=== PATIENT | female | born 1990 | race African-American/Black ===

== ENCOUNTER 2022-07-01 19:44 | Inpatient (IN) ==
[2022-07-01] MEDS ORDERED: SODIUM CHLORIDE 0.9% 1000ML 2,000 ML IV SCH (20:45)
[2022-07-01 21:17] LABS: Albumin Globulin Ratio 0.7 (0.9-2); Albumin Level 2.6 gm/dl (3.4-5.0); BUN Creatinine Ratio 19.7 (10-20); Bilirubin,Total 13.6 mg/dl (0.2-1.0); Calcium 6.8 mg/dl (8.5-10.1); Creatinine Clr Calc Pharmacy 38.4 ml/min; Est GFR (Non-African American) 33.6 ml/min; Globulin 3.6 gm/dl (2.5-4.0); Magnesium 2.8 mg/dl (1.7-2.4); Potassium 2.9 mmol/L (3.5-5.1); Total Protein 6.2 gm/dl (6.0-8.3)
[2022-07-01 21:28] LABS: INR 1.4 (0.9-1.1); Prothrombin Time 14.8 Seconds (9.0-12.0)
[2022-07-01] MEDS ORDERED: ACETAMINOPHEN 1,000 MG/100 ML VIAL IV STA (21:33)
[2022-07-01] MEDS ORDERED: PIPERACILLIN/TAZOBACTAM 4.5 GM/120 ML BAG IV ONE (21:41)
[2022-07-01 21:45] LABS: Basophils # (auto) 0.06 K/uL (0-0.2); Basophils % (auto) 0.4 %; Dohle Bodies 1+; Giant Platelets 1+; Hematocrit (blood only) 27.4 % (34.1-44.9); Hemoglobin 10.1 g/dl (12.0-16.0); Immature Granulocytes # (auto) 0.27 K/uL (0.00-0.02); Immature Granulocytes % (auto) 1.9 %; Lymphocytes # (auto) 0.57 K/uL (1.2-3.4); Mean Corpuscular Hemoglobin 29.6 pg (25.0-34.0); Mean Corpuscular Hgb Conc 36.9 g/dL (32.0-36.0); Mean Corpuscular Volume 80.4 fL (80.0-100.0); Monocytes # (auto) 1.08 K/uL (0.24-0.82); Monocytes % (auto) 7.5 %; Neutrophils # (auto) 12.34 K/uL (1.4-6.5); Neutrophils % (auto) 86.2 %; Platelet Count 54 K/uL (130-400); Platelet Estimate Decreased (Normal); Polychromasia 1+; RDW Coefficient of Variation 14.6 % (11.5-14.5); Red Blood Count 3.41 M/uL (3.93-5.22); Target Cells 2+; Toxic Vacuolation 3+; White Blood Count 14.32 K/ul (4.8-10.8)
[2022-07-01 22:07] LABS: Appearance Urine Turbid (Clear); Bacteria Urine Automated Negative (Negative); Blood Urine 3+ (Negative); Color Urine Dark Yellow; Epithelial Cell Urine Auto >30 /lpf (0-5); Glucose Urine UA Negative (Negative); Ketones Urine Negative (Negative); Leukocyte Esterase Urine Trace (Negative); Nitrite Urine Positive (Negative); Protein Urine 3+ (Negative); Specific Gravity Urine 1.017 (1.000-1.030); Urobilinogen Urine Negative (Negative)
[2022-07-01 22:09] LABS: Bilirubin Urine 3+ (Negative)
[2022-07-01] MEDS ORDERED: CALCIUM GLUCONATE 1,000 MG/60 ML BAG IV STA (22:12)
[2022-07-01 22:20] LABS: RBC Urine Automated 0-4 /hpf (0-4)
[2022-07-01 22:20] LABS: Adenovirus PCR Not Detected (NotDetected); Bordetella parapertussis PCR Not Detected (NotDetected); Bordetella pertussis PCR Not Detected (NotDetected); Chlamydia pneumoniae PCR Not Detected (NotDetected); Coronavirus 229E PCR Not Detected (NotDetected); Coronavirus CoV-2 (COVID19)PCR Not Detected (NotDetected); Coronavirus HKU1 PCR Not Detected (NotDetected); Coronavirus NL63 PCR Not Detected (NotDetected); Coronavirus OC43PCR Not Detected (NotDetected); Human Metapneumovirus PCR Not Detected (NotDetected); Influenza A PCR Not Detected (NotDetected); Influenza B PCR Not Detected (NotDetected); Mycoplasma pneumoniae PCR Not Detected (NotDetected); Parainfluenza Virus 1 PCR Not Detected (NotDetected); Parainfluenza Virus 2 PCR Not Detected (NotDetected); Parainfluenza Virus 3 PCR Not Detected (NotDetected); Parainfluenza Virus 4 PCR Not Detected (NotDetected); Respiratory Syncytial VirusPCR Not Detected (NotDetected); Rhinovirus/Enterovirus PCR Not Detected (NotDetected)
[2022-07-01 22:21] LABS: Cast Urine Automated >30 /lpf (0-5)
[2022-07-01] MEDS: POTASSIUM CHLORIDE / WTR 10 MEQ/100 ML PLCT IV SCH (22:36)
[2022-07-01 23:01] LABS: Pregnancy Test, Serum Negative (Negative)
[2022-07-01] MEDS ORDERED: POTASSIUM CHLORIDE 20 MEQ/15 ML UDC PO STA (23:31)
[2022-07-01] MEDS ORDERED: VANCOMYCIN CONSULT ACTIVE PRN (23:57)
[2022-07-02] MEDS ORDERED: OPTIRAY 350 100ml IV ONE (00:05)
[2022-07-02] MEDS: POTASSIUM CHLORIDE / WTR 10 MEQ/100 ML PLCT IV SCH ×4 (00:13→05:12)
[2022-07-02 00:52] LABS: Lyme Ab IgG w/WB Rflx Negative (Negative); Lyme Ab IgM w/WB Rflx Negative (Negative)
[2022-07-02] MEDS ORDERED: VANCOMYCIN HCL 1,750 MG in SODIUM CHLORIDE 0.9% 500 ML IV STA (00:57)
[2022-07-02] MEDS ORDERED: DOXYCYCLINE HYCLATE 100 MG in DEXTROSE 5% 100 ML IV SCH (01:00)
[2022-07-02 01:12] LABS: Amphetamines+Metham, Urine Neg (Neg); Barbiturates, Urine Neg (Neg); Benzodiazepine, Urine Neg (Neg); Cocaine, Urine Neg (Neg); MDMA (Ecstacy), Urine Neg (Neg); Methadone, Urine Neg (Neg); Opiate, Urine Neg (Neg); Phencyclidine, Urine Neg (Neg)
--- NOTE | 2022-07-02 01:30 | History and Physical Report ---
DATE OF ADMISSION: 07/01/2022. CHIEF COMPLAINT: Ongoing illness, sore throat. HISTORY OF PRESENT ILLNESS: A 31-year-old female with past medical history significant for asthma, currently not taking any medications, presents with sore throat, nausea, diarrhea. The patient was in the ER on 06/24/2022 with nausea, vomiting, diarrhea and sore throat. At that time, her white count was 2.3, platelets were 115. CT of abdomen and pelvis was unremarkable. Her COVID and flu and RSV were negative. Strep were negative. LFTs, bilirubin were unremarkable. Lipase and were negative. UA was clean. She improved after Zofran, morphine, and fluids and she was discharged to follow as outpatient. The patient says nausea is better now. Her appetite is better than last week. But she was having a lot of sore throat and painful to swallowing. She lives with her brother and [id number] and brother noticed that she has yellowing of skin and brought her into the hospital. She did not feel she has any fever at home, but she was spiking temperature 39.1 and 40 degrees in the ER and tachycardic. Blood pressure is holding. Her white count is 14, hemoglobin was 14 last week, it is 10.1 today, platelets are down to 54. INR is 1.4. Sodium 126, potassium 2.9. Creatinine was 1.5 last week and is 1.9 today. Calcium is 6.8. Total bilirubin was normal last week, it is 13.6 today. AST 108, ALT 61, alkaline phosphatase 122. Urinalysis positive for nitrite. Respiratory BioFire is negative. The patient also noticed erythema and swelling in the right hand on the dorsal aspect below the second and third fingers. Denies any tick bites. Denies any IV drug abuse or sticking of needles. Feeling weak and tired. Denies any chest pain. She has some shortness of breath. Denies any abdominal pain. No blood in the stools. Urine is dark. Denies any headache. No blurred visions, no runny nose. ALLERGIES: No known drug allergies. PAST MEDICAL HISTORY: As mentioned above. PAST SURGICAL HISTORY: Denies any surgical history FAMILY HISTORY: Denies any family history. SOCIAL HISTORY: Denies smoking, denies alcohol, denies any drug use. REVIEW OF SYSTEMS: As per HPI. Rest of review of systems is negative. PHYSICAL EXAMINATION: GENERAL: The patient is of moderate build, currently not in acute distress. VITAL SIGNS: Temperature T-max 40 degrees, pulse 120s, currently in low 100s, respiratory rate 20s, blood pressure 120/51, oxygen 95% on room air. HEENT: Icterus present. Pupils equal, round, and reactive to light. Oral mucosa moist. Could not examine the back of the throat. NECK: No obvious neck masses seen. Seems supple. CARDIOVASCULAR: S1 and S2 heard. Tachycardia. No murmurs. RESPIRATORY SYSTEM: Normal AP diameter. No accessory muscle use. No wheezing, no crackles. ABDOMEN: Soft, bowel sounds present, nontender, no distention. CENTRAL NERVOUS SYSTEM: Alert and oriented, speaking in low voices. Speech is clear. No facial droop. Insight is okay. Obeys simple commands. Moves extremities. EXTREMITIES: Has rash, erythema and swelling in the right hand on the dorsal aspect below the second and third fingers. LABORATORY DATA: WBC 14, hemoglobin 10.1, hematocrit 27.4, platelets 54. PT 14.8, INR 1.4. Sodium 126, potassium 2.9, chloride 90, bicarbonate 22, BUN 38, creatinine 1.9, serum glucose 94, calcium 6.8, magnesium 2.8, total bilirubin 13.6, AST 108, ALT 61, alkaline phosphatase 122. TSH 0.4. HCG qualitative negative. Urinalysis, +3 protein, +3 blood and bilirubin and positive for nitrite. Respiratory biofire unremarkable. IMAGING DATA: CT head, CT chest, and CT abdomen and pelvis and soft tissue neck CT results are pending. Chest x-ray, no acute findings. EKG: Sinus tachycardia at a rate of 120. No acute ST changes seen. ASSESSMENT AND PLAN: This is a 31-year-old female who presents with ongoing illness with nausea, diarrhea, weakness and sore throat and painful swallowing and found to have elevated LFTs and anemia and thrombocytopenia, hyponatremia, hypokalemia, and hypocalcemia. 1. Mostly sepsis with tachycardia, temperature spike, elevated white count, sore throat, possible UTI. Will also rule out any tick bite as the patient has rash on the wrist and has thrombocytopenia. Ordered Lyme screen and peripheral anaplasmosis smear. Follow the cultures. Empirically starting on Zosyn, vancomycin, and doxycycline. IV fluids, normal saline at 125 mL per hour. Follow the lactic acid level. Closely monitor in tele floor. Follow the repeat labs. 2. Elevated LFTs. They were normal on 06/24/2022. Today bilirubin is 13.6, AST 108, ALT 61, alkaline phosphatase 122. CT abdomen and pelvis was normal last week. Will follow CAT scan ordered today. Will follow the repeat labs. Will follow the viral hepatitis panel. Consult GI for further recommendations. 3. Hypocalcemia: Will replace. Follow the repeat labs. 4. Hyponatremia: Getting fluids. Will follow the repeat labs. Consult nephrology in the a.m. 5. Hypokalemia: Will replace. 6. Acute kidney injury: Creatinine of 1.9. We do not have the baseline, last week it was 1.5. Will follow the repeat labs. 7. Deep venous thrombosis prophylaxis: Sequential compression devices for now. Addendum: Ct soft neck preliminary report showing left tonsillar abscess extending into deep tissues. D/w and consulted ENT. ON iv zosyn and iv vanco. NPO. CT chest showing multiple nodules and cavitary lesions. Questionable septic emboli. Will follow final report. Abx as above and consulted Pulmonary. Close monitor. DISPOSITION: Closely monitor in the tele floor. Level 1 full code. Expect to discharge home and follow with family doctor. Job ID: [id number] [facility]
--- NOTE | 2022-07-02 01:42 | Emergency Department Note ---
Impression & Plan Abscess of tonsil, Septic pulmonary embolism, Fever ED Provider Note CHIEF COMPLAINT: Fever, sore throat, neck swelling, weakness HISTORY OF PRESENT ILLNESS: This 31-year-old female patient presents to the emergency department with complaints of a fever, sore throat, neck tightness and weakness. She states symptoms have been present for a week or more and seem to be progressing. She was evaluated here several days ago for nausea and vomiting and seemed to be improving. Laboratory work at that time revealed a mild leukopenia, hypokalemia and renal insufficiency. Pt also c/o mild JACINTO. Patient states her symptoms have only been progressing and today her brother noticed that she had yellow eyes. Patient denies any significant alcohol consumption or substance abuse. She does note that today when she woke up her left hand had significant swelling and redness. She denies any specific trauma to this area but states it is sore. The redness also extends from the palmar surface to the dorsal surface of the hand. REVIEW OF SYSTEMS: A review of systems was performed with positives and pertinent negatives listed in the history of present illness. 10 systems were reviewed and are otherwise negative. ALLERGIES: see below MEDICATIONS: see below PMH: see below SOCIAL HISTORY: see below DDx: Infection, dehydration, metabolic abnormality, hypo/hyperglycemia, electrolyte disturbance, anemia, hypoxia, cardiac sources, intracerebral event, toxicologic, neurologic, as well as other pathologies. PHYSICAL EXAM: Vital signs reviewed. Febrile and tachycardic. General: Ill-appearing 31-year-old female. Frail HEENT: Positive scleral icterus, PERRLA, significant lymphadenopathy bilateral submandibular region and anterior cervical chain. TMs with mild erythema and posterior clear/serous fluid on the left, right TM is obscured by cerumen. Positive trismus,unable to visualize the posterior oropharynx. Cardiovascular: Tachycardic, regular. Pulmonary: Faint scattered wheezes with occasional crackles to auscultation bilaterally, normal work of breathing. Abdomen: Soft, nontender, nondistended, positive bowel sounds. Musculoskeletal: Atraumatic, no peripheral edema. Neurologic: Patient awake alert and oriented x 3, speech is clear Skin: Warm, dry, no rash EMERGENCY DEPARTMENT COURSE/MDM: Patient was evaluated and appeared to be in no significant distress. IV access was obtained and laboratory work was drawn. The patient was placed on residential monitor and noted to be in a sinus tachycardia. She was febrile. Patient's laboratory work is significantly de ranged. She does have an elevated WBC, hyponatremia, hypokalemia, creatinine of 1.96 with elevated LFTs including a bilirubin of 13. Patient was given 2 L of IV normal saline solution. CT imaging of the head, soft tissue neck, chest and abdomen was performed and reveals what is likely to be septic emboli per radiology. Please see the formal read below. Patient did receive blood cultures and a lactate, she was medicated with IV Zosyn. CT imaging of the soft tissues of the neck reveals 2 separate tonsillar abscesses. Patient was advised of the findings and plan. Case has been discussed with the [facility] hospitalist for admission and further management. Patient was expressed understanding and agrees. MONITORING: An order for cardiac monitoring was placed and the patient is noted to be in a sinus tachycardia at 124 beats per minute. RADIOLOGY: See below EKG: Sinus tachycardia at [address] segments. QTC is 449. No PVC, no PAC. No previous EKG for comparison. DISPOSITION: Admission Past Med/Surg History Medical History HARRY (acute kidney injury) Anemia Asthma Cavitary pneumonia Electrolyte and fluid disorder Elevated LFTs Lemierre syndrome Sepsis Thrombocytopenia Surgical History Hx of peritonsillar abscess drainage Family History Other Family history non-contributory Social History Smoking Status: Former smoker Second Hand Exposure: No; Do You Dip or Chew Tobacco: No; Hx Alcohol Use: No Hx Substance Use: No Preferred Language: Jamaican Communication Ability: Impaired Prosthetic Aides Teacher Required: No Beliefs That Will Affect Care: None Current Living Situation: Family Feels Safe at Home: Yes Safety Concerns: Feels Safe At This Time Assistive Devices: None Allergies Allergies Allergy/AdvReac Type Severity Reaction Status Date / Time No Known Allergies Allergy Verified 07/01/22 23:49 Home Meds Home Medications Medication Instructions Recorded Confirmed No Known Home Medications 07/01/22 07/01/22 Results & Data (ED) Vital Signs Vital Signs - 24 hr 07/01/22 19:35 07/01/22 19:36 07/01/22 20:38 Temperature 39.1 C H 39.1 C H Temperature Source Oral Oral Pulse Rate 124 H 128 H Pulse Rate [Apical] 124 H Pulse Rate from SpO2 Sensor Pulse Rhythm Regular Regular Pulse Rhythm [Apical] Regular Pulse Strength Normal Respiratory Rate 22 22 18 Respiratory Effort / Characteristics Non-Labored Respiratory Depth Normal Respiratory Pattern Regular Blood Pressure 149/71 H Blood Pressure Mean 97 Pulse Oximetry 96 99 98 Oxygen Delivery Method Room Air Room Air Room Air Sepsis New/Unexplained Change in Mental Status No Sepsis Action Taken by Nursing Previously Notified 07/01/22 22:49 07/01/22 20:12 07/01/22 20:30 Temperature 40 C H Temperature Source Oral Pulse Rate 118 H 125 H Pulse Rate [Apical] Pulse Rate from SpO2 Sensor 117 H 128 H Pulse Rhythm Pulse Rhythm [Apical] Pulse Strength Respiratory Rate 25 H 32 H Respiratory Effort / Characteristics Respiratory Depth Respiratory Pattern Blood Pressure 111/71 109/85 Blood Pressure Mean 84 93 Pulse Oximetry 99 96 Oxygen Delivery Method Sepsis New/Unexplained Change in Mental Status Sepsis Action Taken by Nursing 07/01/22 21:00 07/01/22 21:30 07/01/22 22:00 Temperature Temperature Source Pulse Rate 121 H 127 H 135 H Pulse Rate [Apical] Pulse Rate from SpO2 Sensor 123 H 130 H 136 H Pulse Rhythm Pulse Rhythm [Apical] Pulse Strength Respiratory Rate 17 27 H 29 H Respiratory Effort / Characteristics Respiratory Depth Respiratory Pattern Blood Pressure 142/70 H 124/73 141/72 H Blood Pressure Mean 94 90 95 Pulse Oximetry 95 100 95 Oxygen Delivery Method Sepsis New/Unexplained Change in Mental Status Sepsis Action Taken by Nursing 07/01/22 22:30 07/02/22 00:00 07/01/22 23:00 Temperature 38.4 C H Temperature Source Oral Pulse Rate 127 H 118 H Pulse Rate [Apical] Pulse Rate from SpO2 Sensor 118 H Pulse Rhythm Pulse Rhythm [Apical] Pulse Strength Respiratory Rate 29 H 22 Respiratory Effort / Characteristics Respiratory Depth Respiratory Pattern Blood Pressure 122/51 L 106/52 L Blood Pressure Mean 74 70 Pulse Oximetry 96 Oxygen Delivery Method Sepsis New/Unexplained Change in Mental Status Sepsis Action Taken by Nursing 07/01/22 23:30 07/02/22 00:16 Temperature Temperature Source Pulse Rate 114 H 117 H Pulse Rate [Apical] Pulse Rate from SpO2 Sensor 116 H 118 H Pulse Rhythm Pulse Rhythm [Apical] Pulse Strength Respiratory Rate 27 H 25 H Respiratory Effort / Characteristics Respiratory Depth Respiratory Pattern Blood Pressure 136/66 136/62 Blood Pressure Mean 89 86 Pulse Oximetry 99 95 Oxygen Delivery Method Sepsis New/Unexplained Change in Mental Status Sepsis Action Taken by Shelter Medications Current Medication List: was personally reviewed by me Laboratory Data Attestation: I reviewed the patient's lab results. Result diagrams: 07/07/22 05:27 07/07/22 05:27 Lab Results 07/01/22 07/01/22 07/01/22 Range/Units 20:00 20:00 20:00 WBC 14.32 H (4.8-10.8) K/ul RBC 3.41 L (3.93-5.22) M/uL Hgb 10.1 L (12.0-16.0) g/dl Hct 27.4 L (34.1-44.9) % MCV 80.4 (80.0-100.0) fL MCH 29.6 (25.0-34.0) pg MCHC 36.9 H (32.0-36.0) g/dL RDW Std Deviation 42.0 (36.4-46.3) fL RDW Coeff of Carrol 14.6 H (11.5-14.5) % Plt Count 54 L (130-400) K/uL Immature Gran % (Auto) 1.9 % Neut % (Auto) 86.2 % Lymph % (Auto) 4.0 % [place] % (Auto) 7.5 % Eos % (Auto) 0.0 % Baso % (Auto) 0.4 % Neut # (Auto) 12.34 H (1.4-6.5) K/uL Lymph # (Auto) 0.57 L (1.2-3.4) K/uL [place] # (Auto) 1.08 H (0.24-0.82) K/uL Eos # (Auto) 0.00 (0-0.50) K/uL Baso # (Auto) 0.06 (0-0.2) K/uL Immature Gran # (Auto) 0.27 H (0.00-0.02) K/uL Toxic Vacuolation 3+ Dohle Bodies 1+ Platelet Estimate Decreased L (Normal) Giant Platelets 1+ Polychromasia 1+ Target Cells 2+ PT 14.8 H (9.0-12.0) Seconds INR 1.4 H (0.9-1.1) Sodium 126 L (136-145) mmol/L Potassium 2.9 L (3.5-5.1) mmol/L Chloride 90 L (98-107) mmol/L Carbon Dioxide 22 (21-32) mmol/L Anion Gap 14 H (3-11) BUN 38 H (6-23) mg/dl Creatinine 1.93 H (0.6-1.2) mg/dl Est Cr Clr Drug Dosing 38.4 ml/min Est GFR ( Amer) 39.0 ml/min Est GFR (Non-Af Amer) 33.6 ml/min BUN/Creatinine Ratio 19.7 (10-20) Glucose 94 (70-99(Fasting)) mg/dl Lactate Calcium 6.8 L (8.5-10.1) mg/dl Magnesium 2.8 H (1.7-2.4) mg/dl Total Bilirubin 13.6 H (0.2-1.0) mg/dl AST 108 H (13-39) U/L ALT 61 H (7-52) U/L Alkaline Phosphatase 122 H (34-104) U/L Total Protein 6.2 (6.0-8.3) gm/dl Albumin 2.6 L (3.4-5.0) gm/dl Globulin 3.6 (2.5-4.0) gm/dl Albumin/Globulin Ratio 0.7 L (0.9-2) TSH (0.300-4.500) uIu/ml HCG, Qual (Negative) Urine Color Urine Appearance (Clear) Urine pH (4.5-7.5) Ur Specific [place] (1.000-1.030) Urine Protein (Negative) Urine Glucose (UA) (Negative) Urine Ketones (Negative) Urine Blood (Negative) Urine Nitrite (Negative) Urine Bilirubin (Negative) Urine Urobilinogen (Negative) Ur Leukocyte Esterase (Negative) Urine WBC (Auto) (0-5) /hpf Urine RBC (Auto) (0-4) /hpf U Hyaline Cast (Auto) (0-5) /lpf U Epithel Cells (Auto) (0-5) /lpf Urine Bacteria (Auto) (Negative) Granular Casts (0) /lpf Urine Yeast Urine Opiates Screen (Neg) Ur Methadone, Qual (Neg) Urine Barbiturates (Neg) Ur Phencyclidine (PCP) (Neg) U Amphetamin/Meth Scrn (Neg) MDMA (Ecstasy) Screen (Neg) U Benzodiazepines Scrn (Neg) Ur Cocaine Metabolite (Neg) U Marijuana (THC) Screen (Neg) U Marijuana THC Carboxy (<5) ng/mL Drug Screen Comment RPR (Nonreactive) Adenovirus (PCR) (NotDetected) Anaplasma Smear Babesia Smear Babesia microti DNA PCR (Not Detected) B. pertussis DNA (PCR) (NotDetected) B.parapertussis DNA PCR (NotDetected) Lyme Disease IgG Ab (Negative) Lyme Disease IgM Ab (Negative) C. pneumoniae DNA (PCR) (NotDetected) Coronavirus OC43 (PCR) (NotDetected) Coronavirus HKU1 (PCR) (NotDetected) Coronavirus 229E (PCR) (NotDetected) SARS-CoV-2 (PCR) (NotDetected) Coronavirus NL63 (PCR) (NotDetected) Hepatitis A IgM Ab (NON-REACTIVE) Hep Bs Antigen (NON-REACTIVE) Hep Bs Ag Confirmation Hep B Core IgM Ab (NON-REACTIVE) Hepatitis C Ab (EIA) (NON-REACTIVE) Hep C Ab Signal/Cutoff (<1.00) Monoscreen (Negative) Human Metapneumovir PCR (NotDetected) Influenza Type A (PCR) (NotDetected) Influenza Type B (PCR) (NotDetected) M. pneumoniae (PCR) (NotDetected) Parainfluenza 1 (PCR) (NotDetected) Parainfluenza 2 (PCR) (NotDetected) Parainfluenza 3 (PCR) (NotDetected) Parainfluenza 4 (PCR) (NotDetected) RSV (PCR) (NotDetected) Entero/Rhino (PCR) (NotDetected) Bld Cult ID Panel PCR (NotDetected) 07/01/22 07/01/22 07/01/22 Range/Units 20:00 20:00 20:00 WBC (4.8-10.8) K/ul RBC (3.93-5.22) M/uL Hgb (12.0-16.0) g/dl Hct (34.1-44.9) % MCV (80.0-100.0) fL MCH (25.0-34.0) pg MCHC (32.0-36.0) g/dL RDW Std Deviation (36.4-46.3) fL RDW Coeff of Carrol (11.5-14.5) % Plt Count (130-400) K/uL Immature Gran % (Auto) % Neut % (Auto) % Lymph % (Auto) % [place] % (Auto) % Eos % (Auto) % Baso % (Auto) % Neut # (Auto) (1.4-6.5) K/uL Lymph # (Auto) (1.2-3.4) K/uL [place] # (Auto) (0.24-0.82) K/uL Eos # (Auto) (0-0.50) K/uL Baso # (Auto) (0-0.2) K/uL Immature Gran # (Auto) (0.00-0.02) K/uL Toxic Vacuolation Dohle Bodies Platelet Estimate (Normal) Giant Platelets Polychromasia Target Cells PT (9.0-12.0) Seconds INR (0.9-1.1) Sodium (136-145) mmol/L Potassium (3.5-5.1) mmol/L Chloride (98-107) mmol/L Carbon Dioxide (21-32) mmol/L Anion Gap (3-11) BUN (6-23) mg/dl Creatinine (0.6-1.2) mg/dl Est Cr Clr Drug Dosing ml/min Est GFR ( Amer) ml/min Est GFR (Non-Af Amer) ml/min BUN/Creatinine Ratio (10-20) Glucose (70-99(Fasting)) mg/dl Lactate Calcium (8.5-10.1) mg/dl Magnesium (1.7-2.4) mg/dl Total Bilirubin (0.2-1.0) mg/dl AST (13-39) U/L ALT (7-52) U/L Alkaline Phosphatase (34-104) U/L Total Protein (6.0-8.3) gm/dl Albumin (3.4-5.0) gm/dl Globulin (2.5-4.0) gm/dl Albumin/Globulin Ratio (0.9-2) TSH 0.476 (0.300-4.500) uIu/ml HCG, Qual (Negative) Urine Color Urine Appearance (Clear) Urine pH (4.5-7.5) Ur Specific [place] (1.000-1.030) Urine Protein (Negative) Urine Glucose (UA) (Negative) Urine Ketones (Negative) Urine Blood (Negative) Urine Nitrite (Negative) Urine Bilirubin (Negative) Urine Urobilinogen (Negative) Ur Leukocyte Esterase (Negative) Urine WBC (Auto) (0-5) /hpf Urine RBC (Auto) (0-4) /hpf U Hyaline Cast (Auto) (0-5) /lpf U Epithel Cells (Auto) (0-5) /lpf Urine Bacteria (Auto) (Negative) Granular Casts (0) /lpf Urine Yeast Urine Opiates Screen (Neg) Ur Methadone, Qual (Neg) Urine Barbiturates (Neg) Ur Phencyclidine (PCP) (Neg) U Amphetamin/Meth Scrn (Neg) MDMA (Ecstasy) Screen (Neg) U Benzodiazepines Scrn (Neg) Ur Cocaine Metabolite (Neg) U Marijuana (THC) Screen (Neg) U Marijuana THC Carboxy (<5) ng/mL Drug Screen Comment RPR (Nonreactive) Adenovirus (PCR) (NotDetected) Anaplasma Smear Babesia Smear Babesia microti DNA PCR (Not Detected) B. pertussis DNA (PCR) (NotDetected) B.parapertussis DNA PCR (NotDetected) Lyme Disease IgG Ab (Negative) Lyme Disease IgM Ab (Negative) C. pneumoniae DNA (PCR) (NotDetected) Coronavirus OC43 (PCR) (NotDetected) Coronavirus HKU1 (PCR) (NotDetected) Coronavirus 229E (PCR) (NotDetected) SARS-CoV-2 (PCR) (NotDetected) Coronavirus NL63 (PCR) (NotDetected) Hepatitis A IgM Ab NON-REACTIVE (NON-REACTIVE) Hep Bs Antigen NON-REACTIVE (NON-REACTIVE) Hep Bs Ag Confirmation TNP Hep B Core IgM Ab NON-REACTIVE (NON-REACTIVE) Hepatitis C Ab (EIA) NON-REACTIVE (NON-REACTIVE) Hep C Ab Signal/Cutoff 0.02 (<1.00) Monoscreen Negative (Negative) Human Metapneumovir PCR (NotDetected) Influenza Type A (PCR) (NotDetected) Influenza Type B (PCR) (NotDetected) M. pneumoniae (PCR) (NotDetected) Parainfluenza 1 (PCR) (NotDetected) Parainfluenza 2 (PCR) (NotDetected) Parainfluenza 3 (PCR) (NotDetected) Parainfluenza 4 (PCR) (NotDetected) RSV (PCR) (NotDetected) Entero/Rhino (PCR) (NotDetected) Bld Cult ID Panel PCR (NotDetected) 07/01/22 07/01/22 07/01/22 Range/Units 20:00 20:00 20:00 WBC (4.8-10.8) K/ul RBC (3.93-5.22) M/uL Hgb (12.0-16.0) g/dl Hct (34.1-44.9) % MCV (80.0-100.0) fL MCH (25.0-34.0) pg MCHC (32.0-36.0) g/dL RDW Std Deviation (36.4-46.3) fL RDW Coeff of Carrol (11.5-14.5) % Plt Count (130-400) K/uL Immature Gran % (Auto) % Neut % (Auto) % Lymph % (Auto) % [place] % (Auto) % Eos % (Auto) % Baso % (Auto) % Neut # (Auto) (1.4-6.5) K/uL Lymph # (Auto) (1.2-3.4) K/uL [place] # (Auto) (0.24-0.82) K/uL Eos # (Auto) (0-0.50) K/uL Baso # (Auto) (0-0.2) K/uL Immature Gran # (Auto) (0.00-0.02) K/uL Toxic Vacuolation Dohle Bodies Platelet Estimate (Normal) Giant Platelets Polychromasia Target Cells PT (9.0-12.0) Seconds INR (0.9-1.1) Sodium (136-145) mmol/L Potassium (3.5-5.1) mmol/L Chloride (98-107) mmol/L Carbon Dioxide (21-32) mmol/L Anion Gap (3-11) BUN (6-23) mg/dl Creatinine (0.6-1.2) mg/dl Est Cr Clr Drug Dosing ml/min Est GFR ( Amer) ml/min Est GFR (Non-Af Amer) ml/min BUN/Creatinine Ratio (10-20) Glucose (70-99(Fasting)) mg/dl Lactate Calcium (8.5-10.1) mg/dl Magnesium (1.7-2.4) mg/dl Total Bilirubin (0.2-1.0) mg/dl AST (13-39) U/L ALT (7-52) U/L Alkaline Phosphatase (34-104) U/L Total Protein (6.0-8.3) gm/dl Albumin (3.4-5.0) gm/dl Globulin (2.5-4.0) gm/dl Albumin/Globulin Ratio (0.9-2) TSH (0.300-4.500) uIu/ml HCG, Qual Negative (Negative) Urine Color Urine Appearance (Clear) Urine pH (4.5-7.5) Ur Specific [place] (1.000-1.030) Urine Protein (Negative) Urine Glucose (UA) (Negative) Urine Ketones (Negative) Urine Blood (Negative) Urine Nitrite (Negative) Urine Bilirubin (Negative) Urine Urobilinogen (Negative) Ur Leukocyte Esterase (Negative) Urine WBC (Auto) (0-5) /hpf Urine RBC (Auto) (0-4) /hpf U Hyaline Cast (Auto) (0-5) /lpf U Epithel Cells (Auto) (0-5) /lpf Urine Bacteria (Auto) (Negative) Granular Casts (0) /lpf Urine Yeast Urine Opiates Screen (Neg) Ur Methadone, Qual (Neg) Urine Barbiturates (Neg) Ur Phencyclidine (PCP) (Neg) U Amphetamin/Meth Scrn (Neg) MDMA (Ecstasy) Screen (Neg) U Benzodiazepines Scrn (Neg) Ur Cocaine Metabolite (Neg) U Marijuana (THC) Screen (Neg) U Marijuana THC Carboxy (<5) ng/mL Drug Screen Comment RPR Nonreactive (Nonreactive) Adenovirus (PCR) (NotDetected) Anaplasma Smear See Comment Babesia Smear See Comment Babesia microti DNA PCR (Not Detected) B. pertussis DNA (PCR) (NotDetected) B.parapertussis DNA PCR (NotDetected) Lyme Disease IgG Ab Negative (Negative) Lyme Disease IgM Ab Negative (Negative) C. pneumoniae DNA (PCR) (NotDetected) Coronavirus OC43 (PCR) (NotDetected) Coronavirus HKU1 (PCR) (NotDetected) Coronavirus 229E (PCR) (NotDetected) SARS-CoV-2 (PCR) (NotDetected) Coronavirus NL63 (PCR) (NotDetected) Hepatitis A IgM Ab (NON-REACTIVE) Hep Bs Antigen (NON-REACTIVE) Hep Bs Ag Confirmation Hep B Core IgM Ab (NON-REACTIVE) Hepatitis C Ab (EIA) (NON-REACTIVE) Hep C Ab Signal/Cutoff (<1.00) Monoscreen (Negative) Human Metapneumovir PCR (NotDetected) Influenza Type A (PCR) (NotDetected) Influenza Type B (PCR) (NotDetected) M. pneumoniae (PCR) (NotDetected) Parainfluenza 1 (PCR) (NotDetected) Parainfluenza 2 (PCR) (NotDetected) Parainfluenza 3 (PCR) (NotDetected) Parainfluenza 4 (PCR) (NotDetected) RSV (PCR) (NotDetected) Entero/Rhino (PCR) (NotDetected) Bld Cult ID Panel PCR (NotDetected) 07/01/22 07/01/22 07/01/22 Range/Units 20:00 20:00 20:38 WBC (4.8-10.8) K/ul RBC (3.93-5.22) M/uL Hgb (12.0-16.0) g/dl Hct (34.1-44.9) % MCV (80.0-100.0) fL MCH (25.0-34.0) pg MCHC (32.0-36.0) g/dL RDW Std Deviation (36.4-46.3) fL RDW Coeff of Carrol (11.5-14.5) % Plt Count (130-400) K/uL Immature Gran % (Auto) % Neut % (Auto) % Lymph % (Auto) % [place] % (Auto) % Eos % (Auto) % Baso % (Auto) % Neut # (Auto) (1.4-6.5) K/uL Lymph # (Auto) (1.2-3.4) K/uL [place] # (Auto) (0.24-0.82) K/uL Eos # (Auto) (0-0.50) K/uL Baso # (Auto) (0-0.2) K/uL Immature Gran # (Auto) (0.00-0.02) K/uL Toxic Vacuolation Dohle Bodies Platelet Estimate (Normal) Giant Platelets Polychromasia Target Cells PT (9.0-12.0) Seconds INR (0.9-1.1) Sodium (136-145) mmol/L Potassium (3.5-5.1) mmol/L Chloride (98-107) mmol/L Carbon Dioxide (21-32) mmol/L Anion Gap (3-11) BUN (6-23) mg/dl Creatinine (0.6-1.2) mg/dl Est Cr Clr Drug Dosing ml/min Est GFR ( Amer) ml/min Est GFR (Non-Af Amer) ml/min BUN/Creatinine Ratio (10-20) Glucose (70-99(Fasting)) mg/dl Lactate Calcium (8.5-10.1) mg/dl Magnesium (1.7-2.4) mg/dl Total Bilirubin (0.2-1.0) mg/dl AST (13-39) U/L ALT (7-52) U/L Alkaline Phosphatase (34-104) U/L Total Protein (6.0-8.3) gm/dl Albumin (3.4-5.0) gm/dl Globulin (2.5-4.0) gm/dl Albumin/Globulin Ratio (0.9-2) TSH (0.300-4.500) uIu/ml HCG, Qual (Negative) Urine Color Urine Appearance (Clear) Urine pH (4.5-7.5) Ur Specific [place] (1.000-1.030) Urine Protein (Negative) Urine Glucose (UA) (Negative) Urine Ketones (Negative) Urine Blood (Negative) Urine Nitrite (Negative) Urine Bilirubin (Negative) Urine Urobilinogen (Negative) Ur Leukocyte Esterase (Negative) Urine WBC (Auto) (0-5) /hpf Urine RBC (Auto) (0-4) /hpf U Hyaline Cast (Auto) (0-5) /lpf U Epithel Cells (Auto) (0-5) /lpf Urine Bacteria (Auto) (Negative) Granular Casts (0) /lpf Urine Yeast Urine Opiates Screen Neg (Neg) Ur Methadone, Qual Neg (Neg) Urine Barbiturates Neg (Neg) Ur Phencyclidine (PCP) Neg (Neg) U Amphetamin/Meth Scrn Neg (Neg) MDMA (Ecstasy) Screen Neg (Neg) U Benzodiazepines Scrn Neg (Neg) Ur Cocaine Metabolite Neg (Neg) U Marijuana (THC) Screen Pos H (Neg) U Marijuana THC Carboxy (<5) ng/mL Drug Screen Comment RPR (Nonreactive) Adenovirus (PCR) (NotDetected) Anaplasma Smear Babesia Smear Babesia microti DNA PCR Not Detected (Not Detected) B. pertussis DNA (PCR) (NotDetected) B.parapertussis DNA PCR (NotDetected) Lyme Disease IgG Ab (Negative) Lyme Disease IgM Ab (Negative) C. pneumoniae DNA (PCR) (NotDetected) Coronavirus OC43 (PCR) (NotDetected) Coronavirus HKU1 (PCR) (NotDetected) Coronavirus 229E (PCR) (NotDetected) SARS-CoV-2 (PCR) (NotDetected) Coronavirus NL63 (PCR) (NotDetected) Hepatitis A IgM Ab (NON-REACTIVE) Hep Bs Antigen (NON-REACTIVE) Hep Bs Ag Confirmation Hep B Core IgM Ab (NON-REACTIVE) Hepatitis C Ab (EIA) (NON-REACTIVE) Hep C Ab Signal/Cutoff (<1.00) Monoscreen (Negative) Human Metapneumovir PCR (NotDetected) Influenza Type A (PCR) (NotDetected) Influenza Type B (PCR) (NotDetected) M. pneumoniae (PCR) (NotDetected) Parainfluenza 1 (PCR) (NotDetected) Parainfluenza 2 (PCR) (NotDetected) Parainfluenza 3 (PCR) (NotDetected) Parainfluenza 4 (PCR) (NotDetected) RSV (PCR) (NotDetected) Entero/Rhino (PCR) (NotDetected) Bld Cult ID Panel PCR PCR Panel Negative (NotDetected) 07/01/22 07/01/22 07/01/22 Range/Units 20:38 21:29 21:49 WBC (4.8-10.8) K/ul RBC (3.93-5.22) M/uL Hgb (12.0-16.0) g/dl Hct (34.1-44.9) % MCV (80.0-100.0) fL MCH (25.0-34.0) pg MCHC (32.0-36.0) g/dL RDW Std Deviation (36.4-46.3) fL RDW Coeff of Carrol (11.5-14.5) % Plt Count (130-400) K/uL Immature Gran % (Auto) % Neut % (Auto) % Lymph % (Auto) % [place] % (Auto) % Eos % (Auto) % Baso % (Auto) % Neut # (Auto) (1.4-6.5) K/uL Lymph # (Auto) (1.2-3.4) K/uL [place] # (Auto) (0.24-0.82) K/uL Eos # (Auto) (0-0.50) K/uL Baso # (Auto) (0-0.2) K/uL Immature Gran # (Auto) (0.00-0.02) K/uL Toxic Vacuolation Dohle Bodies Platelet Estimate (Normal) Giant Platelets Polychromasia Target Cells PT (9.0-12.0) Seconds INR (0.9-1.1) Sodium (136-145) mmol/L Potassium (3.5-5.1) mmol/L Chloride (98-107) mmol/L Carbon Dioxide (21-32) mmol/L Anion Gap (3-11) BUN (6-23) mg/dl Creatinine (0.6-1.2) mg/dl Est Cr Clr Drug Dosing ml/min Est GFR ( Amer) ml/min Est GFR (Non-Af Amer) ml/min BUN/Creatinine Ratio (10-20) Glucose (70-99(Fasting)) mg/dl Lactate Calcium (8.5-10.1) mg/dl Magnesium (1.7-2.4) mg/dl Total Bilirubin (0.2-1.0) mg/dl AST (13-39) U/L ALT (7-52) U/L Alkaline Phosphatase (34-104) U/L Total Protein (6.0-8.3) gm/dl Albumin (3.4-5.0) gm/dl Globulin (2.5-4.0) gm/dl Albumin/Globulin Ratio (0.9-2) TSH (0.300-4.500) uIu/ml HCG, Qual (Negative) Urine Color Dark Yellow Urine Appearance Turbid A (Clear) Urine pH 5.0 (4.5-7.5) Ur Specific [place] 1.017 (1.000-1.030) Urine Protein 3+ H (Negative) Urine Glucose (UA) Negative (Negative) Urine Ketones Negative (Negative) Urine Blood 3+ H (Negative) Urine Nitrite Positive A (Negative) Urine Bilirubin 3+ H (Negative) Urine Urobilinogen Negative (Negative) Ur Leukocyte Esterase Trace H (Negative) Urine WBC (Auto) 1-5 (0-5) /hpf Urine RBC (Auto) 0-4 (0-4) /hpf U Hyaline Cast (Auto) >30 H (0-5) /lpf U Epithel Cells (Auto) >30 H (0-5) /lpf Urine Bacteria (Auto) Negative (Negative) Granular Casts 10-20 H (0) /lpf Urine Yeast Not Reportable Urine Opiates Screen (Neg) Ur Methadone, Qual (Neg) Urine Barbiturates (Neg) Ur Phencyclidine (PCP) (Neg) U Amphetamin/Meth Scrn (Neg) MDMA (Ecstasy) Screen (Neg) U Benzodiazepines Scrn (Neg) Ur Cocaine Metabolite (Neg) U Marijuana (THC) Screen (Neg) U Marijuana THC Carboxy 88 H (<5) ng/mL Drug Screen Comment SEE NOTE RPR (Nonreactive) Adenovirus (PCR) Not Detected (NotDetected) Anaplasma Smear Babesia Smear Babesia microti DNA PCR (Not Detected) B. pertussis DNA (PCR) Not Detected (NotDetected) B.parapertussis DNA PCR Not Detected (NotDetected) Lyme Disease IgG Ab (Negative) Lyme Disease IgM Ab (Negative) C. pneumoniae DNA (PCR) Not Detected (NotDetected) Coronavirus OC43 (PCR) Not Detected (NotDetected) Coronavirus HKU1 (PCR) Not Detected (NotDetected) Coronavirus 229E (PCR) Not Detected (NotDetected) SARS-CoV-2 (PCR) Not Detected (NotDetected) Coronavirus NL63 (PCR) Not Detected (NotDetected) Hepatitis A IgM Ab (NON-REACTIVE) Hep Bs Antigen (NON-REACTIVE) Hep Bs Ag Confirmation Hep B Core IgM Ab (NON-REACTIVE) Hepatitis C Ab (EIA) (NON-REACTIVE) Hep C Ab Signal/Cutoff (<1.00) Monoscreen (Negative) Human Metapneumovir PCR Not Detected (NotDetected) Influenza Type A (PCR) Not Detected (NotDetected) Influenza Type B (PCR) Not Detected (NotDetected) M. pneumoniae (PCR) Not Detected (NotDetected) Parainfluenza 1 (PCR) Not Detected (NotDetected) Parainfluenza 2 (PCR) Not Detected (NotDetected) Parainfluenza 3 (PCR) Not Detected (NotDetected) Parainfluenza 4 (PCR) Not Detected (NotDetected) RSV (PCR) Not Detected (NotDetected) Entero/Rhino (PCR) Not Detected (NotDetected) Bld Cult ID Panel PCR (NotDetected) 07/01/22 Range/Units 23:41 WBC (4.8-10.8) K/ul RBC (3.93-5.22) M/uL Hgb (12.0-16.0) g/dl Hct (34.1-44.9) % MCV (80.0-100.0) fL MCH (25.0-34.0) pg MCHC (32.0-36.0) g/dL RDW Std Deviation (36.4-46.3) fL RDW Coeff of [place]rol (11.5-14.5) % Plt Count (130-400) K/uL Immature Gran % (Auto) % Neut % (Auto) % Lymph % (Auto) % [place] % (Auto) % Eos % (Auto) % Baso % (Auto) % Neut # (Auto) (1.4-6.5) K/uL Lymph # (Auto) (1.2-3.4) K/uL [place] # (Auto) (0.24-0.82) K/uL Eos # (Auto) (0-0.50) K/uL Baso # (Auto) (0-0.2) K/uL Immature Gran # (Auto) (0.00-0.02) K/uL Toxic Vacuolation Dohle Bodies Platelet Estimate (Normal) Giant Platelets Polychromasia Target Cells PT (9.0-12.0) Seconds INR (0.9-1.1) Sodium (136-145) mmol/L Potassium (3.5-5.1) mmol/L Chloride (98-107) mmol/L Carbon Dioxide (21-32) mmol/L Anion Gap (3-11) BUN (6-23) mg/dl Creatinine (0.6-1.2) mg/dl Est Cr Clr Drug Dosing ml/min Est GFR ( Amer) ml/min Est GFR (Non-Af Amer) ml/min BUN/Creatinine Ratio (10-20) Glucose (70-99(Fasting)) mg/dl Lactate TNP Calcium (8.5-10.1) mg/dl Magnesium (1.7-2.4) mg/dl Total Bilirubin (0.2-1.0) mg/dl AST (13-39) U/L ALT (7-52) U/L Alkaline Phosphatase (34-104) U/L Total Protein (6.0-8.3) gm/dl Albumin (3.4-5.0) gm/dl Globulin (2.5-4.0) gm/dl Albumin/Globulin Ratio (0.9-2) TSH (0.300-4.500) uIu/ml HCG, Qual (Negative) Urine Color Urine Appearance (Clear) Urine pH (4.5-7.5) Ur Specific [place] (1.000-1.030) Urine Protein (Negative) Urine Glucose (UA) (Negative) Urine Ketones (Negative) Urine Blood (Negative) Urine Nitrite (Negative) Urine Bilirubin (Negative) Urine Urobilinogen (Negative) Ur Leukocyte Esterase (Negative) Urine WBC (Auto) (0-5) /hpf Urine RBC (Auto) (0-4) /hpf U Hyaline Cast (Auto) (0-5) /lpf U Epithel Cells (Auto) (0-5) /lpf Urine Bacteria (Auto) (Negative) Granular Casts (0) /lpf Urine Yeast Urine Opiates Screen (Neg) Ur Methadone, Qual (Neg) Urine Barbiturates (Neg) Ur Phencyclidine (PCP) (Neg) U Amphetamin/Meth Scrn (Neg) MDMA (Ecstasy) Screen (Neg) U Benzodiazepines Scrn (Neg) Ur Cocaine Metabolite (Neg) U Marijuana (THC) Screen (Neg) U Marijuana THC Carboxy (<5) ng/mL Drug Screen Comment RPR (Nonreactive) Adenovirus (PCR) (NotDetected) Anaplasma Smear Babesia Smear Babesia microti DNA PCR (Not Detected) B. pertussis DNA (PCR) (NotDetected) B.parapertussis DNA PCR (NotDetected) Lyme Disease IgG Ab (Negative) Lyme Disease IgM Ab (Negative) C. pneumoniae DNA (PCR) (NotDetected) Coronavirus OC43 (PCR) (NotDetected) Coronavirus HKU1 (PCR) (NotDetected) Coronavirus 229E (PCR) (NotDetected) SARS-CoV-2 (PCR) (NotDetected) Coronavirus NL63 (PCR) (NotDetected) Hepatitis A IgM Ab (NON-REACTIVE) Hep Bs Antigen (NON-REACTIVE) Hep Bs Ag Confirmation Hep B Core IgM Ab (NON-REACTIVE) Hepatitis C Ab (EIA) (NON-REACTIVE) Hep C Ab Signal/Cutoff (<1.00) Monoscreen (Negative) Human Metapneumovir PCR (NotDetected) Influenza Type A (PCR) (NotDetected) Influenza Type B (PCR) (NotDetected) M. pneumoniae (PCR) (NotDetected) Parainfluenza 1 (PCR) (NotDetected) Parainfluenza 2 (PCR) (NotDetected) Parainfluenza 3 (PCR) (NotDetected) Parainfluenza 4 (PCR) (NotDetected) RSV (PCR) (NotDetected) Entero/Rhino (PCR) (NotDetected) Bld Cult ID Panel PCR (NotDetected) Administered Medications Docusate Sodium (Docusate Sodium 100 Mg Cap) 100 mg PO BID ELE Stop: 08/03/22 20:59 Last Admin: 07/06/22 20:49 Dose: Not Given Documented By: Admin: 07/06/22 08:33 Dose: Not Given Documented By: Admin: 07/05/22 19:54 Dose: Not Given Documented By: Admin: 07/05/22 08:02 Dose: Not Given Documented By: Admin: 07/04/22 19:50 Dose: Not Given Documented By: JONATHAN Heparin Sodium (Porcine) (Heparin Sod 5,000 Unit/0.5 Ml Vial) 5,000 units SQ Q8H ELE Stop: 08/04/22 15:59 Last Admin: 07/06/22 08:41 Dose: 5,000 units Documented By: Admin: 07/05/22 23:22 Dose: 5,000 units Documented By: Admin: 07/05/22 16:15 Dose: 5,000 units Documented By: YING Pantoprazole Sodium 40 mg/ (Syringe) 10 mls @ 5 mls/min IV DAILY@1100 ELE Stop: 08/02/22 10:59 Last Admin: 07/06/22 11:23 Dose: 5 mls/min Documented By: Admin: 07/05/22 09:01 Dose: 5 mls/min Documented By: Admin: 07/04/22 12:10 Dose: 5 mls/min Documented By: Admin: 07/03/22 11:03 Dose: 5 mls/min Documented By: FUNMILAYO Vancomycin HCl 1,250 mg/ (Sodium Chloride) 275 mls @ 200 mls/hr IV Q8H ELE; Protocol Stop: 07/11/22 15:59 Last Infusion: 07/07/22 02:49 Dose: 0 mls/hr Documented By: Admin: 07/07/22 01:17 Dose: 200 mls/hr Documented By: Infusion: 07/06/22 17:14 Dose: 0 mls/hr Documented By: Admin: 07/06/22 15:47 Dose: 200 mls/hr Documented By: Infusion: 07/06/22 10:26 Dose: 0 mls/hr Documented By: Admin: 07/06/22 08:32 Dose: 200 mls/hr Documented By: Infusion: 07/06/22 00:54 Dose: 0 mls/hr Documented By: Admin: 07/05/22 23:21 Dose: 200 mls/hr Documented By: Infusion: 07/05/22 17:46 Dose: 0 mls/hr Documented By: Admin: 07/05/22 16:15 Dose: 200 mls/hr Documented By: Infusion: 07/05/22 10:24 Dose: 0 mls/hr Documented By: Admin: 07/05/22 09:00 Dose: 200 mls/hr Documented By: Infusion: 07/05/22 00:40 Dose: 0 mls/hr Documented By: Admin: 07/04/22 23:25 Dose: 200 mls/hr Documented By: Infusion: 07/04/22 17:41 Dose: 0 mls/hr Documented By: Admin: 07/04/22 16:17 Dose: 200 mls/hr Documented By: YING Metronidazole (Flagyl) 500 mg in 100 mls @ 100 mls/hr IV Q8H ELE Stop: 07/20/22 16:29 Last Infusion: 07/07/22 01:15 Dose: 0 mls/hr Documented By: Admin: 07/07/22 00:12 Dose: 100 mls/hr Documented By: Infusion: 07/06/22 18:25 Dose: 0 mls/hr Documented By: Admin: 07/06/22 17:14 Dose: 100 mls/hr Documented By: SHASHA Morphine Sulfate (Morphine Sulfate 2 Mg/Ml Carp) 2 mg IV Q4 PRN PRN Reason: Pain Stop: 07/17/22 08:27 Last Admin: 07/07/22 05:25 Dose: 2 mg Documented By: AMElver Admin: 07/07/22 00:41 Dose: 2 mg Documented By: AMElver Admin: 07/06/22 16:17 Dose: 2 mg Documented By: Admin: 07/06/22 12:12 Dose: 2 mg Documented By: Admin: 07/06/22 07:47 Dose: 2 mg Documented By: Admin: 07/06/22 01:58 Dose: 2 mg Documented By: Admin: 07/05/22 10:12 Dose: 2 mg Documented By: Admin: 07/03/22 09:22 Dose: 2 mg Documented By: FUNMILAYO Multivitamins (Multivitamin Tab) 1 tab PO QAM ELE Stop: 08/04/22 08:59 Last Admin: 07/06/22 08:33 Dose: 1 tab Documented By: Admin: 07/05/22 09:01 Dose: 1 tab Documented By: YING Sennosides (Senna 8.6 Mg Tab) 17.2 mg PO HS [facility] Stop: 08/03/22 20:59 Last Admin: 07/06/22 20:49 Dose: Not Given Documented By: Admin: 07/05/22 19:54 Dose: Not Given Documented By: Admin: 07/04/22 19:50 Dose: Not Given Documented By: JONATHAN Discontinued Medications Cetirizine HCl (Cetirizine Hcl 10 Mg Tablet) 10 mg PO NOW ONE Stop: 07/03/22 14:56 Last Admin: 07/03/22 17:55 Dose: Not Given Documented By: FUNMILAYO Diphenhydramine HCl (Diphenhydramine Capsule 25 Mg Cap) 25 mg PO NOW ONE Stop: 07/03/22 21:59 Last Admin: 07/03/22 23:03 Dose: 25 mg Documented By: JONATHAN Diphenhydramine HCl (Diphenhydramine Capsule 25 Mg Cap) 25 mg PO NOW ONE Stop: 07/04/22 04:31 Last Admin: 07/04/22 04:39 Dose: 25 mg Documented By: JONATHAN Fexofenadine HCl (Fexofenadine 60 Mg Tab) 60 mg PO NOW ONE Stop: 07/03/22 14:57 Last Admin: 07/03/22 15:17 Dose: 60 mg Documented By: FUNMILAYO Furosemide (Furosemide Inj 20 Mg/2 Ml Vial) 20 mg IV ONE ONE Stop: 07/05/22 10:45 Last Admin: 07/05/22 12:09 Dose: 20 mg Documented By: YING Heparin Sodium (Porcine) (Heparin Sod 5,000 Unit/0.5 Ml Vial) 5,000 units SQ Q12 ELE Stop: 08/02/22 08:59 Last Admin: 07/05/22 09:01 Dose: 5,000 units Documented By: Admin: 07/04/22 19:50 Dose: 5,000 units Documented By: Admin: 07/04/22 09:44 Dose: 5,000 units Documented By: Admin: 07/03/22 20:47 Dose: 5,000 units Documented By: BrandyT Admin: 07/03/22 08:46 Dose: 5,000 units Documented By: FUNMILAYO Sodium Chloride (Nss 1000ml) 2,000 mls @ 999 mls/hr IV .Q2H1M ELE Stop: 07/01/22 22:45 Last Infusion: 07/01/22 22:18 Dose: 0 mls/hr Documented By: Admin: 07/01/22 21:00 Dose: 999 mls/hr Documented By: AGGIE Acetaminophen (Ofirmev) 1,000 mg in 100 mls @ 400 mls/hr IV NOW STA Stop: 07/01/22 21:47 Last Infusion: 07/01/22 22:20 Dose: 0 mls/hr Documented By: Admin: 07/01/22 22:05 Dose: 400 mls/hr Documented By: AGGIE Potassium Chloride (K Rio / Wtr) 10 meq in 100 mls @ 100 mls/hr IV Q1H ELE; Protocol Stop: 07/01/22 23:44 Last Infusion: 07/02/22 01:13 Dose: 0 mls/hr Documented By: Admin: 07/02/22 00:13 Dose: 100 mls/hr Documented By: Infusion: 07/01/22 23:36 Dose: 100 mls/hr Documented By: Admin: 07/01/22 22:36 Dose: 100 mls/hr Documented By: AGGIE Piperacillin Sod/Tazobactam Sod (Zosyn) 4.5 gm in 120 mls @ 240 mls/hr IV NOW ONE Stop: 07/01/22 22:10 Last Infusion: 07/01/22 22:56 Dose: 0 mls/hr Documented By: Admin: 07/01/22 22:26 Dose: 240 mls/hr Documented By: AGGIE Calcium Gluconate () 1,000 mg in 60 mls @ 240 mls/hr IV NOW STA Stop: 07/01/22 22:26 Last Infusion: 07/01/22 22:38 Dose: 0 mls/hr Documented By: Admin: 07/01/22 22:23 Dose: 240 mls/hr Documented By: AGGIE Potassium Chloride (K Rio / Wtr) 10 meq in 100 mls @ 100 mls/hr IV Q1H ELE Stop: 07/02/22 02:44 Last Infusion: 07/02/22 07:01 Dose: 0 mls/hr Documented By: Admin: 07/02/22 05:12 Dose: 100 mls/hr Documented By: Infusion: 07/02/22 04:35 Dose: 0 mls/hr Documented By: JOSE MARIAK Admin: 07/02/22 02:43 Dose: 100 mls/hr Documented By: Infusion: 07/02/22 02:41 Dose: 100 mls/hr Documented By: Admin: 07/02/22 01:41 Dose: 100 mls/hr Documented By: AGGIE Doxycycline Hyclate 100 mg/ (Dextrose) 110 mls @ 50 mls/hr IV Q12H ELE Stop: 07/04/22 00:59 Last Infusion: 07/02/22 03:26 Dose: 0 mls/hr Documented By: Admin: 07/02/22 01:14 Dose: 50 mls/hr Documented By: AGGIE Vancomycin HCl 1,250 mg/ (Sodium Chloride) 275 mls @ 200 mls/hr IV Q24H ELE; Protocol Stop: 07/12/22 09:59 Last Infusion: 07/02/22 11:00 Dose: 0 mls/hr Documented By: Admin: 07/02/22 09:53 Dose: 200 mls/hr Documented By: ELIANE Vancomycin HCl 1,750 mg/ (Sodium Chloride) 535 mls @ 200 mls/hr IV NOW STA; Protocol Stop: 07/02/22 03:37 Last Infusion: 07/02/22 05:19 Dose: 0 mls/hr Documented By: Admin: 07/02/22 01:14 Dose: 200 mls/hr Documented By: AGGIE Calcium Gluconate 1,000 mg/ (Dextrose) 60 mls @ 240 mls/hr IV NOW ONE Stop: 07/02/22 03:53 Last Infusion: 07/02/22 05:19 Dose: 0 mls/hr Documented By: Admin: 07/02/22 05:01 Dose: 240 mls/hr Documented By: DANN Sodium Chloride (Nss 1000ml) 1,000 mls @ 150 mls/hr IV .Q6H40M ELE Stop: 08/01/22 03:38 Last Infusion: 07/02/22 15:16 Dose: 0 mls/hr Documented By: Admin: 07/02/22 11:22 Dose: 150 mls/hr Documented By: Infusion: 07/02/22 11:22 Dose: 150 mls/hr Documented By: Admin: 07/02/22 05:01 Dose: 150 mls/hr Documented By: DANN Piperacillin Sod/Tazobactam (Sod 3.375 gm/ Dextrose) 115 mls @ 28.75 mls/hr IV Q8H ELE; Protocol Stop: 07/12/22 04:59 Last Infusion: 07/02/22 16:42 Dose: 0 mls/hr Documented By: Admin: 07/02/22 12:34 Dose: 28.8 mls/hr Documented By: Infusion: 07/02/22 10:02 Dose: 0 mls/hr Documented By: Admin: 07/02/22 05:27 Dose: 28.8 mls/hr Documented By: DANN Acetaminophen (Ofirmev) 1,000 mg in 100 mls @ 400 mls/hr IV Q8H PRN PRN Reason: fever, pain Stop: 07/05/22 07:36 Last Infusion: 07/02/22 10:02 Dose: 0 mls/hr Documented By: Admin: 07/02/22 08:22 Dose: 400 mls/hr Documented By: ELIANE Dexamethasone 10 mg/ Syringe 2.5 mls @ 1 mls/min IV Q24H ELE Stop: 07/05/22 09:29 Last Admin: 07/04/22 09:44 Dose: 1 mls/min Documented By: Admin: 07/03/22 08:47 Dose: 1 mls/min Documented By: Admin: 07/02/22 10:03 Dose: 1 mls/min Documented By: ELIANE Potassium Chloride 40 meq/ (Parenteral Electrolytes) 1,020 mls @ 150 mls/hr IV .Q6H48M STA Stop: 07/02/22 18:59 Last Infusion: 07/02/22 19:38 Dose: 0 mls/hr Documented By: Admin: 07/02/22 12:50 Dose: 150 mls/hr Documented By: YOVANY Piperacillin Sod/Tazobactam (Sod 4.5 gm/ Dextrose) 120 mls @ 28.75 mls/hr IV Q8H [facility]; Protocol Stop: 07/12/22 18:59 Last Infusion: 07/06/22 15:16 Dose: 0 mls/hr Documented By: Admin: 07/06/22 11:28 Dose: 28.8 mls/hr Documented By: Infusion: 07/06/22 04:54 Dose: 0 mls/hr Documented By: Admin: 07/06/22 01:17 Dose: 30 mls/hr Documented By: Infusion: 07/05/22 23:21 Dose: 0 mls/hr Documented By: Admin: 07/05/22 19:53 Dose: 30 mls/hr Documented By: Infusion: 07/05/22 14:23 Dose: 0 mls/hr Documented By: Admin: 07/05/22 10:12 Dose: 28.8 mls/hr Documented By: Infusion: 07/05/22 05:54 Dose: 0 mls/hr Documented By: Admin: 07/05/22 02:00 Dose: 30 mls/hr Documented By: Infusion: 07/04/22 23:25 Dose: 0 mls/hr Documented By: Admin: 07/04/22 19:26 Dose: 30 mls/hr Documented By: Infusion: 07/04/22 16:17 Dose: 0 mls/hr Documented By: Admin: 07/04/22 12:10 Dose: 30 mls/hr Documented By: Infusion: 07/04/22 04:39 Dose: 0 mls/hr Documented By: Admin: 07/04/22 00:53 Dose: 30 mls/hr Documented By: Infusion: 07/04/22 00:50 Dose: 0 mls/hr Documented By: Admin: 07/03/22 20:47 Dose: 30 mls/hr Documented By: Infusion: 07/03/22 16:36 Dose: 0 mls/hr Documented By: Infusion: 07/03/22 14:00 Dose: 28.8 mls/hr Documented By: Infusion: 07/03/22 12:44 Dose: 0 mls/hr Documented By: Admin: 07/03/22 11:03 Dose: 28.8 mls/hr Documented By: Infusion: 07/03/22 08:17 Dose: 0 mls/hr Documented By: Admin: 07/03/22 03:59 Dose: 28.8 mls/hr Documented By: Infusion: 07/03/22 00:19 Dose: 0 mls/hr Documented By: Admin: 07/02/22 20:08 Dose: 28.8 mls/hr Documented By: TP Parenteral Electrolytes (Normosol-R) 1,000 mls @ 75 mls/hr IV .[id number] ELE Stop: 08/01/22 19:59 Last Infusion: 07/04/22 10:01 Dose: 0 mls/hr Documented By: Admin: 07/04/22 09:43 Dose: 75 mls/hr Documented By: Infusion: 07/04/22 09:43 Dose: 75 mls/hr Documented By: Admin: 07/03/22 20:51 Dose: 75 mls/hr Documented By: Infusion: 07/03/22 20:51 Dose: 0 mls/hr Documented By: Infusion: 07/03/22 12:44 Dose: 0 mls/hr Documented By: Infusion: 07/03/22 12:03 Dose: 75 mls/hr Documented By: Infusion: 07/03/22 08:10 Dose: 0 mls/hr Documented By: Admin: 07/03/22 08:00 Dose: 75 mls/hr Documented By: Infusion: 07/03/22 08:00 Dose: 0 mls/hr Documented By: Admin: 07/02/22 20:09 Dose: 90 mls/hr Documented By: TP Potassium Phosphate 30 mmol/ (Sodium Chloride) 510 mls @ 88 mls/hr IV ONE ONE Stop: 07/03/22 13:32 Last Infusion: 07/03/22 17:54 Dose: 0 mls/hr Documented By: Admin: 07/03/22 08:20 Dose: 88 mls/hr Documented By: KJS Vancomycin HCl 1,500 mg/ (Sodium Chloride) 530 mls @ 200 mls/hr IV Q12H ELE; Protocol Stop: 07/04/22 12:00 Last Infusion: 07/04/22 15:28 Dose: 0 mls/hr Documented By: Admin: 07/04/22 09:44 Dose: 200 mls/hr Documented By: Infusion: 07/03/22 23:36 Dose: 0 mls/hr Documented By: Admin: 07/03/22 20:47 Dose: 200 mls/hr Documented By: Infusion: 07/03/22 12:01 Dose: 0 mls/hr Documented By: Admin: 07/03/22 08:25 Dose: 200 mls/hr Documented By: FUNMILAYO Acetylcysteine 10,160 mg/ (Dextrose) 200 mls @ 200 mls/hr IV ONCE ONE Stop: 07/03/22 10:12 Last Infusion: 07/03/22 11:02 Dose: 0 mls/hr Documented By: Admin: 07/03/22 09:53 Dose: 200 mls/hr Documented By: FUNMILAYO Acetylcysteine 3,390 mg/ (Dextrose) 516.95 mls @ 125 mls/hr IV ONCE ONE Stop: 07/03/22 14:21 Last Infusion: 07/03/22 17:54 Dose: 0 mls/hr Documented By: Admin: 07/03/22 11:03 Dose: 125 mls/hr Documented By: FUNMILAYO Acetylcysteine 6,770 mg/ (Dextrose) 1,033.85 mls @ 62.5 mls/hr IV ONCE ONE Stop: 07/04/22 06:45 Last Infusion: 07/04/22 09:45 Dose: 0 mls/hr Documented By: Admin: 07/03/22 16:55 Dose: 62.5 mls/hr Documented By: FUNMILAYO Sodium Phosphate 30 mmol/ (Dextrose) 510 mls @ 102 mls/hr IV ONE ONE Stop: 07/04/22 13:59 Last Infusion: 07/04/22 15:28 Dose: 0 mls/hr Documented By: Admin: 07/04/22 09:43 Dose: 102 mls/hr Documented By: YING Sodium Chloride (Nss 1000ml) 1,000 mls @ 100 mls/hr IV .Q10H ELE Stop: 07/05/22 06:00 Last Infusion: 07/05/22 06:05 Dose: 0 mls/hr Documented By: Admin: 07/05/22 02:00 Dose: 100 mls/hr Documented By: Infusion: 07/05/22 02:00 Dose: 100 mls/hr Documented By: Admin: 07/04/22 16:16 Dose: 100 mls/hr Documented By: YING Lactated Ringer's (Lr) 500 mls @ 250 mls/hr IV .Q2H ONE Stop: 07/05/22 10:11 Last Admin: 07/05/22 08:30 Dose: Not Given Documented By: YING Magnesium Sulfate 2 gm/ (Lactated Ringer's) 1,004 mls @ 125 mls/hr IV .Q8H2M ELE Stop: 07/05/22 12:15 Last Admin: 07/05/22 08:55 Dose: Not Given Documented By: YING Sodium Phosphate 30 mmol/ (Sodium Chloride) 510 mls @ 88 mls/hr IV ONE ONE Stop: 07/05/22 14:32 Last Infusion: 07/05/22 15:57 Dose: 0 mls/hr Documented By: Admin: 07/05/22 10:05 Dose: 88 mls/hr Documented By: YING Lactated Ringer's (Lr) 1,000 mls @ 125 mls/hr IV .Q8H ONE Stop: 07/05/22 16:36 Last Infusion: 07/05/22 10:06 Dose: 0 mls/hr Documented By: Admin: 07/05/22 09:02 Dose: 125 mls/hr Documented By: YING Ceftriaxone Sodium 2,000 mg/ (Dextrose) 70 mls @ 100 mls/hr IV Q24H [facility]; Protocol Stop: 07/20/22 16:29 Last Infusion: 07/06/22 18:09 Dose: 0 mls/hr Documented By: Admin: 07/06/22 17:14 Dose: 100 mls/hr Documented By: SHASHA Influenza Virus Vaccine Quadrival (Fluarix Quadrivalent 0.5 Ml Syr) 0.5 ml IM .ONCE ONE Stop: 07/02/22 03:54 Last Admin: 07/02/22 09:52 Dose: Not Given Documented By: ELIANE Ioversol (Optiray 350 100ml) 100 ml IV ONCE ONE Stop: 07/02/22 00:06 Last Admin: 07/02/22 00:05 Dose: 86 ml Documented By: KAUSHIK Magnesium Oxide (Magnesium Oxide 400 Mg Tab) 400 mg PO BID ELE Stop: 07/06/22 21:01 Last Admin: 07/06/22 20:48 Dose: 400 mg Documented By: Admin: 07/06/22 08:33 Dose: 400 mg Documented By: Admin: 07/05/22 19:53 Dose: 400 mg Documented By: Admin: 07/05/22 09:01 Dose: 400 mg Documented By: YING Miscellaneous (Icu Electrolyte Replacement Protocol) 1 each N/A BID@,18 [facility]; Protocol Stop: 07/10/22 17:59 Last Admin: 07/03/22 07:22 Dose: 1 each Documented By: FUNMILAYO Ondansetron HCl (Ondansetron Inj 2 Mg/Ml 2 Ml Vial) 4 mg IV Q6H PRN PRN Reason: Nausea Stop: 08/01/22 03:38 Last Admin: 07/02/22 05:54 Dose: 4 mg Documented By: DANN Pneumococcal Polyvalent Vaccine (Pneumococcal Polysaccharides 25 Mcg/0.5 Ml Vial/Syr) 25 mcg IM .ONCE ONE Stop: 07/02/22 03:54 Last Admin: 07/02/22 09:52 Dose: Not Given Documented By: ELIANE Potassium Chloride (Potassium Chloride 20 Meq/15 Ml Udc) 40 meq PO NOW STA Stop: 07/01/22 23:32 Last Admin: 07/02/22 00:12 Dose: 40 meq Documented By: AGGIE Potassium Chloride (Potassium Chloride 20 Meq/15 Ml Udc) 20 meq PO Q4H ELE Stop: 07/03/22 11:31 Last Admin: 07/03/22 12:07 Dose: 20 meq Documented By: Admin: 07/03/22 08:25 Dose: 20 meq Documented By: FUNMILAYO Imaging Data Radiologist's Impression: Chest X-Ray 07/01/22 20:38 XR chest 1V portable CLINICAL HISTORY: weakness COMPARISON STUDY: No previous studies for comparison. FINDINGS: Lung volumes are normal. There is no pneumothorax or pleural effusion. Cardiac size is normal. Mediastinal contours are normal. There has been interval development of multifocal nodular airspace opacities since recent abdominal CT of June 24, 2022. These measure up to 4 cm. Several of these demonstrate cavitation. IMPRESSION: Interval development of multifocal nodular airspace opacities, several of which demonstrate cavitation, since CT of June 24, 2022. The findings are consistent with an infectious process and favor septic pulmonary emboli. ACT 112: Negative or not required by law. Electronically signed by: Mendez Russell M.D. 07/02/2022 7:[address] 07/01/22 20:38 CT OF THE HEAD WITHOUT CONTRAST CLINICAL HISTORY: Headache. Jaundice. COMPARISON STUDY: No previous studies for comparison. CT DOSE: 537.48 mGy.cm TECHNIQUE: Helical axial images of the head were obtained without IV contrast. Automated exposure control was utilized for the study. A dose lowering technique was utilized adhering to the principles of ALARA. FINDINGS: No acute intracranial hemorrhage, midline shift or mass effect is present. The ventricular system is unremarkable. The basal cisterns are patent. No extra-axial collections are present. There are no findings to suggest acute dural sinus thrombosis or acute territorial infarct. No significant calvarial abnormalities are present. Visualized portions of the sinuses and mastoid air cells are clear. IMPRESSION: No acute intracranial findings. ACT 112: Negative or not required by law. Electronically signed by: Mendez Russell M.D. 07/02/2022 7:00 AM Abdomen/Pelvis CT 07/01/22 21:[address] WITH IV CONTRAST HISTORY: Acute fever with elevated LFTs Fever, elevated LFT, hyperbili, vomit TECHNIQUE: Multiaxial CT images of the abdomen and pelvis were performed following the IV administration of 86 cc of Optiray, A dose lowering technique was utilized adhering to the principles of ALARA. COMPARISON STUDY: Chest CT of same day, CT abdomen and pelvis 06/24/2022 FINDINGS: Numerous round consolidative densities of the lung bases, several of which are centrally cavitary measuring up to 2.9 cm are new from the prior study. No pneumatosis or pneumoperitoneum. The study is limited secondary to upper extremity positioning. Unremarkable spleen, pancreas and adrenal glands. Mildly distended gallbladder. The liver is within normal limits. Patency of the hepatic and portal veins. Unremarkable kidneys without hydronephrosis. The urinary bladder is within normal limits. Endometrium measures up to 1.6 cm. Uterus and ovaries are otherwise unremarkable. Aorta and IVC are unremarkable. No pathologically enlarged lymph nodes are identified. Mild nonspecific wall thickening of the distal esophagus. Mild wall thickening of the mid to distal gastric body with partial distention is similar to prior. No bowel obstruction or bowel wall thickening. Small and large bowel air-fluid levels. Normal appendix. Mild nonspecific stranding is noted surrounding the left rectus femoris and iliopsoas psoas musculature. Moderate degeneration of the pubic symphysis. No acute fracture identified. IMPRESSION: 1. Interval development of numerous round and centrally cavitary consolidative opacities of the lung bases, new from 06/24/2022 suggestive of septic emboli. 2. No bowel obstruction or bowel wall thickening. Normal appendix. 3. Mild wall thickening of the gastric body redemonstrated which may be secondary to partial distention versus a nonspecific gastritis. 4. Mild stranding surrounding the proximal rectus femoris and iliopsoas musculature. Correlate with clinical exam findings and patient history. ACT 112: Negative or not required by law. The above report was generated using voice recognition software. It may contain grammatical, syntax or spelling errors. Electronically signed by: Roberto Aly M.D. 07/02/2022 7:53 AM Soft Tissue Neck CT 07/01/22 22:14 CT OF THE NECK WITH IV CONTRAST CLINICAL HISTORY: Lymphadenopathy. COMPARISON STUDY: No previous studies for comparison. TECHNIQUE: Following IV administration of 86 mL of Optiray, helical axial images of the neck were obtained. Sagittal and coronal reconstructions were viewed. Automated exposure control was utilized for the study. A dose lowering technique was utilized adhering to the principles of ALARA. FINDINGS: Visualized portions of the intracranial contents are unremarkable. The mastoid air cells are clear. The sinuses are clear. Note is made of a 1.9 x 1.8 cm left peritonsillar rim enhancing fluid collection consistent with a peritonsillar abscess. There is moderate associated mass effect with narrowing of the hypopharynx. There is an adjacent 1.7 x 1.5 cm fluid collection within the left paravertebral space consistent with an additional abscess. In addition, there is occlusive thrombus within the left internal jugular vein. Mild to moderate prevertebral edema is also present. The epiglottis is normal. There is no soft tissue gas. No additional sites of vessel occlusion are identified within the neck. Prominent left cervical lymph nodes are reactive. Visualized portions of the chest demonstrate multiple cavitary round airspace opacities consistent with septic pulmonary emboli. IMPRESSION: 1. Findings consistent with Lemierre syndrome. Two left peritonsillar abscesses, measuring up to 1.9 x 1.8 cm, with associated occlusive thrombophlebitis of the left internal jugular vein and septic pulmonary emboli. This finding will be called/faxed to ordering provider at time of dictation. 2. Mild to moderate prevertebral edema. ACT 112: Negative or not required by law. Electronically signed by: Mendez Russell M.D. 07/02/2022 7:16 AM Hand X-Ray 07/01/22 22:16 XR hand LT min 3V routine CLINICAL HISTORY: 3rd finger MCP swelling COMPARISON: None FINDINGS: Alignment of the left hand is anatomic. There is no acute fracture. There is no bony erosion. Dorsal soft tissue swelling is noted on lateral projection. There is also soft tissue swelling adjacent to the left third metacarpophalangeal joint and within the left third finger. No soft tissue gas is identified. IMPRESSION: 1. No osseous abnormality within the left hand. 2. Soft tissue swelling the dorsal left hand and left third digit, as described above. This is nonspecific. ACT 112: Negative or not required by law. Electronically signed by: Mendez Russell M.D. 07/02/2022 7:[address] 07/01/22 22:[address] WITH CONTRAST CT DOSE: 875.10 mGy.cm HISTORY: Acute tachycardia with lymphadenopathy tachycardia, lymphadenopathy TECHNIQUE: Multiaxial CT images of the chest were performed following the IV administration of 86 cc of Optiray. A dose lowering technique was utilized adhering to the principles of ALARA. COMPARISON: CT abdomen and pelvis of same day and also 06/24/2022 FINDINGS: Unremarkable thyroid. The heart is normal in size without pericardial effusion. The thoracic aorta and pulmonary arterial tree are suboptimally evaluated secondary to respiratory motion artifact. Trace pleural effusions. No pneumothorax. Mild intralobular septal thickening with bronchial wall thickening and areas of mild mosaic attenuation. There is development of numerous rounded nodular consolidative opacities within a multi lobar and multi segmental distribution. Many of these lesions are centrally cavitary measuring up to 2.4 cm within the left lower lobe and 2.6 cm within the right lower lobe. Several of these lesions about the peripheral pleural surfaces. Unremarkable soft tissues. No acute fracture. IMPRESSION: 1. Interval development of numerous round and centrally cavitary consolidative opacities of the lungs which are new from 06/24/2022. Findings are suggestive of septic emboli. 2. No lymphadenopathy. ACT 112: Negative or not required by law. Electronically signed by: Roberto Aly M.D. 07/02/2022 8:14 AM Blood Pressure Blood Pressure Findings: Normal blood pressure Blood Pressure Disposition: did not require urgent referral Discharge Plan Visit Data Chief Complaint: Illness ED Provider: Taya Alvarez Discharge Problem: Abscess of tonsil, Septic pulmonary embolism, Fever Patient Disposition: Admitted As Inpatient Discharge Instructions Interventions: ED Discharge Assessment Last Done: 07/02/22 03:03
[2022-07-02 02:04] LABS: Rapid Plasma Reagin Nonreactive (Nonreactive)
[2022-07-02 02:59] LABS: Adenovirus F 40/41 PCR Not Detected (NotDetected); Astrovirus PCR Not Detected (NotDetected); Campylobacter PCR Not Detected (NotDetected); Cryptosporidium PCR Not Detected (NotDetected); Cyclospora cayetanensis PCR Not Detected (NotDetected); Entamoeba histolytica PCR Not Detected (NotDetected); Enteroaggregative E.coli(EAEC) Not Detected (NotDetected); Enteropathogenic E.coli (EPEC) Not Detected (NotDetected); Enterotoxigenic E.coli (ETEC) Not Detected (NotDetected); Giardia lamblia PCR Not Detected (NotDetected); Norovirus GI/GII PCR Not Detected (NotDetected); Plesiomonas shigelloides PCR Not Detected (NotDetected); Rotavirus A PCR Not Detected (NotDetected); Salmonella PCR Not Detected (NotDetected); Sapovirus PCR Not Detected (NotDetected); Shiga-like Toxin E.coli (STEC) Not Detected (NotDetected); Shigella/Enteroinvasive E.coli Not Detected (NotDetected); Vibrio cholerae PCR Not Detected (NotDetected); Vibrio species PCR Not Detected (NotDetected); Yersinia enterocolitica PCR Not Detected (NotDetected)
[2022-07-02] MEDS ORDERED: STAT IV STA (03:39)
[2022-07-02] MEDS ORDERED: CALCIUM GLUCONATE 10% 1,000 MG in DEXTROSE 5% 50 ML IV ONE (03:39)
[2022-07-02] MEDS ORDERED: ONDANSETRON INJ 2 MG/ML 2 ML VIAL IV PRN (03:39)
[2022-07-02] MEDS ORDERED: NITROGLYCERIN SL 0.4 MG/TAB TAB SL PRN (03:39)
[2022-07-02] MEDS ORDERED: FLUARIX QUADRIVALENT 0.5 ML SYR IM ONE (03:53)
[2022-07-02] MEDS ORDERED: PNEUMOCOCCAL POLYSACCHARIDES 25 MCG/0.5 ML VIAL/SYR IM ONE (03:53)
[2022-07-02] MEDS: SODIUM CHLORIDE 0.9% 1000ML 1,000 ML IV SCH ×2 (05:01→11:22)
[2022-07-02] MEDS: PIPERACILLIN/TAZOBACTAM 3.375 GM in DEXTROSE 5% 100 ML IV SCH ×2 (05:27→12:34)
[2022-07-02 05:33] LABS: Basophils # (auto) 0.05 K/uL (0-0.2); Basophils % (auto) 0.4 %; Dohle Bodies 1+; Hematocrit (blood only) 28.5 % (34.1-44.9); Hemoglobin 10.4 g/dl (12.0-16.0); Immature Granulocytes # (auto) 0.15 K/uL (0.00-0.02); Immature Granulocytes % (auto) 1.1 %; Lymphocytes # (auto) 0.31 K/uL (1.2-3.4); Lymphocytes % (auto) 2.2 %; Mean Corpuscular Hemoglobin 29.1 pg (25.0-34.0); Mean Corpuscular Hgb Conc 36.5 g/dL (32.0-36.0); Mean Corpuscular Volume 79.8 fL (80.0-100.0); Monocytes # (auto) 0.67 K/uL (0.24-0.82); Monocytes % (auto) 4.9 %; Neutrophils # (auto) 12.61 K/uL (1.4-6.5); Neutrophils % (auto) 91.4 %; Platelet Count 53 K/uL (130-400); RDW Coefficient of Variation 14.8 % (11.5-14.5); RDW Standard Deviation 42.8 fL (36.4-46.3); Red Blood Count 3.57 M/uL (3.93-5.22); Target Cells 2+; Toxic Vacuolation 1+; White Blood Count 13.79 K/ul (4.8-10.8)
[2022-07-02 05:34] LABS: Albumin Level 2.5 gm/dl (3.4-5.0); BUN Creatinine Ratio 20.1 (10-20); Bilirubin Direct 8.6 mg/dl (0-0.2); Bilirubin,Total 13.9 mg/dl (0.2-1.0); Calcium 6.7 mg/dl (8.5-10.1); Est GFR (African American) 51.2 ml/min; Est GFR (Non-African American) 44.2 ml/min; Magnesium 2.7 mg/dl (1.7-2.4); Potassium 3.5 mmol/L (3.5-5.1); Total Protein 6.1 gm/dl (6.0-8.3)
--- NOTE | 2022-07-02 06:58 | Communication Note ---
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 Will check neck ultrasound for any IJ thrombus and will check for portal vein thrombus. Thanks.
--- NOTE | 2022-07-02 07:02 | CT Scan Report ---
CT OF THE HEAD WITHOUT CONTRAST CLINICAL HISTORY: Headache. Jaundice. COMPARISON STUDY: No previous studies for comparison. CT DOSE: 537.48 mGy.cm TECHNIQUE: Helical axial images of the head were obtained without IV contrast. Automated exposure con trol was utilized for the study. A dose lowering technique was utilized adhering to the principles o f ALARA. FINDINGS: No acute intracranial hemorrhage, midline shift or mass effect is present. The ventricular system is unremarkable. The basal cisterns are patent. No extra-axial collections are present. There are no findings to suggest acute dural sinus thrombosis or acute territorial infarct. No significant calvarial abnormalities are present. Visualized portions of the sinuses and mastoid air cells are harriet ar. IMPRESSION: No acute intracranial findings. ACT 112: Negative or not required by law. Electronically signed by: Mendez Russell M.D. 07/02/2022 7:00 AM
--- NOTE | 2022-07-02 07:06 | XRay Report ---
XR chest 1V portable CLINICAL HISTORY: weakness COMPARISON STUDY: No previous studies for comparison. FINDINGS: Lung volumes are normal. There is no pneumothorax or pleural effusion. Cardiac size is norm al. Mediastinal contours are normal. There has been interval development of multifocal nodular airspa ce opacities since recent abdominal CT of June 24, 2022. These measure up to 4 cm. Several of the se demonstrate cavitation. IMPRESSION: Interval development of multifocal nodular airspace opacities, several of which demonstr ate cavitation, since CT of June 24, 2022. The findings are consistent with an infectious process and favor septic pulmonary emboli. ACT 112: Negative or not required by law. Electronically signed by: Mendez Russell M.D. 07/02/2022 7:05 AM
--- NOTE | 2022-07-02 07:19 | CT Scan Report ---
CT OF THE NECK WITH IV CONTRAST CLINICAL HISTORY: Lymphadenopathy. COMPARISON STUDY: No previous studies for comparison. TECHNIQUE: Following IV administration of 86 mL of Optiray, helical axial images of the neck were ob tained. Sagittal and coronal reconstructions were viewed. Automated exposure control was utilized f or the study. A dose lowering technique was utilized adhering to the principles of ALARA. FINDINGS: Visualized portions of the intracranial contents are unremarkable. The mastoid air cells a re clear. The sinuses are clear. Note is made of a 1.9 x 1.8 cm left peritonsillar rim enhancing flui d collection consistent with a peritonsillar abscess. There is moderate associated mass effect with n arrowing of the hypopharynx. There is an adjacent 1.7 x 1.5 cm fluid collection within the left parav ertebral space consistent with an additional abscess. In addition, there is occlusive thrombus within the left internal jugular vein. Mild to moderate prevertebral edema is also present. The epiglottis is normal. There is no soft tissue gas. No additional sites of vessel occlusion are identified within the neck. Prominent left cervical lymph nodes are reactive. Visualized portions of the chest demonst rate multiple cavitary round airspace opacities consistent with septic pulmonary emboli. IMPRESSION: 1. Findings consistent with Lemierre syndrome. Two left peritonsillar abscesses, measuring up to 1.9 x 1.8 cm, with associated occlusive thrombophlebitis of the left internal jugular vein and septic pul monary emboli. This finding will be called/faxed to ordering provider at time of dictation. 2. Mild to moderate prevertebral edema. ACT 112: Negative or not required by law. Electronically signed by: Mendez Russell M.D. 07/02/2022 7:16 AM
--- NOTE | 2022-07-02 07:32 | XRay Report ---
XR hand LT min 3V routine CLINICAL HISTORY: 3rd finger MCP swelling COMPARISON: None FINDINGS: Alignment of the left hand is anatomic. There is no acute fracture. There is no bony erosi on. Dorsal soft tissue swelling is noted on lateral projection. There is also soft tissue swelling ad jacent to the left third metacarpophalangeal joint and within the left third finger. No soft tissue g as is identified. IMPRESSION: 1. No osseous abnormality within the left hand. 2. Soft tissue swelling the dorsal left hand and left third digit, as described above. This is nonspe cific. ACT 112: Negative or not required by law. Electronically signed by: Mendez Russell M.D. 07/02/2022 7:30 AM
[2022-07-02] MEDS ORDERED: ACETAMINOPHEN 1,000 MG/100 ML VIAL IV PRN (07:37)
--- NOTE | 2022-07-02 07:54 | CT Scan Report ---
ABDOMEN AND PELVIS CT WITH IV CONTRAST HISTORY: Acute fever with elevated LFTs Fever, elevated LFT, hyperbili, vomit TECHNIQUE: Multiaxial CT images of the abdomen and pelvis were performed following the IV administrat ion of 86 cc of Optiray, A dose lowering technique was utilized adhering to the principles of ALARA. COMPARISON STUDY: Chest CT of same day, CT abdomen and pelvis 06/24/2022 FINDINGS: Numerous round consolidative densities of the lung bases, several of which are centrally ca vitary measuring up to 2.9 cm are new from the prior study. No pneumatosis or pneumoperitoneum. The s tudy is limited secondary to upper extremity positioning. Unremarkable spleen, pancreas and adrenal glands. Mildly distended gallbladder. The liver is within n ormal limits. Patency of the hepatic and portal veins. Unremarkable kidneys without hydronephrosis. T he urinary bladder is within normal limits. Endometrium measures up to 1.6 cm. Uterus and ovaries are otherwise unremarkable. Aorta and IVC are unremarkable. No pathologically enlarged lymph nodes are i dentified. Mild nonspecific wall thickening of the distal esophagus. Mild wall thickening of the mid to distal g astric body with partial distention is similar to prior. No bowel obstruction or bowel wall thickenin g. Small and large bowel air-fluid levels. Normal appendix. Mild nonspecific stranding is noted surro unding the left rectus femoris and iliopsoas psoas musculature. Moderate degeneration of the pubic sy mphysis. No acute fracture identified. IMPRESSION: 1. Interval development of numerous round and centrally cavitary consolidative opacities of the lung bases, new from 06/24/2022 suggestive of septic emboli. 2. No bowel obstruction or bowel wall thickening. Normal appendix. 3. Mild wall thickening of the gastric body redemonstrated which may be secondary to partial distenti on versus a nonspecific gastritis. 4. Mild stranding surrounding the proximal rectus femoris and iliopsoas musculature. Correlate with c linical exam findings and patient history. ACT 112: Negative or not required by law. The above report was generated using voice recognition software. It may contain grammatical, syntax o r spelling errors. Electronically signed by: Roberto Aly M.D. 07/02/2022 7:53 AM
--- NOTE | 2022-07-02 08:05 | Pulmonary Consultation ---
Date of Consultation July 02, 2022 Assessment & Plan (1) Multifocal pneumonia: (2) Abnormal chest CT: (3) Cavitary pneumonia: (4) Lemierre syndrome: Plan CT chest 07/01/2022 personally reviewed: Multiple cavitary lesions appreciated bilaterally especially on the periphery upper and lower lobes No mediastinal lymphadenopathy -- Abnormal chest CT with cavitary lesions Like representing septic emboli Patient is high risk for pneumothorax given the peripheral cavitary lesions Continue with antibiotics -- Transaminitis with bilirubinemia coagulopathy Direct bili 8.6, total bili 13.9 Likely from underlying sepsis Follow-up hepatitis profile GI on board -- HARRY Monitor BUNs/creatinine Avoid nephrotoxic medications Follow-up urine lites -- Hyponatremia with hypochloremia Continue with IV fluids Follow-up urine was bloody, serum osmolality --Thrombocytopenia Likely sepsis induced as well as consumption from the clot Continue to monitor Plan: Continue with antibiotics to cover Fusobacterium Will need the abscess to be drained as soon as possible Recommend 2D echo to be done stat to look for vegetation on the right side of the heart There is no clear data regarding anticoagulation in such patients. Would avoid systemic anticoagulation right now unless there is documentation of progression of thrombus Follow-up Doppler left upper extremity to rule out clot. If she has extensive clot in the left upper extremity then I think anticoagulation might be considered Look for peripheral smear for any signs of hemolysis. HUS is in the differential Consideration of NAC Needs lactate level. Can be sent out If there is no improvement in patient's bilirubin in the next 24 hours and autoimmune work-up will be ordered. Okay to use steroids. ENT to perform incision and drainage today Case was discussed with Dr. Goddard and RN at bedside I have personally spent 45 minutes of critical care time in the direct management of this patient. This is a life/limb threatening event. This includes time spent evaluating patient, direct bedside care, chart review, placing orders, interpretation of diagnostic studies, discussion with consultants, patient, and family members, as well as other required patient management activities. This time is exclusive of all separately billable procedures, and teaching time and separate from and in addition to any other critical care service time. Please note the above document was generated using voice recognition software. It may contain grammatical, syntax or spelling errors. 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 She also has pain in the left upper arm As per the patient she has been not feeling worse since approximately 18 June . She was in the hospital on 06/24/2020 CT abdomen pelvis. Denies any nausea or vomiting since coming to the hospital. Did have nausea and vomiting prior to presentation. No abdominal pain. No dysuria, no diarrhea. Denies taking any [id number] medications. No headache, no blurry vision. Denies any illicit drug use. No history of HIV Denies any history of hepatitis. No recent travel history Social history: Patient smokes on a regular basis, last time she smoked was June 18, 2022, no alcohol, denies illicit drug use. No marijuana use, no vaping Allergies Allergy/AdvReac Type Severity Reaction Status Date / Time No Known Allergies Allergy Verified 07/01/22 23:49 Home Medications Medication Instructions Recorded Confirmed Type No Known Home Medications 07/01/22 07/01/22 History Patient History Medical History (Updated 07/02/22 @ 10:32 by Berta Lacey MD, PhD) Asthma Family History Other Family history non-contributory Social History Smoking Status: Former smoker Second Hand Exposure: No; Do You Dip or Chew Tobacco: No; Hx Alcohol Use: No Hx Substance Use: No Preferred Language: [place] Communication Ability: Effective 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 Beliefs That Will Affect Care: None Current Living Situation: Family Feels Safe at Home: Yes Safety Concerns: Feels Safe At This Time Assistive Devices: Glasses Review of Systems Review of Systems: All systems reviewed & are unremarkable except as noted in HPI & below Physical Exam Physical Exam: Constitutional: No acute distress HEENT: EOMI, PERRLA, icteric Respiratory system: Decreased air entry bilaterally, no wheeze, no rhonchi, positive crackles bilaterally CVS: S1-S2 positive, no murmurs or gallops, tachycardia Abdomen: Soft, nontender, nondistended, positive bowel sounds x4 Extremities: +2 pulses bilaterally radialis/ dorsalis pedis, no cyanosis, +2 pitting edema left upper extremity Neuro: Awake alert oriented x3 Psych: Normal mood and affect G/U: No Mcneil Skin: no rashes, warm and dry Lymphatic: no cervical or axillary lymphadenopathy Results & Data Results & Data ([facility]) Vital Signs (Past 12 Hours) Vital Signs Temp Pulse Pulse Resp BP BP Pulse Ox 07/02/22 03:30 37.4 C 108 H 20 106/65 97 07/02/22 02:30 110 H 28 H 112/69 95 07/02/22 02:00 111 H 27 H 121/75 93 07/02/22 01:30 115 H 28 H 125/68 97 07/02/22 01:00 120 H 31 H 118/63 95 07/02/22 00:30 117 H 28 H 116/53 L 95 07/02/22 00:16 117 H 25 H 136/62 95 07/01/22 23:30 114 H 27 H 136/66 99 07/01/22 23:00 118 H 22 106/52 L 96 07/02/22 00:00 38.4 C H 07/01/22 22:30 127 H 29 H 122/51 L 07/01/22 22:00 135 H 29 H 141/72 H 95 07/01/22 21:30 127 H 27 H 124/73 100 07/01/22 21:00 121 H 17 142/70 H 95 07/01/22 20:30 125 H 32 H 109/85 96 07/01/22 20:12 118 H 25 H 111/71 99 07/01/22 22:49 40 C H 07/01/22 20:38 128 H 18 98 O2 Del Method 07/02/22 03:30 Room Air 07/02/22 02:30 07/02/22 02:00 07/02/22 01:30 07/02/22 01:00 07/02/22 00:30 07/02/22 00:16 07/01/22 23:30 07/01/22 23:00 07/02/22 00:00 07/01/22 22:30 07/01/22 22:00 07/01/22 21:30 07/01/22 21:00 07/01/22 20:30 07/01/22 20:12 07/01/22 22:49 07/01/22 20:38 Room Air Laboratory Results 07/02/22 04:42 07/02/22 04:42 PG Care Time/CCT Total # of Minutes Spent Total Time Spent with Patient: Total time spent is greater than 50% in coordination of care (as documented) at patient's floor/unit and/or counseling patient: Coding Level of Care Code Critical Care 1st 30-74 mins Diagnoses Multifocal pneumonia J18.[address] R93.89 Cavitary pneumonia J18.9; J98.4 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 Time Spent (min) 45
--- NOTE | 2022-07-02 08:15 | CT Scan Report ---
CHEST CT WITH CONTRAST CT DOSE: 875.10 mGy.cm HISTORY: Acute tachycardia with lymphadenopathy tachycardia, lymphadenopathy TECHNIQUE: Multiaxial CT images of the chest were performed following the IV administration of 86 cc of Optiray. A dose lowering technique was utilized adhering to the principles of ALARA. COMPARISON: CT abdomen and pelvis of same day and also 06/24/2022 FINDINGS: Unremarkable thyroid. The heart is normal in size without pericardial effusion. The thoraci c aorta and pulmonary arterial tree are suboptimally evaluated secondary to respiratory motion artifa ct. Trace pleural effusions. No pneumothorax. Mild intralobular septal thickening with bronchial wall thi ckening and areas of mild mosaic attenuation. There is development of numerous rounded nodular consol idative opacities within a multilobar and multi segmental distribution. Many of these lesions are syed trally cavitary measuring up to 2.4 cm within the left lower lobe and 2.6 cm within the right lower l obe. Several of these lesions about the peripheral pleural surfaces. Unremarkable soft tissues. No acute fracture. IMPRESSION: 1. Interval development of numerous round and centrally cavitary consolidative opacities of the lungs which are new from 06/24/2022. Findings are suggestive of septic emboli. 2. No lymphadenopathy. ACT 112: Negative or not required by law. Electronically signed by: Roberto Aly M.D. 07/02/2022 8:14 AM
--- NOTE | 2022-07-02 08:16 | Pharmacy Report ---
Pharmacy PK ABX Note - Date of Service July 02, 2022 - Assessment and Plan Assessment 31 year old F started on Vancomycin today for treatment of Sepsis, source uncertain. Patient with possible GI infection, UTI and tonsillar abscess. Blood and Urine cultures pending. Vancomycin and Zosyn started overnight today. Plan Vancomycin * Loading dose: 1750 mg (25 mg/kg) IV x 1 given around 01:14 AM * Maintenance dose: 1250 mg (17.9 mg/kg) IV every 24 hours * Regimen is predicted to achieve target AUC/SORAIDA of 400-600 mg/L.hr * Serum creatinine improved from 1.93 mg/dl yesterday to 1.54 mg/dl today morning. If it continues to improve patient could probably get Vancomycin more frequently than Q24h. * Random level ordered for: 07/03/22 with AM labs. Pharmacy will continue to follow and will adjust dose/frequency as necessary. Thank you. Pharmacy has transitioned to AUC monitoring for vancomycin. AUC/SORAIDA is the preferred PK/PD target and is associated with decreased risk of nephrotoxicity compared to traditional trough targets.
--- NOTE | 2022-07-02 08:54 | Gastrointestinal Consultation ---
Date of Consultation July 02, 2022 Assessment & Plan (1) Elevated LFTs: Secondary to sepsis (2) Diarrhea: Suspect diarrhea is viral and related to the illness that caused the tonsilitis. Stools for C-diff and culture are (-). No specific tx needed. OK to use antidiarrheal. Plan LFTs w improve w treatment of sepsis including hydration, antibiotics, tx of peritonsillar abscesses and PEs. Bile ducts/liver appear normal on CT except mild gallbladder distention and pt denies significant RUQ pain. Do not suspect bile duct obstruction or cholecystitis. GI will watch peripherally. Please notify us of new/worsening GI issues. Supervising Physician Co-Signing Physician Notes I have seen and discussed the management with CRISPIN Bejnamin. Admitted with fever and throat pain- found to have a peritonsillar abscess on abx. PE - sleepy but arousable, benign abd Labs reviewed Recent imaging is normal ? rise in lft's may be from recent sepsis. Agree with further plan of care as above. History of Present Illness Reason for Consultation: Elevated LFTs Requesting Physician: Dr. Holly Attending Physician: Tomasz Goddard MD History of Present Illness Ms. Neto Ramirez is a 31 yr old female who carries a hx of asthma, but w/o recent symptoms and w/o a PCP who began w a sore throat, pain on swallowing on Jun 22. The ED notes state that she had abdominal pain but she tells me that she had very minimal abdomen discomfort that she believes was from vomiting - that she hasn't had significant abdominal pain during this illness. She does not have any sick contacts and has not travelled internationally. She was seen in the ED on 06/24 and CTAP was normal, she had leukopenia and blood in the urine. She returned to the ED late yesterday because these symptoms continued and family noticed her skin/eyes appeared yellow. On arrival CT neck w two left peritonsillar abscesses and left internal jugular vein thrombus. CTAP showed patent portal and hepatic veins, normal liver, mildly distended gallbladder. Tox is negative other than marijuana and thus far serology is negative for mono, COVID, Thus far negative or pending on the tick born illnesses, HepB/C. Stools are negative for C-diff and culture. She is febrile, w mild tachycardia and leukocytosis. She is being tx with Vanco and Zosyn. On exam, she is slightly tender in the RUQ w/o an enlarged liver. She has difficulty speaking secondary to throat issues and pain on moving her mouth/face/neck but she is awake, alert, oriented and able to give a full detailed history. Allergies Allergy/AdvReac Type Severity Reaction Status Date / Time No Known Allergies Allergy Verified 07/01/22 23:49 Home Medications Medication Instructions Recorded Confirmed Type No Known Home Medications 07/01/22 07/01/22 History Patient History Medical History (Updated 07/02/22 @ 10:32 by Berta Lacey MD, PhD) Asthma Family History Other Family history non-contributory Social History Smoking Status: Former smoker Second Hand Exposure: No; Do You Dip or Chew Tobacco: No; Hx Alcohol Use: No Hx Substance Use: No Preferred Language: Slovak Communication Ability: Effective Material Lister Required: No Beliefs That Will Affect Care: None Current Living Situation: Family Feels Safe at Home: Yes Safety Concerns: Feels Safe At This Time Assistive Devices: Glasses Review of Systems Constitutional: + fever, + chills, + fatigue and + weakness Eyes: yellow eyes, no vision problems Ear, Nose, Mouth, Throat: Painful, swollen throat/mouth and neck Respiratory: no cough, feels like she can't get a deep breath but denies SOB. Cardiovascular: + dyspnea on exertion (denies SOB on exertion at home, states, "more like to weak to walk.") and + edema (left arm/hand); no chest pain Gastrointestinal: + nausea, + vomiting and + diarrhea/loose stools Genitourinary: no dysuria and no difficulty urinating Integumentary: no problem reported Neurologic: + generalized weakness and + headache(s); no confusion and no memory loss Psychiatric: + substance abuse (denies); no problem reported Endocrine: + fatigue Physical Exam Constitutional: well developed, well nourished, + acute distress (very u ncomfortable w throat/neck pain), + ill appearing and average body habitus Eyes: icteric ENMT: external ear and nose normal, oropharynx normal Neck: normal visual inspection (general edema), trachea midline and + neck tender able to flex/extend neck, but generalize/anterior neck pain on moving Respiratory: normal respiratory effort, lungs clear to auscultation except slightly diminished. Cardiovascular: Heart Sounds: no murmur tachycardic, regular rhythm edematous/tender left lower arm and hand Gastrointestinal (Abdomen): Inspection/Auscultation: abdomen normal to inspection and normal bowel sounds; abdomen not distended Percussion/Palpation: + abdomen tender (mildly in the RUQ) and abdomen soft; no hepatosplenomegaly and no splenomegaly Musculoskeletal: left hand swollen, tender Skin: no rashes, warm and dry Neurologic: PERRL, EOMI, accommodation nl, no face palsy, no dysarthria Psychiatric: A+Ox3, euthymic affect Lymphatic: no cervical or axillary lymphadenopathy Results & Data ([facility]) Vital Signs (Past 12 Hours) Vital Signs Temp Pulse Pulse Resp BP BP Pulse Ox 07/02/22 03:30 37.4 C 108 H 20 106/65 97 07/02/22 02:30 110 H 28 H 112/69 95 07/02/22 02:00 111 H 27 H 121/75 93 07/02/22 01:30 115 H 28 H 125/68 97 07/02/22 01:00 120 H 31 H 118/63 95 07/02/22 00:30 117 H 28 H 116/53 L 95 07/02/22 00:16 117 H 25 H 136/62 95 07/01/22 23:30 114 H 27 H 136/66 99 07/01/22 23:00 118 H 22 106/52 L 96 07/02/22 00:00 38.4 C H 07/01/22 22:30 127 H 29 H 122/51 L 07/01/22 22:00 135 H 29 H 141/72 H 95 07/01/22 21:30 127 H 27 H 124/73 100 07/01/22 21:00 121 H 17 142/70 H 95 07/01/22 22:49 40 C H O2 Del Method 07/02/22 03:30 Room Air 07/02/22 02:30 07/02/22 02:00 07/02/22 01:30 07/02/22 01:00 07/02/22 00:30 07/02/22 00:16 07/01/22 23:30 07/01/22 23:00 07/02/22 00:00 07/01/22 22:30 07/01/22 22:00 07/01/22 21:30 07/01/22 21:00 07/01/22 22:49 Laboratory Results WBC 13.7, Hb 10, Hct 28, Plts 53, Na 129, K 3.5, Cl 97, CO2 20, BUN 31, Cr 1.54 Diagnostic Findings CTAP w IV contrast 07/01/22: 1. Interval development of numerous round and centrally cavitary consolidative opacities of the lung bases, new from 06/24/2022 suggestive of septic emboli. 2. No bowel obstruction or bowel wall thickening. Normal appendix. 3. Mild wall thickening of the gastric body redemonstrated which may be secondary to partial distention versus a nonspecific gastritis. 4. Mild stranding surrounding the proximal rectus femoris and iliopsoas musculature. Correlate with clinical exam findings and patient history. Chest CT 07/02/22: 1. Interval development of numerous round and centrally cavitary consolidative opacities of the lungs which are new from 06/24/2022. Findings are suggestive of septic emboli. 2. No lymphadenopathy.
--- NOTE | 2022-07-02 09:39 | Hospitalist Progress Note ---
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, peritonsillar abscesses, cavitary pulmonary lesions - started with sore throat - started on broad spectrum abx with vancomycin and Zosyn - blood and throat culture ordered - IVF - pulm and ENT consulted - PCU monitoring - started on 10mg Decadron IV per ENT - ENT to attempt drainage of peritonsillar abscesses - no indication for AC at this time unless documented progression of thrombus - hematology consult for further recs on AC management (2) Abscess of tonsil: Plan: - ENT consulted for drainage - IV abx as above - decadron per ENT (3) Septic pulmonary embolism: Plan: - possible septic emboli in setting of Lemierre Syndrome - blood cultures pending - IV abx as above - TTE to evaluate for vegetations (4) Elevated LFTs: Plan: - unclear etiology and if this is part of Lemierre Syndrome - CT AP with contrast showed normal appearing liver, patent hepatic and portal veins - hepatitis panel ordered - HIV ordered - GI consulted (5) HARRY (acute kidney injury): Plan: - likely due to prerenal etiology in setting of sepsis and n/v/d - continue IVF as above - trend Cr - monitor UOP - avoid nephrotoxic medications - if no improvement or worsening, could represent septic emboli or ATN given degree of illness - will consider renal consult if worsening or no improvement (6) Hyponatremia: Plan: - likely due to decreased po intake and nause and vomiting in setting of Lemierre Syndrome - IVF resuscitation - encourage po intake when able - will monitor for now (7) Thrombocytopenia: Plan: - in the setting of sepsis and acute illness as above - unclear etiology at this time - continue work up per GI as above - monitor for bleeding - no evidence of bleeding (8) Anemia: Plan: - anemia in young woman is not abnormal but given rest of presentation could be exacerbated - no evidence of bleeding at this time - hgb stable from overnight labs - will continue to monitor (9) Asthma: Plan: - currently not in exacerbation - not on home inhalers - will monitor for now Plan DVT ppx: none for now given thrombocytopenia Code Status: Full Code Dispo: PCU Tomasz Goddard MD Hospital Medicine Admission and Anticipated Discharge Date Admission Date: July 02, 2022 Subjective Patient with asthma presented with sore throat, nausea and vomiting for 1 week. Found to have L IJ thrombophlebitis, peritonsillar abscesses, pulmonary lesions concerning for septic emboli, elevated LFTs, findings concerning for Lemierre Syndrome. ENT, pulm, GI were consulted. She was started on broad spectrum abx with vancomycin and zosyn, IVF. Patient reports feeling unwell. Sore throat, nausea and vomiting, diarrhea still present. also having fevers. Some shortness of breath. Denies chest pain, abdominal pain, cough, rashes, dysuria. Review of Systems Review of Systems: All systems reviewed & are unremarkable except as noted in Subjective Physical Exam Physical Exam: GENERAL: The patient is of moderate build, currently not in acute distress. HEENT: Icterus present. Pupils equal, round, and reactive to light. Oral mucosa dry. Could not examine the back of the throat. NECK: No obvious neck masses seen. Seems supple. CARDIOVASCULAR: S1 and S2 heard. Tachycardia. No murmurs. RESPIRATORY SYSTEM: Normal AP diameter. No accessory muscle use. No wheezing, no crackles. ABDOMEN: Soft, bowel sounds present, nontender, no distention. CENTRAL NERVOUS SYSTEM: Alert and oriented, speaking in low voices. Speech is clear. No facial droop. Insight is okay. Obeys simple commands. Moves extremities. EXTREMITIES: Has rash, erythema and swelling in the right hand on the dorsal aspect below the second and third fingers. as well as swelling in LUE Results & Data Results & Data ([facility]) Vital Signs (Past 12 Hours) Vital Signs Temp Pulse Pulse Resp BP BP Pulse Ox 07/02/22 03:30 37.4 C 108 H 20 106/65 97 07/02/22 02:30 110 H 28 H 112/69 95 07/02/22 02:00 111 H 27 H 121/75 93 07/02/22 01:30 115 H 28 H 125/68 97 07/02/22 01:00 120 H 31 H 118/63 95 07/02/22 00:30 117 H 28 H 116/53 L 95 07/02/22 00:16 117 H 25 H 136/62 95 07/01/22 23:30 114 H 27 H 136/66 99 07/01/22 23:00 118 H 22 106/52 L 96 07/02/22 00:00 38.4 C H 12/21/22 22:30 127 H 29 H 122/51 L 07/01/22 22:00 135 H 29 H 141/72 H 95 07/01/22 21:30 127 H 27 H 124/73 100 07/01/22 22:49 40 C H O2 Del Method 07/02/22 03:30 Room Air 07/02/22 02:30 07/02/22 02:00 07/02/22 01:30 07/02/22 01:00 07/02/22 00:30 07/02/22 00:16 07/01/22 23:30 07/01/22 23:00 07/02/22 00:00 07/01/22 22:30 07/01/22 22:00 07/01/22 21:30 07/01/22 22:49 Diagnostic Findings Laboratory Results WBC 13.79 K/ul (4.8-10.8) H 07/02/22 04:42 RBC 3.57 M/uL (3.93-5.22) L 07/02/22 04:42 Hgb 10.4 g/dl (12.0-16.0) L 07/02/22 04:42 Hct 28.5 % (34.1-44.9) L 07/02/22 04:42 MCV 79.8 fL (80.0-100.0) L 07/02/22 04:42 MCH 29.1 pg (25.0-34.0) 07/02/22 04:42 MCHC 36.5 g/dL (32.0-36.0) H 07/02/22 04:42 RDW Std Deviation 42.8 fL (36.4-46.3) 07/02/22 04:42 RDW Coeff of Carrol 14.8 % (11.5-14.5) H 07/02/22 04:42 Plt Count 53 K/uL (130-400) L 07/02/22 04:42 Immature Gran % (Auto) 1.1 % 07/02/22 04:42 Neut % (Auto) 91.4 % 07/02/22 04:42 Lymph % (Auto) 2.2 % 07/02/22 04:42 [place] % (Auto) 4.9 % 07/02/22 04:42 Eos % (Auto) 0.0 % 07/02/22 04:42 Baso % (Auto) 0.4 % 07/02/22 04:42 Neut # (Auto) 12.61 K/uL (1.4-6.5) H 07/02/22 04:42 Lymph # (Auto) 0.31 K/uL (1.2-3.4) L 07/02/22 04:42 [place] # (Auto) 0.67 K/uL (0.24-0.82) 07/02/22 04:42 Eos # (Auto) 0.00 K/uL (0-0.50) 07/02/22 04:42 Baso # (Auto) 0.05 K/uL (0-0.2) 07/02/22 04:42 Immature Gran # (Auto) 0.15 K/uL (0.00-0.02) H 07/02/22 04:42 Toxic Vacuolation 1+ 07/02/22 04:42 Dohle Bodies 1+ 07/02/22 04:42 Platelet Estimate Decreased (Normal) L 07/01/22 20:00 Giant Platelets 1+ 07/01/22 20:00 Polychromasia 1+ 07/01/22 20:00 Target Cells 2+ 07/02/22 04:42 PT 14.8 Seconds (9.0-12.0) H 07/01/22 20:00 INR 1.4 (0.9-1.1) H 07/01/22 20:00 Sodium 129 mmol/L (136-145) L 07/02/22 04:42 Potassium 3.5 mmol/L (3.5-5.1) D 07/02/22 04:42 Chloride 97 mmol/L (98-107) L 07/02/22 04:42 Carbon Dioxide 20 mmol/L (21-32) L 07/02/22 04:42 Anion Gap 12 (3-11) H 07/02/22 04:42 BUN 31 mg/dl (6-23) H 07/02/22 04:42 Creatinine 1.54 mg/dl (0.6-1.2) H D 07/02/22 04:42 Est Cr Clr Drug Dosing 51.0 ml/min 07/02/22 04:42 Est GFR ( Amer) 51.2 ml/min 07/02/22 04:42 Est GFR (Non-Af Amer) 44.2 ml/min 07/02/22 04:42 BUN/Creatinine Ratio 20.1 (10-20) H 07/02/22 04:42 Glucose 92 mg/dl (70-99(Fasting)) 07/02/22 04:42 Osmolality 281 mOsm/kg (280-300) 07/02/22 04:42 Lactate TNP 07/02/22 05:57 Calcium 6.7 mg/dl (8.5-10.1) L 07/02/22 04:42 Magnesium 2.7 mg/dl (1.7-2.4) H 07/02/22 04:42 Total Bilirubin 13.9 mg/dl (0.2-1.0) H 07/02/22 04:42 Direct Bilirubin 8.6 mg/dl (0-0.2) H 07/02/22 04:42 AST 107 U/L (13-39) H 07/02/22 04:42 ALT 62 U/L (7-52) H 07/02/22 04:42 Alkaline Phosphatase 159 U/L (34-104) H 07/02/22 04:42 Total Protein 6.1 gm/dl (6.0-8.3) 07/02/22 04:42 Albumin 2.5 gm/dl (3.4-5.0) L 07/02/22 04:42 Globulin 3.6 gm/dl (2.5-4.0) 07/01/22 20:00 Albumin/Globulin Ratio 0.7 (0.9-2) L 07/01/22 20:00 TSH 0.476 uIu/ml (0.300-4.500) 07/01/22 20:00 HCG, Qual Negative (Negative) 07/01/22 20:00 Urine Color Dark Yellow 07/01/22 21:49 Urine Appearance Turbid (Clear) A 07/01/22 21:49 Urine pH 5.0 (4.5-7.5) 07/01/22 21:49 Ur Specific [place] 1.017 (1.000-1.030) 07/01/22 21:49 Urine Protein 3+ (Negative) H 07/01/22 21:49 Urine Glucose (UA) Negative (Negative) 07/01/22 21:49 Urine Ketones Negative (Negative) 07/01/22 21:49 Urine Blood 3+ (Negative) H 07/01/22 21:49 Urine Nitrite Positive (Negative) A 07/01/22 21:49 Urine Bilirubin 3+ (Negative) H 07/01/22 21:49 Urine Urobilinogen Negative (Negative) 07/01/22 21:49 Ur Leukocyte Esterase Trace (Negative) H 07/01/22 21:49 Urine WBC (Auto) 1-5 /hpf (0-5) 07/01/22 21:49 Urine RBC (Auto) 0-4 /hpf (0-4) 07/01/22 21:49 U Hyaline Cast (Auto) >30 /lpf (0-5) H 07/01/22 21:49 U Epithel Cells (Auto) >30 /lpf (0-5) H 07/01/22 21:49 Urine Bacteria (Auto) Negative (Negative) 07/01/22 21:49 Granular Casts 10-20 /lpf (0) H 07/01/22 21:49 Urine Yeast Not Reportable 07/01/22 21:49 Stl C. cayetanensis PCR Not Detected (NotDetected) 07/02/22 00:54 Stool Rotavirus A PCR Not Detected (NotDetected) 07/02/22 00:54 Stl Adenov F 40/41 PCR Not Detected (NotDetected) 07/02/22 00:54 Stool Astrovirus (PCR) Not Detected (NotDetected) 07/02/22 00:54 Stool Campylobacter PCR Not Detected (NotDetected) 07/02/22 00:54 Stl C. diff Tox B Gene Negative Cdiff Gene (Neg) 07/02/22 00:54 Stool Cryptosporidium PCR Not Detected (NotDetected) 07/02/22 00:54 Stl E.coli Shiga Tox PCR Not Detected (NotDetected) 07/02/22 00:54 Stl Enterotoxigenic E PCR Not Detected (NotDetected) 07/02/22 00:54 Stool EPEC (PCR) Not Detected (NotDetected) 07/02/22 00:54 Stool EAEC (PCR) Not Detected (NotDetected) 07/02/22 00:54 Stl E. histolytica PCR Not Detected (NotDetected) 07/02/22 00:54 Stool Giardia Lamblia PCR Not Detected (NotDetected) 07/02/22 00:54 Stool Salmonella PCR Not Detected (NotDetected) 07/02/22 00:54 Stool Sapovirus (PCR) Not Detected (NotDetected) 07/02/22 00:54 Stl P. shigelloides PCR Not Detected (NotDetected) 07/02/22 00:54 Stl Shigella/EIEC PCR Not Detected (NotDetected) 07/02/22 00:54 St Y.enterocolitica PCR Not Detected (NotDetected) 07/02/22 00:54 Stool Vibrio (PCR) Not Detected (NotDetected) 07/02/22 00:54 Stl Vibrio cholerae PCR Not Detected (NotDetected) 07/02/22 00:54 Stl Norovirus GI/GII PCR Not Detected (NotDetected) 07/02/22 00:54 Urine Opiates Screen Neg (Neg) 07/01/22 20:38 Ur Methadone, Qual Neg (Neg) 07/01/22 20:38 Urine Barbiturates Neg (Neg) 07/01/22 20:38 Ur Phencyclidine (PCP) Neg (Neg) 07/01/22 20:38 U Amphetamin/Meth Scrn Neg (Neg) 07/01/22 20:38 MDMA (Ecstasy) Screen Neg (Neg) 07/01/22 20:38 U Benzodiazepines Scrn Neg (Neg) 07/01/22 20:38 Ur Cocaine Metabolite Neg (Neg) 07/01/22 20:38 U Marijuana (THC) Screen Pos (Neg) H 07/01/22 20:38 RPR Nonreactive (Nonreactive) 07/01/22 20:00 Adenovirus (PCR) Not Detected (NotDetected) 07/01/22 21:29 Anaplasma Smear See Comment 07/01/22 20:00 Babesia Smear See Comment 07/01/22 20:00 B. pertussis DNA (PCR) Not Detected (NotDetected) 07/01/22 21:29 B.parapertussis DNA PCR Not Detected (NotDetected) 07/01/22 21:29 Lyme Disease IgG Ab Negative (Negative) 07/01/22 20:00 Lyme Disease IgM Ab Negative (Negative) 07/01/22 20:00 C. pneumoniae DNA (PCR) Not Detected (NotDetected) 07/01/22 21:29 Coronavirus OC43 (PCR) Not Detected (NotDetected) 07/01/22 21:29 Coronavirus HKU1 (PCR) Not Detected (NotDetected) 07/01/22 21:29 Coronavirus 229E (PCR) Not Detected (NotDetected) 07/01/22 21:29 SARS-CoV-2 (PCR) Not Detected (NotDetected) 07/01/22 21:29 Coronavirus NL63 (PCR) Not Detected (NotDetected) 07/01/22 21:29 Monoscreen Negative (Negative) 07/01/22 20:00 Human Metapneumovir PCR Not Detected (NotDetected) 07/01/22 21:29 Influenza Type A (PCR) Not Detected (NotDetected) 07/01/22 21:29 Influenza Type B (PCR) Not Detected (NotDetected) 07/01/22 21:29 M. pneumoniae (PCR) Not Detected (NotDetected) 07/01/22 21:29 Parainfluenza 1 (PCR) Not Detected (NotDetected) 07/01/22 21:29 Parainfluenza 2 (PCR) Not Detected (NotDetected) 07/01/22 21:29 Parainfluenza 3 (PCR) Not Detected (NotDetected) 07/01/22 21:29 Parainfluenza 4 (PCR) Not Detected (NotDetected) 07/01/22 21:29 RSV (PCR) Not Detected (NotDetected) 07/01/22 21:29 Entero/Rhino (PCR) Not Detected (NotDetected) 07/01/22 21:29 Impressions Chest X-Ray 07/01/22 20:38 XR chest 1V portable CLINICAL HISTORY: weakness COMPARISON STUDY: No previous studies for comparison. FINDINGS: Lung volumes are normal. There is no pneumothorax or pleural effusion. Cardiac size is normal. Mediastinal contours are normal. There has been interval development of multifocal nodular airspace opacities since recent abdominal CT of June 24, 2022. These measure up to 4 cm. Several of these demonstrate cavitation. IMPRESSION: Interval development of multifocal nodular airspace opacities, several of which demonstrate cavitation, since CT of June 24, 2022. The findings are consistent with an infectious process and favor septic pulmonary emboli. ACT 112: Negative or not required by law. Electronically signed by: Mendez Russell M.D. 07/02/2022 7:[address] 07/01/22 20:38 CT OF THE HEAD WITHOUT CONTRAST CLINICAL HISTORY: Headache. Jaundice. COMPARISON STUDY: No previous studies for comparison. CT DOSE: 537.48 mGy.cm TECHNIQUE: Helical axial images of the head were obtained without IV contrast. Automated exposure control was utilized for the study. A dose lowering technique was utilized adhering to the principles of ALARA. FINDINGS: No acute intracranial hemorrhage, midline shift or mass effect is present. The ventricular system is unremarkable. The basal cisterns are patent. No extra-axial collections are present. There are no findings to suggest acute dural sinus thrombosis or acute territorial infarct. No significant calvarial abnormalities are present. Visualized portions of the sinuses and mastoid air cells are clear. IMPRESSION: No acute intracranial findings. ACT 112: Negative or not required by law. Electronically signed by: Mendez Russell M.D. 07/02/2022 7:00 AM Abdomen/Pelvis CT 07/01/22 21:[address] WITH IV CONTRAST HISTORY: Acute fever with elevated LFTs Fever, elevated LFT, hyperbili, vomit TECHNIQUE: Multiaxial CT images of the abdomen and pelvis were performed following the IV administration of 86 cc of Optiray, A dose lowering technique was utilized adhering to the principles of ALARA. COMPARISON STUDY: Chest CT of same day, CT abdomen and pelvis 06/24/2022 FINDINGS: Numerous round consolidative densities of the lung bases, several of which are centrally cavitary measuring up to 2.9 cm are new from the prior study. No pneumatosis or pneumoperitoneum. The study is limited secondary to upper extremity positioning. Unremarkable spleen, pancreas and adrenal glands. Mildly distended gallbladder. The liver is within normal limits. Patency of the hepatic and portal veins. Unremarkable kidneys without hydronephrosis. The urinary bladder is within normal limits. Endometrium measures up to 1.6 cm. Uterus and ovaries are otherwise unremarkable. Aorta and IVC are unremarkable. No pathologically enlarged lymph nodes are identified. Mild nonspecific wall thickening of the distal esophagus. Mild wall thickening of the mid to distal gastric body with partial distention is similar to prior. No bowel obstruction or bowel wall thickening. Small and large bowel air-fluid levels. Normal appendix. Mild nonspecific stranding is noted surrounding the left rectus femoris and iliopsoas psoas musculature. Moderate degeneration of the pubic symphysis. No acute fracture identified. IMPRESSION: 1. Interval development of numerous round and centrally cavitary consolidative opacities of the lung bases, new from 06/24/2022 suggestive of septic emboli. 2. No bowel obstruction or bowel wall thickening. Normal appendix. 3. Mild wall thickening of the gastric body redemonstrated which may be secondary to partial distention versus a nonspecific gastritis. 4. Mild stranding surrounding the proximal rectus femoris and iliopsoas musculature. Correlate with clinical exam findings and patient history. ACT 112: Negative or not required by law. The above report was generated using voice recognition software. It may contain grammatical, syntax or spelling errors. Electronically signed by: Roberto Aly M.D. 07/02/2022 7:53 AM Soft Tissue Neck CT 07/01/22 22:14 CT OF THE NECK WITH IV CONTRAST CLINICAL HISTORY: Lymphadenopathy. COMPARISON STUDY: No previous studies for comparison. TECHNIQUE: Following IV administration of 86 mL of Optiray, helical axial images of the neck were obtained. Sagittal and coronal reconstructions were viewed. Automated exposure control was utilized for the study. A dose lowering technique was utilized adhering to the principles of ALARA. FINDINGS: Visualized portions of the intracranial contents are unremarkable. The mastoid air cells are clear. The sinuses are clear. Note is made of a 1.9 x 1.8 cm left peritonsillar rim enhancing fluid collection consistent with a peritonsillar abscess. There is moderate associated mass effect with narrowing of the hypopharynx. There is an adjacent 1.7 x 1.5 cm fluid collection within the left paravertebral space consistent with an additional abscess. In addition, there is occlusive thrombus within the left internal jugular vein. Mild to moderate prevertebral edema is also present. The epiglottis is normal. There is no soft tissue gas. No additional sites of vessel occlusion are identified within the neck. Prominent left cervical lymph nodes are reactive. Visualized portions of the chest demonstrate multiple cavitary round airspace opacities consistent with septic pulmonary emboli. IMPRESSION: 1. Findings consistent with Lemierre syndrome. Two left peritonsillar abscesses, measuring up to 1.9 x 1.8 cm, with associated occlusive thrombophlebitis of the left internal jugular vein and septic pulmonary emboli. This finding will be called/faxed to ordering provider at time of dictation. 2. Mild to moderate prevertebral edema. ACT 112: Negative or not required by law. Electronically signed by: Mendez Russell M.D. 07/02/2022 7:16 AM Hand X-Ray 07/01/22 22:16 XR hand LT min 3V routine CLINICAL HISTORY: 3rd finger MCP swelling COMPARISON: None FINDINGS: Alignment of the left hand is anatomic. There is no acute fracture. There is no bony erosion. Dorsal soft tissue swelling is noted on lateral projection. There is also soft tissue swelling adjacent to the left third metacarpophalangeal joint and within the left third finger. No soft tissue gas is identified. IMPRESSION: 1. No osseous abnormality within the left hand. 2. Soft tissue swelling the dorsal left hand and left third digit, as described above. This is nonspecific. ACT 112: Negative or not required by law. Electronically signed by: Mendez Russell M.D. 07/02/2022 7:[address] 07/01/22 22:[address] WITH CONTRAST CT DOSE: 875.10 mGy.cm HISTORY: Acute tachycardia with lymphadenopathy tachycardia, lymphadenopathy TECHNIQUE: Multiaxial CT images of the chest were performed following the IV administration of 86 cc of Optiray. A dose lowering technique was utilized adhering to the principles of ALARA. COMPARISON: CT abdomen and pelvis of same day and also 06/24/2022 FINDINGS: Unremarkable thyroid. The heart is normal in size without pericardial effusion. The thoracic aorta and pulmonary arterial tree are suboptimally evaluated secondary to respiratory motion artifact. Trace pleural effusions. No pneumothorax. Mild intralobular septal thickening with bronchial wall thickening and areas of mild mosaic attenuation. There is development of numerous rounded nodular consolidative opacities within a multilobar and multi segmental distribution. Many of these lesions are centrally cavitary measuring up to 2.4 cm within the left lower lobe and 2.6 cm within the right lower lobe. Several of these lesions about the peripheral pleural surfaces. Unremarkable soft tissues. No acute fracture. IMPRESSION: 1. Interval development of numerous round and centrally cavitary consolidative opacities of the lungs which are new from 06/24/2022. Findings are suggestive of septic emboli. 2. No lymphadenopathy. ACT 112: Negative or not required by law. Electronically signed by: Roberto Aly M.D. 07/02/2022 8:14 AM Medications Administered Current Inpatient Medications Vancomycin HCl 1,250 mg/ (Sodium Chloride) 275 mls @ 200 mls/hr IV Q24H [facility]; Protocol Stop: 07/12/22 09:59 Sodium Chloride (Nss 1000ml) 1,000 mls @ 150 mls/hr IV .[id number] [facility] Stop: 08/01/22 03:38 Last Admin: 07/02/22 05:01 Dose: 150 mls/hr Piperacillin Sod/Tazobactam (Sod 3.375 gm/ Dextrose) 115 mls @ 28.75 mls/hr IV Q8H [facility]; Protocol Stop: 07/12/22 04:59 Last Admin: 07/02/22 05:27 Dose: 28.8 mls/hr Acetaminophen (Ofirmev) 1,000 mg in 100 mls @ 400 mls/hr IV Q8H PRN PRN Reason: fever, pain Stop: 07/05/22 07:36 Last Admin: 07/02/22 08:22 Dose: 400 mls/hr Dexamethasone 10 mg/ Syringe 2.5 mls @ 1 mls/min IV Q24H [facility] Stop: 07/05/22 09:29 Miscellaneous Information (Vancomycin Consult Active) 1 each N/A UD PRN PRN Reason: Consult Stop: 07/31/22 23:56 Nitroglycerin (Nitroglycerin Sl 0.4 Mg/Tab Tab) 0.4 mg SL UD PRN PRN Reason: Chest Pain Stop: 08/01/22 03:38 Ondansetron HCl (Ondansetron Inj 2 Mg/Ml 2 Ml Vial) 4 mg IV Q6H PRN PRN Reason: Nausea Stop: 08/01/22 03:38 Last Admin: 07/02/22 05:54 Dose: 4 mg
[2022-07-02] MEDS ORDERED: VANCOMYCIN HCL 1,250 MG in SODIUM CHLORIDE 0.9% 250 ML IV SCH (10:00)
[2022-07-02] MEDS: dexAMETHasone 10 MG in SYRINGE 0 ML IV SCH (10:03)
--- NOTE | 2022-07-02 10:16 | Nephrology Consultation ---
Date of Consultation July 02, 2022 Assessment & Plan (1) HARRY (acute kidney injury): unknown baseline renal function in young pt w/ no comorbidities. creatinine was 1.5 on 06/24, 1.9 on 07/01, 1.5 on recheck this am; repeat study pending. ischemic ATN plus other pathologies possible UA c/w ATN +/- nephritic process Multiple risk ff for worsening renal function, including > -ongoing sepsis -on IV vanco/zosyn -obligate IV contrast exposure in setting of already ongoing ATN -septic emboli noted >will evaluate rx'd NS at 150 mL/Hr pending 10 AM labs > favor normosol w/ 40 mEq/L K same rate and so ordered >bmp, cbc q6 hr >defer to primary and to critical care but low threshold to dose vanco by level -avoid furthe r IV con if possible -favor sheila (2) Nephritis: nephritic urine sediment; at risk for glomerular and interstitial and microvascular disease; already w/ documented tubular injury -will order targeted work up > peripheral smear (pending), complement, ANCA, ASO, cryos, hep panel (pending) -spot protein/creat ratio ordered -not a biopsy candidate at this time (3) Electrolyte and fluid disorder: presumed AGMA, hyponatremia, mild hypocalcemia (corrects to 8 w/ value 6.8 Ca) and improving/severe>moderate hypokalemia >> none severe currently she's had 50 mEq K IV plus 40 mEq po > K still 3.1 d/t ongoing diarrhea -IVF adjustments as above -presume hypovolemic hyponatremia >continue resuscitation and q6 hr bmp -ABG as indicated; lactate pending (4) Lemierre syndrome: ENT c/s pending; abscess drainage planned heme c/s pending re AC ID c/s pending on decadron and zosyn/vanco f/u pending cxs monitor for DIC (5) Abnormal chest CT: w/ presumed septic emboli and risk for PTX per pulmonary -agree w/ stat TTE History of Present Illness Reason for Consultation: hyponatremia Requesting Physician: Dr Goddard Attending Physician: Tomasz Goddard MD History of Present Illness 31 y/o F whom I'm asked to see for hyponatremia was admitted this am at 0130 for sepsis w/ N/diarrhea/ generalized weakness and electrolyte and liver enzyme abnormalities as well as HARRY. Jaundice also noted by family and part of reason for bringing her in. PMH includes asthma, not currently on meds for this. She was seen in ER last week for N/V/D/sore throat w/ w/u notable for negative covid, flu, Strep, BHcG and plts 115, WBC in 2's. Transaminases and bilirubin and UA and pr were wnl at that time; CT a/p unremarkable. She improved w/ pain and antiemetic meds, IVF and d/c home. Came back last evening d/t emerging jaundice and worsening sore throat w/ dysphagia. Her temp in ER was 40 w/ Na 126, K 2.9, creat 1.9 (up from 1.5 last week). No other OP labs/baseline studies available. Her TBi was now 13.6 w/ ALT 108. No rash but c/o R hand erythema/swelling. Imaging concerning for tonsillary abscess x 2 w/ L IJ occlusive thrombophlebitis and septic pulmonary emboli; numerous central cavitary lesions BL lower lobes up to 2.4 cm presumptive septic emboli. when I evaluated the pt she is too lethargic to participate in ros. w/ frequent, unpleasant stimuli she arouses enough to tell me her name and birthday. RN reports she's having copious diarrhea and has been incontinent of urine. Allergies Allergy/AdvReac Type Severity Reaction Status Date / Time No Known Allergies Allergy Verified 07/01/22 23:49 Home Medications Medication Instructions Recorded Confirmed Type No Known Home Medications 07/01/22 07/01/22 History Patient History Medical History (Updated 07/02/22 @ 10:32 by Berta Lacey MD, PhD) Asthma Family History Other Family history non-contributory Social History Smoking Status: Former smoker Second Hand Exposure: No; Do You Dip or Chew Tobacco: No; Hx Alcohol Use: No Hx Substance Use: No Preferred Language: Upper Sorbian Communication Ability: Effective Assessment Nurse Practitioner Required: No Beliefs That Will Affect Care: None Current Living Situation: Family Feels Safe at Home: Yes Safety Concerns: Feels Safe At This Time Assistive Devices: Glasses Review of Systems Review of Systems: Unobtainable due to reduced consciousness Physical Exam Constitutional: well developed, well nourished, average body habitus and + lethargic; no acute distress and + uncooperative Eyes: EOM intact bilaterally ENMT: Ears: no external ear abnormality Nose: no external nose abnormality Mouth: + dry oral mucous membranes Neck: no nuchal rigidity Respiratory: normal respiratory effort Auscultation: + diminished lung sounds Cardiovascular: Rate/Rhythm: regular rhythm and + tachycardic Heart Sounds: no murmur Extremities: no edema Gastrointestinal (Abdomen): Inspection/Auscultation: normal bowel sounds Percussion/Palpation: abdomen soft; abdomen nontender Musculoskeletal: Extremities: strength 5/5 throughout Skin: no rashes, warm and dry Neurologic: cornejo, delayed but appropriate speech, no tremor Results & Data ([facility]) Vital Signs (Past 12 Hours) Vital Signs Temp Pulse Pulse Resp BP BP Pulse Ox 07/02/22 03:30 37.4 C 108 H 20 106/65 97 07/02/22 02:30 110 H 28 H 112/69 95 07/02/22 02:00 111 H 27 H 121/75 93 07/02/22 01:30 115 H 28 H 125/68 97 07/02/22 01:00 120 H 31 H 118/63 95 07/02/22 00:30 117 H 28 H 116/53 L 95 07/02/22 00:16 117 H 25 H 136/62 95 07/01/22 23:30 114 H 27 H 136/66 99 07/01/22 23:00 118 H 22 106/52 L 96 07/02/22 00:00 38.4 C H 07/01/22 22:30 127 H 29 H 122/51 L 07/01/22 22:49 40 C H O2 Del Method 07/02/22 03:30 Room Air 07/02/22 02:30 07/02/22 02:00 07/02/22 01:30 07/02/22 01:00 07/02/22 00:30 07/02/22 00:16 07/01/22 23:30 07/01/22 23:00 07/02/22 00:00 07/01/22 22:30 07/01/22 22:49 Laboratory Results 07/02/22 04:42 07/02/22 04:42 UA 3+ protein, 3+ bili, blood, protein; trace LE, + gran casts and nitrites, > 30 hyaline/epi; no bacteria Diagnostic Findings CT chest w/ con FINDINGS: Unremarkable thyroid. The heart is normal in size without pericardial effusion. The thoracic aorta and pulmonary arterial tree are suboptimally evaluated secondary to respiratory motion artifact. Trace pleural effusions. No pneumothorax. Mild intralobular septal thickening with bronchial wall thickening and areas of mild mosaic attenuation. There is development of numerous rounded nodular consolidative opacities within a multilobar and multi segmental distribution. Many of these lesions are centrally cavitary measuring up to 2.4 cm within the left lower lobe and 2.6 cm within the right lower lobe. Several of these lesions about the peripheral pleural surfaces. Unremarkable soft tissues. No acute fracture. IMPRESSION: 1. Interval development of numerous round and centrally cavitary consolidative opacities of the lungs which are new from 06/24/2022. Findings are suggestive of septic emboli. 2. No lymphadenopathy. CT neck w/ IV con FINDINGS: Visualized portions of the intracranial contents are unremarkable. The mastoid air cells are clear. The sinuses are clear. Note is made of a 1.9 x 1.8 cm left peritonsillar rim enhancing fluid collection consistent with a peritonsillar abscess. There is moderate associated mass effect with narrowing of the hypopharynx. There is an adjacent 1.7 x 1.5 cm fluid collection within the left paravertebral space consistent with an additional abscess. In addition, there is occlusive thrombus within the left internal jugular vein. Mild to moderate prevertebral edema is also present. The epiglottis is normal. There is no soft tissue gas. No additional sites of vessel occlusion are identified within the neck. Prominent left cervical lymph nodes are reactive. Visualized portions of the chest demonstrate multiple cavitary round airspace opacities consistent with septic pulmonary emboli. IMPRESSION: 1. Findings consistent with Lemierre syndrome. Two left peritonsillar abscesses, measuring up to 1.9 x 1.8 cm, with associated occlusive thrombophlebitis of the left internal jugular vein and septic pulmonary emboli. This finding will be called/faxed to ordering provider at time of dictation. 2. Mild to moderate prevertebral edema. CT a/p w/ con FINDINGS: Numerous round consolidative densities of the lung bases, several of which are centrally cavitary measuring up to 2.9 cm are new from the prior study. No pneumatosis or pneumoperitoneum. The study is limited secondary to upper extremity positioning. Unremarkable spleen, pancreas and adrenal glands. Mildly distended gallbladder. The liver is within normal limits. Patency of the hepatic and portal veins. Unremarkable kidneys without hydronephrosis. The urinary bladder is within normal limits. Endometrium measures up to 1.6 cm. Uterus and ovaries are otherwise unremarkable. Aorta and IVC are unremarkable. No pathologically enlarged lymph nodes are identified. Mild nonspecific wall thickening of the distal esophagus. Mild wall thickening of the mid to distal gastric body with partial distention is similar to prior. No bowel obstruction or bowel wall thickening. Small and large bowel air-fluid levels. Normal appendix. Mild nonspecific stranding is noted surrounding the left rectus femoris and iliopsoas psoas musculature. Moderate degeneration of the pubic symphysis. No acute fracture identified. IMPRESSION: 1. Interval development of numerous round and centrally cavitary consolidative opacities of the lung bases, new from 06/24/2022 suggestive of septic emboli. 2. No bowel obstruction or bowel wall thickening. Normal appendix. 3. Mild wall thickening of the gastric body redemonstrated which may be secondary to partial distention versus a nonspecific gastritis. 4. Mild stranding surrounding the proximal rectus femoris and iliopsoas musculature. Correlate with clinical exam findings and patient history. Head CT/ hand XR no acute process
[2022-07-02 10:55] LABS: BUN Creatinine Ratio 18.9 (10-20); Calcium 6.8 mg/dl (8.5-10.1); Creatinine Clr Calc Pharmacy 59.5 ml/min; Est GFR (African American) 61.7 ml/min; Est GFR (Non-African American) 53.2 ml/min; Potassium 3.1 mmol/L (3.5-5.1)
[2022-07-02 11:03] LABS: Reticulocyte % < 0.5 % (0.5-2.0); Reticulocytes # < 0.02 10^6/uL (0.02-0.10)
[2022-07-02 12:12] LABS: D Dimer 5830 ug/L FEU (0-500)
[2022-07-02] MEDS ORDERED: POTASSIUM CHLORIDE 40 MEQ in NORMOSOL-R 1,000 ML IV STA (12:12)
--- NOTE | 2022-07-02 13:18 | Consultation ---
Date of Consultation July 02, 2022 Assessment & Plan (1) Thrombocytopenia: I have personally reviewed the peripheral smear in conjunction with our pathologist. There is toxic granulation and left shift in the granulocytic series suggestive of a reactive condition with no suggestion of blasts or primary hematologic malignancy. Red cell series does show some target cells and rare schistocytes but the latter are not in sufficient frequency to suggest a microangiopathic hemolytic anemia. Platelets are clearly decreased in number with larger forms present and no clumping suggesting that this is not an artifactual thrombocytopenia and in a picture consistent with premature platelet destruction. B12 and folic acid levels are in good range. The reticulocyte count is low and thus we are not dealing with an Limon syndrome and that also further excludes any classic microangiopathic hemolytic anemia.. While we cannot completely exclude an inherent/idiopathic immune thrombocytopenia I think we have ample alternative indications of source of thrombocytopenia particularly from her sepsis which may lead both to suppression of marrow function and some early destruction of platelets (though without florid MAHA as above). Have to be concerned about drug-induced thrombocytopenia as both vancomycin and piperacillin can have significant associated thrombocytopenia. While the onset of her platelet drop preceded the institution of those medications and thus almost certainly represents her underlying infection to a large extent, their continuation may perpetuate or exacerbate the thrombocytopenia. 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 Technically, from a strictly numerical standpoint, 50,000 platelets or more should be adequate to support therapeutic anticoagulation. However, given what may be a background of DIC this patient may have a coagulopathy putting her in a increased risk for hemorrhage despite the technically adequate platelet counts. It is certainly not clear that platelet transfusion is helpful at this point unless there was an immediately threatening bleeding episode in which case we would still technically aim for platelet counts of 50,000. Such bleeding might warrant s pecific assessment of her coagulation factors and fibrinogen levels and a combination of platelet and factor support as fresh frozen plasma and/or cryoprecipitate. If there is any clinical deterioration especially any bleeding, there may need to be some consideration as to transfer to an institution that has a more robust and reactive blood bank capability. 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 Noting the specific Up-to-Date discussion of this condition, those experts conclude that "it is uncertain whether anticoagulation may reduce propagation of thrombus or septic embolic events" and and conclude " in general, we suggest not treating most patients with anticoagulation. We pursue anticoagulation in the setting of progression of thrombosis or continued fever bacteremia after 5 to 7 days with appropriate antimicrobial therapy (with drainage of purulent collections as appropriate), given potential concern for retrograde progression into the cavernous or other sinus." More generally, discussions of septic emboli from other sources generally do not find a dramatic benefit from anticoagulation and there is concern about potential [employer] TECH[employer]ICIAN hemorrhage from occult septic emboli to the brain. Theoretically there can also be concerns over hemorrhage into the lesions in the lung and any lesions in other organs that are associated with local tissue breakdown. Bleeding risks would obviously be further exacerbated in this particular case given her thrombocytopenia and what may be a superimposed DIC-like syndrome with attendant potential coagulopathy. Therapy will need to focus more on aggressive treatment of the infection itself though as discussed in the particular review of her thrombocytopenia, we are currently chosen antibiotics may be somewhat problematic in their exacerbation of the following platelet counts. This is overall a very aggressive situation with a challenging prognosis and will certainly need comprehensively integrated multidisciplinary input for its management. (3) Anemia: Modest anemia still with double digit hemoglobin levels. The jump in bilirubin raised concerns over whether there might be an element of red cell destruction but review of the peripheral smear (see its description in the discussion of thrombocytopenia) does not show significant schistocytes or spherocytes. LDH is surprisingly normal given the degree of bilirubin change and reticulocyte count is extremely low. There does not seem to be any significant suggestion of hemolysis but rather suppression of Red cell production probably reflecting inflammatory suppression of marrow function and specifically of erythropoiesis. Patient is unable to give a history but target cells suggest the possibility that she could be a carrier for hemoglobin C and would be worthwhile seeing if she has had a work-up that previously or if there is any family history of hemoglobinopathy. That would not affect acute management, however. Hemoglobin levels are in more than adequate range for now do not need transfusion support at this time. Markedly elevated bilirubin without hemolysis suggests intrinsic liver process. While this may be somewhat nonspecific related to sepsis, one would also have to wonder whether there are evolving microabscesses in the liver paralleling those seen in the lung. Overall approach will be focusing on the infectious disease intervention discussed separately. Plan 1. Immediate focuses on antibiotic therapy as discussed in detail above. Aggressive multidisciplinary interaction particularly including ENT and ID practitioners familiar with Lemiere's syndrome is [place] 2. As above, it is not clear that there is an immediate indication for anticoagulation. If it is felt that anticoagulation could be important, it is technically a platelet count of 50,000 or above is numerically adequate but I do have concerns over her bleeding risk related to a possible background DIC like coagulopathy and as well the local vascular/tissue breakdown it is any signs of microabscesses that could predispose her to bleeding in the organs including the brain. 3. Thrombocytopenia certainly reflects at least in part sepsis/perhaps a low- level DIC but may be exacerbated by vancomycin and clinical piperacillin. If there are alternative antibiotics that could be substituted with equal efficacy against the underlying infection, that should be a consideration 4. 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 Reviewing history and physical and consultants notes, she generally has been quite healthy other than a history of asthma which does not sound like it has been severe. She been evaluated emergency department mid months with nausea, vomiting, diarrhea and sore throat with a moderate leukopenia and thrombocytopenia at that time. Overall work-up was relatively unremarkable otherwise, she improved with basic supportive measures and was discharged for outpatient follow-up. Re: presentation earlier this week she was having increasing throat discomfort and some pain swallowing. She was developing jaundice and right arm swelling. Apparently during this admission has been more dramatic changes now with a markedly elevated bilirubin level and signs of a jugular clot/Lemierre's syndrome. There are signs of septic emboli in the lungs. Allergies Allergy/AdvReac Type Severity Reaction Status Date / Time No Known Allergies Allergy Verified 07/01/22 23:49 Home Medications Medication Instructions Recorded Confirmed Type No Known Home Medications 07/01/22 07/01/22 History Patient History Medical History (Updated 07/02/22 @ 10:32 by Berta Lacey MD, PhD) Asthma Family History Other Family history non-contributory Social History Smoking Status: Former smoker Second Hand Exposure: No; Do You Dip or Chew Tobacco: No; Hx Alcohol Use: No Hx Substance Use: No Preferred Language: Greenlandic Communication Ability: Impaired Nephrology Nurse Required: No Beliefs That Will Affect Care: None Current Living Situation: Family Feels Safe at Home: Yes Safety Concerns: Feels Safe At This Time Assistive Devices: None Physical Exam Physical Exam: Patient is lethargic but does not seem to be tachypneic. She opens her eyes but does not respond verbally to my questions. Pulse ox is still stable. There more diffuse swelling/tenderness in the left neck but otherwise without a discrete mass but otherwise no mass or adenopathy in the supraclavicular or axillary regions. Lungs seem clear She is mildly tachycardic but without gross murmur Abdomen seems nontender and there is no obvious splenomegaly, liver is not markedly tender at this time. Results & Data ([facility]) Vital Signs (Past 12 Hours) Vital Signs Temp Pulse Pulse Resp BP BP Pulse Ox 07/02/22 11:34 36.5 C 103 H 22 118/69 92 07/02/22 03:30 37.4 C 108 H 20 106/65 97 07/02/22 02:30 110 H 28 H 112/69 95 07/02/22 02:00 111 H 27 H 121/75 93 07/02/22 01:30 115 H 28 H 125/68 97 O2 Del Method 07/02/22 11:34 Room Air 07/02/22 03:30 Room Air 07/02/22 02:30 07/02/22 02:00 07/02/22 01:30 Laboratory Results Abnormal lab results 07/01/22 07/01/22 07/01/22 Range/Units 20:00 20:00 20:00 WBC 14.32 H (4.8-10.8) K/ul RBC 3.41 L (3.93-5.22) M/uL Hgb 10.1 L (12.0-16.0) g/dl Hct 27.4 L (34.1-44.9) % MCV (80.0-100.0) fL MCHC 36.9 H (32.0-36.0) g/dL RDW Coeff of Carrol 14.6 H (11.5-14.5) % Plt Count 54 L (130-400) K/uL Reticulocyte % (Auto) (0.5-2.0) % Neut # (Auto) 12.34 H (1.4-6.5) K/uL Lymph # (Auto) 0.57 L (1.2-3.4) K/uL [place] # (Auto) 1.08 H (0.24-0.82) K/uL Reticulocyte # (0.02-0.10) 10^6/uL Immature Gran # (Auto) 0.27 H (0.00-0.02) K/uL Platelet Estimate Decreased L (Normal) PT 14.8 H (9.0-12.0) Seconds INR 1.4 H (0.9-1.1) D-Dimer (0-500) ug/L FEU Sodium 126 L (136-145) mmol/L Potassium 2.9 L (3.5-5.1) mmol/L Chloride 90 L (98-107) mmol/L Carbon Dioxide (21-32) mmol/L Anion Gap 14 H (3-11) BUN 38 H (6-23) mg/dl Creatinine 1.93 H (0.6-1.2) mg/dl BUN/Creatinine Ratio (10-20) Osmolality (280-300) mOsm/kg Calcium 6.8 L (8.5-10.1) mg/dl Magnesium 2.8 H (1.7-2.4) mg/dl Total Bilirubin 13.6 H (0.2-1.0) mg/dl Direct Bilirubin (0-0.2) mg/dl AST 108 H (13-39) U/L ALT 61 H (7-52) U/L Alkaline Phosphatase 122 H (34-104) U/L Total Creatine Kinase (26-192) U/L Albumin 2.6 L (3.4-5.0) gm/dl Albumin/Globulin Ratio 0.7 L (0.9-2) Vitamin B12 (180-914) pg/ml Procalcitonin (0-0.5) ng/ml Urine Appearance (Clear) Urine Protein (Negative) Urine Blood (Negative) Urine Nitrite (Negative) Urine Bilirubin (Negative) Ur Leukocyte Esterase (Negative) U Hyaline Cast (Auto) (0-5) /lpf U Epithel Cells (Auto) (0-5) /lpf Granular Casts (0) /lpf U Marijuana (THC) Screen (Neg) 07/01/22 07/01/22 07/02/22 Range/Units 20:38 21:49 04:42 WBC 13.79 H (4.8-10.8) K/ul RBC 3.57 L (3.93-5.22) M/uL Hgb 10.4 L (12.0-16.0) g/dl Hct 28.5 L (34.1-44.9) % MCV 79.8 L (80.0-100.0) fL MCHC 36.5 H (32.0-36.0) g/dL RDW Coeff of Carrol 14.8 H (11.5-14.5) % Plt Count 53 L (130-400) K/uL Reticulocyte % (Auto) < 0.5 L (0.5-2.0) % Neut # (Auto) 12.61 H (1.4-6.5) K/uL Lymph # (Auto) 0.31 L (1.2-3.4) K/uL [place] # (Auto) (0.24-0.82) K/uL Reticulocyte # < 0.02 L (0.02-0.10) 10^6/uL Immature Gran # (Auto) 0.15 H (0.00-0.02) K/uL Platelet Estimate (Normal) PT (9.0-12.0) Seconds INR (0.9-1.1) D-Dimer (0-500) ug/L FEU Sodium (136-145) mmol/L Potassium (3.5-5.1) mmol/L Chloride (98-107) mmol/L Carbon Dioxide (21-32) mmol/L Anion Gap (3-11) BUN (6-23) mg/dl Creatinine (0.6-1.2) mg/dl BUN/Creatinine Ratio (10-20) Osmolality (280-300) mOsm/kg Calcium (8.5-10.1) mg/dl Magnesium (1.7-2.4) mg/dl Total Bilirubin (0.2-1.0) mg/dl Direct Bilirubin (0-0.2) mg/dl AST (13-39) U/L ALT (7-52) U/L Alkaline Phosphatase (34-104) U/L Total Creatine Kinase (26-192) U/L Albumin (3.4-5.0) gm/dl Albumin/Globulin Ratio (0.9-2) Vitamin B12 (180-914) pg/ml Procalcitonin (0-0.5) ng/ml Urine Appearance Turbid A (Clear) Urine Protein 3+ H (Negative) Urine Blood 3+ H (Negative) Urine Nitrite Positive A (Negative) Urine Bilirubin 3+ H (Negative) Ur Leukocyte Esterase Trace H (Negative) U Hyaline Cast (Auto) >30 H (0-5) /lpf U Epithel Cells (Auto) >30 H (0-5) /lpf Granular Casts 10-20 H (0) /lpf U Marijuana (THC) Screen Pos H (Neg) 07/02/22 07/02/22 07/02/22 Range/Units 04:42 04:42 04:42 WBC (4.8-10.8) K/ul RBC (3.93-5.22) M/uL Hgb (12.0-16.0) g/dl Hct (34.1-44.9) % MCV (80.0-100.0) fL MCHC (32.0-36.0) g/dL RDW Coeff of Carrol (11.5-14.5) % Plt Count (130-400) K/uL Reticulocyte % (Auto) (0.5-2.0) % Neut # (Auto) (1.4-6.5) K/uL Lymph # (Auto) (1.2-3.4) K/uL [place] # (Auto) (0.24-0.82) K/uL Reticulocyte # (0.02-0.10) 10^6/uL Immature Gran # (Auto) (0.00-0.02) K/uL Platelet Estimate (Normal) PT (9.0-12.0) Seconds INR (0.9-1.1) D-Dimer (0-500) ug/L FEU Sodium 129 L (136-145) mmol/L Potassium (3.5-5.1) mmol/L Chloride 97 L (98-107) mmol/L Carbon Dioxide 20 L (21-32) mmol/L Anion Gap 12 H (3-11) BUN 31 H (6-23) mg/dl Creatinine 1.54 H D (0.6-1.2) mg/dl BUN/Creatinine Ratio 20.1 H (10-20) Osmolality (280-300) mOsm/kg Calcium 6.7 L (8.5-10.1) mg/dl Magnesium 2.7 H (1.7-2.4) mg/dl Total Bilirubin 13.9 H (0.2-1.0) mg/dl Direct Bilirubin 8.6 H (0-0.2) mg/dl AST 107 H (13-39) U/L ALT 62 H (7-52) U/L Alkaline Phosphatase 159 H (34-104) U/L Total Creatine Kinase (26-192) U/L Albumin 2.5 L (3.4-5.0) gm/dl Albumin/Globulin Ratio (0.9-2) Vitamin B12 1268 H (180-914) pg/ml Procalcitonin 154.98 H (0-0.5) ng/ml Urine Appearance (Clear) Urine Protein (Negative) Urine Blood (Negative) Urine Nitrite (Negative) Urine Bilirubin (Negative) Ur Leukocyte Esterase (Negative) U Hyaline Cast (Auto) (0-5) /lpf U Epithel Cells (Auto) (0-5) /lpf Granular Casts (0) /lpf U Marijuana (THC) Screen (Neg) 07/02/22 07/02/22 07/02/22 Range/Units 10:15 10:33 11:22 WBC (4.8-10.8) K/ul RBC (3.93-5.22) M/uL Hgb (12.0-16.0) g/dl Hct (34.1-44.9) % MCV (80.0-100.0) fL MCHC (32.0-36.0) g/dL RDW Coeff of Carrol (11.5-14.5) % Plt Count (130-400) K/uL Reticulocyte % (Auto) (0.5-2.0) % Neut # (Auto) (1.4-6.5) K/uL Lymph # (Auto) (1.2-3.4) K/uL [place] # (Auto) (0.24-0.82) K/uL Reticulocyte # (0.02-0.10) 10^6/uL Immature Gran # (Auto) (0.00-0.02) K/uL Platelet Estimate (Normal) PT (9.0-12.0) Seconds INR (0.9-1.1) D-Dimer 5830 H* (0-500) ug/L FEU Sodium 131 L (136-145) mmol/L Potassium 3.1 L (3.5-5.1) mmol/L Chloride (98-107) mmol/L Carbon Dioxide 19 L (21-32) mmol/L Anion Gap (3-11) BUN 25 H (6-23) mg/dl Creatinine 1.32 H (0.6-1.2) mg/dl BUN/Creatinine Ratio (10-20) Osmolality 277 L (280-300) mOsm/kg Calcium 6.8 L (8.5-10.1) mg/dl Magnesium (1.7-2.4) mg/dl Total Bilirubin (0.2-1.0) mg/dl Direct Bilirubin (0-0.2) mg/dl AST (13-39) U/L ALT (7-52) U/L Alkaline Phosphatase (34-104) U/L Total Creatine Kinase 315 H (26-192) U/L Albumin (3.4-5.0) gm/dl Albumin/Globulin Ratio (0.9-2) Vitamin B12 (180-914) pg/ml Procalcitonin (0-0.5) ng/ml Urine Appearance (Clear) Urine Protein (Negative) Urine Blood (Negative) Urine Nitrite (Negative) Urine Bilirubin (Negative) Ur Leukocyte Esterase (Negative) U Hyaline Cast (Auto) (0-5) /lpf U Epithel Cells (Auto) (0-5) /lpf Granular Casts (0) /lpf U Marijuana (THC) Screen (Neg) Diagnostic Findings Chest X-Ray 07/01/22 20:38 XR chest 1V portable CLINICAL HISTORY: weakness COMPARISON STUDY: No previous studies for comparison. FINDINGS: Lung volumes are normal. There is no pneumothorax or pleural effusion. Cardiac size is normal. Mediastinal contours are normal. There has been interval development of multifocal nodular airspace opacities since recent abdominal CT of June 24, 2022. These measure up to 4 cm. Several of these demonstrate cavitation. IMPRESSION: Interval development of multifocal nodular airspace opacities, several of which demonstrate cavitation, since CT of June 24, 2022. The findings are consistent with an infectious process and favor septic pulmonary emboli. ACT 112: Negative or not required by law. Electronically signed by: Mendez Russell M.D. 07/02/2022 7:[address] 07/01/22 20:38 CT OF THE HEAD WITHOUT CONTRAST CLINICAL HISTORY: Headache. Jaundice. COMPARISON STUDY: No previous studies for comparison. CT DOSE: 537.48 mGy.cm TECHNIQUE: Helical axial images of the head were obtained without IV contrast. Automated exposure control was utilized for the study. A dose lowering technique was utilized adhering to the principles of ALARA. FINDINGS: No acute intracranial hemorrhage, midline shift or mass effect is present. The ventricular system is unremarkable. The basal cisterns are patent. No extra-axial collections are present. There are no findings to suggest acute dural sinus thrombosis or acute territorial infarct. No significant calvarial abnormalities are present. Visualized portions of the sinuses and mastoid air cells are clear. IMPRESSION: No acute intracranial findings. ACT 112: Negative or not required by law. Electronically signed by: Mendez Russell M.D. 07/02/2022 7:00 AM Abdomen/Pelvis CT 07/01/22 21:[address] WITH IV CONTRAST HISTORY: Acute fever with elevated LFTs Fever, elevated LFT, hyperbili, vomit TECHNIQUE: Multiaxial CT images of the abdomen and pelvis were performed following the IV administration of 86 cc of Optiray, A dose lowering technique was utilized adhering to the principles of ALARA. COMPARISON STUDY: Chest CT of same day, CT abdomen and pelvis 06/24/2022 FINDINGS: Numerous round consolidative densities of the lung bases, several of which are centrally cavitary measuring up to 2.9 cm are new from the prior study. No pneumatosis or pneumoperitoneum. The study is limited secondary to upper extremity positioning. Unremarkable spleen, pancreas and adrenal glands. Mildly distended gallbladder. The liver is within normal limits. Patency of the hepatic and portal veins. Unremarkable kidneys without hydronephrosis. The urinary bladder is within normal limits. Endometrium measures up to 1.6 cm. Uterus and ovaries are otherwise unremarkable. Aorta and IVC are unremarkable. No pathologically enlarged lymph nodes are identified. Mild nonspecific wall thickening of the distal esophagus. Mild wall thickening of the mid to distal gastric body with partial distention is similar to prior. No bowel obstruction or bowel wall thickening. Small and large bowel air-fluid levels. Normal appendix. Mild nonspecific stranding is noted surrounding the left rectus femoris and iliopsoas psoas musculature. Moderate degeneration of the pubic symphysis. No acute fracture identified. IMPRESSION: 1. Interval development of numerous round and centrally cavitary consolidative opacities of the lung bases, new from 06/24/2022 suggestive of septic emboli. 2. No bowel obstruction or bowel wall thickening. Normal appendix. 3. Mild wall thickening of the gastric body redemonstrated which may be secondary to partial distention versus a nonspecific gastritis. 4. Mild stranding surrounding the proximal rectus femoris and iliopsoas musculature. Correlate with clinical exam findings and patient history. ACT 112: Negative or not required by law. The above report was generated using voice recognition software. It may contain grammatical, syntax or spelling errors. Electronically signed by: Roberto Aly M.D. 07/02/2022 7:53 AM Soft Tissue Neck CT 07/01/22 22:14 CT OF THE NECK WITH IV CONTRAST CLINICAL HISTORY: Lymphadenopathy. COMPARISON STUDY: No previous studies for comparison. TECHNIQUE: Following IV administration of 86 mL of Optiray, helical axial images of the neck were obtained. Sagittal and coronal reconstructions were viewed. Automated exposure control was utilized for the study. A dose lowering technique was utilized adhering to the principles of ALARA. FINDINGS: Visualized portions of the intracranial contents are unremarkable. The mastoid air cells are clear. The sinuses are clear. Note is made of a 1.9 x 1.8 cm left peritonsillar rim enhancing fluid collection consistent with a peritonsillar abscess. There is moderate associated mass effect with narrowing of the hypopharynx. There is an adjacent 1.7 x 1.5 cm fluid collection within the left paravertebral space consistent with an additional abscess. In addition, there is occlusive thrombus within the left internal jugular vein. Mild to moderate prevertebral edema is also present. The epiglottis is normal. There is no soft tissue gas. No additional sites of vessel occlusion are identified within the neck. Prominent left cervical lymph nodes are reactive. Visualized portions of the chest demonstrate multiple cavitary round airspace opacities consistent with septic pulmonary emboli. IMPRESSION: 1. Findings consistent with Lemierre syndrome. Two left peritonsillar abscesses, measuring up to 1.9 x 1.8 cm, with associated occlusive thrombophlebitis of the left internal jugular vein and septic pulmonary emboli. This finding will be called/faxed to ordering provider at time of dictation. 2. Mild to moderate prevertebral edema. ACT 112: Negative or not required by law. Electronically signed by: Mendez Russell M.D. 07/02/2022 7:16 AM Hand X-Ray 07/01/22 22:16 XR hand LT min 3V routine CLINICAL HISTORY: 3rd finger MCP swelling COMPARISON: None FINDINGS: Alignment of the left hand is anatomic. There is no acute fracture. There is no bony erosion. Dorsal soft tissue swelling is noted on lateral projection. There is also soft tissue swelling adjacent to the left third metacarpophalangeal joint and within the left third finger. No soft tissue gas is identified. IMPRESSION: 1. No osseous abnormality within the left hand. 2. Soft tissue swelling the dorsal left hand and left third digit, as described above. This is nonspecific. ACT 112: Negative or not required by law. Electronically signed by: Mendez Russell M.D. 07/02/2022 7:[address] 07/01/22 22:[address] WITH CONTRAST CT DOSE: 875.10 mGy.cm HISTORY: Acute tachycardia with lymphadenopathy tachycardia, lymphadenopathy TECHNIQUE: Multiaxial CT images of the chest were performed following the IV administration of 86 cc of Optiray. A dose lowering technique was utilized adhering to the principles of ALARA. COMPARISON: CT abdomen and pelvis of same day and also 06/24/2022 FINDINGS: Unremarkable thyroid. The heart is normal in size without pericardial effusion. The thoracic aorta and pulmonary arterial tree are suboptimally evaluated secondary to respiratory motion artifact. Trace pleural effusions. No pneumothorax. Mild intralobular septal thickening with bronchial wall thickening and areas of mild mosaic attenuation. There is development of numerous rounded nodular consolidative opacities within a multilobar and multi segmental distribution. Many of these lesions are centrally cavitary measuring up to 2.4 cm within the left lower lobe and 2.6 cm within the right lower lobe. Several of these lesions about the peripheral pleural surfaces. Unremarkable soft tissues. No acute fracture. IMPRESSION: 1. Interval development of numerous round and centrally cavitary consolidative opacities of the lungs which are new from 06/24/2022. Findings are suggestive of septic emboli. 2. No lymphadenopathy. ACT 112: Negative or not required by law. Electronically signed by: Roberto Aly M.D. 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
[2022-07-02 13:31] LABS: BUN Creatinine Ratio 18.8 (10-20); Calcium 7.1 mg/dl (8.5-10.1); Creatinine Clr Calc Pharmacy 67.1 ml/min; Est GFR (African American) 71.4 ml/min; Est GFR (Non-African American) 61.6 ml/min; Potassium 3.5 mmol/L (3.5-5.1)
[2022-07-02 13:32] LABS: Fibrinogen 778 mg/dl (184-400)
[2022-07-02 14:16] LABS: A calco-baum cmplx NotReported Not Detected (NotDetected); Bact fragilis Not Reported Not Detected (NotDetected); C auris Not Reported Not Detected (NotDetected); Calbicans Not Reported Not Detected (NotDetected); Candida glabrata Not Reported Not Detected (NotDetected); Candida krusei Not Reported Not Detected (NotDetected); Cneoformans/gatti Not Reported Not Detected (NotDetected); Cparapsilosis Not Reported Not Detected (NotDetected); Ctropicalis Not Reported Not Detected (NotDetected); E cloacae compx Not Reported Not Detected (NotDetected); Efaecalis Not Reported Not Detected (NotDetected); Efaecium Not Reported Not Detected (NotDetected); Enterobacterales Not Reported Not Detected (NotDetected); Escherichia coli Not Reported Not Detected (NotDetected); H influenzae Not Reported Not Detected (NotDetected); K aerogenes Not Reported Not Detected (NotDetected); Koxytoca Not Reported Not Detected (NotDetected); Kpneumoniae grp Not Reported Not Detected (NotDetected); Lmonocyt Not Reported Not Detected (NotDetected); N meningitidis Not Reported Not Detected (NotDetected); P aeruginosa Not Reported Not Detected (NotDetected); Proteus spp Not Reported Not Detected (NotDetected); Salmonella spp Not Reported Not Detected (NotDetected); Smarcescens Not Reported Not Detected (NotDetected); Staph lugdunensis Not Reported Not Detected (NotDetected); Staph spp. Not Reported Not Detected (NotDetected); Staphaureus Not Reported Not Detected (NotDetected); Staphepi Not Reported Not Detected (NotDetected); Stenmaltophilia Not Reported Not Detected (NotDetected); Strep agal(GrpB) Not Reported Not Detected (NotDetected); Strep pneum Not Reported Not Detected (NotDetected); Strep pyog (GrpA) Not Reported Not Detected (NotDetected); Strep spp Not Reported Not Detected (NotDetected)
--- NOTE | 2022-07-02 14:33 | Ultrasound Report ---
LEFT UPPER EXTREMITY VENOUS DOPPLER HISTORY: Follow-up left internal jugular vein thrombus. DVT COMPARISON STUDY: CT neck 07/01/2022. FINDINGS: There is persistent occlusive thrombus seen within the left internal jugular vein. This is similar to the prior study. There is normal flow within the left subclavian vein. There is normal rj w and compressibility within the left axillary, basilic, brachial, radial, ulnar, and visualized ceph alic veins. IMPRESSION: No significant change in the left internal jugular vein occlusive thrombus. ACT 112: Negative or not required by law. Electronically signed by: Doug Stewart M.D. 07/02/2022 2:32 PM
[2022-07-02 14:36] LABS: Appearance Urine Cloudy (Clear); Bacteria Urine Automated Negative (Negative); Blood Urine 2+ (Negative); Color Urine Dark Yellow; Glucose Urine UA Negative (Negative); Ketones Urine Negative (Negative); Leukocyte Esterase Urine Negative (Negative); Nitrite Urine Negative (Negative); Protein Urine 1+ (Negative); Urobilinogen Urine Negative (Negative)
[2022-07-02 14:43] LABS: Bilirubin Urine 3+ (Negative)
[2022-07-02 14:55] LABS: RBC Urine Automated 0-4 /hpf (0-4)
[2022-07-02 15:09] LABS: Creatinine Urine Random 53.8 mg/dl; Potassium Random Urine 21.8 mmol/L
[2022-07-02] MEDS: PIPERACILLIN/TAZOBACTAM 4.5 GM in DEXTROSE 5% 100 ML IV SCH (20:08)
[2022-07-02] MEDS: NORMOSOL-R 1,000 ML IV SCH (20:09)
[2022-07-03] MEDS: PIPERACILLIN/TAZOBACTAM 4.5 GM in DEXTROSE 5% 100 ML IV SCH ×3 (03:59→20:47)
[2022-07-03 06:25] LABS: INR 1.7 (0.9-1.1)
[2022-07-03 06:34] LABS: Hematocrit (blood only) 25.2 % (34.1-44.9); Hemoglobin 9.3 g/dl (12.0-16.0); Mean Corpuscular Hemoglobin 29.3 pg (25.0-34.0); Mean Corpuscular Hgb Conc 36.9 g/dL (32.0-36.0); Mean Corpuscular Volume 79.5 fL (80.0-100.0); Platelet Count 50 K/uL (130-400); RDW Coefficient of Variation 14.4 % (11.5-14.5); RDW Standard Deviation 41.2 fL (36.4-46.3); Red Blood Count 3.17 M/uL (3.93-5.22); White Blood Count 11.38 K/ul (4.8-10.8)
[2022-07-03 06:44] LABS: Albumin Globulin Ratio 0.7 (0.9-2); Albumin Level 2.4 gm/dl (3.4-5.0); BUN Creatinine Ratio 28.6 (10-20); Bilirubin,Total 7.2 mg/dl (0.2-1.0); C Reactive Protein 15.82 mg/dl (0-0.5); Creatinine Clr Calc Pharmacy 93.5 ml/min; Est GFR (African American) 106.6 ml/min; Globulin 3.6 gm/dl (2.5-4.0); Magnesium 2.9 mg/dl (1.7-2.4); Phosphorus 1.7 mg/dl (2.5-4.9); Potassium 3.5 mmol/L (3.5-5.1)
[2022-07-03 06:52] LABS: Basophils # (auto) 0.03 K/uL (0-0.2); Basophils % (auto) 0.3 %; Immature Granulocytes # (auto) 0.19 K/uL (0.00-0.02); Immature Granulocytes % (auto) 1.7 %; Lymphocytes # (auto) 0.39 K/uL (1.2-3.4); Lymphocytes % (auto) 3.4 %; Monocytes # (auto) 0.46 K/uL (0.24-0.82); Neutrophils # (auto) 10.31 K/uL (1.4-6.5); Neutrophils % (auto) 90.6 %; Polychromasia 1+; Target Cells 2+; Toxic Vacuolation 1+
[2022-07-03] MEDS ORDERED: POTASSIUM PHOS 3 MMOL/1 ML INFUSION IV STA (07:34)
[2022-07-03] MEDS ORDERED: POTASSIUM PHOSPHATE 30 MMOL in SODIUM CHLORIDE 0.9% 500 ML IV ONE (07:45)
--- NOTE | 2022-07-03 07:47 | XRay Report ---
XR chest 1V portable CLINICAL HISTORY: f/u COMPARISON STUDY: Chest radiograph and chest CT July 01, 2022. FINDINGS: Multifocal nodular airspace opacities are again noted within the lungs. A few of these have slightly progressed since prior exam. A few of these demonstrate cavitation, better depicted on prio r CT. Cardiomediastinal silhouette is stable. No evidence for pulmonary edema. No pneumothorax or ple ural effusion is identified. IMPRESSION: Minimal change since prior chest radiograph and chest CT. Slight increase in extent of a few foci of cavitary consolidation. Findings consistent with septic pulmonary emboli. ACT 112: Negative or not required by law. Electronically signed by: Mendez Russell M.D. 07/03/2022 7:46 AM
--- NOTE | 2022-07-03 07:59 | Critical Care Progress Note ---
Date of Service July 03, 2022 Assessment & Plan (1) Multifocal pneumonia: (2) Abnormal chest CT: (3) Cavitary pneumonia: (4) Lemierre syndrome: Plan CT chest 07/01/2022 personally reviewed: Multiple cavitary lesions appreciated bilaterally especially on the periphery upper and lower lobes No mediastinal lymphadenopathy --Sepsis with gram -ve bacteremia Lemiere's syndrome s/p I&D on 07/02/22 f/u sensitivity -- Abnormal chest CT with cavitary lesions Like representing septic emboli Patient is high risk for pneumothorax given the peripheral cavitary lesions Continue with antibiotics -- Transaminitis with bilirubinemia coagulopathy --> Improving Direct bili 8.6, total bili 13.9 Likely from underlying sepsis Follow-up hepatitis profile GI on board -- HARRY --> Improving Monitor BUNs/creatinine Avoid nephrotoxic medications Follow-up urine lites --Thrombocytopenia Likely sepsis induced as well as consumption from the clot Continue to monitor --Left IJ clot sec to Lemiere's syndrome There is no clear data regarding anticoagulation in such patients. Would avoid systemic anticoagulation right now unless there is documentation of progression of thrombus -- Swollen left arm especially 3rd digit negative for DVT LUE denies any injury ? dactylitis, questionable gout f/u autoimmune work up c/w ice packs --Prophylaxis VTE: Heparin GI: Pantoprazole Lines: Peripheral Diet: N.p.o. Plan: In/out: +1.2 L, urine output 2049 2D echo not read yet. Continue with Zosyn for Lemierre's and gram-negative bacteremia Continue with vancomycin for dactylitis of the left hand, I will order a CT of the left hand to make sure we are not missing compartment syndrome. Continue with ice packs for the time being Morphine for pain Potassium and phosphorus are being replaced Follow-up uric acid and CPK level Procalcitonin is trending down Continue with Normosol. Start clear liquids if the patient is able to tolerate Patient hemodynamically stable to be downgrade to medical Case discussed with Dr Goddard Please note the above document was generated using voice recognition software. It may contain grammatical, syntax or spelling errors.Any formal questions or concerns about the content, text or information contained within the body of this dictation should be directly addressed to the provider for clarification. Admission and Anticipated Discharge Date Admission Date: July 02, 2022 Subjective Patient seen and examined at bedside. No acute distress. Patient still complaining of pain in the left hand. No nausea or vomiting No shortness of breath Complains of mild headache. Able to have ice chips. Still has sore throat, better than before Review of Systems Review of Systems: All systems reviewed & are unremarkable except as noted in Subjective Physical Exam Physical Exam: Constitutional: No acute distress HEENT: EOMI, PERRLA, icteric Respiratory system: Decreased air entry bilaterally, no wheeze, no rhonchi, positive crackles bilaterally CVS: S1-S2 positive, no murmurs or gallops, tachycardia Abdomen: Soft, nontender, nondistended, positive bowel sounds x4 Extremities: +2 pulses bilaterally radialis/ dorsalis pedis, no cyanosis, +2 pitting edema left hand, positive rubor, positive calor, positive dolor third digit left hand, on the palmar side there is erythema around the tendon of the third digit Neuro: Awake alert oriented x3 Psych: Normal mood and affect G/U: Positive Mcneil Skin: no rashes, warm and dry Lymphatic: no cervical or axillary lymphadenopathy Results & Data Results & Data ([facility]) Vital Signs (Past 12 Hours) Vital Signs Temp Pulse Resp BP Pulse Ox Pulse Ox O2 Del Method 07/03/22 06:00 37.2 C 109 H 30 H 145/86 H 91 07/03/22 05:00 108 H 21 90 07/03/22 04:00 108 H 24 92 07/03/22 04:00 139/90 07/03/22 03:00 37 C 108 H 18 150/90 H 94 07/03/22 02:00 104 H 19 93 07/03/22 03:39 95 07/03/22 01:00 102 H 25 H 07/03/22 01:00 140/91 07/03/22 00:00 36.6 C 107 H 24 93 07/02/22 23:00 104 H 23 91 07/02/22 22:00 99 H 22 92 07/02/22 22:00 130/79 07/02/22 21:00 106 H 27 H 95 07/02/22 21:00 134/80 07/02/22 20:00 97 H 23 94 07/02/22 20:00 138/81 07/02/22 20:00 Room Air O2 Del Method 07/03/22 06:00 07/03/22 05:00 07/03/22 04:00 07/03/22 04:00 07/03/22 03:00 07/03/22 02:00 07/03/22 03:39 Room Air 07/03/22 01:00 07/03/22 01:00 07/03/22 00:00 07/02/22 23:00 07/02/22 22:00 07/02/22 22:00 07/02/22 21:00 07/02/22 21:00 07/02/22 20:00 07/02/22 20:00 07/02/22 20:00 Laboratory Results 07/03/22 05:55 07/03/22 05:55 Coding Level of Care Code 08276 Subseq [facility] 3 Diagnoses Multifocal pneumonia J18.[address] R93.89 Cavitary pneumonia J18.9; J98.4 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
[2022-07-03] MEDS: NORMOSOL-R 1,000 ML IV SCH ×2 (08:00→20:51)
[2022-07-03] MEDS: POTASSIUM CHLORIDE 20 MEQ/15 ML UDC PO SCH ×2 (08:25→12:07)
[2022-07-03] MEDS: VANCOMYCIN HCL 1,500 MG in SODIUM CHLORIDE 0.9% 500 ML IV SCH ×2 (08:25→20:47)
[2022-07-03] MEDS: HEPARIN SOD 5,000 UNIT/0.5 ML VIAL SQ SCH ×2 (08:46→20:47)
[2022-07-03] MEDS: dexAMETHasone 10 MG in SYRINGE 0 ML IV SCH (08:47)
[2022-07-03 09:02] LABS: Uric Acid 2.6 mg/dl (2.6-7.2)
[2022-07-03] MEDS ORDERED: AcetylCYSTEINE IV 21 HR REGIMEN (>40KG) IV STA (09:13)
[2022-07-03] MEDS ORDERED: ACETYLCYSTEINE IV ONE ×3 (09:13→14:13)
[2022-07-03] MEDS ORDERED: DEXTROSE 5% IV ONE ×3 (09:13→14:13)
[2022-07-03] MEDS: MoRPHine SULFATE 2 MG/ML CARP IV PRN (09:22)
--- NOTE | 2022-07-03 09:27 | Gastroenterology Progress Note ---
Date of Service July 03, 2022 Assessment & Plan (1) Elevated LFTs: Plan: Secondary to sepsis. Possibly also secondary to tylenol and/or alcohol. T Bili is improving, INR slightly increased. (2) Diarrhea: Plan: Suspect diarrhea is viral and related to the illness that caused the tonsilitis. Stools for C-diff and culture are (-). No specific tx needed. OK to use antidiarrheal. Plan NAC per protocol. Would expect LFTs w improve w treatment of sepsis including hydration, antibiotics, tx of peritonsillar abscesses and PEs. Bile ducts/liver appear normal on CT except mild gallbladder distention. Pt does have mild RUQ tenderness on exam w/o significant hepatomegaly but denies any hx of biliary colic type symptoms. Do not suspect bile duct obstruction or cholecystitis. Will follow LFTs, INR Will check HSV, EBV, CMV, HIV. Admission and Anticipated Discharge Date Admission Date: July 02, 2022 Supervising Physician Co-Signing Physician Notes I performed a history and physical examination of the patient today, including specifically on physical exam - soft abdomen. I have discussed the patient's management with the advanced practitioner. Please refer to the nurse prac titioner's note for the documented findings and plan of care. Patient with unclear URTI illness with severe systemic manifestation including acute liver injury, remains AOx3, INR 1.7 with elevated T.bili. Awaiting work up. Start NAC for now. Monitor INR, if this becomes > 2 or she is disoriented then need transfer to a liver center. Subjective 31 yr old female admitted 07/02 w gram (-) sepsis from peritonsillar abscess w occlusive thrombus of the L int jugular vein and w septic pulmonary emboli. CT with patent portal and hepatic veins and w/o mention of bile duct abnormalities. Oriented to person, place time. Able to answer questions. Needs some assistance to sit up. Denied alcohol intake yesterday but today talked about drinking Whiskey on a recent trip to [place], and smoking "jazz" marijuana. Denies any other recreational drug use. Some Tylenol occasionally prior to admission for sore throat. GI seeing for elevated LFTs Today T bili improved 13->7.2; INR worsened 1.4->1.7. AST is 50 today. ALT 48 and ALk PHos 85. Able to swallow liquids but "hurts to swallow." Drank 8oz OJ while I was watching w/o any gagging/coughing. Review of Systems Review of Systems: ROS: Gen: +weakness, + fevers, no weight loss Eyes: No eye redness, or pain, no recent vision changes Throat/Neck: throat pain and L anterior neck pain, though improved from yesterday Resp: No SOB, no cough Cardio: No palpitations/irregular beats, no chest pain GI: N/V resolved since arrival; incontinent of brown diarrhea once yesterday : Denies pain on urination Skin: No jaundice, itching or new rashes Neuro: denies confusion/sadness/anxiety Physical Exam Constitutional: well developed, well nourished, + acute distress (very uncomfortable w throat/neck pain but improved compared to yesterday), + ill appearing and average body habitus Eyes: mild icterus ENMT: external ear and nose normal, oropharynx normal Neck: normal visual inspection (general edema), trachea midline and + neck tender Respiratory: normal respiratory effort, lungs clear to auscultation Cardiovascular: Heart Sounds: no murmur Gastrointestinal (Abdomen): Inspection/Auscultation: abdomen normal to inspection and normal bowel sounds; abdomen not distended Percussion/Palpation: + abdomen tender (mildly in the RUQ) and abdomen soft; no hepatosplenomegaly and no splenomegaly Musculoskeletal: Mild left hand edema, improved from yesterday Skin: no rashes, warm and dry Neurologic: PERRL, EOMI, accommodation nl, no face palsy, no dysarthria Psychiatric: A+Ox3, euthymic affect Lymphatic: no cervical or axillary lymphadenopathy Results & Data ([facility]) Vital Signs (Past 12 Hours) Vital Signs Temp Pulse Resp BP Pulse Ox Pulse Ox O2 Del Method 07/03/22 09:00 105 H 23 07/03/22 09:00 149/93 H 07/03/22 08:30 102 H 23 96 07/03/22 08:00 102 H 25 H 96 07/03/22 08:00 146/98 H 07/03/22 07:30 107 H 20 94 07/03/22 07:00 107 H 27 H 91 07/03/22 07:00 147/89 H 07/03/22 06:30 109 H 20 93 07/03/22 08:30 36.8 C 07/03/22 09:00 Room Air 07/03/22 06:00 37.2 C 109 H 30 H 145/86 H 91 07/03/22 05:00 108 H 21 90 07/03/22 04:00 108 H 24 92 07/03/22 04:00 139/90 07/03/22 03:00 37 C 108 H 18 150/90 H 94 07/03/22 02:00 104 H 19 93 07/03/22 03:39 95 07/03/22 01:00 102 H 25 H 07/03/22 01:00 140/91 07/03/22 00:00 36.6 C 107 H 24 93 07/02/22 23:00 104 H 23 91 07/02/22 22:00 99 H 22 92 07/02/22 22:00 130/79 O2 Del Method 07/03/22 09:00 07/03/22 09:00 07/03/22 08:30 07/03/22 08:00 07/03/22 08:00 07/03/22 07:30 07/03/22 07:00 07/03/22 07:00 07/03/22 06:30 07/03/22 08:30 07/03/22 09:00 07/03/22 06:00 07/03/22 05:00 07/03/22 04:00 07/03/22 04:00 07/03/22 03:00 07/03/22 02:00 07/03/22 03:39 Room Air 07/03/22 01:00 07/03/22 01:00 07/03/22 00:00 07/02/22 23:00 07/02/22 22:00 07/02/22 22:00 Laboratory Results See HPI for LFTs WBC 11.3, Hb 9.3, Hct 25, Plts 50, PT 18, INR 1.7, NA 138, K 3.5, Cl 107, CO2 22, BUN 24, Cr 0.84 Diagnostic Findings CTAP w IV on 07/03/22: 1. Interval development of numerous round and centrally cavitary consolidative opacities of the lung bases, new from 06/24/2022 suggestive of septic emboli. 2. No bowel obstruction or bowel wall thickening. Normal appendix. 3. Mild wall thickening of the gastric body redemonstrated which may be secondary to partial distention versus a nonspecific gastritis. 4. Mild stranding surrounding the proximal rectus femoris and iliopsoas musculature. Correlate with clinical exam findings and patient history.
--- NOTE | 2022-07-03 09:40 | Nephrology Progress Note ---
Date of Service July 03, 2022 Assessment & Plan (1) HARRY (acute kidney injury): Plan: resolved/improved HARRY nonoliguric. unknown baseline renal function in young pt w/ no comorbidities. creatinine was 1.5 on 06/24, 1.9 on 07/01 on presentation, improved to 0.8 this am. remains at risk for ischemic ATN plus other pathologies possible as below UA c/w ATN +/- nephritic process Multiple risk ff for worsening renal function, including > -ongoing sepsis -on IV vanco/zosyn -obligate IV contrast exposure in setting of already ongoing ATN -septic emboli noted >remains for another 24 hr at risk for contrast nephropathy >normosol w/ 40 mEq/L K at 150 mL/hr changed to normosol no K at 90 mL > receiving K po as well >bmp, cbc now daily >defer to primary and to critical care but low threshold to dose vanco by level for another 24-36 hrs versus streamline abtx -avoid further IV con if possible -for now cont sosa D/w Dr Santoyo; will follow peripherally for now. (2) Nephritis: Plan: nephritic urine sediment; at risk for glomerular and interstitial and microvascular disease; already w/ documented tubular injury -targeted work up pending > complement, ANCA, ASO, cryos, hep panel (pending). P Smear c/w sepsis and no evidence of DIC or clinically significant hemolysis. L Hand ? source versus neck -spot protein/creat ratio ordered >will repeat UA again soon depending on status -not a biopsy candidate at this time (3) Electrolyte and fluid disorder: Plan: presented w/ presumed AGMA, hypovolemic hyponatremia, mild hypocalcemia (corrected to 8 w/ value 6.8 Ca) and improving/severe>moderate hypokalemia >> none severe currently electrolytes essentially/nearly normalized but for mild low phos -lactate wnl -no ABG indicated (4) Lemierre syndrome: Plan: ENT c/s pending; abscess drained yesterday per RN (?documents) heme not strongly in favor of AC; favors change away from vanc/zosyn if possible; low threshold for transfer to [facility] w/ robust blood bank if worsening heme concerns ID c/s pending on decadron and zosyn/vanco f/u pending cxs monitor for DIC - so far reassuring (5) Abnormal chest CT: Plan: w/ presumed septic emboli and risk for PTX per pulmonary -agree w/ TTE (pending v cancelled v POC) Admission and Anticipated Discharge Date Admission Date: July 02, 2022 Subjective remains in ICU on RA; over 2L UOP; 4.8L + on admission; diarrhea cleared. exquisitely tender L 3rd digit/dorsum hand w/ inflammation/?early abscess - ortho eval pending. c/o diffuse pain, challenges moving/tracking. ROS limited by diminished MS/psychomotor slowing Review of Systems Review of Systems: All systems reviewed & are unremarkable except as noted in Subjective Physical Exam Constitutional: well developed, well nourished, average body habitus, cooperative and + lethargic; no acute distress Eyes: EOM intact bilaterally ENMT: Ears: no external ear abnormality Nose: no external nose abnormality Mouth: + dry oral mucous membranes Neck: sore neck w/ ice pack, limited ROM Respiratory: normal respiratory effort Auscultation: + diminished lung sounds Cardiovascular: Rate/Rhythm: regular rhythm and + tachycardic Heart Sounds: no murmur Extremities: no edema Gastrointestinal (Abdomen): Inspection/Auscultation: normal bowel sounds Percussion/Palpation: abdomen soft; abdomen nontender Musculoskeletal: Extremities: strength 5/5 throughout L hand dorsum/3rd digit edematous/tender Skin: no rashes, warm and dry Neurologic: cornejo, psychomotor slowing/needs redirection, Psychiatric: Orientation: oriented x 3 Speech: + abnormal rate/rhythm/volume of speech (delayed mostly appropriate but short attention speech) Insight: + limited insight Judgement: + limited judgement Genitourinary: sosa w/ ample urine Results & Data ([facility]) Vital Signs (Past 12 Hours) Vital Signs Temp Pulse Resp BP Pulse Ox Pulse Ox O2 Del Method 07/03/22 09:00 105 H 23 07/03/22 09:00 149/93 H 07/03/22 08:30 102 H 23 96 07/03/22 08:00 102 H 25 H 96 07/03/22 08:00 146/98 H 07/03/22 07:30 107 H 20 94 07/03/22 07:00 107 H 27 H 91 07/03/22 07:00 147/89 H 07/03/22 06:30 109 H 20 93 07/03/22 08:30 36.8 C 07/03/22 09:00 Room Air 07/03/22 06:00 37.2 C 109 H 30 H 145/86 H 91 07/03/22 05:00 108 H 21 90 07/03/22 04:00 108 H 24 92 07/03/22 04:00 139/90 07/03/22 03:00 37 C 108 H 18 150/90 H 94 07/03/22 02:00 104 H 19 93 07/03/22 03:39 95 07/03/22 01:00 102 H 25 H 07/03/22 01:00 140/91 07/03/22 00:00 36.6 C 107 H 24 93 07/02/22 23:00 104 H 23 91 07/02/22 22:00 99 H 22 92 07/02/22 22:00 130/79 O2 Del Method 07/03/22 09:00 07/03/22 09:00 07/03/22 08:30 07/03/22 08:00 07/03/22 08:00 07/03/22 07:30 07/03/22 07:00 07/03/22 07:00 07/03/22 06:30 07/03/22 08:30 07/03/22 09:00 07/03/22 06:00 07/03/22 05:00 07/03/22 04:00 07/03/22 04:00 07/03/22 03:00 07/03/22 02:00 07/03/22 03:39 Room Air 07/03/22 01:00 07/03/22 01:00 07/03/22 00:00 07/02/22 23:00 07/02/22 22:00 07/02/22 22:00 Laboratory Results 07/03/22 05:55 07/03/22 05:[address] 1. Findings consistent with an extensive infectious process of the left hand, predominantly affecting the third digit and associated flexor tendon sheath. Left third digit soft tissue swelling suggestive of cellulitis. No soft tissue gas. No evidence for acute osteomyelitis. 2. Marked distention of the flexor tendon sheath of the left third digit with wall thickening of the tendon sheath. This is suggestive of an infectious tenosynovitis, possibly purulent. Multiple pockets of adjacent fluid which may favor cellulitis or phlegmon however early developing abscesses cannot be excluded.
--- NOTE | 2022-07-03 10:20 | CT Scan Report ---
LEFT HAND CT WITHOUT CONTRAST CLINICAL HISTORY: Swelling of hand, dactylitis ? COMPARISON STUDY: Left hand radiographs July 01, 2022. TECHNIQUE: Axial images of the left hand were obtained without IV contrast. Sagittal and coronal magali nstructions were viewed. Automated exposure control was utilized for the study. A dose lowering tech nique was utilized adhering to the principles of ALARA. FINDINGS: Alignment of the left hand is anatomic. There is no fracture. There is no bony erosion to s uggest acute osteomyelitis. There is no soft tissue gas. Note is made of extensive soft tissue swelli ng of the left third finger suggestive of cellulitis. Evaluation for abscess is suboptimal on this un enhanced exam. In addition, there is marked distention of the flexor tendon sheath of the left third digit. The wall of the tendon sheath is thickened. There are multiple pockets of adjacent fluid. Ther e may also be increased fluid within the tendon sheaths of the left second and fourth digits. Carpal bones are intact. Distal left radius and ulna are intact. IMPRESSION: 1. Findings consistent with an extensive infectious process of the left hand, predominantly affecting the third digit and associated flexor tendon sheath. Left third digit soft tissue swelling suggestiv e of cellulitis. No soft tissue gas. No evidence for acute osteomyelitis. 2. Marked distention of the flexor tendon sheath of the left third digit with wall thickening of the tendon sheath. This is suggestive of an infectious tenosynovitis, possibly purulent. Multiple pockets of adjacent fluid which may favor cellulitis or phlegmon however early developing abscesses cannot b e excluded. ACT 112: Negative or not required by law. Electronically signed by: Mendez Russell M.D. 07/03/2022 10:18 AM
--- NOTE | 2022-07-03 10:30 | Pharmacy Report ---
Pharmacy PK ABX Note - Date of Service July 03, 2022 - Assessment and Plan Assessment 31 year old F started on zosyn/vancomycin, 2/2 anaerobic blood cultures positive for gram negative bacilli, septic emboli, Lemierre's syndrome, awaiting further identification. ID consulted. Vancomycin continuing today for dactylitis per personal injury law specialist. Renal function has rapidly improved today, vanco dose to be adjusted. Will still get random level tomorrow AM d/t rapidly changing renal fu nction. Plt count at 50,000. Plan 07/03 * Random level 6.0 this morning * Change to 1500 mg q12H; this predicts achievement of traget AUC/SORAIDA (400-600 mg/L.hr) * Random level ordered for tomorrow AM 07/02 Vancomycin * Loading dose: 1750 mg (25 mg/kg) IV x 1 given around 01:14 AM * Maintenance dose: 1250 mg (17.9 mg/kg) IV every 24 hours * Regimen is predicted to achieve target AUC/SORAIDA of 400-600 mg/L.hr * Serum creatinine improved from 1.93 mg/dl yesterday to 1.54 mg/dl today morning. If it continues to improve patient could probably get Vancomycin more frequently than Q24h. * Random level ordered for: 07/03/22 with AM labs. Pharmacy will continue to follow and will adjust dose/frequency as necessary. Thank you. Pharmacy has transitioned to AUC monitoring for vancomycin. AUC/SORAIDA is the preferred PK/PD target and is associated with decreased risk of nephrotoxicity compared to traditional trough targets.
[2022-07-03] MEDS: PANTOprazole 40 MG in SYRINGE 0 ML IV SCH (11:03)
--- NOTE | 2022-07-03 11:38 | Hospitalist Progress Note ---
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, peritonsillar abscesses, cavitary pulmonary lesions - started with sore throat - started on broad spectrum abx with vancomycin and Zosyn - continue for now - blood cultures growing GNR - IVF - pulm and ENT consulted - s/p peritonsillar abscess drainage by ENT 07/02/2022 - continue on 10mg Decadron IV per ENT - no indication for AC at this time unless documented progression of thrombus - hematology consult for further recs on AC management - no AC (2) Sepsis: Plan: - in the setting of GNR bacteremia and Lemierre Syndrome - tachycardic, leukocytosis, fever POA - IV abx as above - vitals stable - still with tachycardia - continue management as above (3) Abscess of tonsil: Plan: - ENT consulted for drainage - IV abx as above - decadron per ENT - s/p drainage 07/02/2022 - follow up cultures (4) Abscess of left hand: Plan: - noted erythema and swelling, tenderness, decreased ROM - CT without contrast with possible abscesses vs early forming abscesses - MRI with contrast of left hand ordered per Ortho - ortho consulted for evaluation - keep NPO for now (5) Septic pulmonary embolism: Plan: - possible septic emboli in setting of Lemierre Syndrome - blood cultures pending - GNRs - IV abx as above - TTE to evaluate for vegetations - pending read (6) Elevated LFTs: Plan: - unclear etiology and if this is part of Lemierre Syndrome - CT AP with contrast showed normal appearing liver, patent hepatic and portal veins - hepatitis panel ordered - HIV ordered - GI consulted - LFTs improving with treatment of sepsis (7) HARRY (acute kidney injury): Plan: - likely due to prerenal etiology in setting of sepsis and n/v/d - continue IVF as above - trend Cr - monitor UOP - avoid nephrotoxic medications - if no improvement or worsening, could represent septic emboli or ATN given degree of illness - Cr improved to <1.0 - good UOP (8) Thrombocytopenia: Plan: - in the setting of sepsis and acute illness as above - unclear etiology at this time - continue work up per GI as above - autoimmune, infectious work up pending - stable - monitor for bleeding - no evidence of bleeding (9) Anemia: Plan: - anemia in young woman is not abnormal but given rest of presentation could be exacerbated - no evidence of bleeding at this time - slight down trend - hemodynamically stable - heme consult - likely due to bone marrow suppression in setting of sepsis - will continue to monitor (10) Asthma: Plan: - currently not in exacerbation - not on home inhalers - will monitor for now Plan DVT ppx: none for now given thrombocytopenia Code Status: Full Code Dispo: PCU Tomasz Goddard MD [facility] Medicine Admission and Anticipated Discharge Date Admission Date: July 02, 2022 Subjective Patient with asthma presented with sore throat, nausea and vomiting for 1 week. Found to have L IJ thrombophlebitis, peritonsillar abscesses, pulmonary lesions concerning for septic emboli, elevated LFTs, findings concerning for Lemierre Syndrome. ENT, pulm, GI were consulted. She was started on broad spectrum abx with vancomycin and zosyn, IVF. Peritonsillar abscesses drained by ENT, cultures sent 07/02/2022. Left hand CT with possible abscess in 3rd digit, MRI ordered, Ortho consulted. Blood cultures with GNR. Transferred to ICU 07/02/2022 for closer monitoring, stable and ok for downgrade 07/03/2022. Patient reports feeling slightly better but still with sore throat. No nausea and vomiting, diarrhea since yesterday. Some shortness of breath but satting well on RA. Denies chest pain, abdominal pain, cough, rashes, dysuria. Feels thirsty. Review of Systems Review of Systems: All systems reviewed & are unremarkable except as noted in Subjective Physical Exam Physical Exam: GENERAL: The patient is of moderate build, currently not in acute distress, tired appearing HEENT: Icterus present. Pupils equal, round, and reactive to light. Oral mucosa dry. Could not examine the back of the throat. NECK: No obvious neck masses seen. Seems supple. CARDIOVASCULAR: S1 and S2 heard. Tachycardia. No murmurs. RESPIRATORY SYSTEM: Normal AP diameter. No accessory muscle use. No wheezing, no crackles. ABDOMEN: Soft, bowel sounds present, nontender, no distention. CENTRAL NERVOUS SYSTEM: Alert and oriented, speaking in low voices. Speech is clear. No facial droop. Insight is okay. Obeys simple commands. Moves extremities. EXTREMITIES: improved erythema and swelling in the left hand on the dorsal aspect below the third digit. as well as swelling in LUE Results & Data Results & Data ([facility]) Vital Signs (Past 12 Hours) Vital Signs Temp Pulse Resp BP Pulse Ox Pulse Ox O2 Del Method 07/03/22 09:00 105 H 23 07/03/22 09:00 149/93 H 07/03/22 08:30 102 H 23 96 07/03/22 08:00 102 H 25 H 96 07/03/22 08:00 146/98 H 07/03/22 07:30 107 H 20 94 07/03/22 07:00 107 H 27 H 91 07/03/22 07:00 147/89 H 07/03/22 06:30 109 H 20 93 07/03/22 07:00 107 H 07/03/22 08:30 36.8 C 07/03/22 09:00 Room Air 07/03/22 06:00 37.2 C 109 H 30 H 145/86 H 91 07/03/22 05:00 108 H 21 90 07/03/22 04:00 108 H 24 92 07/03/22 04:00 139/90 07/03/22 03:00 37 C 108 H 18 150/90 H 94 07/03/22 02:00 104 H 19 93 07/03/22 03:39 95 07/03/22 01:00 102 H 25 H 07/03/22 01:00 140/91 07/03/22 00:00 36.6 C 107 H 24 93 O2 Del Method 07/03/22 09:00 07/03/22 09:00 07/03/22 08:30 07/03/22 08:00 07/03/22 08:00 07/03/22 07:30 07/03/22 07:00 07/03/22 07:00 07/03/22 06:30 07/03/22 07:00 07/03/22 08:30 07/03/22 09:00 07/03/22 06:00 07/03/22 05:00 07/03/22 04:00 07/03/22 04:00 07/03/22 03:00 07/03/22 02:00 07/03/22 03:39 Room Air 07/03/22 01:00 07/03/22 01:00 07/03/22 00:00 Diagnostic Findings Laboratory Results WBC 11.38 K/ul (4.8-10.8) H 07/03/22 05:55 RBC 3.17 M/uL (3.93-5.22) L 07/03/22 05:55 Hgb 9.3 g/dl (12.0-16.0) L 07/03/22 05:55 Hct 25.2 % (34.1-44.9) L 07/03/22 05:55 MCV 79.5 fL (80.0-100.0) L 07/03/22 05:55 MCH 29.3 pg (25.0-34.0) 07/03/22 05:55 MCHC 36.9 g/dL (32.0-36.0) H 07/03/22 05:55 RDW Std Deviation 41.2 fL (36.4-46.3) 07/03/22 05:55 RDW Coeff of Carrol 14.4 % (11.5-14.5) 07/03/22 05:55 Plt Count 50 K/uL (130-400) L 07/03/22 05:55 Immature Gran % (Auto) 1.7 % 07/03/22 05:55 Neut % (Auto) 90.6 % 07/03/22 05:55 Lymph % (Auto) 3.4 % 07/03/22 05:55 Ponce % (Auto) 4.0 % 07/03/22 05:55 Eos % (Auto) 0.0 % 07/03/22 05:55 Baso % (Auto) 0.3 % 07/03/22 05:55 Reticulocyte % (Auto) < 0.5 % (0.5-2.0) L 07/02/22 04:42 Neut # (Auto) 10.31 K/uL (1.4-6.5) H 07/03/22 05:55 Lymph # (Auto) 0.39 K/uL (1.2-3.4) L 07/03/22 05:55 Ponce # (Auto) 0.46 K/uL (0.24-0.82) 07/03/22 05:55 Eos # (Auto) 0.00 K/uL (0-0.50) 07/03/22 05:55 Baso # (Auto) 0.03 K/uL (0-0.2) 07/03/22 05:55 Reticulocyte # < 0.02 10^6/uL (0.02-0.10) L 07/02/22 04:42 Immature Gran # (Auto) 0.19 K/uL (0.00-0.02) H 07/03/22 05:55 Toxic Vacuolation 1+ 07/03/22 05:55 Dohle Bodies 1+ 07/02/22 04:42 Platelet Estimate Decreased (Normal) L 07/01/22 20:00 Giant Platelets 1+ 07/01/22 20:00 Polychromasia 1+ 07/03/22 05:55 Target Cells 2+ 07/03/22 05:55 Peripher Smr Path Cons 07/02/22 04:42 Peripher Smr Path Cons Cancelled 07/02/22 04:42 ESR > 130 mm/hr (0-20) H 07/03/22 05:55 PT 18.0 Seconds (9.0-12.0) H 07/03/22 05:55 INR 1.7 (0.9-1.1) H 07/03/22 05:55 Fibrinogen 778 mg/dl (184-400) H 07/02/22 12:46 Fibrin Degrad Products >40 mcg/ml (<10) H 07/02/22 12:46 D-Dimer 5830 ug/L FEU (0-500) H* 07/02/22 11:22 Sodium 138 mmol/L (136-145) 07/03/22 05:55 Potassium 3.5 mmol/L (3.5-5.1) 07/03/22 05:55 Chloride 107 mmol/L (98-107) 07/03/22 05:55 Carbon Dioxide 22 mmol/L (21-32) 07/03/22 05:55 Anion Gap 9 (3-11) 07/03/22 05:55 BUN 24 mg/dl (6-23) H 07/03/22 05:55 Creatinine 0.84 mg/dl (0.6-1.2) D 07/03/22 05:55 Est Cr Clr Drug Dosing 93.5 ml/min 07/03/22 05:55 Est GFR ( Amer) 106.6 ml/min 07/03/22 05:55 Est GFR (Non-Af Amer) 92.0 ml/min 07/03/22 05:55 BUN/Creatinine Ratio 28.6 (10-20) H 07/03/22 05:55 Glucose 116 mg/dl (70-99(Fasting)) H 07/03/22 05:55 Osmolality 277 mOsm/kg (280-300) L 07/02/22 10:33 Lactate TNP 07/02/22 05:57 Uric Acid 2.6 mg/dl (2.6-7.2) 07/03/22 05:55 Calcium 7.0 mg/dl (8.5-10.1) L 07/03/22 05:55 Phosphorus 1.7 mg/dl (2.5-4.9) L 07/03/22 05:55 Magnesium 2.9 mg/dl (1.7-2.4) H 07/03/22 05:55 Ferritin 652.7 ng/ml (8-388) H 07/03/22 05:55 Total Bilirubin 7.2 mg/dl (0.2-1.0) H 07/03/22 05:55 Direct Bilirubin 8.6 mg/dl (0-0.2) H 07/02/22 04:42 AST 50 U/L (13-39) H 07/03/22 05:55 ALT 48 U/L (7-52) 07/03/22 05:55 Alkaline Phosphatase 85 U/L (34-104) 07/03/22 05:55 Ammonia 51.0 umol/L (18-72) 07/03/22 05:55 Lactate Dehydrogenase 233 U/L (86-244) 07/02/22 11:22 Total Creatine Kinase 134 U/L (26-192) 07/03/22 05:55 C-Reactive Protein 15.82 mg/dl (0-0.5) H 07/03/22 05:55 Total Protein 6.0 gm/dl (6.0-8.3) 07/03/22 05:55 Albumin 2.4 gm/dl (3.4-5.0) L 07/03/22 05:55 Globulin 3.6 gm/dl (2.5-4.0) 07/03/22 05:55 Albumin/Globulin Ratio 0.7 (0.9-2) L 07/03/22 05:55 Vitamin B12 1268 pg/ml (180-914) H 07/02/22 04:42 Folate 15.51 ng/ml (>5.38) 07/02/22 04:42 Procalcitonin 82.85 ng/ml (0-0.5) H 07/03/22 05:55 TSH 0.476 uIu/ml (0.300-4.500) 07/01/22 20:00 HCG, Qual Negative (Negative) 07/01/22 20:00 Urine Color Dark Yellow 07/02/22 13:55 Urine Appearance Cloudy (Clear) A 07/02/22 13:55 Urine pH 6.0 (4.5-7.5) 07/02/22 13:55 Ur Specific [place] 1.020 (1.000-1.030) 07/02/22 13:55 Urine Protein 1+ (Negative) H 07/02/22 13:55 Urine Glucose (UA) Negative (Negative) 07/02/22 13:55 Urine Ketones Negative (Negative) 07/02/22 13:55 Urine Blood 2+ (Negative) H 07/02/22 13:55 Urine Nitrite Negative (Negative) 07/02/22 13:55 Urine Bilirubin 3+ (Negative) H 07/02/22 13:55 Urine Urobilinogen Negative (Negative) 07/02/22 13:55 Ur Leukocyte Esterase Negative (Negative) 07/02/22 13:55 Urine WBC (Auto) 1-5 /hpf (0-5) 07/02/22 13:55 Urine RBC (Auto) 0-4 /hpf (0-4) 07/02/22 13:55 U Hyaline Cast (Auto) 1-5 /lpf (0-5) 07/02/22 13:55 U Epithel Cells (Auto) 5-10 /lpf (0-5) H 07/02/22 13:55 Urine Bacteria (Auto) Negative (Negative) 07/02/22 13:55 Granular Casts 10-20 /lpf (0) H 07/01/22 21:49 Urine Yeast Not Reportable 07/02/22 13:55 Urine Osmolality 369 mOsm/kg (500-800) L 07/02/22 13:55 Ur Random Creatinine 53.8 mg/dl 07/02/22 13:55 Ur Random Sodium 20 mmol/L 07/02/22 13:55 Ur Random Potassium 21.8 mmol/L 07/02/22 13:55 Ur Random Chloride 26 mmol/L 07/02/22 13:55 Nasal Screen MRSA (PCR) Negative (Negative) 07/02/22 18:45 Stl C. cayetanensis PCR Not Detected (NotDetected) 07/02/22 00:54 Stool Rotavirus A PCR Not Detected (NotDetected) 07/02/22 00:54 Stl Adenov F 40/41 PCR Not Detected (NotDetected) 07/02/22 00:54 Stool Astrovirus (PCR) Not Detected (NotDetected) 07/02/22 00:54 Stool Campylobacter PCR Not Detected (NotDetected) 07/02/22 00:54 Stl C. diff Tox B Gene Negative Cdiff Gene (Neg) 07/02/22 00:54 Stool Cryptosporidium PCR Not Detected (NotDetected) 07/02/22 00:54 Stl E.coli Shiga Tox PCR Not Detected (NotDetected) 07/02/22 00:54 Stl Enterotoxigenic E PCR Not Detected (NotDetected) 07/02/22 00:54 Stool EPEC (PCR) Not Detected (NotDetected) 07/02/22 00:54 Stool EAEC (PCR) Not Detected (NotDetected) 07/02/22 00:54 Stl E. histolytica PCR Not Detected (NotDetected) 07/02/22 00:54 Stool Giardia Lamblia PCR Not Detected (NotDetected) 07/02/22 00:54 Stool Salmonella PCR Not Detected (NotDetected) 07/02/22 00:54 Stool Sapovirus (PCR) Not Detected (NotDetected) 07/02/22 00:54 Stl P. shigelloides PCR Not Detected (NotDetected) 07/02/22 00:54 Stl Shigella/EIEC PCR Not Detected (NotDetected) 07/02/22 00:54 St Y.enterocolitica PCR Not Detected (NotDetected) 07/02/22 00:54 Stool Vibrio (PCR) Not Detected (NotDetected) 07/02/22 00:54 Stl Vibrio cholerae PCR Not Detected (NotDetected) 07/02/22 00:54 Stl Norovirus GI/GII PCR Not Detected (NotDetected) 07/02/22 00:54 Random Vancomycin 6.0 mcg/ml (10-20) L 07/03/22 05:55 Urine Opiates Screen Neg (Neg) 07/01/22 20:38 Ur Methadone, Qual Neg (Neg) 07/01/22 20:38 Urine Barbiturates Neg (Neg) 07/01/22 20:38 Ur Phencyclidine (PCP) Neg (Neg) 07/01/22 20:38 U Amphetamin/Meth Scrn Neg (Neg) 07/01/22 20:38 MDMA (Ecstasy) Screen Neg (Neg) 07/01/22 20:38 U Benzodiazepines Scrn Neg (Neg) 07/01/22 20:38 Ur Cocaine Metabolite Neg (Neg) 07/01/22 20:38 U Marijuana (THC) Screen Pos (Neg) H 07/01/22 20:38 RPR Nonreactive (Nonreactive) 07/01/22 20:00 Adenovirus (PCR) Not Detected (NotDetected) 07/01/22 21:29 Anaplasma Smear See Comment 07/01/22 20:00 Babesia Smear See Comment 07/01/22 20:00 B. pertussis DNA (PCR) Not Detected (NotDetected) 07/01/22 21:29 B.parapertussis DNA PCR Not Detected (NotDetected) 07/01/22 21:29 Lyme Disease IgG Ab Negative (Negative) 07/01/22 20:00 Lyme Disease IgM Ab Negative (Negative) 07/01/22 20:00 C. pneumoniae DNA (PCR) Not Detected (NotDetected) 07/01/22 21:29 Coronavirus OC43 (PCR) Not Detected (NotDetected) 07/01/22 21:29 Coronavirus HKU1 (PCR) Not Detected (NotDetected) 07/01/22 21:29 Coronavirus 229E (PCR) Not Detected (NotDetected) 07/01/22 21:29 SARS-CoV-2 (PCR) Not Detected (NotDetected) 07/01/22 21:29 Coronavirus NL63 (PCR) Not Detected (NotDetected) 07/01/22 21:29 Monoscreen Negative (Negative) 07/01/22 20:00 Human Metapneumovir PCR Not Detected (NotDetected) 07/01/22 21:29 Influenza Type A (PCR) Not Detected (NotDetected) 07/01/22 21:29 Influenza Type B (PCR) Not Detected (NotDetected) 07/01/22 21:29 M. pneumoniae (PCR) Not Detected (NotDetected) 07/01/22 21:29 Parainfluenza 1 (PCR) Not Detected (NotDetected) 07/01/22 21:29 Parainfluenza 2 (PCR) Not Detected (NotDetected) 07/01/22 21:29 Parainfluenza 3 (PCR) Not Detected (NotDetected) 07/01/22 21:29 Parainfluenza 4 (PCR) Not Detected (NotDetected) 07/01/22 21:29 RSV (PCR) Not Detected (NotDetected) 07/01/22 21:29 Entero/Rhino (PCR) Not Detected (NotDetected) 07/01/22 21:29 Bld Cult ID Panel PCR PCR Panel Negative (NotDetected) 07/01/22 20:00 Ref Lab Test Result 07/02/22 11:27 Blood Type A Positive 07/02/22 10:33 Direct Antiglob Test Negative (Negative) 07/02/22 10:33 ANNA (IgG-AHG) Neg (Negative) 07/02/22 10:33 ANNA, Polyspecific Neg (Negative) 07/02/22 10:33 ANNA C3b, C3d 5 Min Neg (Negative) 07/02/22 10:[address] 07/01/22 20:38 CT OF THE HEAD WITHOUT CONTRAST CLINICAL HISTORY: Headache. Jaundice. COMPARISON STUDY: No previous studies for comparison. CT DOSE: 537.48 mGy.cm TECHNIQUE: Helical axial images of the head were obtained without IV contrast. Automated exposure control was utilized for the study. A dose lowering technique was utilized adhering to the principles of ALARA. FINDINGS: No acute intracranial hemorrhage, midline shift or mass effect is present. The ventricular system is unremarkable. The basal cisterns are patent. No extra-axial collections are present. There are no findings to suggest acute dural sinus thrombosis or acute territorial infarct. No significant calvarial abnormalities are present. Visualized portions of the sinuses and mastoid air cells are clear. IMPRESSION: No acute intracranial findings. ACT 112: Negative or not required by law. Electronically signed by: Mendez Russell M.D. 07/02/2022 7:00 AM Abdomen/Pelvis CT 07/01/22 21:[address] WITH IV CONTRAST HISTORY: Acute fever with elevated LFTs Fever, elevated LFT, hyperbili, vomit TECHNIQUE: Multiaxial CT images of the abdomen and pelvis were performed following the IV administration of 86 cc of Optiray, A dose lowering technique was utilized adhering to the principles of ALARA. COMPARISON STUDY: Chest CT of same day, CT abdomen and pelvis 06/24/2022 FINDINGS: Numerous round consolidative densities of the lung bases, several of which are centrally cavitary measuring up to 2.9 cm are new from the prior study. No pneumatosis or pneumoperitoneum. The study is limited secondary to upper extremity positioning. Unremarkable spleen, pancreas and adrenal glands. Mildly distended gallbladder. The liver is within normal limits. Patency of the hepatic and portal veins. Unremarkable kidneys without hydronephrosis. The urinary bladder is within normal limits. Endometrium measures up to 1.6 cm. Uterus and ovaries are otherwise unremarkable. Aorta and IVC are unremarkable. No pathologically enlarged lymph nodes are identified. Mild nonspecific wall thickening of the distal esophagus. Mild wall thickening of the mid to distal gastric body with partial distention is similar to prior. No bowel obstruction or bowel wall thickening. Small and large bowel air-fluid levels. Normal appendix. Mild nonspecific stranding is noted surrounding the left rectus femoris and iliopsoas psoas musculature. Moderate degeneration of the pubic symphysis. No acute fracture identified. IMPRESSION: 1. Interval development of numerous round and centrally cavitary consolidative opacities of the lung bases, new from 06/24/2022 suggestive of septic emboli. 2. No bowel obstruction or bowel wall thickening. Normal appendix. 3. Mild wall thickening of the gastric body redemonstrated which may be secondary to partial distention versus a nonspecific gastritis. 4. Mild stranding surrounding the proximal rectus femoris and iliopsoas musculature. Correlate with clinical exam findings and patient history. ACT 112: Negative or not required by law. The above report was generated using voice recognition software. It may contain grammatical, syntax or spelling errors. Electronically signed by: Roberto Aly M.D. 07/02/2022 7:53 AM Soft Tissue Neck CT 07/01/22 22:14 CT OF THE NECK WITH IV CONTRAST CLINICAL HISTORY: Lymphadenopathy. COMPARISON STUDY: No previous studies for comparison. TECHNIQUE: Following IV administration of 86 mL of Optiray, helical axial images of the neck were obtained. Sagittal and coronal reconstructions were viewed. Automated exposure control was utilized for the study. A dose lowering technique was utilized adhering to the principles of ALARA. FINDINGS: Visualized portions of the intracranial contents are unremarkable. The mastoid air cells are clear. The sinuses are clear. Note is made of a 1.9 x 1.8 cm left peritonsillar rim enhancing fluid collection consistent with a peritonsillar abscess. There is moderate associated mass effect with narrowing of the hypopharynx. There is an adjacent 1.7 x 1.5 cm fluid collection within the left paravertebral space consistent with an additional abscess. In addition, there is occlusive thrombus within the left internal jugular vein. Mild to moderate prevertebral edema is also present. The epiglottis is normal. There is no soft tissue gas. No additional sites of vessel occlusion are identified within the neck. Prominent left cervical lymph nodes are reactive. Visualized portions of the chest demonstrate multiple cavitary round airspace opacities consistent with septic pulmonary emboli. IMPRESSION: 1. Findings consistent with Lemierre syndrome. Two left peritonsillar abscesses, measuring up to 1.9 x 1.8 cm, with associated occlusive thrombophlebitis of the left internal jugular vein and septic pulmonary emboli. This finding will be called/faxed to ordering provider at time of dictation. 2. Mild to moderate prevertebral edema. ACT 112: Negative or not required by law. Electronically signed by: Mendez Russell M.D. 07/02/2022 7:16 AM Hand X-Ray 07/01/22 22:16 XR hand LT min 3V routine CLINICAL HISTORY: 3rd finger MCP swelling COMPARISON: None FINDINGS: Alignment of the left hand is anatomic. There is no acute fracture. There is no bony erosion. Dorsal soft tissue swelling is noted on lateral projection. There is also soft tissue swelling adjacent to the left third metacarpophalangeal joint and within the left third finger. No soft tissue gas is identified. IMPRESSION: 1. No osseous abnormality within the left hand. 2. Soft tissue swelling the dorsal left hand and left third digit, as described above. This is nonspecific. ACT 112: Negative or not required by law. Electronically signed by: Mendez Russell M.D. 07/02/2022 7:[address] 07/01/22 22:[address] WITH CONTRAST CT DOSE: 875.10 mGy.cm HISTORY: Acute tachycardia with lymphadenopathy tachycardia, lymphadenopathy TECHNIQUE: Multiaxial CT images of the chest were performed following the IV administration of 86 cc of Optiray. A dose lowering technique was utilized adhering to the principles of ALARA. COMPARISON: CT abdomen and pelvis of same day and also 06/24/2022 FINDINGS: Unremarkable thyroid. The heart is normal in size without pericardial effusion. The thoracic aorta and pulmonary arterial tree are suboptimally evaluated secondary to respiratory motion artifact. Trace pleural effusions. No pneumothorax. Mild intralobular septal thickening with bronchial wall thickening and areas of mild mosaic attenuation. There is development of numerous rounded nodular consolidative opacities within a multilobar and multi segmental distribution. Many of these lesions are centrally cavitary measuring up to 2.4 cm within the left lower lobe and 2.6 cm within the right lower lobe. Several of these lesions about the peripheral pleural surface s. Unremarkable soft tissues. No acute fracture. IMPRESSION: 1. Interval development of numerous round and centrally cavitary consolidative opacities of the lungs which are new from 06/24/2022. Findings are suggestive of septic emboli. 2. No lymphadenopathy. ACT 112: Negative or not required by law. Electronically signed by: Roberto Aly M.D. 07/02/2022 8:14 AM Extremity Venous Study 07/02/22 13:34 LEFT UPPER EXTREMITY VENOUS DOPPLER HISTORY: Follow-up left internal jugular vein thrombus. DVT COMPARISON STUDY: CT neck 07/01/2022. FINDINGS: There is persistent occlusive thrombus seen within the left internal jugular vein. This is similar to the prior study. There is normal flow within the left subclavian vein. There is normal flow and compressibility within the left axillary, basilic, brachial, radial, ulnar, and visualized cephalic veins. IMPRESSION: No significant change in the left internal jugular vein occlusive thrombus. ACT 112: Negative or not required by law. Electronically signed by: Doug Stewart M.D. 07/02/2022 2:32 PM Chest X-Ray 07/03/22 07:13 XR chest 1V portable CLINICAL HISTORY: f/u COMPARISON STUDY: Chest radiograph and chest CT July 01, 2022. FINDINGS: Multifocal nodular airspace opacities are again noted within the lungs. A few of these have slightly progressed since prior exam. A few of these demonstrate cavitation, better depicted on prior CT. Cardiomediastinal silhouette is stable. No evidence for pulmonary edema. No pneumothorax or pleural effusion is identified. IMPRESSION: Minimal change since prior chest radiograph and chest CT. Slight increase in extent of a few foci of cavitary consolidation. Findings consistent with septic pulmonary emboli. ACT 112: Negative or not required by law. Electronically signed by: Mendez Russell M.D. 07/03/2022 7:[address] 07/03/22 08:[address] WITHOUT CONTRAST CLINICAL HISTORY: Swelling of hand, dactylitis ? COMPARISON STUDY: Left hand radiographs July 01, 2022. TECHNIQUE: Axial images of the left hand were obtained without IV contrast. Sagittal and coronal reconstructions were viewed. Automated exposure control was utilized for the study. A dose lowering technique was utilized adhering to the principles of ALARA. FINDINGS: Alignment of the left hand is anatomic. There is no fracture. There is no bony erosion to suggest acute osteomyelitis. There is no soft tissue gas. Note is made of extensive soft tissue swelling of the left third finger suggestive of cellulitis. Evaluation for abscess is suboptimal on this unenhanced exam. In addition, there is marked distention of the flexor tendon sheath of the left third digit. The wall of the tendon sheath is thickened. There are multiple pockets of adjacent fluid. There may also be increased fluid within the tendon sheaths of the left second and fourth digits. Carpal bones are intact. Distal left radius and ulna are intact. IMPRESSION: 1. Findings consistent with an extensive infectious process of the left hand, predominantly affecting the third digit and associated flexor tendon sheath. Left third digit soft tissue swelling suggestive of cellulitis. No soft tissue gas. No evidence for acute osteomyelitis. 2. Marked distention of the flexor tendon sheath of the left third digit with wall thickening of the tendon sheath. This is suggestive of an infectious tenosynovitis, possibly purulent. Multiple pockets of adjacent fluid which may favor cellulitis or phlegmon however early developing abscesses cannot be excluded. ACT 112: Negative or not required by law. Electronically signed by: Mendez Russell M.D. 07/03/2022 10:18 AM Medications Administered Current Inpatient Medications Heparin Sodium (Porcine) (Heparin Sod 5,000 Unit/0.5 Ml Vial) 5,000 units SQ Q12 [facility] Stop: 08/02/22 08:59 Last Admin: 07/03/22 08:46 Dose: 5,000 units Acetaminophen (Ofirmev) 1,000 mg in 100 mls @ 400 mls/hr IV Q8H PRN PRN Reason: fever, pain Stop: 07/05/22 07:36 Last Infusion: 07/02/22 10:02 Dose: Infused Dexamethasone 10 mg/ Syringe 2.5 mls @ 1 mls/min IV Q24H [facility] Stop: 07/05/22 09:29 Last Admin: 07/03/22 08:47 Dose: 1 mls/min Piperacillin Sod/Tazobactam (Sod 4.5 gm/ Dextrose) 120 mls @ 28.75 mls/hr IV Q8H [facility]; Protocol Stop: 07/12/22 18:59 Last Admin: 07/03/22 11:03 Dose: 28.8 mls/hr Parenteral Electrolytes (Normosol-R) 1,000 mls @ 75 mls/hr IV .[id number] [facility] Stop: 08/01/22 19:59 Last Admin: 07/02/22 20:09 Dose: 90 mls/hr Potassium Phosphate 30 mmol/ (Sodium Chloride) 510 mls @ 88 mls/hr IV ONE ONE Stop: 07/03/22 13:32 Last Admin: 07/03/22 08:20 Dose: 88 mls/hr Vancomycin HCl 1,500 mg/ (Sodium Chloride) 530 mls @ 200 mls/hr IV Q12H [facility]; Protocol Stop: 07/13/22 07:59 Last Admin: 07/03/22 08:25 Dose: 200 mls/hr Pantoprazole Sodium 40 mg/ (Syringe) 10 mls @ 5 mls/min IV DAILY@1100 ELE Stop: 08/02/22 10:59 Last Admin: 07/03/22 11:03 Dose: 5 mls/min Acetylcysteine 3,390 mg/ (Dextrose) 516.95 mls @ 125 mls/hr IV ONCE ONE Stop: 12/23/22 14:21 Last Admin: 07/03/22 11:03 Dose: 125 mls/hr Acetylcysteine 6,770 mg/ (Dextrose) 1,033.85 mls @ 62.5 mls/hr IV ONCE ONE Stop: 07/04/22 06:45 Miscellaneous (Icu Electrolyte Replacement Protocol) 1 each N/A BID@06,18 ELE; Protocol Stop: 07/10/22 17:59 Last Admin: 07/03/22 07:22 Dose: 1 each Miscellaneous Information (Vancomycin Consult Active) 1 each N/A UD PRN PRN Reason: Consult Stop: 07/31/22 23:56 Morphine Sulfate (Morphine Sulfate 2 Mg/Ml Carp) 2 mg IV Q4 PRN PRN Reason: Pain Stop: 07/17/22 08:27 Last Admin: 07/03/22 09:22 Dose: 2 mg Nitroglycerin (Nitroglycerin Sl 0.4 Mg/Tab Tab) 0.4 mg SL UD PRN PRN Reason: Chest Pain Stop: 08/01/22 03:38 Ondansetron HCl (Ondansetron Inj 2 Mg/Ml 2 Ml Vial) 4 mg IV Q6H PRN PRN Reason: Nausea Stop: 08/01/22 03:38 Last Admin: 07/02/22 05:54 Dose: 4 mg
[2022-07-03 12:13] LABS: Creatinine Urine Random 67.9 mg/dl; Protein Creatinine Ratio Urine 1.7 (0-0.2); Total Protein Urine Random 116.8 mg/dl (0-11.9)
[2022-07-03 14:11] LABS: HBSAG NON-REACTIVE (NON-REACTIVE); Hepatitis A Antibody IgM NON-REACTIVE (NON-REACTIVE); Hepatitis B Core Antibody IgM NON-REACTIVE (NON-REACTIVE)
[2022-07-03] MEDS ORDERED: CETIRIZINE HCL 10 MG TABLET PO ONE (14:55)
[2022-07-03] MEDS ORDERED: FEXOFENADINE 60 MG TAB PO ONE (14:56)
[2022-07-03 17:32] LABS: Marijuana Quant, GCMS Urine 88 ng/mL (<5)
--- NOTE | 2022-07-03 17:33 | Orthopedic Consultation ---
Date of Service July 03, 2022 Assessment & Plan (1) Abscess of left hand: Patient has a septic superior to flexor tenosynovitis of the left third finger. There may be some other small abscess pocket as well. It does not seem to involve the joint of the MCP joint. She is got the classic Kanval's signs of superior to flexor tenosynovitis. This is certainly the thumb that is warrants a surgical intervention, specifically irrigation debridement of the hand and flexor tenosynovitis. Discussed treatment option with the patient today. Were going to continue on the antibiotics for now. We are got a plan taken to the operating room tomorrow to do an irrigation debridement and washout of the infected flexor tendon tenosynovitis of the third digit. I do not think any other digits are involved. The risk meant this procedure explained including persistent progressive stiffness in the hand as well as secondary arthritis and osteomyelitis. Patient understands and desires to proceed. Informed consent was obtained. (2) Sepsis: History of Present Illness Reason for Consultation: . Left hand infection Requesting Physician: . Attending Physician: Tomasz Goddard MD . Patient is a 31-year-old qarnj-vqqn-exjnptih female whose had about a 2-week history of illness. She been seen on several occasions and managed. She is now admitted with peritonsillar abscess/infection along with bacterial blood infection. Patient is a fairly poor historian. She does see that her hands been hurting and swollen for couple days but does not admit any puncture wounds. It is really hard to pin her down on when this started and the evolution of the symptoms. It mostly involves her long finger of the left hand. She denies any puncture wounds. No other real complaints other than just general malaise. Allergies Allergy/AdvReac Type Severity Reaction Status Date / Time No Known Allergies Allergy Verified 07/01/22 23:49 Home Medications Medication Instructions Recorded Confirmed Type No Known Home Medications 07/01/22 07/01/22 History Past Med/Surg History Medical History Asthma Family History Other Family history non-contributory Social History Smoking Status: Former smoker Second Hand Exposure: No; Do You Dip or Chew Tobacco: No; Hx Alcohol Use: No Hx Substance Use: No Preferred Language: Maltese Communication Ability: Impaired Gi Tech Required: No Beliefs That Will Affect Care: None Current Living Situation: Family Feels Safe at Home: Yes Safety Concerns: Feels Safe At This Time Assistive Devices: None Review of Systems All systems reviewed & are unremarkable except as noted in HPI & below. Physical Exam . Physical examination left hand reveals fusiform swelling of the left long finger. She holds it in a flexed position. The other fingers look pretty normal. She does have some redness and some tenseness on the volar side. She is got pain with attempted extension of the finger. Her tendon for flexor tendon sheath is very tender to palpation. Diffuse swelling. No obvious abscess pockets. No open wounds. No signs of puncture. A limited motion. The remaining fingers look fairly normal. Results & Data Results & Data Laboratory Results . Blood culture results reveal positive gram-negative bacillus. Diagnostic Findings . X-rays of the left hand from previously reviewed. Shows diffuse soft tissue swelling of the hand particular the third digit. No signs of bony destruction. No foreign bodies. CT scan was reviewed. Also shows the diffuse swelling of the hand. It also looks like she is got inflammation and thickening of the flexor tendon sheath consistent with superior to flexor tenosynovitis. PG Care Time/CCT Total # of Minutes Spent Total Time Spent with Patient: Total time spent is greater than 50% in coordination of care (as documented) at patient's floor/unit and/or counseling patient: Coding Level of Care Code 56728 Inpt Consult Level 5 Diagnoses Abscess of left hand L02.512 Sepsis A41.9
[2022-07-03] MEDS ORDERED: ICU ELECTROLYTE REPLACEMENT PROTOCOL SCH (18:00)
[2022-07-03] MEDS ORDERED: diphenhydrAMINE Capsule 25 MG CAP PO ONE (21:58)
--- NOTE | 2022-07-03 22:15 | Electrocardiogram Report ---
Test Reason : Blood Pressure : / mmHG Vent. Rate : 120 BPM Atrial Rate : 120 BPM P-R Int : 138 ms QRS Dur : 086 ms QT Int : 318 ms P-R-T Axes : 066 078 057 degrees QTc Int : 449 ms Sinus tachycardia Otherwise normal ECG No previous ECGs available Confirmed by Drew Fisher ([id number]) on 07/03/2022 10:14:47 PM Referred By: REFERRED SELF Confirmed By:Drew Fisher
[2022-07-04] MEDS: PIPERACILLIN/TAZOBACTAM 4.5 GM in DEXTROSE 5% 100 ML IV SCH ×3 (00:53→19:26)
[2022-07-04] MEDS ORDERED: diphenhydrAMINE Capsule 25 MG CAP PO ONE (04:30)
[2022-07-04 07:19] LABS: INR 1.4 (0.9-1.1); Prothrombin Time 14.7 Seconds (9.0-12.0)
[2022-07-04 08:20] LABS: Albumin Globulin Ratio 0.7 (0.9-2); Albumin Level 2.3 gm/dl (3.4-5.0); BUN Creatinine Ratio 35.2 (10-20); Bilirubin,Total 4.9 mg/dl (0.2-1.0); C Reactive Protein 7.92 mg/dl (0-0.5); Calcium 7.2 mg/dl (8.5-10.1); Creatinine Clr Calc Pharmacy 145.4 ml/min; Est GFR (African American) 144.7 ml/min; Est GFR (Non-African American) 124.9 ml/min; Globulin 3.5 gm/dl (2.5-4.0); Magnesium 2.1 mg/dl (1.7-2.4); Phosphorus 1.6 mg/dl (2.5-4.9); Potassium 4.2 mmol/L (3.5-5.1); Total Protein 5.8 gm/dl (6.0-8.3)
[2022-07-04 08:23] LABS: Basophils # (auto) 0.02 K/uL (0-0.2); Basophils % (auto) 0.2 %; Giant Platelets 1+; Hematocrit (blood only) 28.1 % (34.1-44.9); Hemoglobin 10.2 g/dl (12.0-16.0); Immature Granulocytes # (auto) 0.06 K/uL (0.00-0.02); Immature Granulocytes % (auto) 0.7 %; Lymphocytes # (auto) 0.38 K/uL (1.2-3.4); Lymphocytes % (auto) 4.3 %; Mean Corpuscular Hemoglobin 29.3 pg (25.0-34.0); Mean Corpuscular Hgb Conc 36.3 g/dL (32.0-36.0); Mean Corpuscular Volume 80.7 fL (80.0-100.0); Monocytes # (auto) 0.31 K/uL (0.24-0.82); Monocytes % (auto) 3.5 %; Neutrophils # (auto) 8.07 K/uL (1.4-6.5); Neutrophils % (auto) 91.3 %; Platelet Count 46 K/uL (130-400); RDW Standard Deviation 43.4 fL (36.4-46.3); Red Blood Count 3.48 M/uL (3.93-5.22); Target Cells 1+; Toxic Granulation 1+; Toxic Vacuolation 1+; White Blood Count 8.84 K/ul (4.8-10.8)
[2022-07-04] MEDS ORDERED: FEXOFENADINE 60 MG TAB PO PRN (08:44)
[2022-07-04] MEDS ORDERED: SODIUM PHOSPHATE 3 MMOL/1 ML 5 ML VIAL IV STA (08:45)
[2022-07-04] MEDS ORDERED: SODIUM PHOSPHATE 30 MMOL in DEXTROSE 5% 500 ML IV ONE (09:00)
--- NOTE | 2022-07-04 09:26 | Anesthesiology Consultation ---
Date of Service July 04, 2022 Assessment & Plan (1) Encounter for pre-operative examination: Chart Review Chart Review: Acceptable Risk for Surgery History Surgery Operation Date: 07/04/22 08:30 Proposed Procedures p Incision and Drainage Left Hand(Left) - Martell Sorenson MD Height/Weight Height: 5 ft 7 in Weight: 72.4 kg Allergies Allergy/AdvReac Type Severity Reaction Status Date / Time No Known Allergies Allergy Verified 07/01/22 23:49 Medications Home Medications Medication Instructions Recorded Confirmed Last Taken No Known Home Medications 07/01/22 07/01/22 Unknown Active Medications Generic Name Dose Route Start Last Admin Trade Name Freq PRN Reason Stop Dose Admin Heparin Sodium (Porcine) 5,000 units 07/03/22 09:00 07/03/22 20:47 Heparin Sod 5,000 Unit/0.5 Ml Vial SQ 08/02/22 08:59 5,000 units Q12 ELE Administration Acetaminophen 1,000 mg in 100 mls @ 400 mls/hr 07/02/22 07:37 07/02/22 10:02 Ofirmev IV 07/05/22 07:36 Infused Q8H PRN Infusion fever, pain Dexamethasone 10 mg/ Syringe 2.5 mls @ 1 mls/min 07/02/22 09:30 07/03/22 08:47 IV 07/05/22 09:29 1 mls/min Q24H ELE Administration Piperacillin Sod/Tazobactam 120 mls @ 28.75 mls/hr 07/02/22 19:00 07/04/22 04:39 Sod 4.5 gm/ Dextrose IV 07/12/22 18:59 Infused Q8H ELE Infusion Protocol Parenteral Electrolytes 1,000 mls @ 75 mls/hr 07/02/22 20:00 07/03/22 20:51 Normosol-R IV 08/01/22 19:59 75 mls/hr .[id number] ELE Administration Vancomycin HCl 1,500 mg/ 530 mls @ 200 mls/hr 07/03/22 08:00 07/03/22 23:36 Sodium Chloride IV 07/13/22 07:59 Infused Q12H ELE Infusion Protocol Pantoprazole Sodium 40 mg/ 10 mls @ 5 mls/min 07/03/22 11:00 07/03/22 11:03 Syringe IV 08/02/22 10:59 5 mls/min DAILY@1100 ELE Administration Morphine Sulfate 2 mg 07/03/22 08:28 07/03/22 09:22 Morphine Sulfate 2 Mg/Ml Carp IV 07/17/22 08:27 2 mg Q4 PRN Administration Pain Ondansetron HCl 4 mg 07/02/22 03:39 07/02/22 05:54 Ondansetron Inj 2 Mg/Ml 2 Ml Vial IV 08/01/22 03:38 4 mg Q6H PRN Administration Nausea Past Medical History Medical History (Updated 07/04/22 @ 09:26 by Cristobal Khan MD) HARRY (acute kidney injury) Anemia Asthma Cavitary pneumonia Electrolyte and fluid disorder Elevated LFTs Lemierre syndrome Sepsis Thrombocytopenia Past Family History Family History Other Family history non-contributory Past Surgical History Surgical History (Updated 07/04/22 @ 09:24 by Cristobal Khan MD) Hx of peritonsillar abscess drainage Social History Smoking Status: Former smoker tobacco type: cigarettes Do You Dip or Chew Tobacco: No Hx Alcohol Use: No Hx Substance Use: No substance use type: does not use Physical Exam Vital Signs Last Vital Signs Temp 36.2 C L 07/04/22 08:32 Pulse 90 07/04/22 08:32 Resp 20 07/04/22 08:32 BP 147/99 H 07/04/22 08:32 Pulse Ox 98 07/04/22 08:32 O2 Del Method 07/04/22 08:32 Testing Laboratory Results 07/04/22 07:48 07/04/22 07:48 PT 14.7 Seconds (9.0-12.0) H 07/04/22 06:29 INR 1.4 (0.9-1.1) H 07/04/22 06:29 Urine Color Dark Yellow 07/02/22 13:55 Urine Appearance Cloudy (Clear) A 07/02/22 13:55 Urine pH 6.0 (4.5-7.5) 07/02/22 13:55 Ur Specific [place] 1.020 (1.000-1.030) 07/02/22 13:55 Urine Protein 1+ (Negative) H 07/02/22 13:55 Urine Glucose (UA) Negative (Negative) 07/02/22 13:55 Urine Ketones Negative (Negative) 07/02/22 13:55 Urine Nitrite Negative (Negative) 07/02/22 13:55 Ur Leukocyte Esterase Negative (Negative) 07/02/22 13:55 Urine WBC (Auto) 1-5 /hpf (0-5) 07/02/22 13:55 Urine RBC (Auto) 0-4 /hpf (0-4) 07/02/22 13:55 U Hyaline Cast (Auto) 1-5 /lpf (0-5) 07/02/22 13:55 U Epithel Cells (Auto) 5-10 /lpf (0-5) H 07/02/22 13:55 Urine Bacteria (Auto) Negative (Negative) 07/02/22 13:55 Blood Type A Positive 07/02/22 10:33 07/01/22 20:00 Aerobic Blood Culture - Preliminary Blood No growth in Aerobic bottle after 48 hours. Anaerobic Blood Culture - Preliminary Probable felix gram neg bacilli 07/01/22 19:50 Aerobic Blood Culture - Preliminary Blood No growth in Aerobic bottle after 48 hours. Anaerobic Blood Culture - Preliminary Probable felix gram neg bacilli 07/02/22 Unknown Gram Stain - Final Tonsil Aerobic and Anaerobic Culture - Preliminary Pin-point growth present, reincubating. 07/02/22 13:55 Urine Culture - Preliminary Urine,Clean Catch No growth - Less than 1,000 colonies/mL, Final report to follow. 07/01/22 21:49 Urine Culture - Final Urine,Clean Catch Three types of organisms present, all moderate counts. Repeat collection recommended. No further identifications or sensitivities to follow. Electrocardiogram Date: 07/01/22 Findings: + ST @ (120) Chest X-Ray Date: 07/03/22 cavitary lesions c/w septic emboli Echocardiogram Date: 07/02/22 EF: 60-65% LV Function: normal Valvular Disease: + no significant valvular disease no obvious vegetation
--- NOTE | 2022-07-04 09:32 | History & Physical Bridge Note ---
Date of Service July 04, 2022 History & Physical Bridge Note I have examined the patient, reviewed the History & Physical and in the interval since the performance of the History & Physical I have noted the following changes of clinical significance: no changes noted
[2022-07-04] MEDS: NORMOSOL-R 1,000 ML IV SCH (09:43)
[2022-07-04] MEDS: dexAMETHasone 10 MG in SYRINGE 0 ML IV SCH (09:44)
[2022-07-04] MEDS: VANCOMYCIN HCL 1,500 MG in SODIUM CHLORIDE 0.9% 500 ML IV SCH (09:44)
[2022-07-04] MEDS: HEPARIN SOD 5,000 UNIT/0.5 ML VIAL SQ SCH ×2 (09:44→19:50)
--- NOTE | 2022-07-04 09:56 | Pulmonology Progress Note ---
Date of Service July 04, 2022 Assessment & Plan (1) Multifocal pneumonia: (2) Abnormal chest CT: (3) Cavitary pneumonia: (4) Lemierre syndrome: Plan CT chest 07/01/2022 personally reviewed: Multiple cavitary lesions appreciated bilaterally especially on the periphery upper and lower lobes No mediastinal lymphadenopathy -- Abnormal chest CT with multiple cavitary lesions Like representing septic emboli Patient is high risk for pneumothorax given the peripheral cavitary lesions Continue with antibiotics There is no clear data regarding anticoagulation in such patients. Would avoid systemic anticoagulation right now unless there is documentation of progression of thrombus --Sepsis with gram -ve bacteremia Lemiere's syndrome s/p I&D on 07/02/22 f/u sensitivity -- Swollen left arm especially 3rd digit negative for DVT LUE denies any injury I doubt septic emboli being one of the etiology Orthopedic on board Plan: DC IV fluids given the patient is +8 L since coming to the hospital now If there is any worsening oxygenation would recommend to give IV Lasix Repeat blood culture today Case discussed with Dr Goddard Please note the above document was generated using voice recognition software. It may contain grammatical, syntax or spelling errors.Any formal questions or concerns about the content, text or information contained within the body of this dictation should be directly addressed to the provider for clarification. Admission and Anticipated Discharge Date Admission Date: July 02, 2022 Subjective Patient seen and examined at bedside. No acute distress, no adverse events overnight. Still complains of pain in the left hand. The swelling seems to be improved compared to before Denies any headache, no nausea no vomiting No chest pain, no shortness of breath. Has been afebrile. Review of Systems Review of Systems: All systems reviewed & are unremarkable except as noted in Subjective Physical Exam Physical Exam: Constitutional: No acute distress HEENT: EOMI, PERRLA, icteric Respiratory system: Decreased air entry bilaterally, no wheeze, no rhonchi, positive crackles bilaterally CVS: S1-S2 positive, no murmurs or gallops Abdomen: Soft, nontender, nondistended, positive bowel sounds x4 Extremities: +2 pulses bilaterally radialis/ dorsalis pedis, no cyanosis, +2 pitting edema left hand, positive rubor, positive calor, positive dolor third digit left hand, on the palmar side there is erythema around the tendon of the third digit Neuro: Awake alert oriented x3 Psych: Normal mood and affect G/U: Positive [place]neil Skin: no rashes, warm and dry Lymphatic: no cervical or axillary lymphadenopathy Results & Data Results & Data ([facility]) Vital Signs (Past 12 Hours) Vital Signs Temp Pulse Pulse Resp BP Pulse Ox O2 Del Method 07/04/22 07:00 97 H 07/04/22 08:32 36.2 C L 90 20 147/99 H 98 Room Air 07/04/22 03:33 86 07/04/22 03:20 36.6 C 86 20 146/97 H 98 Room Air 07/04/22 00:05 36.5 C 88 20 151/94 H 98 Room Air Laboratory Results 07/04/22 07:48 07/04/22 07:48 PG Care Time/CCT Total # of Minutes Spent Total Time Spent with Patient: Total time spent is greater than 50% in coordination of care (as documented) at patient's floor/unit and/or counseling patient: Coding Level of Care Code 27609 Subseq Hosp Care Lvl 2 Diagnoses Multifocal pneumonia J18.[address] R93.89 Cavitary pneumonia J18.9; J98.4 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
--- NOTE | 2022-07-04 10:24 | Pharmacy Report ---
Pharmacy PK ABX Note - Date of Service July 04, 2022 - Assessment and Plan Assessment * 31 year old F started on zosyn/vancomycin, 2/2 anaerobic blood cultures positive for probably anaerobic Gram negative bacilli, septic emboli, Lemierre's syndrome, ?hand abscess * ID consulted 07/02 - awaiting recommendations. * Per prior documentation 07/03 - vancomycin continuing for dactylitis per vinyl installer. * Renal function continuing to rapidly improve, now likely at/near baseline. Vanco dose to be adjusted. * Will get additional level tomorrow AM d/t rapidly changing renal function Plan Vancomycin * Maintenance dose: 1250 mg (17.9 mg/kg) IV every 8 hours * Regimen is predicted to achieve target AUC/SORAIDA of 400-600 mg/L.hr * Trough level ordered for: 07/05/22 @ 0730 Pharmacy will continue to follow and will adjust dose/frequency as necessary. Thank you. Pharmacy has transitioned to AUC monitoring for vancomycin. AUC/SORAIDA is the preferred PK/PD target and is associated with decreased risk of nephrotoxicity compared to traditional trough targets.
--- NOTE | 2022-07-04 10:44 | Hospitalist Progress Note ---
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, peritonsillar abscesses, cavitary pulmonary lesions - started with sore throat - started on broad spectrum abx with vancomycin and Zosyn - continue for now - blood cultures growing GNR - IVF - pulm and ENT consulted - s/p peritonsillar abscess drainage by ENT 07/02/2022 - continue on 10mg Decadron IV per ENT - no indication for AC at this time unless documented progression of thrombus - hematology consult for further recs on AC management - no AC (2) Sepsis: Plan: - in the setting of GNR bacteremia and Lemierre Syndrome - tachycardic, leukocytosis, fever POA - IV abx as above - vitals stable - HR improved - continue management as above (3) Abscess of tonsil: Plan: - ENT consulted for drainage - IV abx as above - decadron per ENT - s/p drainage 07/02/2022 - follow up cultures (4) Abscess of left hand: Plan: - noted erythema and swelling, tenderness, decreased ROM - CT without contrast with possible abscesses vs early forming abscesses - MRI with contrast of left hand ordered per Ortho - ortho consulted for evaluation - keep NPO for now - for OR 07/04/2022 (5) Septic pulmonary embolism: Plan: - possible septic emboli in setting of Lemierre Syndrome - blood cultures pending - GNRs - IV abx as above - TTE to evaluate for vegetations - no evidence of vegetation or abscess on TTE (6) Elevated LFTs: Plan: - unclear etiology and if this is part of Lemierre Syndrome - CT AP with contrast showed normal appearing liver, patent hepatic and portal veins - hepatitis panel negative - GI consulted - LFTs improving with treatment of sepsis - ALT, AST wnl, bili in 4s (7) Thrombocytopenia: Plan: - in the setting of sepsis and acute illness as above - unclear etiology at this time - continue work up per GI as above - autoimmune, infectious work up pending - stable - monitor for bleeding - no evidence of bleeding - holding SC heparin for PLT <50 (8) Anemia: Plan: - anemia in young woman is not abnormal but given rest of presentation could be exacerbated - no evidence of bleeding at this time - slight down trend - hemodynamically stable - heme consult - likely due to bone marrow suppression in setting of sepsis - improving as clinical condition improves - will continue to monitor (9) Asthma: Plan: - currently not in exacerbation - not on home inhalers - will monitor for now Plan DVT ppx: holding heparin for PLT<50 Code Status: Full Code Dispo: PCU Tomasz Goddard MD [facility] Medicine Admission and Anticipated Discharge Date Admission Date: July 02, 2022 Subjective Patient with asthma presented with sore throat, nausea and vomiting for 1 week. Found to have L IJ thrombophlebitis, peritonsillar abscesses, pulmonary lesions concerning for septic emboli, elevated LFTs, findings concerning for Lemierre Syndrome. ENT, pulm, GI were consulted. She was started on broad spectrum abx with vancomycin and zosyn, IVF. Patient reports feeling a little better but having some itching on her chest area, denies rash. Throat still somewhat sore but better, Denies n/v/d. denies shortness of breath. Denies chest pain, abdominal pain, cough, rashes, dysuria. Review of Systems Review of Systems: All systems reviewed & are unremarkable except as noted in Subjective Physical Exam Physical Exam: GENERAL: The patient is of moderate build, currently not in acute distress, tired appearing HEENT: Icterus present. but much improved Pupils equal, round, and reactive to light. Oral mucosa moist. NECK: No obvious neck masses seen. Seems supple. CARDIOVASCULAR: S1 and S2 heard. RRR. No murmurs. RESPIRATORY SYSTEM: Normal AP diameter. No accessory muscle use. No wheezing, no crackles. ABDOMEN: Soft, bowel sounds present, nontender, no distention. CENTRAL NERVOUS SYSTEM: Alert and oriented, speaking in low voices. Speech is clear. No facial droop. Insight is okay. Obeys simple commands. Moves extremities. EXTREMITIES: improved erythema and swelling in the left hand on the dorsal aspect below the third digit but still present. as well as swelling in LUE Results & Data Results & Data ([facility]) Vital Signs (Past 12 Hours) Vital Signs Temp Pulse Pulse Resp BP Pulse Ox O2 Del Method 07/04/22 07:00 97 H 07/04/22 08:32 36.2 C L 90 20 147/99 H 98 Room Air 07/04/22 03:33 86 07/04/22 03:20 36.6 C 86 20 146/97 H 98 Room Air 07/04/22 00:05 36.5 C 88 20 151/94 H 98 Room Air Diagnostic Findings Laboratory Results WBC 8.84 K/ul (4.8-10.8) 07/04/22 07:48 RBC 3.48 M/uL (3.93-5.22) L 07/04/22 07:48 Hgb 10.2 g/dl (12.0-16.0) L 07/04/22 07:48 Hct 28.1 % (34.1-44.9) L 07/04/22 07:48 MCV 80.7 fL (80.0-100.0) 07/04/22 07:48 MCH 29.3 pg (25.0-34.0) 07/04/22 07:48 MCHC 36.3 g/dL (32.0-36.0) H 07/04/22 07:48 RDW Std Deviation 43.4 fL (36.4-46.3) 07/04/22 07:48 RDW Coeff of [place]rol 15.0 % (11.5-14.5) H 07/04/22 07:48 Plt Count 46 K/uL (130-400) L 07/04/22 07:48 Immature Gran % (Auto) 0.7 % 07/04/22 07:48 Neut % (Auto) 91.3 % 07/04/22 07:48 Lymph % (Auto) 4.3 % 07/04/22 07:48 Swift % (Auto) 3.5 % 07/04/22 07:48 Eos % (Auto) 0.0 % 07/04/22 07:48 Baso % (Auto) 0.2 % 07/04/22 07:48 Reticulocyte % (Auto) < 0.5 % (0.5-2.0) L 07/02/22 04:42 Neut # (Auto) 8.07 K/uL (1.4-6.5) H 07/04/22 07:48 Lymph # (Auto) 0.38 K/uL (1.2-3.4) L 07/04/22 07:48 Swift # (Auto) 0.31 K/uL (0.24-0.82) 07/04/22 07:48 Eos # (Auto) 0.00 K/uL (0-0.50) 07/04/22 07:48 Baso # (Auto) 0.02 K/uL (0-0.2) 07/04/22 07:48 Reticulocyte # < 0.02 10^6/uL (0.02-0.10) L 07/02/22 04:42 Immature Gran # (Auto) 0.06 K/uL (0.00-0.02) H 07/04/22 07:48 Toxic Granulation 1+ 07/04/22 07:48 Toxic Vacuolation 1+ 07/04/22 07:48 Dohle Bodies 1+ 07/02/22 04:42 Platelet Estimate Decreased (Normal) L 07/01/22 20:00 Giant Platelets 1+ 07/04/22 07:48 Polychromasia 1+ 07/03/22 05:55 Target Cells 1+ 07/04/22 07:48 Peripher Smr Path Cons 07/02/22 04:42 Peripher Smr Path Cons Cancelled 07/02/22 04:42 ESR > 130 mm/hr (0-20) H 07/04/22 07:48 Haptoglobin 480 mg/dL (43-212) H 07/02/22 11:22 PT 14.7 Seconds (9.0-12.0) H 07/04/22 06:29 INR 1.4 (0.9-1.1) H 07/04/22 06:29 Fibrinogen 778 mg/dl (184-400) H 07/02/22 12:46 Fibrin Degrad Products >40 mcg/ml (<10) H 07/02/22 12:46 D-Dimer 5830 ug/L FEU (0-500) H* 07/02/22 11:22 Sodium 138 mmol/L (136-145) 07/04/22 07:48 Potassium 4.2 mmol/L (3.5-5.1) 07/04/22 07:48 Chloride 108 mmol/L (98-107) H 07/04/22 07:48 Carbon Dioxide 22 mmol/L (21-32) 07/04/22 07:48 Anion Gap 8 (3-11) 07/04/22 07:48 BUN 19 mg/dl (6-23) 07/04/22 07:48 Creatinine 0.54 mg/dl (0.6-1.2) L D 07/04/22 07:48 Est Cr Clr Drug Dosing 145.4 ml/min 07/04/22 07:48 Est GFR ( Amer) 144.7 ml/min 07/04/22 07:48 Est GFR (Non-Af Amer) 124.9 ml/min 07/04/22 07:48 BUN/Creatinine Ratio 35.2 (10-20) H 07/04/22 07:48 Glucose 122 mg/dl (70-99(Fasting)) H 07/04/22 07:48 Osmolality 277 mOsm/kg (280-300) L 07/02/22 10:33 Lactate TNP 07/02/22 05:57 Uric Acid 2.6 mg/dl (2.6-7.2) 07/03/22 05:55 Calcium 7.2 mg/dl (8.5-10.1) L 07/04/22 07:48 Phosphorus 1.6 mg/dl (2.5-4.9) L 07/04/22 07:48 Magnesium 2.1 mg/dl (1.7-2.4) 07/04/22 07:48 Ferritin 652.7 ng/ml (8-388) H 07/03/22 05:55 Total Bilirubin 4.9 mg/dl (0.2-1.0) H 07/04/22 07:48 Direct Bilirubin 8.6 mg/dl (0-0.2) H 07/02/22 04:42 AST 36 U/L (13-39) 07/04/22 07:48 ALT 46 U/L (7-52) 07/04/22 07:48 Alkaline Phosphatase 71 U/L (34-104) 07/04/22 07:48 Ammonia 51.0 umol/L (18-72) 07/03/22 05:55 Lactate Dehydrogenase 233 U/L (86-244) 07/02/22 11:22 Total Creatine Kinase 134 U/L (26-192) 07/03/22 05:55 C-Reactive Protein 7.92 mg/dl (0-0.5) H 07/04/22 07:48 Total Protein 5.8 gm/dl (6.0-8.3) L 07/04/22 07:48 Albumin 2.3 gm/dl (3.4-5.0) L 07/04/22 07:48 Globulin 3.5 gm/dl (2.5-4.0) 07/04/22 07:48 Albumin/Globulin Ratio 0.7 (0.9-2) L 07/04/22 07:48 Vitamin B12 1268 pg/ml (180-914) H 07/02/22 04:42 Folate 15.51 ng/ml (>5.38) 07/02/22 04:42 Procalcitonin 82.85 ng/ml (0-0.5) H 07/03/22 05:55 TSH 0.476 uIu/ml (0.300-4.500) 07/01/22 20:00 HCG, Qual Negative (Negative) 07/01/22 20:00 Urine Color Dark Yellow 07/02/22 13:55 Urine Appearance Cloudy (Clear) A 07/02/22 13:55 Urine pH 6.0 (4.5-7.5) 07/02/22 13:55 Ur Specific [place] 1.020 (1.000-1.030) 07/02/22 13:55 Urine Protein 1+ (Negative) H 07/02/22 13:55 Urine Glucose (UA) Negative (Negative) 07/02/22 13:55 Urine Ketones Negative (Negative) 07/02/22 13:55 Urine Blood 2+ (Negative) H 07/02/22 13:55 Urine Nitrite Negative (Negative) 07/02/22 13:55 Urine Bilirubin 3+ (Negative) H 07/02/22 13:55 Urine Urobilinogen Negative (Negative) 07/02/22 13:55 Ur Leukocyte Esterase Negative (Negative) 07/02/22 13:55 Urine WBC (Auto) 1-5 /hpf (0-5) 07/02/22 13:55 Urine RBC (Auto) 0-4 /hpf (0-4) 07/02/22 13:55 U Hyaline Cast (Auto) 1-5 /lpf (0-5) 07/02/22 13:55 U Epithel Cells (Auto) 5-10 /lpf (0-5) H 07/02/22 13:55 Urine Bacteria (Auto) Negative (Negative) 07/02/22 13:55 Granular Casts 10-20 /lpf (0) H 07/01/22 21:49 Urine Yeast Not Reportable 07/02/22 13:55 Urine Osmolality 369 mOsm/kg (500-800) L 07/02/22 13:55 Ur Random Creatinine 67.9 mg/dl 07/03/22 11:20 U Random Total Protein 116.8 mg/dl (0-11.9) H 07/03/22 11:20 Ur Random Sodium 20 mmol/L 07/02/22 13:55 Ur Random Potassium 21.8 mmol/L 07/02/22 13:55 Ur Random Chloride 26 mmol/L 07/02/22 13:55 Protein/Creatinin Ratio 1.7 (0-0.2) H 07/03/22 11:20 Nasal Screen MRSA (PCR) Negative (Negative) 07/02/22 18:45 Stl C. cayetanensis PCR Not Detected (NotDetected) 07/02/22 00:54 Stool Rotavirus A PCR Not Detected (NotDetected) 07/02/22 00:54 Stl Adenov F 40/41 PCR Not Detected (NotDetected) 07/02/22 00:54 Stool Astrovirus (PCR) Not Detected (NotDetected) 07/02/22 00:54 Stool Campylobacter PCR Not Detected (NotDetected) 07/02/22 00:54 Stl C. diff Tox B Gene Negative Cdiff Gene (Neg) 07/02/22 00:54 Stool Cryptosporidium PCR Not Detected (NotDetected) 07/02/22 00:54 Stl E.coli Shiga Tox PCR Not Detected (NotDetected) 07/02/22 00:54 Stl Enterotoxigenic E PCR Not Detected (NotDetected) 07/02/22 00:54 Stool EPEC (PCR) Not Detected (NotDetected) 07/02/22 00:54 Stool EAEC (PCR) Not Detected (NotDetected) 07/02/22 00:54 Stl E. histolytica PCR Not Detected (NotDetected) 07/02/22 00:54 Stool Giardia Lamblia PCR Not Detected (NotDetected) 07/02/22 00:54 Stool Salmonella PCR Not Detected (NotDetected) 07/02/22 00:54 Stool Sapovirus (PCR) Not Detected (NotDetected) 07/02/22 00:54 Stl P. shigelloides PCR Not Detected (NotDetected) 07/02/22 00:54 Stl Shigella/EIEC PCR Not Detected (NotDetected) 07/02/22 00:54 St Y.enterocolitica PCR Not Detected (NotDetected) 07/02/22 00:54 Stool Vibrio (PCR) Not Detected (NotDetected) 07/02/22 00:54 Stl Vibrio cholerae PCR Not Detected (NotDetected) 07/02/22 00:54 Stl Norovirus GI/GII PCR Not Detected (NotDetected) 07/02/22 00:54 Random Vancomycin 11.0 mcg/ml (10-20) 07/04/22 06:29 Urine Opiates Screen Neg (Neg) 07/01/22 20:38 Ur Methadone, Qual Neg (Neg) 07/01/22 20:38 Urine Barbiturates Neg (Neg) 07/01/22 20:38 Ur Phencyclidine (PCP) Neg (Neg) 07/01/22 20:38 U Amphetamin/Meth Scrn Neg (Neg) 07/01/22 20:38 MDMA (Ecstasy) Screen Neg (Neg) 07/01/22 20:38 U Benzodiazepines Scrn Neg (Neg) 07/01/22 20:38 Ur Cocaine Metabolite Neg (Neg) 07/01/22 20:38 U Marijuana (THC) Screen Pos (Neg) H 07/01/22 20:38 U Marijuana THC Carboxy 88 ng/mL (<5) H 07/01/22 20:38 Drug Screen Comment SEE NOTE 07/01/22 20:38 RPR Nonreactive (Nonreactive) 07/01/22 20:00 Adenovirus (PCR) Not Detected (NotDetected) 07/01/22 21:29 Anaplasma Smear See Comment 07/01/22 20:00 Babesia Smear See Comment 07/01/22 20:00 B. pertussis DNA (PCR) Not Detected (NotDetected) 07/01/22 21:29 B.parapertussis DNA PCR Not Detected (NotDetected) 07/01/22 21:29 Lyme Disease IgG Ab Negative (Negative) 07/01/22 20:00 Lyme Disease IgM Ab Negative (Negative) 07/01/22 20:00 C. pneumoniae DNA (PCR) Not Detected (NotDetected) 07/01/22 21:29 Coronavirus OC43 (PCR) Not Detected (NotDetected) 07/01/22 21:29 Coronavirus HKU1 (PCR) Not Detected (NotDetected) 07/01/22 21:29 Coronavirus 229E (PCR) Not Detected (NotDetected) 07/01/22 21:29 SARS-CoV-2 (PCR) Not Detected (NotDetected) 07/01/22 21:29 Coronavirus NL63 (PCR) Not Detected (NotDetected) 07/01/22 21:29 Hepatitis A IgM Ab NON-REACTIVE (NON-REACTIVE) 07/01/22 20:00 Hep Bs Antigen NON-REACTIVE (NON-REACTIVE) 07/01/22 20:00 Hep Bs Ag Confirmation TNP 07/01/22 20:00 Hep B Core IgM Ab NON-REACTIVE (NON-REACTIVE) 07/01/22 20:00 Hepatitis C Ab (EIA) NON-REACTIVE (NON-REACTIVE) 07/01/22 20:00 Hep C Ab Signal/Cutoff 0.02 (<1.00) 07/01/22 20:00 Monoscreen Negative (Negative) 07/01/22 20:00 HIV-1 RNA copies/mL Cancelled 07/04/22 06:29 HIV-1 RNA logcopies/mL Cancelled 07/04/22 06:29 Human Metapneumovir PCR Not Detected (NotDetected) 07/01/22 21:29 Influenza Type A (PCR) Not Detected (NotDetected) 07/01/22 21:29 Influenza Type B (PCR) Not Detected (NotDetected) 07/01/22 21:29 M. pneumoniae (PCR) Not Detected (NotDetected) 07/01/22 21:29 Parainfluenza 1 (PCR) Not Detected (NotDetected) 07/01/22 21:29 Parainfluenza 2 (PCR) Not Detected (NotDetected) 07/01/22 21:29 Parainfluenza 3 (PCR) Not Detected (NotDetected) 07/01/22 21:29 Parainfluenza 4 (PCR) Not Detected (NotDetected) 07/01/22 21:29 RSV (PCR) Not Detected (NotDetected) 07/01/22 21:29 Entero/Rhino (PCR) Not Detected (NotDetected) 07/01/22 21:29 Bld Cult ID Panel PCR PCR Panel Negative (NotDetected) 07/01/22 20:00 Ref Lab Test Result 07/02/22 11:27 Blood Type A Positive 07/02/22 10:33 Direct Antiglob Test Negative (Negative) 07/02/22 10:33 ANNA (IgG-AHG) Neg (Negative) 07/02/22 10:33 ANNA, Polyspecific Neg (Negative) 07/02/22 10:33 ANNA C3b, C3d 5 Min Neg (Negative) 07/02/22 10:[address] 07/01/22 20:38 CT OF THE HEAD WITHOUT CONTRAST CLINICAL HISTORY: Headache. Jaundice. COMPARISON STUDY: No previous studies for comparison. CT DOSE: 537.48 mGy.cm TECHNIQUE: Helical axial images of the head were obtained without IV contrast. Automated exposure control was utilized for the study. A dose lowering technique was utilized adhering to the principles of ALARA. FINDINGS: No acute intracranial hemorrhage, midline shift or mass effect is present. The ventricular system is unremarkable. The basal cisterns are patent. No extra-axial collections are present. There are no findings to suggest acute dural sinus thrombosis or acute territorial infarct. No significant calvarial abnormalities are present. Visualized portions of the sinuses and mastoid air cells are clear. IMPRESSION: No acute intracranial findings. ACT 112: Negative or not required by law. Electronically signed by: Mendez Russell M.D. 07/02/2022 7:00 AM Abdomen/Pelvis CT 07/01/22 21:[address] WITH IV CONTRAST HISTORY: Acute fever with elevated LFTs Fever, elevated LFT, hyperbili, vomit TECHNIQUE: Multiaxial CT images of the abdomen and pelvis were performed following the IV administration of 86 cc of Optiray, A dose lowering technique was utilized adhering to the principles of ALARA. COMPARISON STUDY: Chest CT of same day, CT abdomen and pelvis 06/24/2022 FINDINGS: Numerous round consolidative densities of the lung bases, several of which are centrally cavitary measuring up to 2.9 cm are new from the prior study. No pneumatosis or pneumoperitoneum. The study is limited secondary to upper extremity positioning. Unremarkable spleen, pancreas and adrenal glands. Mildly distended gallbladder. The liver is within normal limits. Patency of the hepatic and portal veins. Unremarkable kidneys without hydronephrosis. The urinary bladder is within normal limits. Endometrium measures up to 1.6 cm. Uterus and ovaries are otherwise unremarkable. Aorta and IVC are unremarkable. No pathologically enlarged lymph nodes are identified. Mild nonspecific wall thickening of the distal esophagus. Mild wall thickening of the mid to distal gastric body with partial distention is similar to prior. No bowel obstruction or bowel wall thickening. Small and large bowel air-fluid levels. Normal appendix. Mild nonspecific stranding is noted surrounding the left rectus femoris and iliopsoas psoas musculature. Moderate degeneration of the pubic symphysis. No acute fracture identified. IMPRESSION: 1. Interval development of numerous round and centrally cavitary consolidative opacities of the lung bases, new from 06/24/2022 suggestive of septic emboli. 2. No bowel obstruction or bowel wall thickening. Normal appendix. 3. Mild wall thickening of the gastric body redemonstrated which may be secondary to partial distention versus a nonspecific gastritis. 4. Mild stranding surrounding the proximal rectus femoris and iliopsoas musculature. Correlate with clinical exam findings and patient history. ACT 112: Negative or not required by law. The above report was generated using voice recognition software. It may contain grammatical, syntax or spelling errors. Electronically signed by: Roberto Aly M.D. 07/02/2022 7:53 AM Soft Tissue Neck CT 07/01/22 22:14 CT OF THE NECK WITH IV CONTRAST CLINICAL HISTORY: Lymphadenopathy. COMPARISON STUDY: No previous studies for comparison. TECHNIQUE: Following IV administration of 86 mL of Optiray, helical axial images of the neck were obtained. Sagittal and coronal reconstructions were viewed. Automated exposure control was utilized for the study. A dose lowering technique was utilized adhering to the principles of ALARA. FINDINGS: Visualized portions of the intracranial contents are unremarkable. The mastoid air cells are clear. The sinuses are clear. Note is made of a 1.9 x 1.8 cm left peritonsillar rim enhancing fluid collection consistent with a peritonsillar abscess. There is moderate associated mass effect with narrowing of the hypopharynx. There is an adjacent 1.7 x 1.5 cm fluid collection within the left paravertebral space consistent with an additional abscess. In addition, there is occlusive thrombus within the left internal jugular vein. Mild to moderate prevertebral edema is also present. The epiglottis is normal. There is no soft tissue gas. No additional sites of vessel occlusion are identified within the neck. Prominent left cervical lymph nodes are reactive. Visualized portions of the chest demonstrate multiple cavitary round airspace opacities consistent with septic pulmonary emboli. IMPRESSION: 1. Findings consistent with Lemierre syndrome. Two left peritonsillar abscesses, measuring up to 1.9 x 1.8 cm, with associated occlusive thrombophlebitis of the left internal jugular vein and septic pulmonary emboli. This finding will be called/faxed to ordering provider at time of dictation. 2. Mild to moderate prevertebral edema. ACT 112: Negative or not required by law. Electronically signed by: Mendez Russell M.D. 07/02/2022 7:16 AM Hand X-Ray 07/01/22 22:16 XR hand LT min 3V routine CLINICAL HISTORY: 3rd finger MCP swelling COMPARISON: None FINDINGS: Alignment of the left hand is anatomic. There is no acute fracture. There is no bony erosion. Dorsal soft tissue swelling is noted on lateral projection. There is also soft tissue swelling adjacent to the left third metacarpophalangeal joint and within the left third finger. No soft tissue gas is identified. IMPRESSION: 1. No osseous abnormality within the left hand. 2. Soft tissue swelling the dorsal left hand and left third digit, as described above. This is nonspecific. ACT 112: Negative or not required by law. Electronically signed by: Mendez Russell M.D. 07/02/2022 7:[address] 07/01/22 22:[address] WITH CONTRAST CT DOSE: 875.10 mGy.cm HISTORY: Acute tachycardia with lymphadenopathy tachycardia, lymphadenopathy TECHNIQUE: Multiaxial CT images of the chest were performed following the IV administration of 86 cc of Optiray. A dose lowering technique was utilized adhering to the principles of ALARA. COMPARISON: CT abdomen and pelvis of same day and also 06/24/2022 FINDINGS: Unremarkable thyroid. The heart is normal in size without pericardial effusion. The thoracic aorta and pulmonary arterial tree are suboptimally evaluated secondary to respiratory motion artifact. Trace pleural effusions. No pneumothorax. Mild intralobular septal thickening with bronchial wall thickening and areas of mild mosaic attenuation. There is development of numerous rounded nodular consolidative opacities within a multilobar and multi segmental distribution. Many of these lesions are centrally cavitary measuring up to 2.4 cm within the left lower lobe and 2.6 cm within the right lower lobe. Several of these lesions about the peripheral pleural surfaces. Unremarkable soft tissues. No acute fracture. IMPRESSION: 1. Interval development of numerous round and centrally cavitary consolidative opacities of the lungs which are new from 06/24/2022. Findings are suggestive of septic emboli. 2. No lymphadenopathy. ACT 112: Negative or not required by law. Electronically signed by: Roberto Aly M.D. 07/02/2022 8:14 AM Extremity Venous Study 07/02/22 13:34 LEFT UPPER EXTREMITY VENOUS DOPPLER HISTORY: Follow-up left internal jugular vein thrombus. DVT COMPARISON STUDY: CT neck 07/01/2022. FINDINGS: There is persistent occlusive thrombus seen within the left internal jugular vein. This is similar to the prior study. There is normal flow within the left subclavian vein. There is normal flow and compressibility within the left axillary, basilic, brachial, radial, ulnar, and visualized cephalic veins. IMPRESSION: No significant change in the left internal jugular vein occlusive thrombus. ACT 112: Negative or not required by law. Electronically signed by: Doug Stewart M.D. 07/02/2022 2:32 PM Chest X-Ray 07/03/22 07:13 XR chest 1V portable CLINICAL HISTORY: f/u COMPARISON STUDY: Chest radiograph and chest CT July 01, 2022. FINDINGS: Multifocal nodular airspace opacities are again noted within the lungs. A few of these have slightly progressed since prior exam. A few of these demonstrate cavitation, better depicted on prior CT. Cardiomediastinal silhouette is stable. No evidence for pulmonary edema. No pneumothorax or pleural effusion is identified. IMPRESSION: Minimal change since prior chest radiograph and chest CT. Slight increase in extent of a few foci of cavitary consolidation. Findings consistent with septic pulmonary emboli. ACT 112: Negative or not required by law. Electronically signed by: Mendez Russell M.D. 07/03/2022 7:[address] 07/03/22 08:[address] WITHOUT CONTRAST CLINICAL HISTORY: Swelling of hand, dactylitis ? COMPARISON STUDY: Left hand radiographs July 01, 2022. TECHNIQUE: Axial images of the left hand were obtained without IV contrast. Sagittal and coronal reconstructions were viewed. Automated exposure control was utilized for the study. A dose lowering technique was utilized adhering to the principles of ALARA. FINDINGS: Alignment of the left hand is anatomic. There is no fracture. There is no bony erosion to suggest acute osteomyelitis. There is no soft tissue gas. Note is made of extensive soft tissue swelling of the left third finger suggestive of cellulitis. Evaluation for abscess is suboptimal on this unenha nced exam. In addition, there is marked distention of the flexor tendon sheath of the left third digit. The wall of the tendon sheath is thickened. There are multiple pockets of adjacent fluid. There may also be increased fluid within the tendon sheaths of the left second and fourth digits. Carpal bones are intact. Distal left radius and ulna are intact. IMPRESSION: 1. Findings consistent with an extensive infectious process of the left hand, predominantly affecting the third digit and associated flexor tendon sheath. Left third digit soft tissue swelling suggestive of cellulitis. No soft tissue gas. No evidence for acute osteomyelitis. 2. Marked distention of the flexor tendon sheath of the left third digit with wall thickening of the tendon sheath. This is suggestive of an infectious tenosynovitis, possibly purulent. Multiple pockets of adjacent fluid which may favor cellulitis or phlegmon however early developing abscesses cannot be excluded. ACT 112: Negative or not required by law. Electronically signed by: Mendez Russell M.D. 07/03/2022 10:18 AM Medications Administered Current Inpatient Medications Fexofenadine HCl (Fexofenadine 60 Mg Tab) 60 mg PO BID PRN PRN Reason: itching Stop: 08/03/22 08:59 Heparin Sodium (Porcine) (Heparin Sod 5,000 Unit/0.5 Ml Vial) 5,000 units SQ Q12 ELE Stop: 08/02/22 08:59 Last Admin: 07/04/22 09:44 Dose: 5,000 units Acetaminophen (Ofirmev) 1,000 mg in 100 mls @ 400 mls/hr IV Q8H PRN PRN Reason: fever, pain Stop: 07/05/22 07:36 Last Infusion: 07/02/22 10:02 Dose: Infused Dexamethasone 10 mg/ Syringe 2.5 mls @ 1 mls/min IV Q24H ELE Stop: 07/05/22 09:29 Last Admin: 07/04/22 09:44 Dose: 1 mls/min Piperacillin Sod/Tazobactam (Sod 4.5 gm/ Dextrose) 120 mls @ 28.75 mls/hr IV Q8H ELE; Protocol Stop: 07/12/22 18:59 Last Infusion: 07/04/22 04:39 Dose: Infused Vancomycin HCl 1,500 mg/ (Sodium Chloride) 530 mls @ 200 mls/hr IV Q12H [facility]; Protocol Stop: 07/04/22 12:00 Last Admin: 07/04/22 09:44 Dose: 200 mls/hr Pantoprazole Sodium 40 mg/ (Syringe) 10 mls @ 5 mls/min IV DAILY@1100 ELE Stop: 08/02/22 10:59 Last Admin: 07/03/22 11:03 Dose: 5 mls/min Sodium Phosphate 30 mmol/ (Dextrose) 510 mls @ 102 mls/hr IV ONE ONE Stop: 07/04/22 13:59 Last Admin: 07/04/22 09:43 Dose: 102 mls/hr Vancomycin HCl 1,250 mg/ (Sodium Chloride) 275 mls @ 200 mls/hr IV Q8H ELE; Protocol Stop: 07/11/22 15:59 Miscellaneous Information (Vancomycin Consult Active) 1 each N/A UD PRN PRN Reason: Consult Stop: 07/31/22 23:56 Morphine Sulfate (Morphine Sulfate 2 Mg/Ml Carp) 2 mg IV Q4 PRN PRN Reason: Pain Stop: 07/17/22 08:27 Last Admin: 07/03/22 09:22 Dose: 2 mg Nitroglycerin (Nitroglycerin Sl 0.4 Mg/Tab Tab) 0.4 mg SL UD PRN PRN Reason: Chest Pain Stop: 08/01/22 03:38 Ondansetron HCl (Ondansetron Inj 2 Mg/Ml 2 Ml Vial) 4 mg IV Q6H PRN PRN Reason: Nausea Stop: 08/01/22 03:38 Last Admin: 07/02/22 05:54 Dose: 4 mg
--- NOTE | 2022-07-04 11:30 | Hospitalist Progress Note ---
Date of Service July 04, 2022 Assessment & Plan (1) Thrombocytopenia: Plan: Persistent though remains in the 40-50,000 range. Would certainly avoid full dose anticoagulation as there does not seem to be any worsening of the thrombosis and as previously discussed in the specific setting of Lemierre's syndrome no clear role. There is some precedent for lower dose anticoagulation being acceptable even when platelets are less than 50,000 so long as they are above 25,000. (Jose, et al. https://pubmed.ncbi.nlm.nih.gov/97042667/) but as per pulmonary medicine comments, would be concerned about specific bleeding risk at sites of vascular breakdown related to her septic emboli. So long as hospitalist team feels that nonpharmacologic means for DVT prophylaxis are sufficient, may be prudent to avoid pharmacologic anticoagulation altogether. If there is new thrombosis, however, could have a discussion about intermediate anticoagulation approaches. 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 Overall thrombocytopenia may be more related, however, to probable ongoing DIC. (2) Lemierre syndrome: Plan: Will defer to the hospitalist and ID teams for optimal treatment program. As per original consultation, in the absence of clear progression of thrombosis it is not clear that there is a role for anticoagulation specifically targeting this diagnosis Plan No new recommendations from hematology perspective, encouraged to see the bilirubin stabilizing hopefully some overall clinical stabilization. See discussion of the implications of thrombocytopenia with respect to antibiotic choices and contingent needs for anticoagulation above. I am away until Wednesday but hematology coverage is available through the hospital digital pre press operator if acute questions arise in the interim Admission and Anticipated Discharge Date Admission Date: July 02, 2022 Subjective Chart was reviewed electronically, I was not able to directly speak with and evaluate the patient but comment based on the database of lab results and notes from other physicians. There is some signs of stabilization with respect to the following bilirubin levels but patient does continue with moderate to severe thrombocytopenia. There is no indication of major bleeding issues or of concerning propagation of thrombosis Physical Exam Physical Exam: This is an electronic review, no physical exam was performed Results & Data Results & Data ([facility]) Vital Signs (Past 12 Hours) Vital Signs Temp Pulse Pulse Resp BP Pulse Ox O2 Del Method 07/04/22 07:00 97 H 07/04/22 08:32 36.2 C L 90 20 147/99 H 98 Room Air 07/04/22 03:33 86 07/04/22 03:20 36.6 C 86 20 146/97 H 98 Room Air 07/04/22 00:05 36.5 C 88 20 151/94 H 98 Room Air PG Care Time/CCT Total # of Minutes Spent Total Time Spent with Patient: Total time spent is greater than 50% in coordination of care (as documented) at patient's floor/unit and/or counseling patient: [place] [address] Subseq Hosp Care Lvl 1 Patient Type Established History Problem Focused Medical Decision Making Moderate Complexity Diagnoses Thrombocytopenia D69.6 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
[2022-07-04] MEDS: PANTOprazole 40 MG in SYRINGE 0 ML IV SCH (12:10)
--- NOTE | 2022-07-04 12:17 | Gastroenterology Progress Note ---
Date of Service July 04, 2022 Assessment & Plan Admission and Anticipated Discharge Date Admission Date: July 02, 2022 Subjective Events overnight reviewed. VS stable, Afeb. Pt with improved bilirubin, persistent normal transaminases and AP. A/p: Suspect increased bili is cholestasis of sepsis, ? variant of HLH. Will fractionate bilirubin. Please call with questions. Results & Data ([facility]) Vital Signs (Past 12 Hours) Vital Signs Temp Pulse Pulse Resp BP Pulse Ox O2 Del Method 07/04/22 11:56 36.8 C 90 18 143/87 H 97 Room Air 07/04/22 07:00 97 H 07/04/22 08:32 36.2 C L 90 20 147/99 H 98 Room Air 07/04/22 03:33 86 07/04/22 03:20 36.6 C 86 20 146/97 H 98 Room Air
[2022-07-04] MEDS ORDERED: PROPOFOL IV EMULSION 10 MG/ML 20 ML VIAL IV ONE (12:22)
[2022-07-04] MEDS ORDERED: MIDAZOLAM HCL 1 MG/ML 2ML VIAL ONE (12:22)
[2022-07-04] MEDS ORDERED: DEXAMETHASONE SOD INJ 4 MG/ML VIAL ONE (12:22)
[2022-07-04] MEDS ORDERED: LIDOCAINE 2% 2 ML VIAL/AMP(20MG/ML) INFIL ONE (12:22)
[2022-07-04] MEDS ORDERED: ONDANSETRON INJ 2 MG/ML 2 ML VIAL ONE (12:22)
[2022-07-04] MEDS ORDERED: fentaNYL citrate 100 MCG/2 ML VIAL ONE ×3 (12:22→13:10)
[2022-07-04] MEDS ORDERED: fentaNYL citrate 100 MCG/2 ML VIAL IV PRN (12:32)
[2022-07-04] MEDS ORDERED: ONDANSETRON INJ 2 MG/ML 2 ML VIAL IV PRN ×2 (12:32→15:24)
[2022-07-04] MEDS ORDERED: ATROPINE SULFATE 0.1 MG/ML 10ML SYR IV PRN (12:32)
[2022-07-04] MEDS ORDERED: PROMETHAZINE HCL 12.5 MG in SODIUM CHLORIDE 0.9% 50 ML IV PRN (12:32)
--- NOTE | 2022-07-04 14:07 | Operative Report ---
PG Post Operative Report Pre & Post Diagnosis Operation Date: 07/04/22 08:30 Pre-Op Diagnosis: Abscess of left hand with infected tenosynovitis of the third finger Post-Op Diagnosis: Extensive abscess of left hand including infected tenosynovitis of the flexor tendon sheath of the third finger as well as mid palm diffuse abscess I identified the patient and participated in the time-out.: Yes Procedure Operation Date: 07/04/22 08:30 Actual Procedures p Incision, irrigation, and Debridement Left Hand(Left) - Martell Sorenson MD Surgeon Martell Sorenson MD Relations Manager August Friedman PA-C Estimated Blood Loss 5 Findings Consistent with Post-Op Diagnosis Operative findings real obvious abscess involving the palm of the left hand. Involve primarily the third finger and glue including the flexor tendon sheath. There was purulence in the palm in the mid palm area both towards the second and fourth metacarpal areas. This did not appear to extend to involve the flexor tendon sheaths of the second and fourth digits.. Specimens Fluid sent for stat gram stain aerobic and anaerobic culture. Anesthesia Type General Complications none Disposition Accompanied Patient To Recovery: No Indications Patient is a 31-year-old [id number] female whose had a several week history of illness. History is unclear with respect to her hand. She says its been sore gotten worse over the past several days. No known injury. She clinically had an obvious infected tenosynovitis of third digit. This was confirmed by CT scan. Patient indicated for surgical management. Description of Procedure The patient was taken the operating, identified, placed on the operating table supine position. All contact areas were appropriately padded. IV antibiotics have been divided in the floor preoperatively. A general anesthetic was implemented. A left arm tourniquet was placed. Left arm was then prepped and draped in usual sterile fashion. Left arm was Elave exsanguinated with use of an Esmarch in terms playset 2 and 50 mmHg. A Horacio type incision was made in the palm at the base of the long finger. Upon the entering the deep tissues there was obvious extensive purulence. It extended distally as well as somewhat proximally and both medial and laterally. I irrigated this out. I opened the mariajose system. We irrigated this extensively. I then made an incision on the ulnar side of the long finger at the level of the DIP joint and slightly proximal. This was made dorsal to the neurovascular bundle. Blunt dissection was carried out directly down to the flexor tendon sheath. There is obvious pus here as well. I opened the flexor tendon sheath distally. We then irrigated this area extensively. I then took a a pediatric feeding tube and placed at in the mariajose system. We irrigated this with a normal saline. After all the fluid appeared clear we let the tourniquet down. Hemostasis reduced electrocautery. The wounds were then closely closed with 4-0 nylon suture. The feeding tube which was in the mariajose system was secured to the hand with 4-0 nylon suture. The hand was then cleaned and dried a sterile dressing was Xeroform, 4 x 4's, sterile cast padding, and a splint were applied. A sling was then applied. The patient then brought out of anesthesia and transferred to the recovery room in stable condition. Patient tolerated procedure well no complications. August Friedman, my physician medical billing assistant, was present for the entire procedure. His assistance was required for proper patient positioning, prepping and draping, s urgical exposure, perform the technical details the operation, closure of the wound, placement of sterile bandage. I attest to the content of the Intraoperative Record and any orders documented therein. Any exceptions are noted below.
--- NOTE | 2022-07-04 14:35 | Anesthesiology Progress Note ---
Date of Service July 04, 2022 Anesthesia Post Procedure Vital Signs Vital Signs: Temp Pulse Pulse Resp BP BP Pulse Ox 07/04/22 14:20 90 17 139/97 100 07/04/22 14:10 84 19 137/98 100 07/04/22 14:30 84 18 142/102 H 97 07/04/22 14:04 36.5 C 89 16 128/95 100 07/04/22 11:56 36.8 C 90 18 143/87 H 97 07/04/22 07:00 97 H 07/04/22 08:32 36.2 C L 90 20 147/99 H 98 07/04/22 03:33 86 07/04/22 03:20 36.6 C 86 20 146/97 H 98 07/04/22 00:05 36.5 C 88 20 151/94 H 98 07/03/22 20:30 86 21 100 07/03/22 20:00 86 26 H 99 07/03/22 20:00 133/107 H 07/03/22 19:30 85 22 97 07/03/22 19:00 96 H 23 98 07/03/22 19:00 147/121 H 07/03/22 20:00 07/03/22 18:05 90 28 H 97 07/03/22 18:05 146/100 H 07/03/22 18:03 90 22 98 07/03/22 18:00 91 H 20 97 07/03/22 17:27 90 22 97 07/03/22 17:27 146/93 H 07/03/22 17:00 93 H 20 98 07/03/22 16:00 92 H 24 97 07/03/22 16:00 140/91 07/03/22 15:00 99 H 07/03/22 15:00 92 H 18 95 07/03/22 15:00 139/86 07/03/22 15:54 36.8 C O2 Del Method O2 Flow Rate 07/04/22 14:20 Oxymask 12 07/04/22 14:10 Oxymask 12 07/04/22 14:30 Room Air 07/04/22 14:04 Oxymask 12 07/04/22 11:56 Room Air 07/04/22 07:00 07/04/22 08:32 Room Air 07/04/22 03:33 07/04/22 03:20 Room Air 07/04/22 00:05 Room Air 07/03/22 20:30 07/03/22 20:00 07/03/22 20:00 07/03/22 19:30 07/03/22 19:00 07/03/22 19:00 07/03/22 20:00 Room Air 07/03/22 18:05 07/03/22 18:05 07/03/22 18:03 07/03/22 18:00 07/03/22 17:27 07/03/22 17:27 07/03/22 17:00 07/03/22 16:00 07/03/22 16:00 07/03/22 15:00 07/03/22 15:00 07/03/22 15:00 07/03/22 15:54 Pain Intensity Throat: Pain Intensity: 8 Generalized: Pain Intensity: 0 Transfer of Care Handoff Completed per policy Notes Mental Status: alert / awake / arousable Patient Amnestic to Procedure: Yes Nausea / Vomiting: adequately controlled Pain: adequately controlled Airway Patency, RR, SpO2: stable & adequate BP & HR: stable & adequate Hydration State: stable & adequate Anesthetic Complications: no major complications apparent
[2022-07-04] MEDS ORDERED: METOCLOPRAMIDE HCL INJ 5 MG/ML 2 ML VIAL IV PRN (15:24)
[2022-07-04] MEDS ORDERED: bisacodyL 10 MG SUPP PR PRN (15:24)
[2022-07-04] MEDS ORDERED: MAGNESIUM HYDROXIDE SUSP 30 ML UDC PO PRN (15:24)
[2022-07-04] MEDS ORDERED: NALOXONE HCL 0.4 MG/1 ML VIAL/CARP IV PRN (15:24)
--- NOTE | 2022-07-04 15:55 | CT Scan Report ---
CT head/brain wo con CLINICAL HISTORY: AMS Technique: Contiguous axial CT images of the head were acquired from the base of the skull to the warren aristides without intravenous contrast administration. Images were viewed in brain, subdural and bone [facility]. Automated dose lowering techniques and/or adjustment according to patient size were utilized for this exam. Comparison: None available at the time of this dictation. Findings: The ventricles, basal cisterns, and cerebral sulci are normal. There is no acute intracranial hemorrh age or evidence of acute territorial infarction. Neither mass effect, shift of the midline structures , nor abnormal extra-axial fluid collections are shown. Imaged portions of the paranasal sinuses and mastoid air cells are clear. The orbits appear normal. There are no acute fractures of the calvaria or scalp swelling. Impression: No acute intracranial hemorrhage, no evidence of acute territorial infarction or other acute intracra nial disease process. ACT 112: Negative or not required by law. Electronically signed by: Evaristo Mckinney M.D. 07/04/2022 3:52 PM
[2022-07-04] MEDS: SODIUM CHLORIDE 0.9% 1000ML 1,000 ML IV SCH (16:16)
[2022-07-04] MEDS: VANCOMYCIN HCL 1,250 MG in SODIUM CHLORIDE 0.9% 250 ML IV SCH ×2 (16:17→23:25)
[2022-07-04] MEDS: DOCUSATE SODIUM 100 MG CAP PO SCH (19:50)
[2022-07-04] MEDS: SENNA 8.6 MG TAB PO SCH (19:50)
[2022-07-05] MEDS: PIPERACILLIN/TAZOBACTAM 4.5 GM in DEXTROSE 5% 100 ML IV SCH ×3 (02:00→19:53)
[2022-07-05] MEDS: SODIUM CHLORIDE 0.9% 1000ML 1,000 ML IV SCH (02:00)
[2022-07-05] MEDS ORDERED: VANCOMYCIN LEVEL ONE (07:30)
[2022-07-05 07:47] LABS: Hematocrit (blood only) 21.5 % (34.1-44.9); Hemoglobin 7.5 g/dl (12.0-16.0); Mean Corpuscular Hemoglobin 29.4 pg (25.0-34.0); Mean Corpuscular Hgb Conc 34.9 g/dL (32.0-36.0); Mean Corpuscular Volume 84.3 fL (80.0-100.0); Mean Platelet Volume 13.5 fL (9.4-12.3); Nucleated RBC # (auto) 0.02 K/uL (0-0); Nucleated RBC % (auto) 0.2 %; Platelet Count 91 K/uL (130-400); RDW Coefficient of Variation 15.7 % (11.5-14.5); RDW Standard Deviation 47.7 fL (36.4-46.3); Red Blood Count 2.55 M/uL (3.93-5.22); White Blood Count 10.67 K/ul (4.8-10.8)
[2022-07-05 07:48] LABS: INR 1.3 (0.9-1.1); Prothrombin Time 13.2 Seconds (9.0-12.0)
[2022-07-05 07:58] LABS: Albumin Globulin Ratio 0.6 (0.9-2); Albumin Level 2.2 gm/dl (3.4-5.0); BUN Creatinine Ratio 22.2 (10-20); Bilirubin Direct 3.3 mg/dl (0-0.2); Bilirubin,Total 5.8 mg/dl (0.2-1.0); C Reactive Protein 9.4 mg/dl (0-0.5); Creatinine Clr Calc Pharmacy 124.7 ml/min; Est GFR (African American) 137.6 ml/min; Est GFR (Non-African American) 118.7 ml/min; Globulin 3.4 gm/dl (2.5-4.0); Magnesium 1.6 mg/dl (1.7-2.4); Phosphorus 1.7 mg/dl (2.5-4.9); Potassium 4.1 mmol/L (3.5-5.1); Total Protein 5.6 gm/dl (6.0-8.3)
[2022-07-05] MEDS: DOCUSATE SODIUM 100 MG CAP PO SCH ×2 (08:02→19:54)
--- NOTE | 2022-07-05 08:07 | Pulmonology Progress Note ---
Date of Service July 05, 2022 Assessment & Plan (1) Multifocal pneumonia: (2) Abnormal chest CT: (3) Cavitary pneumonia: (4) Lemierre syndrome: Plan CT chest 07/01/2022 personally reviewed: Multiple cavitary lesions appreciated bilaterally especially on the periphery upper and lower lobes No mediastinal lymphadenopathy -- Abnormal chest CT with multiple cavitary lesions Like representing septic emboli Patient is high risk for pneumothorax given the peripheral cavitary lesions Continue with antibiotics There is no clear data regarding anticoagulation in such patients. Would avoid systemic anticoagulation right now unless there is documentation of progression of thrombus --Sepsis with gram -ve bacteremia Lemiere's syndrome s/p I&D on 07/02/22 Fusobacterium species -- Swollen left arm especially 3rd digit negative for DVT LUE denies any injury ? septic emboli being one of the etiology Orthopedic on board Plan: Patient is +13 L since coming to the hospital Recommend stopping all the fluids. Advance diet as tolerated Follow-up chest x-ray from today. If the chest x-ray shows pulmonary edema would recommend Lasix Repeat CT chest in 6-8 weeks Further recommendation from pulmonary perspective. We will sign off Please call directly with any questions Case was discussed with Cherry PINZON at bedside Case discussed with Dr Goddard Please note the above document was generated using voice recognition software. It may contain grammatical, syntax or spelling errors.Any formal questions or concerns about the content, text or information contained within the body of this dictation should be directly addressed to the provider for clarification. Admission and Anticipated Discharge Date Admission Date: July 02, 2022 Subjective Patient seen and examined at bedside. No acute distress, no adverse events overnight Patient has apathetic mood today. Complains of mild pain in the left arm. No nausea or vomiting Has been tolerating clear liquid diet Denies any shortness of breath, no chest pain No headache, no blurry vision Review of Systems Review of Systems: All systems reviewed & are unremarkable except as noted in Subjective Physical Exam Physical Exam: Constitutional: No acute distress HEENT: EOMI, PERRLA, icteric Respiratory system: Decreased air entry bilaterally, no wheeze, no rhonchi, positive crackles bilaterally CVS: S1-S2 positive, no murmurs or gallops Abdomen: Soft, nontender, nondistended, positive bowel sounds x4 Extremities: +2 pulses bilaterally radialis/ dorsalis pedis, no cyanosis, left hand dressing in place Neuro: Awake alert oriented x3 Psych: Apathic mood and affect G/U: Positive Mcneil Skin: no rashes, warm and dry Lymphatic: no cervical or axillary lymphadenopathy Results & Data Results & Data ([facility]) Vital Signs (Past 12 Hours) Vital Signs Temp Pulse Pulse Resp BP Pulse Ox O2 Del Method 07/05/22 07:06 36.8 C 111 H 20 138/82 98 Room Air 07/05/22 03:21 37.5 C 125 H 18 136/75 92 Nasal Cannula 07/04/22 23:53 37.2 C 108 H 18 139/83 95 Room Air 07/04/22 23:28 104 H O2 Flow Rate 07/05/22 07:06 07/05/22 03:21 2 07/04/22 23:53 07/04/22 23:28 Laboratory Results 07/05/22 07:21 07/05/22 07:21 PG Care Time/CCT Total # of Minutes Spent Total Time Spent with Patient: Total time spent is greater than 50% in coordination of care (as documented) at patient's floor/unit and/or counseling patient: Coding Level of Care Code 84492 Subseq Hosp Care Lvl 2 Diagnoses Multifocal pneumonia J18.[address] R93.89 Cavitary pneumonia J18.9; J98.4 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
[2022-07-05] MEDS ORDERED: LACTATED RINGER'S 500 ML IV ONE (08:12)
[2022-07-05] MEDS ORDERED: LACTATED RINGER'S 1,000 ML IV ONE ×2 (08:12→08:37)
[2022-07-05] MEDS ORDERED: MAGNESIUM SULFATE IV SCH (08:15)
[2022-07-05] MEDS ORDERED: LACTATED RINGER S IV SCH (08:15)
[2022-07-05] MEDS ORDERED: SODIUM PHOSPHATE 3 MMOL/1 ML 5 ML VIAL IV ONE (08:16)
[2022-07-05 08:20] LABS: Hemoglobin 7.8 g/dl (12.0-16.0); Mean Corpuscular Hemoglobin 29.7 pg (25.0-34.0); Mean Corpuscular Hgb Conc 35.5 g/dL (32.0-36.0); Mean Corpuscular Volume 83.7 fL (80.0-100.0); Mean Platelet Volume 12.7 fL (9.4-12.3); Nucleated RBC # (auto) 0.03 K/uL (0-0); Nucleated RBC % (auto) 0.3 %; Platelet Count 93 K/uL (130-400); RDW Coefficient of Variation 15.4 % (11.5-14.5); RDW Standard Deviation 46.4 fL (36.4-46.3); Red Blood Count 2.63 M/uL (3.93-5.22); White Blood Count 10.47 K/ul (4.8-10.8)
--- NOTE | 2022-07-05 08:38 | Progress Notes ---
DATE OF SERVICE: 07/05/2022 SUBJECTIVE: A 31-year-old female postoperative day 1 from irrigation and debridement of an extensive left hand and finger infection. She is doing pretty well. Says her hand feels much better. No oth er complaints. OBJECTIVE: VITAL SIGNS: Temperature 36.8. Vital signs are stable and a little bit tachycardic. PHYSICAL EXAMINATION: Physical examination of the left hand reveals the splint and dressing to be cl mckenna, dry, and intact. She can slightly flex and extend her fingers. She is neurologically intact. Drain is in place. Irrigation tubes in place. LABORATORY DATA: Hemoglobin is 7.5. Hematocrit 21.5. INR 1.3. Electrolytes look pretty stable. CULTURE RESULTS: Gram stain showed many wbc's with no organisms. ASSESSMENT: A 31-year-old female postoperative day 1 from irrigation and debridement of extensive le ft hand infection with underlying gram-negative bacillus and sepsis. Her hand is doing much better c linically. This is likely a gram-positive infection even though she had gram-negative bacteria in he r blood. Culture results are pending. PLAN: We are going to continue routine irrigation of this left hand every 2 hours with 10 mL of norm al saline. We will change the bandage tomorrow and likely pull the drains. She may need a repeat I and D on this in the future considering the extensive nature of the infection. I do think she needs antibiotic coverage with both gram-positive and gram-negative coverage at this point, and unless the culture wound from the hand grows out something specific, I think she needs both gram-positive and gr am-negative coverage. Any orthopedic questions can be directed to me at [phone]. Job ID: [id number]
[2022-07-05] MEDS ORDERED: SODIUM PHOSPHATE 30 MMOL in SODIUM CHLORIDE 0.9% 500 ML IV ONE (08:45)
[2022-07-05] MEDS: VANCOMYCIN HCL 1,250 MG in SODIUM CHLORIDE 0.9% 250 ML IV SCH ×3 (09:00→23:21)
[2022-07-05] MEDS: HEPARIN SOD 5,000 UNIT/0.5 ML VIAL SQ SCH ×3 (09:01→23:22)
[2022-07-05] MEDS: MULTIVITAMIN TAB PO SCH (09:01)
[2022-07-05] MEDS: MAGNESIUM OXIDE 400 MG TAB PO SCH ×2 (09:01→19:53)
[2022-07-05] MEDS: PANTOprazole 40 MG in SYRINGE 0 ML IV SCH (09:01)
--- NOTE | 2022-07-05 09:32 | Pharmacy Report ---
Pharmacy PK ABX Note - Date of Service July 05, 2022 - Assessment and Plan Assessment * 31 year old F started on zosyn/vancomycin, 2/2 anaerobic blood cultures positive for probably anaerobic Gram negative bacilli, septic emboli, Lemierre's syndrome, ?hand abscess * ID consulted 07/02 - awaiting recommendations. * Per prior documentation 07/03 - vancomycin continuing for dactylitis per s iron worker. * Renal function improved, now likely at/near baseline. Plan Vancomycin * Vancomycin trough level this AM- 9.5mcg/mL. Drawn appropriately and was ~ an 8hr level. Predicted steady state AUC/SORAIDA ~ 441mg/L.hr which is therapeutic. * Continue 1250 mg (17.9 mg/kg) IV every 8 hours * Regimen is predicted to achieve target AUC/SORAIDA of 400-600 mg/L.hr * Repeat trough at steady state tomorrow AM. Pharmacy will continue to follow and will adjust dose/frequency as necessary. Thank you. Pharmacy has transitioned to AUC monitoring for vancomycin. AUC/SORAIDA is the preferred PK/PD target and is associated with decreased risk of nephrotoxicity compared to traditional trough targets.
[2022-07-05] MEDS: MoRPHine SULFATE 2 MG/ML CARP IV PRN (10:12)
--- NOTE | 2022-07-05 10:38 | XRay Report ---
XR chest 1V portable CLINICAL HISTORY: f/u COMPARISON STUDY: Chest CT July 01, 2022 and chest radiograph July 03, 2022. FINDINGS: Small left and trace right pleural effusions have developed. Multifocal nodular consolidati on has slightly progressed. Several these foci are cavitary. Left basilar airspace opacity is increas ed. Cardiomediastinal silhouette remains normal. IMPRESSION: 1. Mild progression of multifocal cavitary airspace opacities consistent with septic pulmonary emboli . 2. Interval development of small left and trace right pleural effusions with increase in left mid and lower lung airspace opacity. ACT 112: Negative or not required by law. Electronically signed by: Mendez Russell M.D. 07/05/2022 10:35 AM
[2022-07-05] MEDS ORDERED: FUROSEMIDE INJ 20 MG/2 ML VIAL IV ONE (10:44)
--- NOTE | 2022-07-05 12:43 | Hospitalist Progress Note ---
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, peritonsillar abscesses, cavitary pulmonary lesions - started with sore throat - started on broad spectrum abx with vancomycin and Zosyn - continue for now - blood cultures growing GNR - IVF - pulm and ENT consulted - s/p peritonsillar abscess drainage by ENT 07/02/2022 - s/p 10mg Decadron IV per ENT - ended 07/05/2022 - no indication for AC at this time unless documented progression of thrombus - hematology consult for further recs on AC management - no AC (2) Sepsis: Plan: - in the setting of GNR bacteremia and Lemierre Syndrome - tachycardic, leukocytosis, fever POA - IV abx as above - vitals stable - HR improved - continue management as above (3) Abscess of tonsil: Plan: - ENT consulted for drainage - IV abx as above - decadron per ENT - s/p drainage 07/02/2022 - follow up cultures (4) Abscess of left hand: Plan: - noted erythema and swelling, tenderness, decreased ROM - CT without contrast with possible abscesses vs early forming abscesses - MRI with contrast of left hand ordered per Ortho - ortho consulted for evaluation - s/p OR I/D by ortho 07/04/2022 - dressing changes and drain management per ortho - continue abx as above - follow cultures (5) Septic pulmonary embolism: Plan: - possible septic emboli in setting of Lemierre Syndrome - blood cultures pending - GNRs - IV abx as above - TTE to evaluate for vegetations - no evidence of vegetation or abscess on TTE - repeat CT in 6 weeks to evaluate pulmonary lesions (6) Elevated LFTs: Plan: - unclear etiology and if this is part of Lemierre Syndrome - CT AP with contrast showed normal appearing liver, patent hepatic and portal veins - hepatitis panel negative - GI consulted - LFTs improving with treatment of sepsis - ALT, AST wnl, bili in 4s (7) Thrombocytopenia: Plan: - in the setting of sepsis and acute illness as above - unclear etiology at this time - continue work up per GI as above - autoimmune, infectious work up pending - monitor for bleeding - no evidence of bleeding - restart heparin as PLTs improved to 90s - monitor (8) Anemia: Plan: - anemia in young woman is not abnormal but given rest of presentation could be exacerbated - no evidence of bleeding at this time - slight down trend - hemodynamically stable - heme consult - likely due to bone marrow suppression in setting of sepsis as well as IVF - hgb in 7s today - stable on repeat, LDH wnl - no evidnece of bleed and I/D with minimal EBL - will monitor - active type and screen - will continue to monitor (9) Asthma: Plan: - currently not in exacerbation - not on home inhalers - will monitor for now Plan DVT ppx: heparin SC Code Status: Full Code Dispo: PCU Tomasz Goddard MD [facility] Medicine Admission and Anticipated Discharge Date Admission Date: July 02, 2022 Subjective Patient with asthma presented with sore throat, nausea and vomiting for 1 week. Found to have L IJ thrombophlebitis, peritonsillar abscesses, pulmonary lesions concerning for septic emboli, elevated LFTs, findings concerning for Lemierre Syndrome. ENT, pulm, GI were consulted. She was started on broad spectrum abx with vancomycin and Zosyn, IVF. S/p I/D of left hand 3rd digit with Ortho 07/04/2022 for abscess. Patient reports feeling a little better today, tolerating diet better. Throat still somewhat sore but better, Denies n/v/d. denies shortness of breath. Denies chest pain, abdominal pain, cough, rashes, dysuria. Review of Systems Review of Systems: All systems reviewed & are unremarkable except as noted in Subjective Physical Exam Physical Exam: GENERAL: The patient is of moderate build, currently not in acute distress HEENT: Icterus present. but much improved Pupils equal, round, and reactive to light. Oral mucosa moist. NECK: No obvious neck masses seen. Seems supple. CARDIOVASCULAR: S1 and S2 heard. RRR. No murmurs. RESPIRATORY SYSTEM: Normal AP diameter. No accessory muscle use. No wheezing, no crackles. ABDOMEN: Soft, bowel sounds present, nontender, no distention. CENTRAL NERVOUS SYSTEM: Alert and oriented. Speech is clear. No facial droop. Insight is okay. Obeys simple commands. Moves extremities. EXTREMITIES: left hand in dressing s/p I/D by ortho 07/04/2022. No edema in LEs Results & Data Results & Data ([facility]) Vital Signs (Past 12 Hours) Vital Signs Temp Pulse Pulse Resp BP Pulse Ox O2 Del Method 07/05/22 12:21 36.6 C 105 H 17 143/90 H 92 Room Air 07/05/22 07:00 104 H 07/05/22 07:06 36.8 C 111 H 20 138/82 98 Room Air 07/05/22 03:21 37.5 C 125 H 18 136/75 92 Nasal Cannula O2 Flow Rate 07/05/22 12:21 07/05/22 07:00 07/05/22 07:06 07/05/22 03:21 2 Diagnostic Findings Laboratory Results WBC 10.47 K/ul (4.8-10.8) 07/05/22 08:11 RBC 2.63 M/uL (3.93-5.22) L 07/05/22 08:11 Hgb 7.8 g/dl (12.0-16.0) L 07/05/22 08:11 Hct 22.0 % (34.1-44.9) L 07/05/22 08:11 MCV 83.7 fL (80.0-100.0) 07/05/22 08:11 MCH 29.7 pg (25.0-34.0) 07/05/22 08:11 MCHC 35.5 g/dL (32.0-36.0) 07/05/22 08:11 RDW Std Deviation 46.4 fL (36.4-46.3) H 07/05/22 08:11 RDW Coeff of Carrol 15.4 % (11.5-14.5) H 07/05/22 08:11 Plt Count 93 K/uL (130-400) L 07/05/22 08:11 MPV 12.7 fL (9.4-12.3) H 07/05/22 08:11 Immature Gran % (Auto) 0.7 % 07/04/22 07:48 Neut % (Auto) 91.3 % 07/04/22 07:48 Lymph % (Auto) 4.3 % 07/04/22 07:48 [place] % (Auto) 3.5 % 07/04/22 07:48 Eos % (Auto) 0.0 % 07/04/22 07:48 Baso % (Auto) 0.2 % 07/04/22 07:48 Reticulocyte % (Auto) < 0.5 % (0.5-2.0) L 07/02/22 04:42 Neut # (Auto) 8.07 K/uL (1.4-6.5) H 07/04/22 07:48 Lymph # (Auto) 0.38 K/uL (1.2-3.4) L 07/04/22 07:48 [place] # (Auto) 0.31 K/uL (0.24-0.82) 07/04/22 07:48 Eos # (Auto) 0.00 K/uL (0-0.50) 07/04/22 07:48 Baso # (Auto) 0.02 K/uL (0-0.2) 07/04/22 07:48 Reticulocyte # < 0.02 10^6/uL (0.02-0.10) L 07/02/22 04:42 Immature Gran # (Auto) 0.06 K/uL (0.00-0.02) H 07/04/22 07:48 Absolute Nucleated RBC 0.03 K/uL (0-0) H 07/05/22 08:11 Nucleated RBC % (auto) 0.3 % 07/05/22 08:11 Toxic Granulation 1+ 07/04/22 07:48 Toxic Vacuolation 1+ 07/04/22 07:48 Dohle Bodies 1+ 07/02/22 04:42 Platelet Estimate Decreased (Normal) L 07/01/22 20:00 Giant Platelets 1+ 07/04/22 07:48 Polychromasia 1+ 07/03/22 05:55 Target Cells 1+ 07/04/22 07:48 Peripher Smr Path Cons 07/02/22 04:42 Peripher Smr Path Cons Cancelled 07/02/22 04:42 ESR > 130 mm/hr (0-20) H 07/04/22 07:48 Haptoglobin 480 mg/dL (43-212) H 07/02/22 11:22 PT 13.2 Seconds (9.0-12.0) H 07/05/22 07:21 INR 1.3 (0.9-1.1) H 07/05/22 07:21 Fibrinogen 778 mg/dl (184-400) H 07/02/22 12:46 Fibrin Degrad Products >40 mcg/ml (<10) H 07/02/22 12:46 D-Dimer 5830 ug/L FEU (0-500) H* 07/02/22 11:22 Sodium 135 mmol/L (136-145) L 07/05/22 07:21 Potassium 4.1 mmol/L (3.5-5.1) 07/05/22 07:21 Chloride 108 mmol/L (98-107) H 07/05/22 07:21 Carbon Dioxide 22 mmol/L (21-32) 07/05/22 07:21 Anion Gap 5 (3-11) 07/05/22 07:21 BUN 14 mg/dl (6-23) 07/05/22 07:21 Creatinine 0.63 mg/dl (0.6-1.2) 07/05/22 07:21 Est Cr Clr Drug Dosing 124.7 ml/min 07/05/22 07:21 Est GFR ( Amer) 137.6 ml/min 07/05/22 07:21 Est GFR (Non-Af Amer) 118.7 ml/min 07/05/22 07:21 BUN/Creatinine Ratio 22.2 (10-20) H 07/05/22 07:21 Glucose 94 mg/dl (70-99(Fasting)) 07/05/22 07:21 Osmolality 277 mOsm/kg (280-300) L 07/02/22 10:33 Lactate TNP 07/02/22 05:57 Uric Acid 2.6 mg/dl (2.6-7.2) 07/03/22 05:55 Calcium 7.0 mg/dl (8.5-10.1) L 07/05/22 07:21 Phosphorus 1.7 mg/dl (2.5-4.9) L 07/05/22 07:21 Magnesium 1.6 mg/dl (1.7-2.4) L 07/05/22 07:21 Ferritin 652.7 ng/ml (8-388) H 07/03/22 05:55 Total Bilirubin 5.8 mg/dl (0.2-1.0) H 07/05/22 07:21 Direct Bilirubin 3.3 mg/dl (0-0.2) H 07/05/22 07:21 AST 42 U/L (13-39) H 07/05/22 07:21 ALT 56 U/L (7-52) H 07/05/22 07:21 Alkaline Phosphatase 65 U/L (34-104) 07/05/22 07:21 Ammonia 51.0 umol/L (18-72) 07/03/22 05:55 Lactate Dehydrogenase 180 U/L (86-244) 07/05/22 08:11 Total Creatine Kinase 134 U/L (26-192) 07/03/22 05:55 C-Reactive Protein 9.40 mg/dl (0-0.5) H 07/05/22 07:21 Total Protein 5.6 gm/dl (6.0-8.3) L 07/05/22 07:21 Albumin 2.2 gm/dl (3.4-5.0) L 07/05/22 07:21 Globulin 3.4 gm/dl (2.5-4.0) 07/05/22 07:21 Albumin/Globulin Ratio 0.6 (0.9-2) L 07/05/22 07:21 Triglycerides 392 mg/dl (0-150) H 07/05/22 07:21 Vitamin B12 1268 pg/ml (180-914) H 07/02/22 04:42 Folate 15.51 ng/ml (>5.38) 07/02/22 04:42 Procalcitonin 19.29 ng/ml (0-0.5) H 07/05/22 07:21 TSH 0.476 uIu/ml (0.300-4.500) 07/01/22 20:00 HCG, Qual Negative (Negative) 07/01/22 20:00 Urine Color Dark Yellow 07/02/22 13:55 Urine Appearance Cloudy (Clear) A 07/02/22 13:55 Urine pH 6.0 (4.5-7.5) 07/02/22 13:55 Ur Specific [place] 1.020 (1.000-1.030) 07/02/22 13:55 Urine Protein 1+ (Negative) H 07/02/22 13:55 Urine Glucose (UA) Negative (Negative) 07/02/22 13:55 Urine Ketones Negative (Negative) 07/02/22 13:55 Urine Blood 2+ (Negative) H 07/02/22 13:55 Urine Nitrite Negative (Negative) 07/02/22 13:55 Urine Bilirubin 3+ (Negative) H 07/02/22 13:55 Urine Urobilinogen Negative (Negative) 07/02/22 13:55 Ur Leukocyte Esterase Negative (Negative) 07/02/22 13:55 Urine WBC (Auto) 1-5 /hpf (0-5) 07/02/22 13:55 Urine RBC (Auto) 0-4 /hpf (0-4) 07/02/22 13:55 U Hyaline Cast (Auto) 1-5 /lpf (0-5) 07/02/22 13:55 U Epithel Cells (Auto) 5-10 /lpf (0-5) H 07/02/22 13:55 Urine Bacteria (Auto) Negative (Negative) 07/02/22 13:55 Granular Casts 10-20 /lpf (0) H 07/01/22 21:49 Urine Yeast Not Reportable 07/02/22 13:55 Urine Osmolality 369 mOsm/kg (500-800) L 07/02/22 13:55 Ur Random Creatinine 67.9 mg/dl 07/03/22 11:20 U Random Total Protein 116.8 mg/dl (0-11.9) H 07/03/22 11:20 Ur Random Sodium 20 mmol/L 07/02/22 13:55 Ur Random Potassium 21.8 mmol/L 07/02/22 13:55 Ur Random Chloride 26 mmol/L 07/02/22 13:55 Protein/Creatinin Ratio 1.7 (0-0.2) H 07/03/22 11:20 Nasal Screen MRSA (PCR) Negative (Negative) 07/02/22 18:45 Stl C. cayetanensis PCR Not Detected (NotDetected) 07/02/22 00:54 Stool Rotavirus A PCR Not Detected (NotDetected) 07/02/22 00:54 Stl Adenov F 40/41 PCR Not Detected (NotDetected) 07/02/22 00:54 Stool Astrovirus (PCR) Not Detected (NotDetected) 07/02/22 00:54 Stool Campylobacter PCR Not Detected (NotDetected) 07/02/22 00:54 Stl C. diff Tox B Gene Negative Cdiff Gene (Neg) 07/02/22 00:54 Stool Cryptosporidium PCR Not Detected (NotDetected) 07/02/22 00:54 Stl E.coli Shiga Tox PCR Not Detected (NotDetected) 07/02/22 00:54 Stl Enterotoxigenic E PCR Not Detected (NotDetected) 07/02/22 00:54 Stool EPEC (PCR) Not Detected (NotDetected) 07/02/22 00:54 Stool EAEC (PCR) Not Detected (NotDetected) 07/02/22 00:54 Stl E. histolytica PCR Not Detected (NotDetected) 07/02/22 00:54 Stool Giardia Lamblia PCR Not Detected (NotDetected) 07/02/22 00:54 Stool Salmonella PCR Not Detected (NotDetected) 07/02/22 00:54 Stool Sapovirus (PCR) Not Detected (NotDetected) 07/02/22 00:54 Stl P. shigelloides PCR Not Detected (NotDetected) 07/02/22 00:54 Stl Shigella/EIEC PCR Not Detected (NotDetected) 07/02/22 00:54 St Y.enterocolitica PCR Not Detected (NotDetected) 07/02/22 00:54 Stool Vibrio (PCR) Not Detected (NotDetected) 07/02/22 00:54 Stl Vibrio cholerae PCR Not Detected (NotDetected) 07/02/22 00:54 Stl Norovirus GI/GII PCR Not Detected (NotDetected) 07/02/22 00:54 Vancomycin Trough 9.5 mcg/ml (10-20) L 07/05/22 07:21 Random Vancomycin 11.0 mcg/ml (10-20) 07/04/22 06:29 Urine Opiates Screen Neg (Neg) 07/01/22 20:38 Ur Methadone, Qual Neg (Neg) 07/01/22 20:38 Urine Barbiturates Neg (Neg) 07/01/22 20:38 Ur Phencyclidine (PCP) Neg (Neg) 07/01/22 20:38 U Amphetamin/Meth Scrn Neg (Neg) 07/01/22 20:38 MDMA (Ecstasy) Screen Neg (Neg) 07/01/22 20:38 U Benzodiazepines Scrn Neg (Neg) 07/01/22 20:38 Ur Cocaine Metabolite Neg (Neg) 07/01/22 20:38 U Marijuana (THC) Screen Pos (Neg) H 07/01/22 20:38 U Marijuana THC Carboxy 88 ng/mL (<5) H 07/01/22 20:38 Drug Screen Comment SEE NOTE 07/01/22 20:38 RPR Nonreactive (Nonreactive) 07/01/22 20:00 Adenovirus (PCR) Not Detected (NotDetected) 07/01/22 21:29 Anaplasma Smear See Comment 07/01/22 20:00 Babesia Smear See Comment 07/01/22 20:00 B. pertussis DNA (PCR) Not Detected (NotDetected) 07/01/22 21:29 B.parapertussis DNA PCR Not Detected (NotDetected) 07/01/22 21:29 Lyme Disease IgG Ab Negative (Negative) 07/01/22 20:00 Lyme Disease IgM Ab Negative (Negative) 07/01/22 20:00 C. pneumoniae DNA (PCR) Not Detected (NotDetected) 07/01/22 21:29 Coronavirus OC43 (PCR) Not Detected (NotDetected) 07/01/22 21:29 Coronavirus HKU1 (PCR) Not Detected (NotDetected) 07/01/22 21:29 Coronavirus 229E (PCR) Not Detected (NotDetected) 07/01/22 21:29 SARS-CoV-2 (PCR) Not Detected (NotDetected) 07/01/22 21:29 Coronavirus NL63 (PCR) Not Detected (NotDetected) 07/01/22 21:29 Hepatitis A IgM Ab NON-REACTIVE (NON-REACTIVE) 07/01/22 20:00 Hep Bs Antigen NON-REACTIVE (NON-REACTIVE) 07/01/22 20:00 Hep Bs Ag Confirmation TNP 07/01/22 20:00 Hep B Core IgM Ab NON-REACTIVE (NON-REACTIVE) 07/01/22 20:00 Hepatitis C Ab (EIA) NON-REACTIVE (NON-REACTIVE) 07/01/22 20:00 Hep C Ab Signal/Cutoff 0.02 (<1.00) 07/01/22 20:00 Monoscreen Negative (Negative) 07/01/22 20:00 HIV-1 RNA copies/mL Cancelled 07/04/22 06:29 HIV-1 RNA logcopies/mL Cancelled 07/04/22 06:29 Human Metapneumovir PCR Not Detected (NotDetected) 07/01/22 21:29 Influenza Type A (PCR) Not Detected (NotDetected) 07/01/22 21:29 Influenza Type B (PCR) Not Detected (NotDetected) 07/01/22 21:29 M. pneumoniae (PCR) Not Detected (NotDetected) 07/01/22 21:29 Parainfluenza 1 (PCR) Not Detected (NotDetected) 07/01/22 21:29 Parainfluenza 2 (PCR) Not Detected (NotDetected) 07/01/22 21:29 Parainfluenza 3 (PCR) Not Detected (NotDetected) 07/01/22 21:29 Parainfluenza 4 (PCR) Not Detected (NotDetected) 07/01/22 21:29 RSV (PCR) Not Detected (NotDetected) 07/01/22 21:29 Entero/Rhino (PCR) Not Detected (NotDetected) 07/01/22 21:29 Bld Cult ID Panel PCR PCR Panel Negative (NotDetected) 07/01/22 20:00 Ref Lab Test Result 07/02/22 11:27 Blood Type A Positive 07/02/22 10:33 Direct Antiglob Test Negative (Negative) 07/02/22 10:33 ANNA (IgG-AHG) Neg (Negative) 07/02/22 10:33 ANNA, Polyspecific Neg (Negative) 07/02/22 10:33 ANNA C3b, C3d 5 Min Neg (Negative) 07/02/22 10:33 Impressions Abdomen/Pelvis CT 07/01/22 21:[address] WITH IV CONTRAST HISTORY: Acute fever with elevated LFTs Fever, elevated LFT, hyperbili, vomit TECHNIQUE: Multiaxial CT images of the abdomen and pelvis were performed following the IV administration of 86 cc of Optiray, A dose lowering technique was utilized adhering to the principles of ALARA. COMPARISON STUDY: Chest CT of same day, CT abdomen and pelvis 06/24/2022 FINDINGS: Numerous round consolidative densities of the lung bases, several of which are centrally cavitary measuring up to 2.9 cm are new from the prior study. No pneumatosis or pneumoperitoneum. The study is limited secondary to upper extremity positioning. Unremarkable spleen, pancreas and adrenal glands. Mildly distended gallbladder. The liver is within normal limits. Patency of the hepatic and portal veins. Unremarkable kidneys without hydronephrosis. The urinary bladder is within normal limits. Endometrium measures up to 1.6 cm. Uterus and ovaries are otherwise unremarkable. Aorta and IVC are unremarkable. No pathologically enlarged lymph nodes are identified. Mild nonspecific wall thickening of the distal esophagus. Mild wall thickening of the mid to distal gastric body with partial distention is similar to prior. No bowel obstruction or bowel wall thickening. Small and large bowel air-fluid levels. Normal appendix. Mild nonspecific stranding is noted surrounding the left rectus femoris and iliopsoas psoas musculature. Moderate degeneration of the pubic symphysis. No acute fracture identified. IMPRESSION: 1. Interval development of numerous round and centrally cavitary consolidative opacities of the lung bases, new from 06/24/2022 suggestive of septic emboli. 2. No bowel obstruction or bowel wall thickening. Normal appendix. 3. Mild wall thickening of the gastric body redemonstrated which may be secondary to partial distention versus a nonspecific gastritis. 4. Mild stranding surrounding the proximal rectus femoris and iliopsoas musculature. Correlate with clinical exam findings and patient history. ACT 112: Negative or not required by law. The above report was generated using voice recognition software. It may contain grammatical, syntax or spelling errors. Electronically signed by: Roberto Aly M.D. 07/02/2022 7:53 AM Soft Tissue Neck CT 07/01/22 22:14 CT OF THE NECK WITH IV CONTRAST CLINICAL HISTORY: Lymphadenopathy. COMPARISON STUDY: No previous studies for comparison. TECHNIQUE: Following IV administration of 86 mL of Optiray, helical axial images of the neck were obtained. Sagittal and coronal reconstructions were viewed. Automated exposure control was utilized for the study. A dose lowering technique was utilized adhering to the principles of ALARA. FINDINGS: Visualized portions of the intracranial contents are unremarkable. The mastoid air cells are clear. The sinuses are clear. Note is made of a 1.9 x 1.8 cm left peritonsillar rim enhancing fluid collection consistent with a peritonsillar abscess. There is moderate associated mass effect with narrowing of the hypopharynx. There is an adjacent 1.7 x 1.5 cm fluid collection within the left paravertebral space consistent with an additional abscess. In addition, there is occlusive thrombus within the left internal jugular vein. Mild to moderate prevertebral edema is also present. The epiglottis is normal. There is no soft tissue gas. No additional sites of vessel occlusion are identified within the neck. Prominent left cervical lymph nodes are reactive. Visualized portions of the chest demonstrate multiple cavitary round airspace opacities consistent with septic pulmonary emboli. IMPRESSION: 1. Findings consistent with Lemierre syndrome. Two left peritonsillar abscesses, measuring up to 1.9 x 1.8 cm, with associated occlusive thrombophlebitis of the left internal jugular vein and septic pulmonary emboli. This finding will be called/faxed to ordering provider at time of dictation. 2. Mild to moderate prevertebral edema. ACT 112: Negative or not required by law. Electronically signed by: Mendez Russell M.D. 07/02/2022 7:16 AM Hand X-Ray 07/01/22 22:16 XR hand LT min 3V routine CLINICAL HISTORY: 3rd finger MCP swelling COMPARISON: None FINDINGS: Alignment of the left hand is anatomic. There is no acute fracture. There is no bony erosion. Dorsal soft tissue swelling is noted on lateral projection. There is also soft tissue swelling adjacent to the left third metacarpophalangeal joint and within the left third finger. No soft tissue gas is identified. IMPRESSION: 1. No osseous abnormality within the left hand. 2. Soft tissue swelling the dorsal left hand and left third digit, as described above. This is nonspecific. ACT 112: Negative or not required by law. Electronically signed by: Mendez Russell M.D. 07/02/2022 7:[address] 07/01/22 22:[address] WITH CONTRAST CT DOSE: 875.10 mGy.cm HISTORY: Acute tachycardia with lymphadenopathy tachycardia, lymphadenopathy TECHNIQUE: Multiaxial CT images of the chest were performed following the IV administration of 86 cc of Optiray. A dose lowering technique was utilized adhering to the principles of ALARA. COMPARISON: CT abdomen and pelvis of same day and also 06/24/2022 FINDINGS: Unremarkable thyroid. The heart is normal in size without pericardial effusion. The thoracic aorta and pulmonary arterial tree are suboptimally evaluated secondary to respiratory motion artifact. Trace pleural effusions. No pneumothorax. Mild intralobular septal thickening with bronchial wall thickening and areas of mild mosaic attenuation. There is development of numerous rounded nodular consolidative opacities within a multilobar and multi segmental distribution. Many of these lesions are centrally cavitary measuring up to 2.4 cm within the left lower lobe and 2.6 cm within the right lower lobe. Several of these lesions about the peripheral pleural surfaces. Unremarkable soft tissues. No acute fracture. IMPRESSION: 1. Interval development of numerous round and centrally cavitary consolidative opacities of the lungs which are new from 06/24/2022. Findings are suggestive of septic emboli. 2. No lymphadenopathy. ACT 112: Negative or not required by law. Electronically signed by: Roberto Aly M.D. 07/02/2022 8:14 AM Extremity Venous Study 07/02/22 13:34 LEFT UPPER EXTREMITY VENOUS DOPPLER HISTORY: Follow-up left internal jugular vein thrombus. DVT COMPARISON STUDY: CT neck 07/01/2022. FINDINGS: There is persistent occlusive thrombus seen within the left internal jugular vein. This is similar to the prior study. There is normal flow within the left subclavian vein. There is normal flow and compressibility within the left axillary, basilic, brachial, radial, ulnar, and visualized cephalic veins. IMPRESSION: No significant change in the left internal jugular vein occlusive thrombus. ACT 112: Negative or not required by law. Electronically signed by: Doug Stewart M.D. 07/02/2022 2:[address] 07/03/22 08:[address] WITHOUT CONTRAST CLINICAL HISTORY: Swelling of hand, dactylitis ? COMPARISON STUDY: Left hand radiographs July 01, 2022. TECHNIQUE: Axial images of the left hand were obtained without IV contrast. Sagittal and coronal reconstructions were viewed. Automated exposure control was utilized for the study. A dose lowering technique was utilized adhering to the principles of ALARA. FINDINGS: Alignment of the left hand is anatomic. There is no fracture. There is no bony erosion to suggest acute osteomyelitis. There is no soft tissue gas. No te is made of extensive soft tissue swelling of the left third finger suggestive of cellulitis. Evaluation for abscess is suboptimal on this unenhanced exam. In addition, there is marked distention of the flexor tendon sheath of the left third digit. The wall of the tendon sheath is thickened. There are multiple pockets of adjacent fluid. There may also be increased fluid within the tendon sheaths of the left second and fourth digits. Carpal bones are intact. Distal left radius and ulna are intact. IMPRESSION: 1. Findings consistent with an extensive infectious process of the left hand, predominantly affecting the third digit and associated flexor tendon sheath. Left third digit soft tissue swelling suggestive of cellulitis. No soft tissue gas. No evidence for acute osteomyelitis. 2. Marked distention of the flexor tendon sheath of the left third digit with wall thickening of the tendon sheath. This is suggestive of an infectious tenosynovitis, possibly purulent. Multiple pockets of adjacent fluid which may favor cellulitis or phlegmon however early developing abscesses cannot be excluded. ACT 112: Negative or not required by law. Electronically signed by: Mendez Russell M.D. 07/03/2022 10:[address] 07/04/22 12:49 CT head/brain wo con CLINICAL HISTORY: AMS Technique: Contiguous axial CT images of the head were acquired from the base of the skull to the vertex without intravenous contrast administration. Images were viewed in brain, subdural and bone windows. Automated dose lowering techniques and/or adjustment according to patient size were utilized for this exam. Comparison: None available at the time of this dictation. Findings: The ventricles, basal cisterns, and cerebral sulci are normal. There is no acute intracranial hemorrhage or evidence of acute territorial infarction. Neither mass effect, shift of the midline structures, nor abnormal extra-axial fluid collections are shown. Imaged portions of the paranasal sinuses and mastoid air cells are clear. The orbits appear normal. There are no acute fractures of the calvaria or scalp swelling. Impression: No acute intracranial hemorrhage, no evidence of acute territorial infarction or other acute intracranial disease process. ACT 112: Negative or not required by law. Electronically signed by: Evaristo Mckinney M.D. 07/04/2022 3:52 PM Chest X-Ray 07/05/22 08:10 XR chest 1V portable CLINICAL HISTORY: f/u COMPARISON STUDY: Chest CT July 01, 2022 and chest radiograph July 03, 2022. FINDINGS: Small left and trace right pleural effusions have developed. Multifocal nodular consolidation has slightly progressed. Several these foci are cavitary. Left basilar airspace opacity is increased. Cardiomediastinal silhouette remains normal. IMPRESSION: 1. Mild progression of multifocal cavitary airspace opacities consistent with septic pulmonary emboli. 2. Interval development of small left and trace right pleural effusions with increase in left mid and lower lung airspace opacity. ACT 112: Negative or not required by law. Electronically signed by: Mendez Russell M.D. 07/05/2022 10:35 AM Medications Administered Current Inpatient Medications Bisacodyl (Bisacodyl 10 Mg Supp) 10 mg NM DAILY PRN PRN Reason: Constipation Stop: 08/03/22 15:23 Docusate Sodium (Docusate Sodium 100 Mg Cap) 100 mg PO BID [facility] Stop: 08/03/22 20:59 Last Admin: 07/05/22 08:02 Dose: Not Given Fexofenadine HCl (Fexofenadine 60 Mg Tab) 60 mg PO BID PRN PRN Reason: itching Stop: 08/03/22 08:59 Heparin Sodium (Porcine) (Heparin Sod 5,000 Unit/0.5 Ml Vial) 5,000 units SQ Q12 ELE Stop: 08/02/22 08:59 Last Admin: 07/05/22 09:01 Dose: 5,000 units Piperacillin Sod/Tazobactam (Sod 4.5 gm/ Dextrose) 120 mls @ 28.75 mls/hr IV Q8H [facility]; Protocol Stop: 07/12/22 18:59 Last Admin: 07/05/22 10:12 Dose: 28.8 mls/hr Pantoprazole Sodium 40 mg/ (Syringe) 10 mls @ 5 mls/min IV DAILY@1100 ELE Stop: 08/02/22 10:59 Last Admin: 07/05/22 09:01 Dose: 5 mls/min Vancomycin HCl 1,250 mg/ (Sodium Chloride) 275 mls @ 200 mls/hr IV Q8H ELE; Protocol Stop: 07/11/22 15:59 Last Infusion: 07/05/22 10:24 Dose: Infused Sodium Phosphate 30 mmol/ (Sodium Chloride) 510 mls @ 88 mls/hr IV ONE ONE Stop: 07/05/22 14:32 Last Admin: 07/05/22 10:05 Dose: 88 mls/hr Ketorolac Tromethamine (Ketorolac 30 Mg/Ml Vial) 30 mg IV Q6H PRN PRN Reason: Moderate Pain Stop: 07/10/22 10:05 Magnesium Hydroxide (Magnesium Hydroxide Susp 30 Ml Udc) 30 ml PO Q6H PRN PRN Reason: Constipation Stop: 08/03/22 15:23 Magnesium Oxide (Magnesium Oxide 400 Mg Tab) 400 mg PO BID [facility] Stop: 07/06/22 21:01 Last Admin: 07/05/22 09:01 Dose: 400 mg Metoclopramide HCl (Metoclopramide Hcl Inj 5 Mg/Ml 2 Ml Vial) 10 mg IV Q6H PRN PRN Reason: Nausea And Vomiting Stop: 08/03/22 15:23 Miscellaneous Information (Vancomycin Consult Active) 1 each N/A UD PRN PRN Reason: Consult Stop: 07/31/22 23:56 Morphine Sulfate (Morphine Sulfate 2 Mg/Ml Carp) 2 mg IV Q4 PRN PRN Reason: Pain Stop: 07/17/22 08:27 Last Admin: 07/05/22 10:12 Dose: 2 mg Multivitamins (Multivitamin Tab) 1 tab PO QAM [facility] Stop: 08/04/22 08:59 Last Admin: 07/05/22 09:01 Dose: 1 tab Naloxone HCl (Naloxone Hcl 0.4 Mg/1 Ml Vial/Carp) 0.1 mg IV Q5M PRN PRN Reason: Oversedation/Resp Depression Stop: 08/03/22 15:23 Nitroglycerin (Nitroglycerin Sl 0.4 Mg/Tab Tab) 0.4 mg SL UD PRN PRN Reason: Chest Pain Stop: 08/01/22 03:38 Ondansetron HCl (Ondansetron Inj 2 Mg/Ml 2 Ml Vial) 4 mg IV Q6H PRN PRN Reason: Nausea And Vomiting Stop: 08/03/22 15:23 Sennosides (Senna 8.6 Mg Tab) 17.2 mg PO HS [facility] Stop: 08/03/22 20:59 Last Admin: 07/04/22 19:50 Dose: Not Given
--- NOTE | 2022-07-05 19:04 | ENT Consultation ---
Date of Consultation July 05, 2022 Assessment & Plan (1) Lemierre syndrome: (2) Sepsis: (3) Peritonsillar abscess: Plan Ms. 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 Her abscess was drained at bedside and sent for culture. History of Present Illness Reason for Consultation: Peritonsillar abscess with Lemierre's Syndrome Requesting Physician: Dr. Bhagat Attending Physician: Tomasz Goddard MD History of Present Illness Ms. Ramirez is a 31 year old female who had a sore throat and is now admitted with peritonsillar abscess complicated by Lemierre's syndrome as well as septic emboli, liver dysfunction, and sepsis. She underwent a CT scan which showed Lemierre's thrombophlebitis with a rim enhancing fluid collection with a second, but likely connected, abscess that is inferiorly based and would be difficult to fully visualize through the mouth. Allergies Allergy/AdvReac Type Severity Reaction Status Date / Time No Known Allergies Allergy Verified 07/01/22 23:49 Patient History Medical History (Updated 07/04/22 @ 09:26 by Cristobal Khan MD) HARRY (acute kidney injury) Anemia Asthma Cavitary pneumonia Electrolyte and fluid disorder Elevated LFTs Lemierre syndrome Sepsis Thrombocytopenia Surgical History (Updated 07/04/22 @ 09:24 by Cristobal Khan MD) Hx of peritonsillar abscess drainage Family History Other Family history non-contributory Social History Smoking Status: Former smoker Second Hand Exposure: No; Do You Dip or Chew Tobacco: No; Hx Alcohol Use: No Hx Substance Use: No Preferred Language: Surinamese Communication Ability: Impaired Box Office Manager Required: No Beliefs That Will Affect Care: None Current Living Situation: Family Feels Safe at Home: Yes Safety Concerns: Feels Safe At This Time Assistive Devices: None Physical Exam Physical Exam: GENERAL: NAD, AOx3 FACE: Symmetric and intact EARS: jaundiced. Auricles are symmetric, external auditory canal patent. EYES: EOMI, reactive and symmetric pupils NOSE: Mild external deviation, mucosa intact; no polyps, purulence, or masses ORAL CAVITY: No trismus; Mucosal intact without lesions, ulcerations, or superficial changes; Tongue mobile OROPHARYNX: No masses or bleeding; No underlying changes of tonsillar pillars and pharyngeal mucosa; Symmetric palatal rise NECK: No masses, lymphadenopathy, or salivary tumors; Trachea midline RESPIRATORY: Symmetric chest expansion, no wheezing, stridor, or shortness of breath CARDIAC: Warm and well perfused extremities, no evidence of peripheral vascular disease NEURO: Alert and oriented, CNII-XII grossly intact PROCEDURE: Biopsy of left tonsil INDICATION: Peritonsillar abscess; source control PROCEDURE DETAILS: We discussed the risks, benefits, and alternatives to the procedure, including risk of bleeding, infection, and poor wound healing, as well as potential need for pathology-guided treatment. Mouth wash followed by topical anesthesia followed by 2% lidocaine diluted with 1:100,000 epinephrine was injected at the biopsy site, first superficially and then deep. An 18 guage needle was used to decompress and aspirate the fluid collection, which was sent for culture. Following this, the rmained that could be accessed was aspirated followed by opening the mucosa to ensure the collection was fully decompressed and to allow the area to continue to drain. Ms. Ramirez tolerated the procedure well and there were no complications. FINDINGS: Approximately 5 cc of purulence drained Results & Data ([facility]) Vital Signs (Past 12 Hours) Vital Signs Temp Pulse Pulse Resp BP Pulse Ox O2 Del Method 07/05/22 18:52 37.5 C 114 H 17 142/84 H 90 Room Air 07/05/22 14:59 36.8 C 112 H 17 134/84 95 Room Air 07/05/22 12:21 36.6 C 105 H 17 143/90 H 92 Room Air 07/05/22 07:00 104 H 07/05/22 07:06 36.8 C 111 H 20 138/82 98 Room Air PG Care Time/CCT Total # of Minutes Spent Total Time Spent with Patient: Total time spent is greater than 50% in coordination of care (as documented) at patient's floor/unit and/or counseling patient: Coding Level of Care Code 03558 Inpt Consult Level 3 (25 - SIGNIFICANT, SEPARATELY IDENTIFIABLE ) Diagnoses 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 Sepsis A41.9 Peritonsillar abscess J36
[2022-07-05] MEDS: SENNA 8.6 MG TAB PO SCH (19:54)
[2022-07-06] MEDS: PIPERACILLIN/TAZOBACTAM 4.5 GM in DEXTROSE 5% 100 ML IV SCH ×2 (01:17→11:28)
[2022-07-06] MEDS: MoRPHine SULFATE 2 MG/ML CARP IV PRN ×4 (01:58→16:17)
[2022-07-06] MEDS ORDERED: VANCOMYCIN LEVEL ONE (07:00)
[2022-07-06 08:11] LABS: Hematocrit (blood only) 19.4 % (34.1-44.9); Hemoglobin 6.7 g/dl (12.0-16.0); Mean Corpuscular Hemoglobin 29.8 pg (25.0-34.0); Mean Corpuscular Hgb Conc 34.5 g/dL (32.0-36.0); Mean Corpuscular Volume 86.2 fL (80.0-100.0); Mean Platelet Volume 12.3 fL (9.4-12.3); Nucleated RBC # (auto) 0.03 K/uL (0-0); Nucleated RBC % (auto) 0.2 %; Platelet Count 148 K/uL (130-400); RDW Coefficient of Variation 15.6 % (11.5-14.5); RDW Standard Deviation 48.6 fL (36.4-46.3); Red Blood Count 2.25 M/uL (3.93-5.22); White Blood Count 12.12 K/ul (4.8-10.8)
[2022-07-06] MEDS ORDERED: SODIUM CHLORIDE 0.9% 250 ML IV PRN (08:14)
[2022-07-06 08:29] LABS: INR 1.4 (0.9-1.1); Prothrombin Time 14.3 Seconds (9.0-12.0)
[2022-07-06 08:31] LABS: Albumin Globulin Ratio 0.6 (0.9-2); Albumin Level 2.2 gm/dl (3.4-5.0); BUN Creatinine Ratio 19.6 (10-20); Bilirubin,Total 4.1 mg/dl (0.2-1.0); C Reactive Protein 16.2 mg/dl (0-0.5); Calcium 7.4 mg/dl (8.5-10.1); Creatinine Clr Calc Pharmacy 151.7 ml/min; Est GFR (Non-African American) 123.4 ml/min; Globulin 3.6 gm/dl (2.5-4.0); Magnesium 1.6 mg/dl (1.7-2.4); Phosphorus 2.7 mg/dl (2.5-4.9); Potassium 3.8 mmol/L (3.5-5.1); Total Protein 5.8 gm/dl (6.0-8.3)
[2022-07-06] MEDS: VANCOMYCIN HCL 1,250 MG in SODIUM CHLORIDE 0.9% 250 ML IV SCH ×2 (08:32→15:47)
[2022-07-06] MEDS: MAGNESIUM OXIDE 400 MG TAB PO SCH ×2 (08:33→20:48)
[2022-07-06] MEDS: MULTIVITAMIN TAB PO SCH (08:33)
[2022-07-06] MEDS: DOCUSATE SODIUM 100 MG CAP PO SCH ×2 (08:33→20:49)
[2022-07-06] MEDS: HEPARIN SOD 5,000 UNIT/0.5 ML VIAL SQ SCH (08:41)
--- NOTE | 2022-07-06 09:23 | Pharmacy Report ---
Pharmacy PK ABX Note - Date of Service July 06, 2022 - Assessment and Plan Assessment * 31 year old F on zosyn/vancomycin, 2/2 anaerobic blood cultures positive for Fusobacterium, septic emboli, Lemierre's syndrome * Dactylitis, POD2 I&D by Dr Sorenson, likely gram positive infection, continuing Vancomycin for this * ID consulted 07/02 - awaiting recommendations * Renal function improved, now likely at/near baseline Plan Vancomycin * Vancomycin trough level this AM- 10.3mcg/mL. Predicted steady state AUC/SORAIDA ~ 439mg/L.hr which is therapeutic. * Continue 1250 mg (17.9 mg/kg) IV every 8 hours * Regimen is predicted to achieve target AUC/SORAIDA of 400-600 mg/L.hr Zosyn 4.5g IV Q8H for CrCl > 20ml/min Pharmacy will continue to follow and will adjust dose/frequency as necessary. Thank you. Pharmacy has transitioned to AUC monitoring for vancomycin. AUC/SORAIDA is the preferred PK/PD target and is associated with decreased risk of nephrotoxicity compared to traditional trough targets.
[2022-07-06] MEDS: PANTOprazole 40 MG in SYRINGE 0 ML IV SCH (11:23)
[2022-07-06 12:08] LABS: Babesia microti DNA Not Detected (Not Detected)
--- NOTE | 2022-07-06 12:15 | Hospitalist Progress Note ---
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, peritonsillar abscesses, cavitary pulmonary lesions - started with sore throat - started on broad spectrum abx with vancomycin and Zosyn - continue for now - blood cultures growing Fusobacterium - pulm and ENT consulted - s/p peritonsillar abscess drainage by ENT 07/02/2022 - s/p 10mg Decadron IV per ENT - ended 07/05/2022 - no indication for AC at this time unless documented progression of thrombus - hematology consult for further recs on AC management - no AC (2) Anemia: Plan: - anemia in young woman is not abnormal but given rest of presentation could be exacerbated - no evidence of bleeding at this time - slight down trend - hemodynamically stable - heme consult - likely due to bone marrow suppression in setting of sepsis as well as IVF - hgb to 6.7 07/06/2022 - 1 unit PRBC transfusion - LDH wnl - no evidnece of bleed and I/D with minimal EBL - active type and screen - reported some blood when being changed but patient reports her menses would normally start around this time - will monitor - will continue to monitor (3) Sepsis: Plan: - in the setting of GNR bacteremia and Lemierre Syndrome - tachycardic, leukocytosis, fever POA - IV abx as above - vitals stable - HR improved - continue management as above - improving (4) Abscess of tonsil: Plan: - ENT consulted for drainage - IV abx as above - s/p decadron per ENT - s/p drainage 07/02/2022 - follow up cultures (5) Abscess of left hand: Plan: - noted erythema and swelling, tenderness, decreased ROM - CT without contrast with possible abscesses vs early forming abscesses - MRI with contrast of left hand ordered per Ortho - ortho consulted for evaluation - s/p OR I/D by ortho 07/04/2022 - dressing changes and drain management per ortho - continue abx as above - follow cultures (6) Septic pulmonary embolism: Plan: - possible septic emboli in setting of Lemierre Syndrome - blood cultures pending - GNRs - IV abx as above - TTE to evaluate for vegetations - no evidence of vegetation or abscess on TTE - repeat CT in 6 weeks to evaluate pulmonary lesions (7) Elevated LFTs: Plan: - unclear etiology and if this is part of Lemierre Syndrome - CT AP with contrast showed normal appearing liver, patent hepatic and portal veins - hepatitis panel negative - GI consulted - LFTs improving with treatment of sepsis (8) Thrombocytopenia: Plan: - in the setting of sepsis and acute illness as above - unclear etiology at this time - continue work up per GI as above - autoimmune, infectious work up pending - monitor for bleeding - no evidence of bleeding - restart heparin as PLTs improving - monitor (9) Asthma: Plan: - currently not in exacerbation - not on home inhalers - will monitor for now Plan DVT ppx: heparin SC Code Status: Full Code Dispo: PCU Tomasz Goddard MD [facility] Medicine Admission and Anticipated Discharge Date Admission Date: July 02, 2022 Subjective Patient with asthma presented with sore throat, nausea and vomiting for 1 week. Found to have L IJ thrombophlebitis, peritonsillar abscesses, pulmonary lesions concerning for septic emboli, elevated LFTs, findings concerning for Lemierre Syndrome. ENT, pulm, GI were consulted. She was started on broad spectrum abx with vancomycin and Zosyn, IVF. S/p I/D of left hand 3rd digit with Ortho 07/04/2022 for abscess. Required 1 unit PRBC 07/06/2022. No signs of obvious large amount of bleeding. Patient reports feeling a little better today, tolerating diet better. No more sore throat. Denies n/v/d. denies shortness of breath. Denies chest pain, abdominal pain, cough, rashes, dysuria. Hgb dropped to 6.7 today, 1 unit PRBC transfusion ordered. Review of Systems Review of Systems: All systems reviewed & are unremarkable except as noted in Subjective Physical Exam Physical Exam: GENERAL: The patient is of moderate build, currently not in acute distress HEENT: Icterus present. but much improved Pupils equal, round, and reactive to light. Oral mucosa moist. NECK: No obvious neck masses seen. Seems supple. CARDIOVASCULAR: S1 and S2 heard. RRR. No murmurs. RESPIRATORY SYSTEM: Normal AP diameter. No accessory muscle use. No wheezing, no crackles. CTAB ABDOMEN: Soft, bowel sounds present, nontender, no distention. CENTRAL NERVOUS SYSTEM: Alert and oriented. Speech is clear. No facial droop. Insight is okay. Obeys simple commands. Moves extremities. EXTREMITIES: left hand in dressing s/p I/D by ortho 07/04/2022. No edema in LEs Results & Data Results & Data ([facility]) Vital Signs (Past 12 Hours) Vital Signs Temp Pulse Pulse Resp BP BP Pulse Ox 07/06/22 12:07 36.9 C 108 H 18 135/85 100 07/06/22 11:20 37.2 C 100 H 18 132/80 96 07/06/22 10:50 38.1 C H 107 H 20 137/80 98 07/06/22 10:35 37.5 C 110 H 18 127/78 100 07/06/22 10:17 37.4 C 112 H 18 117/75 99 07/06/22 07:20 37.3 C 120 H 20 123/76 100 07/06/22 02:47 37 C 112 H 16 136/81 97 O2 Del Method 07/06/22 12:07 07/06/22 11:20 07/06/22 10:50 07/06/22 10:35 07/06/22 10:17 07/06/22 07:20 Room Air 07/06/22 02:47 Room Air Diagnostic Findings Laboratory Results WBC 12.12 K/ul (4.8-10.8) H 07/06/22 07:40 RBC 2.25 M/uL (3.93-5.22) L 07/06/22 07:40 Hgb 6.7 g/dl (12.0-16.0) L* 07/06/22 07:40 Hct 19.4 % (34.1-44.9) L* 07/06/22 07:40 MCV 86.2 fL (80.0-100.0) 07/06/22 07:40 MCH 29.8 pg (25.0-34.0) 07/06/22 07:40 MCHC 34.5 g/dL (32.0-36.0) 07/06/22 07:40 RDW Std Deviation 48.6 fL (36.4-46.3) H 07/06/22 07:40 RDW Coeff of [place] 15.6 % (11.5-14.5) H 07/06/22 07:40 Plt Count 148 K/uL (130-400) D 07/06/22 07:40 MPV 12.3 fL (9.4-12.3) 07/06/22 07:40 Immature Gran % (Auto) 0.7 % 07/04/22 07:48 Neut % (Auto) 91.3 % 07/04/22 07:48 Lymph % (Auto) 4.3 % 07/04/22 07:48 [place] % (Auto) 3.5 % 07/04/22 07:48 Eos % (Auto) 0.0 % 07/04/22 07:48 Baso % (Auto) 0.2 % 07/04/22 07:48 Reticulocyte % (Auto) < 0.5 % (0.5-2.0) L 07/02/22 04:42 Neut # (Auto) 8.07 K/uL (1.4-6.5) H 07/04/22 07:48 Lymph # (Auto) 0.38 K/uL (1.2-3.4) L 07/04/22 07:48 [place] # (Auto) 0.31 K/uL (0.24-0.82) 07/04/22 07:48 Eos # (Auto) 0.00 K/uL (0-0.50) 07/04/22 07:48 Baso # (Auto) 0.02 K/uL (0-0.2) 07/04/22 07:48 Reticulocyte # < 0.02 10^6/uL (0.02-0.10) L 07/02/22 04:42 Immature Gran # (Auto) 0.06 K/uL (0.00-0.02) H 07/04/22 07:48 Absolute Nucleated RBC 0.03 K/uL (0-0) H 07/06/22 07:40 Nucleated RBC % (auto) 0.2 % 07/06/22 07:40 Toxic Granulation 1+ 07/04/22 07:48 Toxic Vacuolation 1+ 07/04/22 07:48 Dohle Bodies 1+ 07/02/22 04:42 Platelet Estimate Decreased (Normal) L 07/01/22 20:00 Giant Platelets 1+ 07/04/22 07:48 Polychromasia 1+ 07/03/22 05:55 Target Cells 1+ 07/04/22 07:48 Peripher Smr Path Cons 07/02/22 04:42 Peripher Smr Path Cons Cancelled 07/02/22 04:42 ESR 77 mm/hr (0-20) H 07/06/22 07:40 Haptoglobin 480 mg/dL (43-212) H 07/02/22 11:22 PT 14.3 Seconds (9.0-12.0) H 07/06/22 07:40 INR 1.4 (0.9-1.1) H 07/06/22 07:40 Fibrinogen 778 mg/dl (184-400) H 07/02/22 12:46 Fibrin Degrad Products >40 mcg/ml (<10) H 07/02/22 12:46 D-Dimer 5830 ug/L FEU (0-500) H* 07/02/22 11:22 Factor VIII Activity % (55 - 145) 07/02/22 12:46 Sodium 132 mmol/L (136-145) L 07/06/22 07:40 Potassium 3.8 mmol/L (3.5-5.1) 07/06/22 07:40 Chloride 105 mmol/L (98-107) 07/06/22 07:40 Carbon Dioxide 22 mmol/L (21-32) 07/06/22 07:40 Anion Gap 5 (3-11) 07/06/22 07:40 BUN 11 mg/dl (6-23) 07/06/22 07:40 Creatinine 0.56 mg/dl (0.6-1.2) L 07/06/22 07:40 Est Cr Clr Drug Dosing 151.7 ml/min 07/06/22 07:40 Est GFR ( Amer) 143.0 ml/min 07/06/22 07:40 Est GFR (Non-Af Amer) 123.4 ml/min 07/06/22 07:40 BUN/Creatinine Ratio 19.6 (10-20) 07/06/22 07:40 Glucose 105 mg/dl (70-99(Fasting)) H 07/06/22 07:40 Osmolality 277 mOsm/kg (280-300) L 07/02/22 10:33 Lactate TNP 07/02/22 05:57 Uric Acid 2.6 mg/dl (2.6-7.2) 07/03/22 05:55 Calcium 7.4 mg/dl (8.5-10.1) L 07/06/22 07:40 Phosphorus 2.7 mg/dl (2.5-4.9) D 07/06/22 07:40 Magnesium 1.6 mg/dl (1.7-2.4) L 07/06/22 07:40 Ferritin 652.7 ng/ml (8-388) H 07/03/22 05:55 Total Bilirubin 4.1 mg/dl (0.2-1.0) H 07/06/22 07:40 Direct Bilirubin 3.3 mg/dl (0-0.2) H 07/05/22 07:21 AST 22 U/L (13-39) 07/06/22 07:40 ALT 39 U/L (7-52) 07/06/22 07:40 Alkaline Phosphatase 63 U/L (34-104) 07/06/22 07:40 Ammonia 51.0 umol/L (18-72) 07/03/22 05:55 Lactate Dehydrogenase 180 U/L (86-244) 07/05/22 08:11 Total Creatine Kinase 134 U/L (26-192) 07/03/22 05:55 C-Reactive Protein 16.20 mg/dl (0-0.5) H 07/06/22 07:40 Total Protein 5.8 gm/dl (6.0-8.3) L 07/06/22 07:40 Albumin 2.2 gm/dl (3.4-5.0) L 07/06/22 07:40 Globulin 3.6 gm/dl (2.5-4.0) 07/06/22 07:40 Albumin/Globulin Ratio 0.6 (0.9-2) L 07/06/22 07:40 Triglycerides 392 mg/dl (0-150) H 07/05/22 07:21 Vitamin B12 1268 pg/ml (180-914) H 07/02/22 04:42 Folate 15.51 ng/ml (>5.38) 07/02/22 04:42 Procalcitonin 19.29 ng/ml (0-0.5) H 07/05/22 07:21 TSH 0.476 uIu/ml (0.300-4.500) 07/01/22 20:00 HCG, Qual Negative (Negative) 07/01/22 20:00 Urine Color Dark Yellow 07/02/22 13:55 Urine Appearance Cloudy (Clear) A 07/02/22 13:55 Urine pH 6.0 (4.5-7.5) 07/02/22 13:55 Ur Specific [place] 1.020 (1.000-1.030) 07/02/22 13:55 Urine Protein 1+ (Negative) H 07/02/22 13:55 Urine Glucose (UA) Negative (Negative) 07/02/22 13:55 Urine Ketones Negative (Negative) 07/02/22 13:55 Urine Blood 2+ (Negative) H 07/02/22 13:55 Urine Nitrite Negative (Negative) 07/02/22 13:55 Urine Bilirubin 3+ (Negative) H 07/02/22 13:55 Urine Urobilinogen Negative (Negative) 07/02/22 13:55 Ur Leukocyte Esterase Negative (Negative) 07/02/22 13:55 Urine WBC (Auto) 1-5 /hpf (0-5) 07/02/22 13:55 Urine RBC (Auto) 0-4 /hpf (0-4) 07/02/22 13:55 U Hyaline Cast (Auto) 1-5 /lpf (0-5) 07/02/22 13:55 U Epithel Cells (Auto) 5-10 /lpf (0-5) H 07/02/22 13:55 Urine Bacteria (Auto) Negative (Negative) 07/02/22 13:55 Granular Casts 10-20 /lpf (0) H 07/01/22 21:49 Urine Yeast Not Reportable 07/02/22 13:55 Urine Osmolality 369 mOsm/kg (500-800) L 07/02/22 13:55 Ur Random Creatinine 67.9 mg/dl 07/03/22 11:20 U Random Total Protein 116.8 mg/dl (0-11.9) H 07/03/22 11:20 Ur Random Sodium 20 mmol/L 07/02/22 13:55 Ur Random Potassium 21.8 mmol/L 07/02/22 13:55 Ur Random Chloride 26 mmol/L 07/02/22 13:55 Protein/Creatinin Ratio 1.7 (0-0.2) H 07/03/22 11:20 Nasal Screen MRSA (PCR) Negative (Negative) 07/02/22 18:45 Stl C. cayetanensis PCR Not Detected (NotDetected) 07/02/22 00:54 Stool Rotavirus A PCR Not Detected (NotDetected) 07/02/22 00:54 Stl Adenov F 40/41 PCR Not Detected (NotDetected) 07/02/22 00:54 Stool Astrovirus (PCR) Not Detected (NotDetected) 07/02/22 00:54 Stool Campylobacter PCR Not Detected (NotDetected) 07/02/22 00:54 Stl C. diff Tox B Gene Negative Cdiff Gene (Neg) 07/02/22 00:54 Stool Cryptosporidium PCR Not Detected (NotDetected) 07/02/22 00:54 Stl E.coli Shiga Tox PCR Not Detected (NotDetected) 07/02/22 00:54 Stl Enterotoxigenic E PCR Not Detected (NotDetected) 07/02/22 00:54 Stool EPEC (PCR) Not Detected (NotDetected) 07/02/22 00:54 Stool EAEC (PCR) Not Detected (NotDetected) 07/02/22 00:54 Stl E. histolytica PCR Not Detected (NotDetected) 07/02/22 00:54 Stool Giardia Lamblia PCR Not Detected (NotDetected) 07/02/22 00:54 Stool Salmonella PCR Not Detected (NotDetected) 07/02/22 00:54 Stool Sapovirus (PCR) Not Detected (NotDetected) 07/02/22 00:54 Stl P. shigelloides PCR Not Detected (NotDetected) 07/02/22 00:54 Stl Shigella/EIEC PCR Not Detected (NotDetected) 07/02/22 00:54 St Y.enterocolitica PCR Not Detected (NotDetected) 07/02/22 00:54 Stool Vibrio (PCR) Not Detected (NotDetected) 07/02/22 00:54 Stl Vibrio cholerae PCR Not Detected (NotDetected) 07/02/22 00:54 Stl Norovirus GI/GII PCR Not Detected (NotDetected) 07/02/22 00:54 Vancomycin Trough 10.3 mcg/ml (10-20) 07/06/22 07:40 Random Vancomycin 11.0 mcg/ml (10-20) 07/04/22 06:29 Urine Opiates Screen Neg (Neg) 07/01/22 20:38 Ur Methadone, Qual Neg (Neg) 07/01/22 20:38 Urine Barbiturates Neg (Neg) 07/01/22 20:38 Ur Phencyclidine (PCP) Neg (Neg) 07/01/22 20:38 U Amphetamin/Meth Scrn Neg (Neg) 07/01/22 20:38 MDMA (Ecstasy) Screen Neg (Neg) 07/01/22 20:38 U Benzodiazepines Scrn Neg (Neg) 07/01/22 20:38 Ur Cocaine Metabolite Neg (Neg) 07/01/22 20:38 U Marijuana (THC) Screen Pos (Neg) H 07/01/22 20:38 U Marijuana THC Carboxy 88 ng/mL (<5) H 07/01/22 20:38 Drug Screen Comment SEE NOTE 07/01/22 20:38 RPR Nonreactive (Nonreactive) 07/01/22 20:00 Adenovirus (PCR) Not Detected (NotDetected) 07/01/22 21:29 Anaplasma Smear See Comment 07/01/22 20:00 Babesia Smear See Comment 07/01/22 20:00 Babesia microti DNA PCR Not Detected (Not Detected) 07/01/22 20:00 B. pertussis DNA (PCR) Not Detected (NotDetected) 07/01/22 21:29 B.parapertussis DNA PCR Not Detected (NotDetected) 07/01/22 21:29 Lyme Disease IgG Ab Negative (Negative) 07/01/22 20:00 Lyme Disease IgM Ab Negative (Negative) 07/01/22 20:00 C. pneumoniae DNA (PCR) Not Detected (NotDetected) 07/01/22 21:29 Coronavirus OC43 (PCR) Not Detected (NotDetected) 07/01/22 21:29 Coronavirus HKU1 (PCR) Not Detected (NotDetected) 07/01/22 21:29 Coronavirus 229E (PCR) Not Detected (NotDetected) 07/01/22 21:29 SARS-CoV-2 (PCR) Not Detected (NotDetected) 07/01/22 21:29 Coronavirus NL63 (PCR) Not Detected (NotDetected) 07/01/22 21:29 Hepatitis A IgM Ab NON-REACTIVE (NON-REACTIVE) 07/01/22 20:00 Hep Bs Antigen NON-REACTIVE (NON-REACTIVE) 07/01/22 20:00 Hep Bs Ag Confirmation TNP 07/01/22 20:00 Hep B Core IgM Ab NON-REACTIVE (NON-REACTIVE) 07/01/22 20:00 Hepatitis C Ab (EIA) NON-REACTIVE (NON-REACTIVE) 07/01/22 20:00 Hep C Ab Signal/Cutoff 0.02 (<1.00) 07/01/22 20:00 Monoscreen Negative (Negative) 07/01/22 20:00 HIV-1 RNA copies/mL Cancelled 07/04/22 06:29 HIV-1 RNA logcopies/mL Cancelled 07/04/22 06:29 Human Metapneumovir PCR Not Detected (NotDetected) 07/01/22 21:29 Influenza Type A (PCR) Not Detected (NotDetected) 07/01/22 21:29 Influenza Type B (PCR) Not Detected (NotDetected) 07/01/22 21:29 M. pneumoniae (PCR) Not Detected (NotDetected) 07/01/22 21:29 Parainfluenza 1 (PCR) Not Detected (NotDetected) 07/01/22 21:29 Parainfluenza 2 (PCR) Not Detected (NotDetected) 07/01/22 21:29 Parainfluenza 3 (PCR) Not Detected (NotDetected) 07/01/22 21:29 Parainfluenza 4 (PCR) Not Detected (NotDetected) 07/01/22 21:29 RSV (PCR) Not Detected (NotDetected) 07/01/22 21:29 Entero/Rhino (PCR) Not Detected (NotDetected) 07/01/22 21:29 Bld Cult ID Panel PCR PCR Panel Negative (NotDetected) 07/01/22 20:00 Ref Lab Test Result 07/02/22 11:27 Blood Type A Positive 07/06/22 08:23 Antibody Screen NEGATIVE 07/06/22 08:23 Direct Antiglob Test Negative (Negative) 07/02/22 10:33 ANNA (IgG-AHG) Neg (Negative) 07/02/22 10:33 ANNA, Polyspecific Neg (Negative) 07/02/22 10:33 ANNA C3b, C3d 5 Min Neg (Negative) 07/02/22 10:33 Crossmatch See Detail 07/06/22 08:23 Impressions Abdomen/Pelvis CT 07/01/22 21:[address] WITH IV CONTRAST HISTORY: Acute fever with elevated LFTs Fever, elevated LFT, hyperbili, vomit TECHNIQUE: Multiaxial CT images of the abdomen and pelvis were performed following the IV administration of 86 cc of Optiray, A dose lowering technique was utilized adhering to the principles of ALARA. COMPARISON STUDY: Chest CT of same day, CT abdomen and pelvis 06/24/2022 FINDINGS: Numerous round consolidative densities of the lung bases, several of which are centrally cavitary measuring up to 2.9 cm are new from the prior study. No pneumatosis or pneumoperitoneum. The study is limited secondary to upper extremity positioning. Unremarkable spleen, pancreas and adrenal glands. Mildly distended gallbladder. The liver is within normal limits. Patency of the hepatic and portal veins. Unremarkable kidneys without hydronephrosis. The urinary bladder is within normal limits. Endometrium measures up to 1.6 cm. Uterus and ovaries are otherwise unremarkable. Aorta and IVC are unremarkable. No pathologically enlarged lymph nodes are identified. Mild nonspecific wall thickening of the distal esophagus. Mild wall thickening of the mid to distal gastric body with partial distention is similar to prior. No bowel obstruction or bowel wall thickening. Small and large bowel air-fluid levels. Normal appendix. Mild nonspecific stranding is noted surrounding the left rectus femoris and iliopsoas psoas musculature. Moderate degeneration of the pubic symphysis. No acute fracture identified. IMPRESSION: 1. Interval development of numerous round and centrally cavitary consolidative opacities of the lung bases, new from 06/24/2022 suggestive of septic emboli. 2. No bowel obstruction or bowel wall thickening. Normal appendix. 3. Mild wall thickening of the gastric body redemonstrated which may be secondary to partial distention versus a nonspecific gastritis. 4. Mild stranding surrounding the proximal rectus femoris and iliopsoas musculature. Correlate with clinical exam findings and patient history. ACT 112: Negative or not required by law. The above report was generated using voice recognition software. It may contain grammatical, syntax or spelling errors. Electronically signed by: Roberto Aly M.D. 07/02/2022 7:53 AM Soft Tissue Neck CT 07/01/22 22:14 CT OF THE NECK WITH IV CONTRAST CLINICAL HISTORY: Lymphadenopathy. COMPARISON STUDY: No previous studies for comparison. TECHNIQUE: Following IV administration of 86 mL of Optiray, helical axial images of the neck were obtained. Sagittal and coronal reconstructions were viewed. Automated exposure control was utilized for the study. A dose lowering technique was utilized adhering to the principles of ALARA. FINDINGS: Visualized portions of the intracranial contents are unremarkable. The mastoid air cells are clear. The sinuses are clear. Note is made of a 1.9 x 1.8 cm left peritonsillar rim enhancing fluid collection consistent with a peritonsillar abscess. There is moderate associated mass effect with narrowing of the hypopharynx. There is an adjacent 1.7 x 1.5 cm fluid collection within the left paravertebral space consistent with an additional abscess. In addition, there is occlusive thrombus within the left internal jugular vein. Mild to moderate prevertebral edema is also present. The epiglottis is normal. There is no soft tissue gas. No additional sites of vessel occlusion are identified within the neck. Prominent left cervical lymph nodes are reactive. Visualized portions of the chest demonstrate multiple cavitary round airspace opacities consistent with septic pulmonary emboli. IMPRESSION: 1. Findings consistent with Lemierre syndrome. Two left peritonsillar abscesses, measuring up to 1.9 x 1.8 cm, with associated occlusive thrombophlebitis of the left internal jugular vein and septic pulmonary emboli. This finding will be called/faxed to ordering provider at time of dictation. 2. Mild to moderate prevertebral edema. ACT 112: Negative or not required by law. Electronically signed by: Mendez Russell M.D. 07/02/2022 7:16 AM Hand X-Ray 07/01/22 22:16 XR hand LT min 3V routine CLINICAL HISTORY: 3rd finger MCP swelling COMPARISON: None FINDINGS: Alignment of the left hand is anatomic. There is no acute fracture. There is no bony erosion. Dorsal soft tissue swelling is noted on lateral projection. There is also soft tissue swelling adjacent to the left third metacarpophalangeal joint and within the left third finger. No soft tissue gas is identified. IMPRESSION: 1. No osseous abnormality within the left hand. 2. Soft tissue swelling the dorsal left hand and left third digit, as described above. This is nonspecific. ACT 112: Negative or not required by law. Electronically signed by: Mendez Russell M.D. 07/02/2022 7:[address] 07/01/22 22:[address] WITH CONTRAST CT DOSE: 875.10 mGy.cm HISTORY: Acute tachycardia with lymphadenopathy tachycardia, lymphadenopathy TECHNIQUE: Multiaxial CT images of the chest were performed following the IV administration of 86 cc of Optiray. A dose lowering technique was utilized adhering to the principles of ALARA. COMPARISON: CT abdomen and pelvis of same day and also 06/24/2022 FINDINGS: Unremarkable thyroid. The heart is normal in size without pericardial effusion. The thoracic aorta and pulmonary arterial tree are suboptimally evaluated secondary to respiratory motion artifact. Trace pleural effusions. No pneumothorax. Mild intralobular septal thickening with bronchial wall thickening and areas of mild mosaic attenuation. There is development of numerous rounded nodular consolidative opacities within a multilobar and multi segmental distribution. Many of these lesions are centrally cavitary measuring up to 2.4 cm within the left lower lobe and 2.6 cm within the right lower lobe. Several of these lesions about the peripheral pleural surfaces. Unremarkable soft tissues. No acute fracture. IMPRESSION: 1. Interval development of numerous round and centrally cavitary consolidative opacities of the lungs which are new from 06/24/2022. Findings are suggestive of septic emboli. 2. No lymphadenopathy. ACT 112: Negative or not required by law. Electronically signed by: Roberto Aly M.D. 07/02/2022 8:14 AM Extremity Venous Study 07/02/22 13:34 LEFT UPPER EXTREMITY VENOUS DOPPLER HISTORY: Follow-up left internal jugular vein thrombus. DVT COMPARISON STUDY: CT neck 07/01/2022. FINDINGS: There is persistent occlusive thrombus seen within the left internal jugular vein. This is similar to the prior study. There is normal flow within the left subclavian vein. There is normal flow and compressibility within the left axillary, basilic, brachial, radial, ulnar, and visualized cephalic veins. IMPRESSION: No significant change in the left internal jugular vein occlusive thrombus. ACT 112: Negative or not required by law. Electronically signed by: Doug Stewart M.D. 07/02/2022 2:[address] 07/03/22 08:[address] WITHOUT CONTRAST CLINICAL HISTORY: Swelling of hand, dactylitis ? COMPARISON STUDY: Left hand radiographs July 01, 2022. TECHNIQUE: Axial images of the left hand were obtained without IV contrast. Sagittal and coronal reconstructions were viewed. Automated exposure control was utilized for the study. A dose lowering technique was utilized adhering to the principles of ALARA. FINDINGS: Alignment of the left hand is anatomic. There is no fracture. There is no bony erosion to suggest acute osteomyelitis. There is no soft tissue gas. Note is made of extensive soft tissue swelling of the left third finger suggestive of cellulitis. Evaluation for abscess is suboptimal on this unenhanced exam. In addition, there is marked distention of the flexor tendon sheath of the left third digit. The wall of the tendon sheath is thickened. There are multiple pockets of adjacent fluid. There may also be increased fluid within the tendon sheaths of the left second and fourth digits. Carpal bones are intact. Distal left radius and ulna are intact. IMPRESSION: 1. Findings consistent with an extensive infectious process of the left hand, predominantly affecting the third digit and associated flexor tendon sheath. Left third digit soft tissue swelling suggestive of cellulitis. No soft tissue gas. No evidence for acute osteomyelitis. 2. Marked distention of the flexor tendon sheath of the left third digit with wall thickening of the tendon sheath. This is suggestive of an infectious tenosynovitis, possibly purulent. Multiple pockets of adjacent fluid which may favor cellulitis or phlegmon however early developing abscesses cannot be excluded. ACT 112: Negative or not required by law. Electronically signed by: Mendez Russell M.D. 07/03/2022 10:[address] 07/04/22 12:49 CT head/brain wo con CLINICAL HISTORY: AMS Technique: Contiguous axial CT images of the head were acquired from the base of the skull to the vertex without intravenous contrast administration. Images were viewed in brain, subdural and bone windows. Automated dose lowering techniques and/or adjustment according to patient size were utilized for this exam. Comparison: None available at the time of this dictation. Findings: The ventricles, basal cisterns, and cerebral sulci are normal. There is no acute intracranial hemorrhage or evidence of acute territorial infarction. Neither mass effect, shift of the midline structures, nor abnormal extra-axial fluid collections are shown. Imaged portions of the paranasal sinuses and mastoid air cells are clear. The orbits appear normal. There are no acute fractures of the calvaria or scalp swelling. Impression: No acute intracranial hemorrhage, no evidence of acute territorial infarction or other acute intracranial disease process. ACT 112: Negative or not required by law. Electronically signed by: Evaristo Mckinney M.D. 07/04/2022 3:52 PM Chest X-Ray 07/05/22 08:10 XR chest 1V portable CLINICAL HISTORY: f/u COMPARISON STUDY: Chest CT July 01, 2022 and chest radiograph July 03, 2022. FINDINGS: Small left and trace right pleural effusions have developed. Multifocal nodular consolidation has slightly progressed. Several these foci are cavitary. Left basilar airspace opacity is increased. Cardiomediastinal silhouette remains normal. IMPRESSION: 1. Mild progression of multifocal cavitary airspace opacities consistent with septic pulmonary emboli. 2. Interval development of small left and trace right pleural effusions with increase in left mid and lower lung airspace opacity. ACT 112: Negative or not required by law. Electronically signed by: Mendez Russell M.D. 07/05/2022 10:35 AM Medications Administered Current Inpatient Medications Bisacodyl (Bisacodyl 10 Mg Supp) 10 mg WA DAILY PRN PRN Reason: Constipation Stop: 08/03/22 15:23 Docusate Sodium (Docusate Sodium 100 Mg Cap) 100 mg PO BID ELE Stop: 08/03/22 20:59 Last Admin: 07/06/22 08:33 Dose: Not Given Fexofenadine HCl (Fexofenadine 60 Mg Tab) 60 mg PO BID PRN PRN Reason: itching Stop: 08/03/22 08:59 Heparin Sodium (Porcine) (Heparin Sod 5,000 Unit/0.5 Ml Vial) 5,000 units SQ Q8H ELE Stop: 08/04/22 15:59 Last Admin: 07/06/22 08:41 Dose: 5,000 units Piperacillin Sod/Tazobactam (Sod 4.5 gm/ Dextrose) 120 mls @ 28.75 mls/hr IV Q8H ELE; Protocol Stop: 07/12/22 18:59 Last Admin: 07/06/22 11:28 Dose: 28.8 mls/hr Pantoprazole Sodium 40 mg/ (Syringe) 10 mls @ 5 mls/min IV DAILY@1100 ELE Stop: 08/02/22 10:59 Last Admin: 07/06/22 11:23 Dose: 5 mls/min Vancomycin HCl 1,250 mg/ (Sodium Chloride) 275 mls @ 200 mls/hr IV Q8H [facility]; Protocol Stop: 07/11/22 15:59 Last Infusion: 07/06/22 10:26 Dose: Infused Sodium Chloride (Nss) 250 mls @ 15 mls/hr IV .[id number] PRN PRN Reason: For Transfusion Duration Stop: 07/06/22 18:14 Ketorolac Tromethamine (Ketorolac 30 Mg/Ml Vial) 30 mg IV Q6H PRN PRN Reason: Moderate Pain Stop: 07/10/22 10:05 Magnesium Hydroxide (Magnesium Hydroxide Susp 30 Ml Udc) 30 ml PO Q6H PRN PRN Reason: Constipation Stop: 08/03/22 15:23 Magnesium Oxide (Magnesium Oxide 400 Mg Tab) 400 mg PO BID [facility] Stop: 07/06/22 21:01 Last Admin: 07/06/22 08:33 Dose: 400 mg Metoclopramide HCl (Metoclopramide Hcl Inj 5 Mg/Ml 2 Ml Vial) 10 mg IV Q6H PRN PRN Reason: Nausea And Vomiting Stop: 08/03/22 15:23 Miscellaneous Information (Vancomycin Consult Active) 1 each N/A UD PRN PRN Reason: Consult Stop: 07/31/22 23:56 Morphine Sulfate (Morphine Sulfate 2 Mg/Ml Carp) 2 mg IV Q4 PRN PRN Reason: Pain Stop: 07/17/22 08:27 Last Admin: 07/06/22 12:12 Dose: 2 mg Multivitamins (Multivitamin Tab) 1 tab PO QAM [facility] Stop: 08/04/22 08:59 Last Admin: 07/06/22 08:33 Dose: 1 tab Naloxone HCl (Naloxone Hcl 0.4 Mg/1 Ml Vial/Carp) 0.1 mg IV Q5M PRN PRN Reason: Oversedation/Resp Depression Stop: 08/03/22 15:23 Nitroglycerin (Nitroglycerin Sl 0.4 Mg/Tab Tab) 0.4 mg SL UD PRN PRN Reason: Chest Pain Stop: 08/01/22 03:38 Ondansetron HCl (Ondansetron Inj 2 Mg/Ml 2 Ml Vial) 4 mg IV Q6H PRN PRN Reason: Nausea And Vomiting Stop: 08/03/22 15:23 Sennosides (Senna 8.6 Mg Tab) 17.2 mg PO HS [facility] Stop: 08/03/22 20:59 Last Admin: 07/05/22 19:54 Dose: Not Given
[2022-07-06] MEDS ORDERED: cefTRIAXone SODIUM 2,000 MG in DEXTROSE 5% 50 ML IV SCH (16:30)
[2022-07-06] MEDS: metroNIDAZOLE 500 MG/100 ML BAG IV SCH (17:14)
[2022-07-06 18:01] LABS: Hematocrit (blood only) 21.4 % (34.1-44.9); Hemoglobin 7.6 g/dl (12.0-16.0); Mean Corpuscular Hgb Conc 35.5 g/dL (32.0-36.0); Mean Corpuscular Volume 84.6 fL (80.0-100.0); Mean Platelet Volume 11.5 fL (9.4-12.3); Nucleated RBC # (auto) 0.02 K/uL (0-0); Nucleated RBC % (auto) 0.2 %; Platelet Count 176 K/uL (130-400); RDW Coefficient of Variation 14.6 % (11.5-14.5); RDW Standard Deviation 44.9 fL (36.4-46.3); Red Blood Count 2.53 M/uL (3.93-5.22); White Blood Count 11.56 K/ul (4.8-10.8)
--- NOTE | 2022-07-06 18:21 | Progress Notes ---
SUBJECTIVE: A 31-year-old female postoperative day 2 from irrigation and debridement of extensive left hand infection. She is doing better. Hand is still pretty sore, but feels better. No new complaints. OBJECTIVE: VITAL SIGNS: Temperature 38.2. Vital signs are stable. EXTREMITIES: Physical examination of the left hand with the bandage removed reveals that the swelling to be markedly improved. There is a little serous or nonpurulent fluid emanating from the palmar wound. She can slightly flex and extend her fingers. Still pretty painful. She is neurologically intact. LABORATORY DATA: Culture results have shown pinpoint growth. ASSESSMENT: A 31-year-old female postoperative day 2 from extensive irrigation and debridement of left hand infection with underlying tonsel abscess and sepsis. Hand seems to be doing okay. No obvious signs of reaccumulation of pus. It is going to take a while for the hand to recover. I think she is best treated with broad-spectrum antibiotic coverage including sulfa gram-negative and positive organisms. PLAN: We are going to remove the drainage system today. We will start soaking this hand twice a day in a one-third combination of sterile saline, hydrogen peroxide, Betadine. She will do that 10-15 minutes twice a day. Then, rewrap it with a dry gauze. Continue antibiotics. She should work on finger range of motion, and it would be worth having therapy start to work with her. We will continue to follow daily. Any orthopedic questions can be directed to me at [phone]. Job ID: [id number] [facility]
[2022-07-06] MEDS: SENNA 8.6 MG TAB PO SCH (20:49)
[2022-07-07] MEDS: metroNIDAZOLE 500 MG/100 ML BAG IV SCH ×4 (00:12→23:53)
[2022-07-07] MEDS: MoRPHine SULFATE 2 MG/ML CARP IV PRN ×5 (00:41→21:55)
[2022-07-07] MEDS: VANCOMYCIN HCL 1,250 MG in SODIUM CHLORIDE 0.9% 250 ML IV SCH ×2 (01:17→09:03)
[2022-07-07 06:23] LABS: Hematocrit (blood only) 21.3 % (34.1-44.9); Hemoglobin 7.4 g/dl (12.0-16.0); Mean Corpuscular Hemoglobin 30.1 pg (25.0-34.0); Mean Corpuscular Hgb Conc 34.7 g/dL (32.0-36.0); Mean Corpuscular Volume 86.6 fL (80.0-100.0); Mean Platelet Volume 11.9 fL (9.4-12.3); Nucleated RBC # (auto) 0.02 K/uL (0-0); Nucleated RBC % (auto) 0.1 %; Platelet Count 206 K/uL (130-400); RDW Coefficient of Variation 14.8 % (11.5-14.5); RDW Standard Deviation 46.5 fL (36.4-46.3); Red Blood Count 2.46 M/uL (3.93-5.22); White Blood Count 13.57 K/ul (4.8-10.8)
[2022-07-07 06:30] LABS: INR 1.5 (0.9-1.1); Prothrombin Time 15.2 Seconds (9.0-12.0)
[2022-07-07 06:43] LABS: Alanine Aminotransferase 41 U/L (7-52); Albumin Globulin Ratio 0.6 (0.9-2); Alkaline Phosphatase 74 U/L (34-104); Anion Gap 7 (3-11); Aspartate Aminotransferase 37 U/L (13-39); BUN Creatinine Ratio 14.6 (10-20); Bilirubin,Total 3.6 mg/dl (0.2-1.0); Blood Urea Nitrogen 7 mg/dl (6-23); Calcium 7.5 mg/dl (8.5-10.1); Carbon Dioxide 21 mmol/L (21-32); Chloride 104 mmol/L (98-107); Creatinine Clr Calc Pharmacy 177.8 ml/min; Est GFR (African American) > 150.0 ml/min; Est GFR (Non-African American) 129.8 ml/min; Globulin 3.6 gm/dl (2.5-4.0); Glucose 126 mg/dl (70-99(Fasting)); Magnesium 1.5 mg/dl (1.7-2.4); Phosphorus 2.3 mg/dl (2.5-4.9); Potassium 3.4 mmol/L (3.5-5.1); Sodium 132 mmol/L (136-145); Total Protein 5.6 gm/dl (6.0-8.3)
[2022-07-07] MEDS ORDERED: POTASSIUM PHOS 3 MMOL/1 ML INFUSION IV STA (07:52)
[2022-07-07] MEDS ORDERED: CEFEPIME 2,000 MG in SYRINGE 0 ML IV SCH (08:00)
[2022-07-07] MEDS ORDERED: POTASSIUM PHOSPHATE 30 MMOL in SODIUM CHLORIDE 0.9% 500 ML IV ONE (08:15)
--- NOTE | 2022-07-07 08:50 | XRay Report ---
XR chest 1V portable CLINICAL HISTORY: Fever. COMPARISON STUDY: Chest CT July 01, 2022 and chest radiograph July 05, 2022. FINDINGS: There is no pneumothorax. Small left and trace right pleural effusions are similar to prior exam. Left basilar airspace opacity is similar to prior exam. There has been slight increase in cons picuity of multiple cavitary foci of consolidation within the lungs since prior exam. Cardiac size is normal. There is no evidence for pulmonary edema. IMPRESSION: 1. Mild increase in multifocal cavitary foci within the lungs consistent with septic pulmonary emboli . 2. Persistent left lower lung airspace opacity which favors pneumonia. 3. Stable small left and trace right pleural effusions. ACT 112: Negative or not required by law. Electronically signed by: Mendez Russell M.D. 07/07/2022 8:49 AM
[2022-07-07] MEDS: MAGNESIUM SULFATE / D5W 1 GM/100 ML BAG IV SCH ×2 (09:04→11:05)
[2022-07-07] MEDS: MULTIVITAMIN TAB PO SCH (09:12)
[2022-07-07] MEDS: DOCUSATE SODIUM 100 MG CAP PO SCH ×2 (09:12→20:24)
[2022-07-07] MEDS ORDERED: OPTIRAY 320 500ml IV ONE (09:38)
[2022-07-07] MEDS: PANTOprazole 40 MG in SYRINGE 0 ML IV SCH (10:00)
--- NOTE | 2022-07-07 10:01 | CT Scan Report ---
CT ANGIOGRAPHY OF THE CHEST, PULMONARY EMBOLUS PROTOCOL CLINICAL HISTORY: Cough. Evaluate for pulmonary emboli. COMPARISON STUDY: Chest CT July 01, 2021 and chest radiograph performed earlier today. TECHNIQUE: Following IV administration of 115 mL of Optiray, helical axial images of the chest were o btained utilizing the pulmonary embolus protocol. Maximal intensity projections and sagittal and cor onal reformats were viewed on an independent 3D workstation. IV contrast was administered without co mplication. Automated exposure control was utilized for the study. A dose lowering technique was ut ilized adhering to the principles of ALARA. CT DOSE: 275.54 mGy.cm FINDINGS: No pulmonary emboli are identified although the upper lobe pulmonary arteries are suboptim ally opacified on this exam. Left neck stranding is partially imaged on this examination. The tonsill ar/peritonsillar regions were not imaged on this chest CT. Note is again made of thrombus within the left internal jugular vein, as shown on neck CT of July 01, 2022. There is an enlarged 1.8 x 1.4 cm left level 3 lymph node which is suboptimally assessed on this exam. Mildly enlarged bilateral hil ar lymph nodes are likely reactive. There is no pericardial effusion. Small left and trace right pleu ral effusions are present. Numerous cavitary foci of round consolidation throughout the lungs are aga in noted. Several these foci of increased in extent since CT of July 01, 2022. There is no pneumo thorax. Central airways are patent. Bony thorax is unremarkable. Heterogeneity of the spleen is likel y due to the phase of enhancement. IMPRESSION: 1. No pulmonary emboli identified although upper lobe pulmonary arteries suboptimally opacified. 2. Findings consistent with the Lemierre syndrome. Thrombophlebitis of the left internal jugular vein with extensive septic pulmonary emboli. Extent of multiple cavitary foci of consolidation and adjace nt groundglass opacity has increased since CT of July 01, 2022. 3. Small left and trace right pleural effusions. 4. Left neck inflammation due to tonsillitis, partially imaged on this exam. Enlarged left level 3 ly mph node, possibly suppurative. ACT 112: Negative or not required by law. Electronically signed by: Mendez Russell M.D. 07/07/2022 10:11 AM
[2022-07-07] MEDS ORDERED: Heparin IV Adult Wt-Based Low-Dose *NO* Bolus Protocol IV SCH (10:45)
--- NOTE | 2022-07-07 11:57 | Hospitalist Progress Note ---
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, peritonsillar abscesses, cavitary pulmonary lesions - started with sore throat - started on broad spectrum abx with vancomycin and Zosyn - abx changed to vancomycin, cefepime, flagyl - blood cultures growing Fusobacterium - pulm and ENT consulted - s/p peritonsillar abscess drainage by ENT 07/02/2022 - s/p 10mg Decadron IV per ENT - ended 07/05/2022 - hematology consult for further recs on AC management - patient tachycardic and febrile - CTA to evaluate PE was negative for PE but showed increase in cavitary lesions in lungs concerning for worsening embolic events - given history of anemia requiring 1 unit PRBC 07/06/2022 and possible need for AC given worsening embolic events, ICU transfer for closer monitoring (2) Anemia: Plan: - anemia in young woman is not abnormal but given rest of presentation could be exacerbated - no evidence of bleeding at this time - slight down trend - hemodynamically stable - heme consult - likely due to bone marrow suppression in setting of sepsis as well as IVF - hgb to 6.7 07/06/2022 - s/p 1 unit PRBC transfusion - LDH wnl - no evidnece of bleed and I/D with minimal EBL - active type and screen - hgb responded appropriately and stable since transfusion - will continue to monitor (3) Sepsis: Plan: - in the setting of GNR bacteremia and Lemierre Syndrome - tachycardic, leukocytosis, fever POA - IV abx as above - became more tachycardic overnight - concern for worsening embolic events in setting of Lemierre Syndrome - transferred to ICU for further monitoring - continue management as above (4) Abscess of tonsil: Plan: - ENT consulted for drainage - IV abx as above - s/p decadron per ENT - s/p drainage 07/02/2022 - follow up cultures (5) Abscess of left hand: Plan: - noted erythema and swelling, tenderness, decreased ROM - CT without contrast with possible abscesses vs early forming abscesses - MRI with contrast of left hand ordered per Ortho - ortho consulted for evaluation - s/p OR I/D by ortho 07/04/2022 - dressing changes and drain management per ortho - continue abx as above - follow cultures (6) Septic pulmonary embolism: Plan: - possible septic emboli in setting of Lemierre Syndrome - blood cultures pending - GNRs - IV abx as above - TTE to evaluate for vegetations - no evidence of vegetation or abscess on TTE - repeat CTA chest 07/07/2022 with negative for PE but worsening septic emboli to lungs (7) Elevated LFTs: Plan: - unclear etiology and if this is part of Lemierre Syndrome - CT AP with contrast showed normal appearing liver, patent hepatic and portal veins - hepatitis panel negative - GI consulted - LFTs improving with treatment of sepsis (8) Thrombocytopenia: Plan: - in the setting of sepsis and acute illness as above - unclear etiology at this time - continue work up per GI as above - autoimmune, infectious work up pending - monitor for bleeding - no evidence of bleeding - platelets improving - monitor (9) Asthma: Plan: - currently not in exacerbation - not on home inhalers - will monitor for now Plan DVT ppx: heparin SC Code Status: Full Code Dispo: PCU --> ICU Tomasz Goddard MD [facility] Medicine Admission and Anticipated Discharge Date Admission Date: July 02, 2022 Subjective Patient with asthma presented with sore throat, nausea and vomiting for 1 week. Found to have L IJ thrombophlebitis, peritonsillar abscesses, pulmonary lesions concerning for septic emboli, elevated LFTs, findings concerning for Lemierre Syndrome. ENT, pulm, GI were consulted. She was started on broad spectrum abx with vancomycin and Zosyn, IVF. S/p I/D of left hand 3rd digit with Ortho 07/04/2022 for abscess. Required 1 unit PRBC 07/06/2022. No signs of obvious large amount of bleeding. Had worsening tachycardia and fevers and complaints of orthopnea, CTA negative for PE but worsening pulmonary cavitary lesions c oncerning for septic emboli. ICU consulted for worsening embolic events, considering starting anticoagulation. Patient reports having some shortness of breath when lying down and some soreness in her throat but feels ok. Also has pain in left hand. Denies n/v/d. Denies chest pain, abdominal pain, cough, rashes, dysuria. Tachycardic this morning. Review of Systems Review of Systems: All systems reviewed & are unremarkable except as noted in Subjective Physical Exam Physical Exam: GENERAL: The patient is of moderate build, currently not in acute distress HEENT: Icterus present. but much improved Pupils equal, round, and reactive to light. Oral mucosa moist. NECK: No obvious neck masses seen. Seems supple. CARDIOVASCULAR: S1 and S2 heard. tachycardia. No murmurs. RESPIRATORY SYSTEM: Normal AP diameter. No accessory muscle use. No wheezing, no crackles. CTAB, decreased breath sounds throughout ABDOMEN: Soft, bowel sounds present, nontender, no distention. CENTRAL NERVOUS SYSTEM: Alert and oriented. Speech is clear. No facial droop. Insight is okay. Obeys simple commands. Moves extremities. EXTREMITIES: left hand in dressing s/p I/D by ortho 07/04/2022. No edema in LEs Results & Data Results & Data ([facility]) Vital Signs (Past 12 Hours) Vital Signs Temp Pulse Pulse Resp BP Pulse Ox O2 Del Method 07/07/22 11:03 37.4 C 119 H 16 129/84 97 Room Air 07/07/22 07:54 127 H 07/07/22 07:49 Room Air 07/07/22 07:39 37.8 C H 129 H 19 129/78 98 Room Air 07/07/22 03:49 38.4 C H 126 H 22 155/78 H 97 Room Air 07/07/22 03:00 07/07/22 00:32 112 H O2 Del Method 07/07/22 11:03 07/07/22 07:54 07/07/22 07:49 07/07/22 07:39 07/07/22 03:49 07/07/22 03:00 Room Air 07/07/22 00:32 Diagnostic Findings Laboratory Results WBC 13.57 K/ul (4.8-10.8) H 07/07/22 05:27 RBC 2.46 M/uL (3.93-5.22) L 07/07/22 05:27 Hgb 7.4 g/dl (12.0-16.0) L 07/07/22 05:27 Hct 21.3 % (34.1-44.9) L 07/07/22 05:27 MCV 86.6 fL (80.0-100.0) 07/07/22 05:27 MCH 30.1 pg (25.0-34.0) 07/07/22 05:27 MCHC 34.7 g/dL (32.0-36.0) 07/07/22 05:27 RDW Std Deviation 46.5 fL (36.4-46.3) H 07/07/22 05:27 RDW Coeff of Carrol 14.8 % (11.5-14.5) H 07/07/22 05:27 Plt Count 206 K/uL (130-400) 07/07/22 05:27 MPV 11.9 fL (9.4-12.3) 07/07/22 05:27 Immature Gran % (Auto) 0.7 % 07/04/22 07:48 Neut % (Auto) 91.3 % 07/04/22 07:48 Lymph % (Auto) 4.3 % 07/04/22 07:48 Baker % (Auto) 3.5 % 07/04/22 07:48 Eos % (Auto) 0.0 % 07/04/22 07:48 Baso % (Auto) 0.2 % 07/04/22 07:48 Reticulocyte % (Auto) < 0.5 % (0.5-2.0) L 07/02/22 04:42 Neut # (Auto) 8.07 K/uL (1.4-6.5) H 07/04/22 07:48 Lymph # (Auto) 0.38 K/uL (1.2-3.4) L 07/04/22 07:48 Baker # (Auto) 0.31 K/uL (0.24-0.82) 07/04/22 07:48 Eos # (Auto) 0.00 K/uL (0-0.50) 07/04/22 07:48 Baso # (Auto) 0.02 K/uL (0-0.2) 07/04/22 07:48 Reticulocyte # < 0.02 10^6/uL (0.02-0.10) L 07/02/22 04:42 Immature Gran # (Auto) 0.06 K/uL (0.00-0.02) H 07/04/22 07:48 Absolute Nucleated RBC 0.02 K/uL (0-0) H 07/07/22 05:27 Nucleated RBC % (auto) 0.1 % 07/07/22 05:27 Toxic Granulation 1+ 07/04/22 07:48 Toxic Vacuolation 1+ 07/04/22 07:48 Dohle Bodies 1+ 07/02/22 04:42 Platelet Estimate Decreased (Normal) L 07/01/22 20:00 Giant Platelets 1+ 07/04/22 07:48 Polychromasia 1+ 07/03/22 05:55 Target Cells 1+ 07/04/22 07:48 Peripher Smr Path Cons 07/02/22 04:42 Peripher Smr Path Cons Cancelled 07/02/22 04:42 ESR 77 mm/hr (0-20) H 07/06/22 07:40 Haptoglobin 480 mg/dL (43-212) H 07/02/22 11:22 PT 15.2 Seconds (9.0-12.0) H 07/07/22 05:27 INR 1.5 (0.9-1.1) H 07/07/22 05:27 Fibrinogen 778 mg/dl (184-400) H 07/02/22 12:46 Fibrin Degrad Products >40 mcg/ml (<10) H 07/02/22 12:46 D-Dimer 5830 ug/L FEU (0-500) H* 07/02/22 11:22 Factor VIII Activity % (55 - 145) 07/02/22 12:46 Sodium 132 mmol/L (136-145) L 07/07/22 05:27 Potassium 3.4 mmol/L (3.5-5.1) L 07/07/22 05:27 Chloride 104 mmol/L (98-107) 07/07/22 05:27 Carbon Dioxide 21 mmol/L (21-32) 07/07/22 05:27 Anion Gap 7 (3-11) 07/07/22 05:27 BUN 7 mg/dl (6-23) 07/07/22 05:27 Creatinine 0.48 mg/dl (0.6-1.2) L 07/07/22 05:27 Est Cr Clr Drug Dosing 177.8 ml/min 07/07/22 05:27 Est GFR ( Amer) > 150.0 ml/min 07/07/22 05:27 Est GFR (Non-Af Amer) 129.8 ml/min 07/07/22 05:27 BUN/Creatinine Ratio 14.6 (10-20) 07/07/22 05:27 Glucose 126 mg/dl (70-99(Fasting)) H 07/07/22 05:27 Osmolality 277 mOsm/kg (280-300) L 07/02/22 10:33 Lactate TNP 07/02/22 05:57 Uric Acid 2.6 mg/dl (2.6-7.2) 07/03/22 05:55 Calcium 7.5 mg/dl (8.5-10.1) L 07/07/22 05:27 Phosphorus 2.3 mg/dl (2.5-4.9) L 07/07/22 05:27 Magnesium 1.5 mg/dl (1.7-2.4) L 07/07/22 05:27 Ferritin 652.7 ng/ml (8-388) H 07/03/22 05:55 Total Bilirubin 3.6 mg/dl (0.2-1.0) H 07/07/22 05:27 Direct Bilirubin 3.3 mg/dl (0-0.2) H 07/05/22 07:21 AST 37 U/L (13-39) 07/07/22 05:27 ALT 41 U/L (7-52) 07/07/22 05:27 Alkaline Phosphatase 74 U/L (34-104) 07/07/22 05:27 Ammonia 51.0 umol/L (18-72) 07/03/22 05:55 Lactate Dehydrogenase 180 U/L (86-244) 07/05/22 08:11 Total Creatine Kinase 134 U/L (26-192) 07/03/22 05:55 C-Reactive Protein 16.20 mg/dl (0-0.5) H 07/06/22 07:40 Total Protein 5.6 gm/dl (6.0-8.3) L 07/07/22 05:27 Albumin 2.0 gm/dl (3.4-5.0) L 07/07/22 05:27 Globulin 3.6 gm/dl (2.5-4.0) 07/07/22 05:27 Albumin/Globulin Ratio 0.6 (0.9-2) L 07/07/22 05:27 Triglycerides 392 mg/dl (0-150) H 07/05/22 07:21 Vitamin B12 1268 pg/ml (180-914) H 07/02/22 04:42 Folate 15.51 ng/ml (>5.38) 07/02/22 04:42 Procalcitonin 19.29 ng/ml (0-0.5) H 07/05/22 07:21 TSH 0.476 uIu/ml (0.300-4.500) 07/01/22 20:00 HCG, Qual Negative (Negative) 07/01/22 20:00 Urine Color Dark Yellow 07/02/22 13:55 Urine Appearance Cloudy (Clear) A 07/02/22 13:55 Urine pH 6.0 (4.5-7.5) 07/02/22 13:55 Ur Specific [place] 1.020 (1.000-1.030) 07/02/22 13:55 Urine Protein 1+ (Negative) H 07/02/22 13:55 Urine Glucose (UA) Negative (Negative) 07/02/22 13:55 Urine Ketones Negative (Negative) 07/02/22 13:55 Urine Blood 2+ (Negative) H 07/02/22 13:55 Urine Nitrite Negative (Negative) 07/02/22 13:55 Urine Bilirubin 3+ (Negative) H 07/02/22 13:55 Urine Urobilinogen Negative (Negative) 07/02/22 13:55 Ur Leukocyte Esterase Negative (Negative) 07/02/22 13:55 Urine WBC (Auto) 1-5 /hpf (0-5) 07/02/22 13:55 Urine RBC (Auto) 0-4 /hpf (0-4) 07/02/22 13:55 U Hyaline Cast (Auto) 1-5 /lpf (0-5) 07/02/22 13:55 U Epithel Cells (Auto) 5-10 /lpf (0-5) H 07/02/22 13:55 Urine Bacteria (Auto) Negative (Negative) 07/02/22 13:55 Granular Casts 10-20 /lpf (0) H 07/01/22 21:49 Urine Yeast Not Reportable 07/02/22 13:55 Urine Osmolality 369 mOsm/kg (500-800) L 07/02/22 13:55 Ur Random Creatinine 67.9 mg/dl 07/03/22 11:20 U Random Total Protein 116.8 mg/dl (0-11.9) H 07/03/22 11:20 Ur Random Sodium 20 mmol/L 07/02/22 13:55 Ur Random Potassium 21.8 mmol/L 07/02/22 13:55 Ur Random Chloride 26 mmol/L 07/02/22 13:55 Protein/Creatinin Ratio 1.7 (0-0.2) H 07/03/22 11:20 Nasal Screen MRSA (PCR) Negative (Negative) 07/02/22 18:45 Stl C. cayetanensis PCR Not Detected (NotDetected) 07/02/22 00:54 Stool Rotavirus A PCR Not Detected (NotDetected) 07/02/22 00:54 Stl Adenov F 40/41 PCR Not Detected (NotDetected) 07/02/22 00:54 Stool Astrovirus (PCR) Not Detected (NotDetected) 07/02/22 00:54 Stool Campylobacter PCR Not Detected (NotDetected) 07/02/22 00:54 Stl C. diff Tox B Gene Negative Cdiff Gene (Neg) 07/02/22 00:54 Stool Cryptosporidium PCR Not Detected (NotDetected) 07/02/22 00:54 Stl E.coli Shiga Tox PCR Not Detected (NotDetected) 07/02/22 00:54 Stl Enterotoxigenic E PCR Not Detected (NotDetected) 07/02/22 00:54 Stool EPEC (PCR) Not Detected (NotDetected) 07/02/22 00:54 Stool EAEC (PCR) Not Detected (NotDetected) 07/02/22 00:54 Stl E. histolytica PCR Not Detected (NotDetected) 07/02/22 00:54 Stool Giardia Lamblia PCR Not Detected (NotDetected) 07/02/22 00:54 Stool Salmonella PCR Not Detected (NotDetected) 07/02/22 00:54 Stool Sapovirus (PCR) Not Detected (NotDetected) 07/02/22 00:54 Stl P. shigelloides PCR Not Detected (NotDetected) 07/02/22 00:54 Stl Shigella/EIEC PCR Not Detected (NotDetected) 07/02/22 00:54 St Y.enterocolitica PCR Not Detected (NotDetected) 07/02/22 00:54 Stool Vibrio (PCR) Not Detected (NotDetected) 07/02/22 00:54 Stl Vibrio cholerae PCR Not Detected (NotDetected) 07/02/22 00:54 Stl Norovirus GI/GII PCR Not Detected (NotDetected) 07/02/22 00:54 Vancomycin Trough 10.3 mcg/ml (10-20) 07/06/22 07:40 Random Vancomycin 11.0 mcg/ml (10-20) 07/04/22 06:29 Urine Opiates Screen Neg (Neg) 07/01/22 20:38 Ur Methadone, Qual Neg (Neg) 07/01/22 20:38 Urine Barbiturates Neg (Neg) 07/01/22 20:38 Ur Phencyclidine (PCP) Neg (Neg) 07/01/22 20:38 U Amphetamin/Meth Scrn Neg (Neg) 07/01/22 20:38 MDMA (Ecstasy) Screen Neg (Neg) 07/01/22 20:38 U Benzodiazepines Scrn Neg (Neg) 07/01/22 20:38 Ur Cocaine Metabolite Neg (Neg) 07/01/22 20:38 U Marijuana (THC) Screen Pos (Neg) H 07/01/22 20:38 U Marijuana THC Carboxy 88 ng/mL (<5) H 07/01/22 20:38 Drug Screen Comment SEE NOTE 07/01/22 20:38 RPR Nonreactive (Nonreactive) 07/01/22 20:00 Adenovirus (PCR) Not Detected (NotDetected) 07/01/22 21:29 Anaplasma Smear See Comment 07/01/22 20:00 Babesia Smear See Comment 07/01/22 20:00 Babesia microti DNA PCR Not Detected (Not Detected) 07/01/22 20:00 B. pertussis DNA (PCR) Not Detected (NotDetected) 07/01/22 21:29 B.parapertussis DNA PCR Not Detected (NotDetected) 07/01/22 21:29 Lyme Disease IgG Ab Negative (Negative) 07/01/22 20:00 Lyme Disease IgM Ab Negative (Negative) 07/01/22 20:00 C. pneumoniae DNA (PCR) Not Detected (NotDetected) 07/01/22 21:29 Coronavirus OC43 (PCR) Not Detected (NotDetected) 07/01/22 21:29 Coronavirus HKU1 (PCR) Not Detected (NotDetected) 07/01/22 21:29 Coronavirus 229E (PCR) Not Detected (NotDetected) 07/01/22 21:29 SARS-CoV-2 (PCR) Not Detected (NotDetected) 07/01/22 21:29 Coronavirus NL63 (PCR) Not Detected (NotDetected) 07/01/22 21:29 Hepatitis A IgM Ab NON-REACTIVE (NON-REACTIVE) 07/01/22 20:00 Hep Bs Antigen NON-REACTIVE (NON-REACTIVE) 07/01/22 20:00 Hep Bs Ag Confirmation TNP 07/01/22 20:00 Hep B Core IgM Ab NON-REACTIVE (NON-REACTIVE) 07/01/22 20:00 Hepatitis C Ab (EIA) NON-REACTIVE (NON-REACTIVE) 07/01/22 20:00 Hep C Ab Signal/Cutoff 0.02 (<1.00) 07/01/22 20:00 Monoscreen Negative (Negative) 07/01/22 20:00 HIV-1 RNA copies/mL Cancelled 07/04/22 06:29 HIV-1 RNA logcopies/mL Cancelled 07/04/22 06:29 Human Metapneumovir PCR Not Detected (NotDetected) 07/01/22 21:29 Influenza Type A (PCR) Not Detected (NotDetected) 07/01/22 21:29 Influenza Type B (PCR) Not Detected (NotDetected) 07/01/22 21:29 M. pneumoniae (PCR) Not Detected (NotDetected) 07/01/22 21:29 Parainfluenza 1 (PCR) Not Detected (NotDetected) 07/01/22 21:29 Parainfluenza 2 (PCR) Not Detected (NotDetected) 07/01/22 21:29 Parainfluenza 3 (PCR) Not Detected (NotDetected) 07/01/22 21:29 Parainfluenza 4 (PCR) Not Detected (NotDetected) 07/01/22 21:29 RSV (PCR) Not Detected (NotDetected) 07/01/22 21:29 Entero/Rhino (PCR) Not Detected (NotDetected) 07/01/22 21:29 Bld Cult ID Panel PCR PCR Panel Negative (NotDetected) 07/01/22 20:00 Ref Lab Test Result 07/02/22 11:27 Blood Type A Positive 07/06/22 08:23 Antibody Screen NEGATIVE 07/06/22 08:23 Direct Antiglob Test Negative (Negative) 07/02/22 10:33 ANNA (IgG-AHG) Neg (Negative) 07/02/22 10:33 ANNA, Polyspecific Neg (Negative) 07/02/22 10:33 ANNA C3b, C3d 5 Min Neg (Negative) 07/02/22 10:33 Crossmatch See Detail 07/06/22 08:23 Impressions Abdomen/Pelvis CT 07/01/22 21:[address] WITH IV CONTRAST HISTORY: Acute fever with elevated LFTs Fever, elevated LFT, hyperbili, vomit TECHNIQUE: Multiaxial CT images of the abdomen and pelvis were performed following the IV administration of 86 cc of Optiray, A dose lowering technique was utilized adhering to the principles of ALARA. COMPARISON STUDY: Chest CT of same day, CT abdomen and pelvis 06/24/2022 FINDINGS: Numerous round consolidative densities of the lung bases, several of which are centrally cavitary measuring up to 2.9 cm are new from the prior study. No pneumatosis or pneumoperitoneum. The study is limited secondary to upper extremity positioning. Unremarkable spleen, pancreas and adrenal glands. Mildly distended gallbladder. The liver is within normal limits. Patency of the hepatic and portal veins. Unremarkable kidneys without hydronephrosis. The urinary bladder is within normal limits. Endometrium measures up to 1.6 cm. Uterus and ovaries are otherw ise unremarkable. Aorta and IVC are unremarkable. No pathologically enlarged lymph nodes are identified. Mild nonspecific wall thickening of the distal esophagus. Mild wall thickening of the mid to distal gastric body with partial distention is similar to prior. No bowel obstruction or bowel wall thickening. Small and large bowel air-fluid levels. Normal appendix. Mild nonspecific stranding is noted surrounding the left rectus femoris and iliopsoas psoas musculature. Moderate degeneration of the pubic symphysis. No acute fracture identified. IMPRESSION: 1. Interval development of numerous round and centrally cavitary consolidative opacities of the lung bases, new from 06/24/2022 suggestive of septic emboli. 2. No bowel obstruction or bowel wall thickening. Normal appendix. 3. Mild wall thickening of the gastric body redemonstrated which may be secondary to partial distention versus a nonspecific gastritis. 4. Mild stranding surrounding the proximal rectus femoris and iliopsoas musculature. Correlate with clinical exam findings and patient history. ACT 112: Negative or not required by law. The above report was generated using voice recognition software. It may contain grammatical, syntax or spelling errors. Electronically signed by: Roberto Aly M.D. 07/02/2022 7:53 AM Soft Tissue Neck CT 07/01/22 22:14 CT OF THE NECK WITH IV CONTRAST CLINICAL HISTORY: Lymphadenopathy. COMPARISON STUDY: No previous studies for comparison. TECHNIQUE: Following IV administration of 86 mL of Optiray, helical axial images of the neck were obtained. Sagittal and coronal reconstructions were viewed. Automated exposure control was utilized for the study. A dose lowering technique was utilized adhering to the principles of ALARA. FINDINGS: Visualized portions of the intracranial contents are unremarkable. The mastoid air cells are clear. The sinuses are clear. Note is made of a 1.9 x 1.8 cm left peritonsillar rim enhancing fluid collection consistent with a peritonsillar abscess. There is moderate associated mass effect with narrowing of the hypopharynx. There is an adjacent 1.7 x 1.5 cm fluid collection within the left paravertebral space consistent with an additional abscess. In addition, there is occlusive thrombus within the left internal jugular vein. Mild to moderate prevertebral edema is also present. The epiglottis is normal. There is no soft tissue gas. No additional sites of vessel occlusion are identified within the neck. Prominent left cervical lymph nodes are reactive. Visualized portions of the chest demonstrate multiple cavitary round airspace opacities consistent with septic pulmonary emboli. IMPRESSION: 1. Findings consistent with Lemierre syndrome. Two left peritonsillar abscesses, measuring up to 1.9 x 1.8 cm, with associated occlusive thrombophlebitis of the left internal jugular vein and septic pulmonary emboli. This finding will be called/faxed to ordering provider at time of dictation. 2. Mild to moderate prevertebral edema. ACT 112: Negative or not required by law. Electronically signed by: Mendez Russell M.D. 07/02/2022 7:16 AM Hand X-Ray 07/01/22 22:16 XR hand LT min 3V routine CLINICAL HISTORY: 3rd finger MCP swelling COMPARISON: None FINDINGS: Alignment of the left hand is anatomic. There is no acute fracture. There is no bony erosion. Dorsal soft tissue swelling is noted on lateral projection. There is also soft tissue swelling adjacent to the left third metacarpophalangeal joint and within the left third finger. No soft tissue gas is identified. IMPRESSION: 1. No osseous abnormality within the left hand. 2. Soft tissue swelling the dorsal left hand and left third digit, as described above. This is nonspecific. ACT 112: Negative or not required by law. Electronically signed by: Mendez Russell M.D. 07/02/2022 7:[address] 07/01/22 22:[address] WITH CONTRAST CT DOSE: 875.10 mGy.cm HISTORY: Acute tachycardia with lymphadenopathy tachycardia, lymphadenopathy TECHNIQUE: Multiaxial CT images of the chest were performed following the IV administration of 86 cc of Optiray. A dose lowering technique was utilized adhering to the principles of ALARA. COMPARISON: CT abdomen and pelvis of same day and also 06/24/2022 FINDINGS: Unremarkable thyroid. The heart is normal in size without pericardial effusion. The thoracic aorta and pulmonary arterial tree are suboptimally evaluated secondary to respiratory motion artifact. Trace pleural effusions. No pneumothorax. Mild intralobular septal thickening with bronchial wall thickening and areas of mild mosaic attenuation. There is development of numerous rounded nodular consolidative opacities within a multilobar and multi segmental distribution. Many of these lesions are centrally cavitary measuring up to 2.4 cm within the left lower lobe and 2.6 cm within the right lower lobe. Several of these lesions about the peripheral pleural surfaces. Unremarkable soft tissues. No acute fracture. IMPRESSION: 1. Interval development of numerous round and centrally cavitary consolidative opacities of the lungs which are new from 06/24/2022. Findings are suggestive of septic emboli. 2. No lymphadenopathy. ACT 112: Negative or not required by law. Electronically signed by: Roberto Aly M.D. 07/02/2022 8:14 AM Extremity Venous Study 07/02/22 13:34 LEFT UPPER EXTREMITY VENOUS DOPPLER HISTORY: Follow-up left internal jugular vein thrombus. DVT COMPARISON STUDY: CT neck 07/01/2022. FINDINGS: There is persistent occlusive thrombus seen within the left internal jugular vein. This is similar to the prior study. There is normal flow within the left subclavian vein. There is normal flow and compressibility within the left axillary, basilic, brachial, radial, ulnar, and visualized cephalic veins. IMPRESSION: No significant change in the left internal jugular vein occlusive thrombus. ACT 112: Negative or not required by law. Electronically signed by: Doug Stewart M.D. 07/02/2022 2:[address] 07/03/22 08:[address] WITHOUT CONTRAST CLINICAL HISTORY: Swelling of hand, dactylitis ? COMPARISON STUDY: Left hand radiographs July 01, 2022. TECHNIQUE: Axial images of the left hand were obtained without IV contrast. Sagittal and coronal reconstructions were viewed. Automated exposure control was utilized for the study. A dose lowering technique was utilized adhering to the principles of ALARA. FINDINGS: Alignment of the left hand is anatomic. There is no fracture. There is no bony erosion to suggest acute osteomyelitis. There is no soft tissue gas. Note is made of extensive soft tissue swelling of the left third finger suggestive of cellulitis. Evaluation for abscess is suboptimal on this unenhanced exam. In addition, there is marked distention of the flexor tendon sheath of the left third digit. The wall of the tendon sheath is thickened. There are multiple pockets of adjacent fluid. There may also be increased fluid within the tendon sheaths of the left second and fourth digits. Carpal bones are intact. Distal left radius and ulna are intact. IMPRESSION: 1. Findings consistent with an extensive infectious process of the left hand, predominantly affecting the third digit and associated flexor tendon sheath. Left third digit soft tissue swelling suggestive of cellulitis. No soft tissue gas. No evidence for acute osteomyelitis. 2. Marked distention of the flexor tendon sheath of the left third digit with wall thickening of the tendon sheath. This is suggestive of an infectious tenosynovitis, possibly purulent. Multiple pockets of adjacent fluid which may favor cellulitis or phlegmon however early developing abscesses cannot be excluded. ACT 112: Negative or not required by law. Electronically signed by: Mendez Russell M.D. 07/03/2022 10:[address] 07/04/22 12:49 CT head/brain wo con CLINICAL HISTORY: AMS Technique: Contiguous axial CT images of the head were acquired from the base of the skull to the vertex without intravenous contrast administration. Images were viewed in brain, subdural and bone windows. Automated dose lowering techniques and/or adjustment according to patient size were utilized for this exam. Comparison: None available at the time of this dictation. Findings: The ventricles, basal cisterns, and cerebral sulci are normal. There is no acute intracranial hemorrhage or evidence of acute territorial infarction. Neither mass effect, shift of the midline structures, nor abnormal extra-axial fluid collections are shown. Imaged portions of the paranasal sinuses and mastoid air cells are clear. The orbits appear normal. There are no acute fractures of the calvaria or scalp swelling. Impression: No acute intracranial hemorrhage, no evidence of acute territorial infarction or other acute intracranial disease process. ACT 112: Negative or not required by law. Electronically signed by: Evaristo Mckinney M.D. 07/04/2022 3:52 PM Chest X-Ray 07/07/22 07:54 XR chest 1V portable CLINICAL HISTORY: Fever. COMPARISON STUDY: Chest CT July 01, 2022 and chest radiograph July 05, 2022. FINDINGS: There is no pneumothorax. Small left and trace right pleural effusions are similar to prior exam. Left basilar airspace opacity is similar to prior exam. There has been slight increase in conspicuity of multiple cavitary foci of consolidation within the lungs since prior exam. Cardiac size is normal. There is no evidence for pulmonary edema. IMPRESSION: 1. Mild increase in multifocal cavitary foci within the lungs consistent with septic pulmonary emboli. 2. Persistent left lower lung airspace opacity which favors pneumonia. 3. Stable small left and trace right pleural effusions. ACT 112: Negative or not required by law. Electronically signed by: Mendez Russell M.D. 07/07/2022 8:49 AM Chest CTA 07/07/22 09:03 CT ANGIOGRAPHY OF THE CHEST, PULMONARY EMBOLUS PROTOCOL CLINICAL HISTORY: Cough. Evaluate for pulmonary emboli. COMPARISON STUDY: Chest CT July 01, 2021 and chest radiograph performed e daksha sommers. TECHNIQUE: Following IV administration of 115 mL of Optiray, helical axial images of the chest were obtained utilizing the pulmonary embolus protocol. Maximal intensity projections and sagittal and coronal reformats were viewed on an independent 3D workstation. IV contrast was administered without complication. Automated exposure control was utilized for the study. A dose lowering technique was utilized adhering to the principles of ALARA. CT DOSE: 275.54 mGy.cm FINDINGS: No pulmonary emboli are identified although the upper lobe pulmonary arteries are suboptimally opacified on this exam. Left neck stranding is partially imaged on this examination. The tonsillar/peritonsillar regions were not imaged on this chest CT. Note is again made of thrombus within the left internal jugular vein, as shown on neck CT of July 01, 2022. There is an enlarged 1.8 x 1.4 cm left level 3 lymph node which is suboptimally assessed on this exam. Mildly enlarged bilateral hilar lymph nodes are likely reactive. There is no pericardial effusion. Small left and trace right pleural effusions are present. Numerous cavitary foci of round consolidation throughout the lungs are again noted. Several these foci of increased in extent since CT of July 01, 2022. There is no pneumothorax. Central airways are patent. Bony thorax is unremarkable. Heterogeneity of the spleen is likely due to the phase of enhancement. IMPRESSION: 1. No pulmonary emboli identified although upper lobe pulmonary arteries suboptimally opacified. 2. Findings consistent with the Lemierre syndrome. Thrombophlebitis of the left internal jugular vein with extensive septic pulmonary emboli. Extent of multiple cavitary foci of consolidation and adjacent groundglass opacity has increased since CT of July 01, 2022. 3. Small left and trace right pleural effusions. 4. Left neck inflammation due to tonsillitis, partially imaged on this exam. Enlarged left level 3 lymph node, possibly suppurative. ACT 112: Negative or not required by law. Electronically signed by: Mendez Russell M.D. 07/07/2022 10:11 AM Medications Administered Current Inpatient Medications Albuterol (Albuterol Hfa 8 Gm Inhaler) 2 puffs INH Q6R PRN PRN Reason: shortness of breath Stop: 08/06/22 09:02 Bisacodyl (Bisacodyl 10 Mg Supp) 10 mg AR DAILY PRN PRN Reason: Constipation Stop: 08/03/22 15:23 Docusate Sodium (Docusate Sodium 100 Mg Cap) 100 mg PO BID ELE Stop: 08/03/22 20:59 Last Admin: 07/07/22 09:12 Dose: Not Given Fexofenadine HCl (Fexofenadine 60 Mg Tab) 60 mg PO BID PRN PRN Reason: itching Stop: 08/03/22 08:59 Pantoprazole Sodium 40 mg/ (Syringe) 10 mls @ 5 mls/min IV DAILY@1100 ELE Stop: 08/02/22 10:59 Last Admin: 07/07/22 10:00 Dose: 5 mls/min Vancomycin HCl 1,250 mg/ (Sodium Chloride) 275 mls @ 200 mls/hr IV Q8H [facility]; Protocol Stop: 07/11/22 15:59 Last Infusion: 07/07/22 10:26 Dose: Infused Metronidazole (Flagyl) 500 mg in 100 mls @ 100 mls/hr IV Q8H [facility] Stop: 07/20/22 16:29 Last Infusion: 07/07/22 10:07 Dose: Infused Cefepime HCl 2,000 mg/ Syringe 20 mls @ 5 mls/min IV Q8H [facility]; Protocol Stop: 07/21/22 07:59 Last Admin: 07/07/22 09:53 Dose: 5 mls/min Potassium Phosphate 30 mmol/ (Sodium Chloride) 510 mls @ 102 mls/hr IV ONE ONE Stop: 07/07/22 13:14 Last Admin: 07/07/22 09:53 Dose: 102 mls/hr Heparin Sodium/Dextrose (Heparin Sodium/Dextrose) 25,000 units in 500 mls @ 16 mls/hr IV .Q24H [facility]; Protocol Stop: 08/06/22 10:44 Ketorolac Tromethamine (Ketorolac 30 Mg/Ml Vial) 30 mg IV Q6H PRN PRN Reason: Moderate Pain Stop: 07/10/22 10:05 Magnesium Hydroxide (Magnesium Hydroxide Susp 30 Ml Udc) 30 ml PO Q6H PRN PRN Reason: Constipation Stop: 08/03/22 15:23 Metoclopramide HCl (Metoclopramide Hcl Inj 5 Mg/Ml 2 Ml Vial) 10 mg IV Q6H PRN PRN Reason: Nausea And Vomiting Stop: 08/03/22 15:23 Miscellaneous Information (Vancomycin Consult Active) 1 each N/A UD PRN PRN Reason: Consult Stop: 07/31/22 23:56 Morphine Sulfate (Morphine Sulfate 2 Mg/Ml Carp) 2 mg IV Q4 PRN PRN Reason: Pain Stop: 07/17/22 08:27 Last Admin: 07/07/22 09:15 Dose: 2 mg Multivitamins (Multivitamin Tab) 1 tab PO QAM [facility] Stop: 08/04/22 08:59 Last Admin: 07/07/22 09:12 Dose: 1 tab Naloxone HCl (Naloxone Hcl 0.4 Mg/1 Ml Vial/Carp) 0.1 mg IV Q5M PRN PRN Reason: Oversedation/Resp Depression Stop: 08/03/22 15:23 Nitroglycerin (Nitroglycerin Sl 0.4 Mg/Tab Tab) 0.4 mg SL UD PRN PRN Reason: Chest Pain Stop: 08/01/22 03:38 Ondansetron HCl (Ondansetron Inj 2 Mg/Ml 2 Ml Vial) 4 mg IV Q6H PRN PRN Reason: Nausea And Vomiting Stop: 08/03/22 15:23 Sennosides (Senna 8.6 Mg Tab) 17.2 mg PO HS [facility] Stop: 08/03/22 20:59 Last Admin: 07/06/22 20:49 Dose: Not Given
[2022-07-07 12:08] LABS: EBV Virus Capsid Ag IgG Ab >750.00 U/mL
[2022-07-07 12:29] LABS: Partial Thromboplastin Time 27.3 Seconds (21.0-31.0)
[2022-07-07] MEDS: HEPARIN SODIUM/DEXTROSE 25,000 UNITS/500 ML BAG IV SCH (12:36)
--- NOTE | 2022-07-07 13:18 | Ultrasound Report ---
US venous doppler LE RT CLINICAL HISTORY: DVT TECHNIQUE: Right lower extremity real-time compression venous ultrasound with Color Doppler imaging. Utilizing real-time ultrasonic imaging multiple real time high-resolution ultrasonic images with comp ression and noncompression maneuvers of the deep venous system in addition to color doppler imaging w ere performed from the common femoral vein through the proximal calf veins. COMPARISON: None available at the time of this dictation. FINDINGS: Currently there is normal compressibility of the deep venous system from the common femoral vein thro ugh the proximal calf veins. No superficial venous thrombosis is identified. Impression: No evidence of deep venous thrombus. ACT 112: Negative or not required by law. Electronically signed by: Evaristo Mckinney M.D. 07/07/2022 1:16 PM
[2022-07-07] MEDS: cefTRIAXone SODIUM 2,000 MG in DEXTROSE 5% 50 ML IV SCH (16:07)
[2022-07-07 19:21] LABS: Partial Thromboplastin Ratio 1.1; Partial Thromboplastin Time 31.3 Seconds (21.0-31.0)
[2022-07-07] MEDS: ALBUTEROL HFA 8 GM INHALER INH PRN (19:27)
[2022-07-07] MEDS ORDERED: HEPARIN SOD (PORCINE) 1000 UNIT/ML IV ONE (19:45)
[2022-07-07] MEDS: SENNA 8.6 MG TAB PO SCH (20:24)
[2022-07-07 20:43] LABS: Appearance Urine Clear (Clear); Bacteria Urine Automated Negative (Negative); Bilirubin Urine Negative (Negative); Blood Urine Trace (Negative); Color Urine Dark Yellow; Epithelial Cell Urine Auto 20-30 /lpf (0-5); Glucose Urine UA Negative (Negative); Ketones Urine Negative (Negative); Leukocyte Esterase Urine Trace (Negative); Nitrite Urine Negative (Negative); Protein Urine 1+ (Negative); Specific Gravity Urine 1.015 (1.000-1.030); Urobilinogen Urine Negative (Negative)
[2022-07-07] MEDS: KETOROLAC 30 MG/ML VIAL IV PRN (23:55)
[2022-07-08] MEDS: ALBUTEROL HFA 8 GM INHALER INH PRN ×2 (01:53→23:56)
[2022-07-08 02:00] LABS: Partial Thromboplastin Ratio 1.2; Partial Thromboplastin Time 34.3 Seconds (21.0-31.0)
[2022-07-08] MEDS ORDERED: HEPARIN IV BOLUS 3,000 UNITS in SYRINGE 0 ML IV ONE (02:30)
[2022-07-08] MEDS: MoRPHine SULFATE 2 MG/ML CARP IV PRN ×2 (03:07→09:30)
[2022-07-08 04:36] LABS: INR 1.5 (0.9-1.1); Prothrombin Time 15.2 Seconds (9.0-12.0)
[2022-07-08 04:48] LABS: Hemoglobin 6.5 g/dl (12.0-16.0); Mean Corpuscular Hemoglobin 30.1 pg (25.0-34.0); Mean Corpuscular Hgb Conc 34.2 g/dL (32.0-36.0); Platelet Count 246 K/uL (130-400); RDW Standard Deviation 46.6 fL (36.4-46.3); Red Blood Count 2.16 M/uL (3.93-5.22); White Blood Count 13.77 K/ul (4.8-10.8)
[2022-07-08 04:50] LABS: Alanine Aminotransferase 40 U/L (7-52); Albumin Globulin Ratio 0.5 (0.9-2); Alkaline Phosphatase 69 U/L (34-104); Anion Gap 6 (3-11); Aspartate Aminotransferase 24 U/L (13-39); BUN Creatinine Ratio 10.9 (10-20); Bilirubin,Total 2.2 mg/dl (0.2-1.0); Blood Urea Nitrogen 5 mg/dl (6-23); C Reactive Protein 17.23 mg/dl (0-0.5); Calcium 7.7 mg/dl (8.5-10.1); Carbon Dioxide 24 mmol/L (21-32); Chloride 105 mmol/L (98-107); Creatinine Clr Calc Pharmacy 185.5 ml/min; Est GFR (African American) > 150.0 ml/min; Est GFR (Non-African American) 131.6 ml/min; Globulin 3.7 gm/dl (2.5-4.0); Glucose 115 mg/dl (70-99(Fasting)); Magnesium 1.7 mg/dl (1.7-2.4); Phosphorus 3.2 mg/dl (2.5-4.9); Potassium 3.3 mmol/L (3.5-5.1); Sodium 135 mmol/L (136-145); Total Protein 5.7 gm/dl (6.0-8.3)
[2022-07-08] MEDS ORDERED: SODIUM CHLORIDE 0.9% 250 ML IV PRN ×2 (04:56→09:00)
[2022-07-08] MEDS ORDERED: POTASSIUM CHLORIDE CRTAB 20 MEQ TABCR PO STA (05:27)
[2022-07-08] MEDS: MAGNESIUM SULFATE / D5W 1 GM/100 ML BAG IV SCH ×3 (05:37→08:54)
[2022-07-08 06:21] LABS: Basophils # (auto) 0.03 K/uL (0-0.2); Basophils % (auto) 0.2 %; Eosinophils # (auto) 0.05 K/uL (0-0.50); Eosinophils % (auto) 0.4 %; Immature Granulocytes # (auto) 0.31 K/uL (0.00-0.02); Immature Granulocytes % (auto) 2.3 %; Lymphocytes # (auto) 1.45 K/uL (1.2-3.4); Lymphocytes % (auto) 10.5 %; Monocytes # (auto) 0.52 K/uL (0.24-0.82); Monocytes % (auto) 3.8 %; Neutrophils # (auto) 11.41 K/uL (1.4-6.5); Neutrophils % (auto) 82.8 %; Polychromasia 1+; Target Cells 1+
[2022-07-08] MEDS ORDERED: VANCOMYCIN LEVEL ONE (07:30)
[2022-07-08 08:22] LABS: Partial Thromboplastin Ratio 1.4; Partial Thromboplastin Time 39.3 Seconds (21.0-31.0)
[2022-07-08] MEDS: metroNIDAZOLE 500 MG/100 ML BAG IV SCH ×3 (08:50→23:54)
[2022-07-08] MEDS: MULTIVITAMIN TAB PO SCH (08:51)
[2022-07-08] MEDS: DOCUSATE SODIUM 100 MG CAP PO SCH ×3 (08:51→21:29)
--- NOTE | 2022-07-08 09:22 | Progress Notes ---
SUBJECTIVE: A 31-year-old female, now postop day 3 from irrigation and debridement of a left hand in fection. Hand is doing well. It is still pretty sore, but much improved. She is able to wiggle her fingers reasonably. There is no further discharge. OBJECTIVE: VITAL SIGNS: Temperature 37.4. Vital signs fairly stable, although she is tachycardic. EXTREMITIES: Examination of the left hand reveals the incisions to be well approximated. There is n o active drainage. Some mild swelling. She can flex and extend her fingers about 50% with some mode rate pain, much improved. LABORATORY DATA: White cell count 13.57. Hemoglobin 7.4. Hematocrit 21.3. INR 1.4. CULTURE RESULTS: Culture results from the left middle finger are growing out fusobacterium species. ASSESSMENT: A 31-year-old female with fairly extensive polyorgan infection including tonsils, hand, and bloodstream. From her hand standpoint, she is much improved. Interestingly, the bacteria is the same that has grown out of her tonsils. PLAN: At this point, we will continue antibiotic management. She will need several weeks of antibio tics likely. We ordered some physical therapy for some range of motion to restore range of motion of the digits and avoid stiffness. We will continue to follow her. No further need for surgery at thi s point. Any orthopedic questions can be directed to me at [phone]. Job ID: [id number]
--- NOTE | 2022-07-08 10:26 | XRay Report ---
SINGLE VIEW CHEST CLINICAL HISTORY: Cough FINDINGS: An AP, portable, upright chest radiograph is compared to chest x-ray and chest CT dated . The examination is degraded by portable technique and patient rotation. The cardiomediastina l silhouette is unremarkable. There are left larger than right pleural effusions with bibasilar conso lidation. Cavitary pulmonary nodular opacities are again seen throughout both lungs. The largest on t he right measures up to 4 cm. No pneumothorax is seen. The bony thorax is grossly intact. IMPRESSION: 1. Findings are similar to yesterday. 2. Left larger than right pleural effusions with bibasilar consolidation. 3. Bilateral cavitary pulmonary nodular opacities are unchanged. ACT 112: Negative or not required by law. Electronically signed by: Eduardo Smiley M.D. 07/08/2022 10:24 AM
[2022-07-08] MEDS: PANTOprazole 40 MG in SYRINGE 0 ML IV SCH (11:37)
[2022-07-08] MEDS: HEPARIN SODIUM/DEXTROSE 25,000 UNITS/500 ML BAG IV SCH (11:37)
[2022-07-08 11:46] LABS: Hematocrit (blood only) 24.6 % (34.1-44.9); Hemoglobin 8.4 g/dl (12.0-16.0); Mean Corpuscular Hemoglobin 29.8 pg (25.0-34.0); Mean Corpuscular Hgb Conc 34.1 g/dL (32.0-36.0); Mean Corpuscular Volume 87.2 fL (80.0-100.0); Mean Platelet Volume 10.9 fL (9.4-12.3); Platelet Count 267 K/uL (130-400); RDW Coefficient of Variation 14.9 % (11.5-14.5); Red Blood Count 2.82 M/uL (3.93-5.22); White Blood Count 16.82 K/ul (4.8-10.8)
[2022-07-08 11:49] LABS: CMV IgM Antibody <30.00 AU/mL; Herpes Simplex Ab IgG-1 <0.90 index
--- NOTE | 2022-07-08 12:47 | Hospitalist Progress Note ---
Date of Service July 08, 2022 Assessment & Plan (1) Lemierre syndrome: Plan: per Dr. Rodriguez's notes with addendum: - evidence of Left IJ occlusive thrombophlebitis, peritonsillar abscesses, cavitary pulmonary lesions - started with sore throat - started on broad spectrum abx with vancomycin and Zosyn - abx changed to vancomycin, cefepime, flagyl - blood cultures growing Fusobacterium - pulm and ENT consulted - s/p peritonsillar abscess drainage by ENT 07/02/2022 - s/p 10mg Decadron IV per ENT - ended 07/05/2022 - hematology consult for further recs on AC management - patient tachycardic and febrile - CTA to evaluate PE was negative for PE but showed increase in cavitary lesions in lungs concerning for worsening embolic events - given history of anemia requiring 1 unit PRBC 07/06/2022 and possible need for AC given worsening embolic events, ICU transfer for closer monitoring Lemierre's Disease, 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 Pulmonary Septic Emboli with Cavities s/p Drainage of L Tonsil s/p Drainage of L Hand Abscess - repeat BC: negative - repeat CT chest: extension of pulmonary cavities - IV Ceftri + Flagyl TID x 6 weeks currently on IV Heparin - repeat L IJ US to ff up thrombus requested Pulm and Hem to reevaluate patient (2) Anemia: Plan: - anemia in young woman is not abnormal but given rest of presentation could be exacerbated - no evidence of bleeding at this time - slight down trend - hemodynamically stable - heme consult - likely due to bone marrow suppression in setting of sepsis as well as IVF - hgb to 6.7 07/06/2022 - s/p 1 unit PRBC transfusion - LDH wnl - no evidnece of bleed and I/D with minimal EBL - active type and screen - hgb responded appropriately and stable since transfusion - will continue to monitor 07/08 Iron Deficiency anemia Hg decreased to 6.5 again this AM received 3rd unit pRBC repeat Hg 8.4 patient reports heavy menses [employer] to ff up patient today Iron 17 will start Iron supplement (3) Sepsis: Plan: - in the setting of GNR bacteremia and Lemierre Syndrome - tachycardic, leukocytosis, fever POA - IV abx as above - became more tachycardic overnight - concern for worsening embolic events in setting of Lemierre Syndrome - transferred to ICU for further monitoring - continue management as above 07/08 Tmax 37.8 overnight WBC increased to 16k HR improving on abx per above monitor closely (4) Abscess of tonsil: Plan: - ENT consulted for drainage - IV abx as above - s/p decadron per ENT - s/p drainage 07/02/2022 (5) Abscess of left hand: Plan: - noted erythema and swelling, tenderness, decreased ROM - CT without contrast with possible abscesses vs early forming abscesses - MRI with contrast of left hand ordered per Ortho - ortho consulted for evaluation - s/p OR I/D by ortho 07/04/2022 - dressing changes and drain management per ortho (6) Septic pulmonary embolism: Plan: - possible septic emboli in setting of Lemierre Syndrome - blood cultures pending - GNRs - IV abx as above - TTE to evaluate for vegetations - no evidence of vegetation or abscess on TTE - repeat CTA chest 07/07/2022 with negative for PE but extension of cavity (7) Elevated LFTs: Plan: - unclear etiology and if this is part of Lemierre Syndrome - CT AP with contrast showed normal appearing liver, patent hepatic and portal veins - hepatitis panel negative - GI consulted - LFTs improving with treatment of sepsis (8) Thrombocytopenia: Plan: - in the setting of sepsis and acute illness as above - unclear etiology at this time - continue work up per GI as above - autoimmune, infectious work up pending - monitor for bleeding - no evidence of bleeding - platelets improving - monitor (9) Asthma: Plan: - currently not in exacerbation - not on home inhalers - will monitor for now Plan DVT ppx: heparin SC Code Status: Full Code Dispo: PCU --> ICU Admission and Anticipated Discharge Date Admission Date: July 02, 2022 Subjective ff up for Lemierre's disease, sepsis, bacteremia, pulmonary cavity, L hand abscess, anemia, etc seen resting in bed, comfortable states she feels ok overall still has some sore throat, L hand soreness no shortness of breath, has occasional dry cough, no chest pain no dizziness, fever/chills, nausea no other symptoms Review of Systems Review of Systems: all noted and negative except for above Physical Exam Physical Exam: General- oriented x 3, not in distress, speaks in sentences with no effort or accessory muscle use Eyes- anicteric Neck- no JVD Lungs- clear breath sounds bilaterally, no rales/wheezes Heart- normal rate, regular rhythm; no murmurs Abdomen- normal bowel sounds, nondistended, soft, nontender Extremities- no pretibial edema, no calf tenderness L hand- dressing in place no bleeding, discharge Neuro- alert, oriented x 3; no gross focal neurologic deficits Skin- warm & dry Results & Data Results & Data ([facility]) Vital Signs (Past 12 Hours) Vital Signs Temp Pulse Pulse Resp BP Pulse Ox O2 Del Method 07/08/22 11:00 97 H 20 99 07/08/22 11:00 126/81 07/08/22 10:31 135/88 07/08/22 10:31 97 H 17 99 07/08/22 10:00 92 H 18 99 07/08/22 10:00 130/84 07/08/22 09:30 129/76 07/08/22 09:30 95 H 24 98 07/08/22 09:00 101 H 22 96 07/08/22 09:00 134/94 07/08/22 11:30 37.3 C 07/08/22 07:30 Room Air 07/08/22 08:00 80 07/08/22 08:30 141/95 H 07/08/22 08:30 101 H 19 98 07/08/22 08:00 90 17 07/08/22 08:00 139/91 07/08/22 07:30 128/89 07/08/22 07:30 85 14 07/08/22 07:00 94 H 15 99 07/08/22 07:00 139/84 07/08/22 08:00 36.6 C 07/08/22 07:28 94 H 18 128/89 97 07/08/22 08:00 36.8 C 94 H 18 139/91 95 07/08/22 06:28 36.8 C 90 18 120/70 98 07/08/22 05:58 91 H 16 115/68 99 07/08/22 05:43 36.8 C 95 H 15 120/73 99 07/08/22 05:27 37 C 92 H 14 140/78 100 07/08/22 05:00 101 H 17 140/78 99 Room Air 07/08/22 04:00 37 C 89 17 117/62 98 Room Air 07/08/22 03:00 99 H 14 123/70 96 Room Air 07/08/22 02:00 101 H 17 118/60 96 Room Air 07/08/22 01:55 103 H 18 99 Room Air 07/08/22 01:00 108 H 22 98 Room Air all noted and reviewed including below
--- NOTE | 2022-07-08 14:13 | Ultrasound Report ---
US venous doppler UE LT HISTORY: 31 years-old Female ff up, L Int jugular vein thrombophlebitis follow-up study in a patient with left internal jugular vein thrombus COMPARISON: 07/02/2022 TECHNIQUE: Multiple real-time sonographic images of the left upper extremity deep venous structures w ere obtained assessing grayscale appearance, color and spectral flow FINDINGS: Occlusive thrombus left internal jugular vein redemonstrated. No additional deep venous thrombus iden tified. IMPRESSION: Unchanged appearance of the occlusive thrombus of the left internal jugular vein. ACT 112: Negative or not required by law. The above report was generated using voice recognition software. It may contain grammatical, syntax o r spelling errors. Electronically signed by: Roberto Aly M.D. 07/08/2022 2:11 PM
[2022-07-08] MEDS: KETOROLAC 30 MG/ML VIAL IV PRN (14:38)
--- NOTE | 2022-07-08 15:28 | Pulmonary Consultation ---
Date of Consultation July 08, 2022 Assessment & Plan (1) Septic pulmonary embolism: (2) Cavitary pneumonia: (3) Lemierre syndrome: Plan Left IJ clot appears stable. Consider transfer to tertiary care center for evaluation of thrombectomy if symptoms worsen. Consider MRI of the brain to evaluate for septic emboli as she is currently on heparin infusion. Continue abx. No role for bronch. Will give a dose of 20 mg iv lasix as she looks overloaded. Will prescribe tessalon perles for cough. D/W nelson Araiza RN. D/W hospitalist. History of Present Illness Reason for Consultation: Worsening cavitary lesions on CT chest Attending Physician: Humberto Gillespie MD History of Present Illness Patient initially presented over a week ago due to findings of multifocal pneumonia and was eventually diagnosed with Lemieerre syndrome. ID has been consulted. She is currently on vancomycin cefepime and Flagyl. She had a peritonsillar abscess that was drained on the . She was found to have thrombophlebitis of the left IJ. I was called to help assist with management of her care. I recommend that the patient undergo a repeat ultrasound of her left IJ to evaluate for propagation of clot. Left ultrasound demonstrates occlusive thrombus of the left internal jugular vein which is unchanged from prior. Chest CTA completed 07/07/2022 revealed thrombophlebitis of the left IJ with extensive septic pulmonary emboli. Multiple cavitary foci increased compared to the CT from the . Small left and trace right pleural effusions. She is currently saturating 97% on room air. Leukocytosis is worsened today to 16,800. Hemoglobin 8.4. Notes increasing soreness in her throat. Difficult to take deep breaths due to pain. Denies nausea. Appetite poor. No fever currently. Denies drug abuse or etoh abuse. Allergies Allergy/AdvReac Type Severity Reaction Status Date / Time lactose AdvReac Verified 07/07/22 10:57 Home Medications Medication Instructions Recorded Confirmed Type No Known Home Medications 07/01/22 07/01/22 History Patient History Medical History (Updated 07/08/22 @ 15:27 by Chavo Truong MD) HARRY (acute kidney injury) Anemia Asthma Cavitary pneumonia Electrolyte and fluid disorder Elevated LFTs Lemierre syndrome Sepsis Septic pulmonary embolism Thrombocytopenia Surgical History Hx of peritonsillar abscess drainage Family History Other Family history non-contributory Social History Smoking Status: Former smoker Second Hand Exposure: No; Do You Dip or Chew Tobacco: No; Hx Alcohol Use: No Hx Substance Use: No Preferred Language: Malay Communication Ability: Impaired [employer] Required: No Beliefs That Will Affect Care: None Current Living Situation: Family Feels Safe at Home: Yes Safety Concerns: Feels Safe At This Time Assistive Devices: None Review of Systems Review of Systems: All systems reviewed & are unremarkable except as noted in HPI & below Physical Exam Constitutional: WD/WN, vitals as above Eyes: PERRL, conjunctivae normal, anicteric sclerae Respiratory: normal respiratory effort, lungs clear to auscultation Cardiovascular: RRR, no murmur, no edema Gastrointestinal (Abdomen): normal bowel sounds, soft, nontender, no hepatosplenomegaly Neurologic: PERRL, EOMI, accommodation nl, no face palsy, no dysarthria Psychiatric: A+Ox3, euthymic affect Results & Data Results & [facility] ([facility]) Vital Signs (Past 12 Hours) Vital Signs Temp Pulse Resp BP Pulse Ox O2 Del Method 07/08/22 13:00 104 H 19 97 07/08/22 13:00 136/85 07/08/22 12:30 99 H 18 99 07/08/22 12:30 136/89 07/08/22 12:00 99 H 17 98 07/08/22 12:00 133/88 07/08/22 11:30 98 H 21 97 07/08/22 11:30 140/76 07/08/22 11:00 97 H 20 99 07/08/22 11:00 126/81 07/08/22 10:31 135/88 07/08/22 10:31 97 H 17 99 07/08/22 10:00 92 H 18 99 07/08/22 10:00 130/84 07/08/22 09:30 129/76 07/08/22 09:30 95 H 24 98 07/08/22 09:00 101 H 22 96 07/08/22 09:00 134/94 07/08/22 11:30 37.3 C 07/08/22 07:30 Room Air 07/08/22 08:00 80 07/08/22 08:30 141/95 H 07/08/22 08:30 101 H 19 98 07/08/22 08:00 90 17 07/08/22 08:00 139/91 07/08/22 07:30 128/89 07/08/22 07:30 85 14 07/08/22 07:00 94 H 15 99 07/08/22 07:00 139/84 07/08/22 08:00 36.6 C 07/08/22 07:28 94 H 18 128/89 97 07/08/22 08:00 36.8 C 94 H 18 139/91 95 07/08/22 06:28 36.8 C 90 18 120/70 98 07/08/22 05:58 91 H 16 115/68 99 07/08/22 05:43 36.8 C 95 H 15 120/73 99 07/08/22 05:27 37 C 92 H 14 140/78 100 07/08/22 05:00 101 H 17 140/78 99 Room Air 07/08/22 04:00 37 C 89 17 117/62 98 Room Air PG Care Time/CCT Total # of Minutes Spent Total Time Spent with Patient: Total time spent is greater than 50% in coordination of care (as documented) at patient's floor/unit and/or counseling patient: Coding Level of Care Code 33847 Inpt Consult Level 4 Diagnoses Septic pulmonary embolism I26.90 Cavitary pneumonia J18.9; J98.4 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
[2022-07-08] MEDS ORDERED: POTASSIUM CHLORIDE 20 MEQ/15 ML UDC PO STA (16:28)
[2022-07-08] MEDS ORDERED: FUROSEMIDE INJ 20 MG/2 ML VIAL IV ONE (16:28)
[2022-07-08] MEDS: cefTRIAXone SODIUM 2,000 MG in DEXTROSE 5% 50 ML IV SCH (17:04)
[2022-07-08 17:58] LABS: Partial Thromboplastin Ratio 1.3; Partial Thromboplastin Time 35.8 Seconds (21.0-31.0)
[2022-07-08 18:07] LABS: HIV 1 RNA PCR Copies/ML Not Detected Copies/mL; HIV-1 RNA Log Copies/mL Not Detected Log cps/mL
[2022-07-08] MEDS ORDERED: HEPARIN SOD (PORCINE) 1000 UNIT/ML IV ONE (18:15)
[2022-07-08] MEDS: SENNA 8.6 MG TAB PO SCH (21:29)
[2022-07-08] MEDS: BENZONATATE 100 MG CAPSULE PO SCH (21:32)
--- NOTE | 2022-07-08 22:01 | Progress Notes ---
SUBJECTIVE: A 31-year-old female now postop day 4 from irrigation, debridement of the severe left pompa nd infection. She is doing pretty well. Pain seems to be much improved. She is moving her fingers and continued to work on the soaks. No new complaints. OBJECTIVE: VITAL SIGNS: Temperature is 37.0. Vital signs are stable. GENERAL: Physical examination shows a pleasant, middle-aged female. She is sitting up in bed, looks pretty comfortable. EXTREMITIES: Examination of left hand reveals some fairly mild swelling, but improving. There is no active drainage. She can flex and extend her fingers without too much pain. LABORATORY DATA: Culture results from the left hand are growing out fusobacterium species similar to what is growing out in her blood and tonsils. ASSESSMENT: A 31-year-old female postoperative day #4 from irrigation and debridement of extensive h and infection. She has been getting better. Wound is healing. Motion is improving. PLAN: Continue antibiotics as per infectious disease. We will continue the soaks for now. Continue working on hand range of motion. No need for further surgical intervention. We will continue to fo llow her. I need to see her back somewhere between 2 and 3 weeks out from the surgery date. We will check on her intermittently in the hospital. Any orthopedic questions can be directed to me at . Job ID: [id number]
[2022-07-09] MEDS: MoRPHine SULFATE 2 MG/ML CARP IV PRN ×4 (00:03→20:38)
[2022-07-09 01:24] LABS: Partial Thromboplastin Ratio 1.5
[2022-07-09] MEDS: guaiFENesin/CODEINE 100MG/10MG 5ML UDC PO PRN ×3 (01:32→20:38)
--- NOTE | 2022-07-09 06:07 | Hospitalist Progress Note ---
Date of Service July 08, 2022 Assessment & Plan (1) Septic pulmonary embolism: Plan: While there is some evolution radiologically, clinically she is much improved specifically with regards to mental status, fever, and respiratory symptoms but also generally in the dynamics of her hematologic and chemical profile with marked improvement in bilirubin and platelets suggesting a resolution of the sepsis/DIC-like picture and a response to antibiotics. Situation remains equivocal with regards to the role for anticoagulation. 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 Primary indication for anticoagulation would be specific concerns over local retrograde thrombosis getting into the cerebral sinuses or other clear and unequivocal progression of thrombosis per se. Concern would be the bleeding risk into areas of septic embolization with the associated vascular breakdown particularly with regards to occult lesions in the brain. The evolution of lesions in the lung may be more insurance claims representative of pre- existing septic emboli that took some time to "blossom" their inflammation leading to the perceived radiologic changes which may be more of inertial issue while in fact she overall is responding well to treatment as above. Unfortunately I can give no definitive recommendation for or against anticoagulation but she does seem to be tolerating it well. Would keep strictly to a lower end therapeutic range or even consider more of an intermediate prophylactic dosing such as subcutaneous heparin 5000 units every 8 hours. Heparin is attractive as the ongoing anticoagulant given its chemical reversibility. Would continue to watch closely for any evidence of bleeding. Although her menses seem to be stabilizing some, specifically note that the heparin may be exacerbating that blood loss and contributing to her anemia separately discussed. (2) Thrombocytopenia: Plan: Resolved and retrospectively more attributable to DIC. Piperacillin stopped 07/06 and vancomycin stopped 07/07 but there was already unequivocal rebound of platelets on 07/06 suggesting that neither medication was contributing in major fashion to the thrombocytopenia. (3) Anemia: Plan: Persistent anemia. LDH has been normal, bilirubin is vastly improved, previous reticulocyte count was quite low and she has responded well to transfusion all suggesting against pathologic hemolysis. Anemia seems primarily to be a consequence chronic leukocytosis and a return ofof impaired new erythropoiesis. There is undoubtedly an acute inflammatory suppression of her erythroid line with perhaps some element of polypharmacy inhibition as well. Tino leukocytosis and the return of platelets to the easily normal range suggest that there is no fundamental pa disorder and diagnostic bone marrow aspiration biopsy is not likely to have a high yield at this particular time. Target cells on peripheral smear had raised some concerns over hemoglobinopathy but she gives no personal or family history of that. Hemoglobin electrophoresis at this point might more reflect her transfuse cells in her own inherent hemoglobin profile. It would not impact upon immediate management in any case. We may want to consider hemoglobin electrophoresis when she has recovered. Focus on supportive care for now. She does have some menstrual losses that can certainly contribute to her anemia in part perhaps mildly exacerbated by her ongoing anticoagulation. Ferritin is elevated but in the face of acute liver injury is an unreliable indicator of her iron status. She does have a low serum iron. I do not think that there would be much harm in 2 doses of Venofer 300 mg given approximately 72 hours apart. Would continue to cover with transfusion for hemoglobin is less than 7.5 g/dL. While folate level was previously normal, her nutrition is probably suboptimal and she will quickly consume stores of folic acid. Would supplement empirically with folic acid 2 mg daily. There is no clinical suggestion of other sites of bleeding and with resolution of her thrombocytopenia/DIC picture she is at lower risk for that though she is receiving ongoing heparin. 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 Primary thrust for treatment is antibiotics and basic support. As discussed separately, the role for anticoagulation is uncertain. Would defer to ID, pulmonary, orthopedics, and the hospitalist teams for best overall management recommendations. Plan Suggest supplementation of iron with 2 doses of Venofer 300 mg approximately 72 hours apart. Suggest empiric supplementation with folic acid 2 mg daily Transfusion support for hemoglobin less than 7.5 g/dL Continuation of aggressive antibiotic and supportive therapy for her infections Role of anticoagulation is equivocal, would certainly continue with the reversible agent and aim towards lower dosing strategies as discussed in detail above. If she were to show unequivocal propagation of thrombosis locally within the cerebral circuit or had clear identification of new peripheral deep venous thrombosis, that would warrant more specific full dose anticoagulation. Need to be particularly alert to ongoing bleeding risk within the lesions in the lung and potential occult lesions elsewhere especially of the brain. Admission and Anticipated Discharge Date Admission Date: July 02, 2022 Subjective Much more alert than at the time of first consultation, seems generally comfortable without respiratory distress or major focal pain. She now describes no history personally or in the family of hemoglobinopathies specifically of hemoglobin C or sickle cell disease She describes no personal or family history of thrombosis Some soreness in her left hand but overall without major focal complaints Physical Exam Physical Exam: Some low-grade fever in the early hours of 07/07 but afebrile for the last 24 hours. Other vital signs stable Right neck is much less swollen and tender than previous Lungs seem clear, cardiac rhythm regular, the abdomen seems nontender Results & Data Results & Data ([facility]) Vital Signs (Past 12 Hours) Vital Signs Temp Pulse Pulse Resp BP BP Pulse Ox 07/09/22 05:00 106 H 22 96 07/09/22 05:00 132/81 07/09/22 04:00 37.4 C 106 H 18 127/85 96 07/09/22 04:00 100 H 25 H 96 07/09/22 04:00 127/85 07/09/22 03:00 101 H 21 96 07/09/22 03:00 126/74 07/09/22 02:00 106 H 23 97 07/09/22 02:00 132/83 07/09/22 01:00 103 H 20 97 07/09/22 01:00 137/99 07/09/22 00:00 103 H 16 93 07/09/22 00:00 158/108 H 07/08/22 23:00 95 H 18 97 07/08/22 23:00 153/98 H 07/08/22 22:00 95 H 24 07/08/22 22:00 142/95 H 07/09/22 00:00 93 H 07/08/22 23:58 103 H 16 98 07/08/22 20:00 07/08/22 21:00 88 19 98 07/08/22 21:00 137/89 07/08/22 20:00 85 17 100 07/08/22 20:00 125/84 07/08/22 19:00 90 20 97 07/08/22 19:00 118/78 07/08/22 20:00 36.5 C O2 Del Method 07/09/22 05:00 07/09/22 05:00 07/09/22 04:00 Room Air 07/09/22 04:00 07/09/22 04:00 07/09/22 03:00 07/09/22 03:00 07/09/22 02:00 07/09/22 02:00 07/09/22 01:00 07/09/22 01:00 07/09/22 00:00 07/09/22 00:00 07/08/22 23:00 07/08/22 23:00 07/08/22 22:00 07/08/22 22:00 07/09/22 00:00 07/08/22 23:58 Room Air 07/08/22 20:00 Room Air 07/08/22 21:00 07/08/22 21:00 07/08/22 20:00 07/08/22 20:00 07/08/22 19:00 07/08/22 19:00 07/08/22 20:00 Room Air Laboratory Results Abnormal lab results 07/04/22 07/06/22 07/08/22 Range/Units 06:29 08:23 04:04 WBC (4.8-10.8) K/ul RBC (3.93-5.22) M/uL Hgb (12.0-16.0) g/dl Hct (34.1-44.9) % RDW Std Deviation (36.4-46.3) fL RDW Coeff of Carrol (11.5-14.5) % Neut # (Auto) 11.41 H (1.4-6.5) K/uL Immature Gran # (Auto) 0.31 H (0.00-0.02) K/uL APTT (21.0-31.0) Seconds POC Glucose (70-99) mg/dl Iron (35-150) mcg/dl HSV II IgG 18.30 H index Crossmatch See Detail 07/08/22 07/08/22 07/08/22 Range/Units 04:04 07:59 11:23 WBC (4.8-10.8) K/ul RBC (3.93-5.22) M/uL Hgb (12.0-16.0) g/dl Hct (34.1-44.9) % RDW Std Deviation (36.4-46.3) fL RDW Coeff of Carrol (11.5-14.5) % Neut # (Auto) (1.4-6.5) K/uL Immature Gran # (Auto) (0.00-0.02) K/uL APTT 39.3 H (21.0-31.0) Seconds POC Glucose 112 H (70-99) mg/dl Iron 17 L (35-150) mcg/dl HSV II IgG index Crossmatch 07/08/22 07/08/22 07/09/22 Range/Units 11:31 17:13 00:55 WBC 16.82 H (4.8-10.8) K/ul RBC 2.82 L (3.93-5.22) M/uL Hgb 8.4 L (12.0-16.0) g/dl Hct 24.6 L (34.1-44.9) % RDW Std Deviation 47.0 H (36.4-46.3) fL RDW Coeff of Carrol 14.9 H (11.5-14.5) % Neut # (Auto) (1.4-6.5) K/uL Immature Gran # (Auto) (0.00-0.02) K/uL APTT 35.8 H 41.0 H (21.0-31.0) Seconds POC Glucose (70-99) mg/dl Iron (35-150) mcg/dl HSV II IgG index Crossmatch Diagnostic Findings Chest X-Ray 07/01/22 20:38 XR chest 1V portable CLINICAL HISTORY: weakness COMPARISON STUDY: No previous studies for comparison. FINDINGS: Lung volumes are normal. There is no pneumothorax or pleural effusion. Cardiac size is normal. Mediastinal contours are normal. There has been interval development of multifocal nodular airspace opacities since recent abdominal CT of June 24, 2022. These measure up to 4 cm. Several of these demonstrate cavitation. IMPRESSION: Interval development of multifocal nodular airspace opacities, several of which demonstrate cavitation, since CT of June 24, 2022. The find ings are consistent with an infectious process and favor septic pulmonary emboli. ACT 112: Negative or not required by law. Electronically signed by: Mendez Russell M.D. 07/02/2022 7:[address] 07/01/22 20:38 CT OF THE HEAD WITHOUT CONTRAST CLINICAL HISTORY: Headache. Jaundice. COMPARISON STUDY: No previous studies for comparison. CT DOSE: 537.48 mGy.cm TECHNIQUE: Helical axial images of the head were obtained without IV contrast. Automated exposure control was utilized for the study. A dose lowering technique was utilized adhering to the principles of ALARA. FINDINGS: No acute intracranial hemorrhage, midline shift or mass effect is present. The ventricular system is unremarkable. The basal cisterns are patent. No extra-axial collections are present. There are no findings to suggest acute dural sinus thrombosis or acute territorial infarct. No significant calvarial abnormalities are present. Visualized portions of the sinuses and mastoid air cells are clear. IMPRESSION: No acute intracranial findings. ACT 112: Negative or not required by law. Electronically signed by: Mendez Russell M.D. 07/02/2022 7:00 AM Abdomen/Pelvis CT 07/01/22 21:[address] WITH IV CONTRAST HISTORY: Acute fever with elevated LFTs Fever, elevated LFT, hyperbili, vomit TECHNIQUE: Multiaxial CT images of the abdomen and pelvis were performed following the IV administration of 86 cc of Optiray, A dose lowering technique was utilized adhering to the principles of ALARA. COMPARISON STUDY: Chest CT of same day, CT abdomen and pelvis 06/24/2022 FINDINGS: Numerous round consolidative densities of the lung bases, several of which are centrally cavitary measuring up to 2.9 cm are new from the prior study. No pneumatosis or pneumoperitoneum. The study is limited secondary to upper extremity positioning. Unremarkable spleen, pancreas and adrenal glands. Mildly distended gallbladder. The liver is within normal limits. Patency of the hepatic and portal veins. Unremarkable kidneys without hydronephrosis. The urinary bladder is within normal limits. Endometrium measures up to 1.6 cm. Uterus and ovaries are otherwise unremarkable. Aorta and IVC are unremarkable. No pathologically enlarged lymph nodes are identified. Mild nonspecific wall thickening of the distal esophagus. Mild wall thickening of the mid to distal gastric body with partial distention is similar to prior. No bowel obstruction or bowel wall thickening. Small and large bowel air-fluid levels. Normal appendix. Mild nonspecific stranding is noted surrounding the left rectus femoris and iliopsoas psoas musculature. Moderate degeneration of the pubic symphysis. No acute fracture identified. IMPRESSION: 1. Interval development of numerous round and centrally cavitary consolidative opacities of the lung bases, new from 06/24/2022 suggestive of septic emboli. 2. No bowel obstruction or bowel wall thickening. Normal appendix. 3. Mild wall thickening of the gastric body redemonstrated which may be secondary to partial distention versus a nonspecific gastritis. 4. Mild stranding surrounding the proximal rectus femoris and iliopsoas musculature. Correlate with clinical exam findings and patient history. ACT 112: Negative or not required by law. The above report was generated using voice recognition software. It may contain grammatical, syntax or spelling errors. Electronically signed by: Roberto Aly M.D. 07/02/2022 7:53 AM Soft Tissue Neck CT 07/01/22 22:14 CT OF THE NECK WITH IV CONTRAST CLINICAL HISTORY: Lymphadenopathy. COMPARISON STUDY: No previous studies for comparison. TECHNIQUE: Following IV administration of 86 mL of Optiray, helical axial images of the neck were obtained. Sagittal and coronal reconstructions were viewed. Automated exposure control was utilized for the study. A dose lowering technique was utilized adhering to the principles of ALARA. FINDINGS: Visualized portions of the intracranial contents are unremarkable. The mastoid air cells are clear. The sinuses are clear. Note is made of a 1.9 x 1.8 cm left peritonsillar rim enhancing fluid collection consistent with a peritonsillar abscess. There is moderate associated mass effect with narrowing of the hypopharynx. There is an adjacent 1.7 x 1.5 cm fluid collection within the left paravertebral space consistent with an additional abscess. In addition, there is occlusive thrombus within the left internal jugular vein. Mild to moderate prevertebral edema is also present. The epiglottis is normal. There is no soft tissue gas. No additional sites of vessel occlusion are identified within the neck. Prominent left cervical lymph nodes are reactive. Visualized portions of the chest demonstrate multiple cavitary round airspace opacities consistent with septic pulmonary emboli. IMPRESSION: 1. Findings consistent with Lemierre syndrome. Two left peritonsillar abscesses, measuring up to 1.9 x 1.8 cm, with associated occlusive thrombophlebitis of the left internal jugular vein and septic pulmonary emboli. This finding will be called/faxed to ordering provider at time of dictation. 2. Mild to moderate prevertebral edema. ACT 112: Negative or not required by law. Electronically signed by: Mendez Russell M.D. 07/02/2022 7:16 AM Hand X-Ray 07/01/22 22:16 XR hand LT min 3V routine CLINICAL HISTORY: 3rd finger MCP swelling COMPARISON: None FINDINGS: Alignment of the left hand is anatomic. There is no acute fracture. There is no bony erosion. Dorsal soft tissue swelling is noted on lateral projection. There is also soft tissue swelling adjacent to the left third metacarpophalangeal joint and within the left third finger. No soft tissue gas is identified. IMPRESSION: 1. No osseous abnormality within the left hand. 2. Soft tissue swelling the dorsal left hand and left third digit, as described above. This is nonspecific. ACT 112: Negative or not required by law. Electronically signed by: Mendez Russell M.D. 07/02/2022 7:[address] 07/01/22 22:[address] WITH CONTRAST CT DOSE: 875.10 mGy.cm HISTORY: Acute tachycardia with lymphadenopathy tachycardia, lymphadenopathy TECHNIQUE: Multiaxial CT images of the chest were performed following the IV administration of 86 cc of Optiray. A dose lowering technique was utilized adhering to the principles of ALARA. COMPARISON: CT abdomen and pelvis of same day and also 06/24/2022 FINDINGS: Unremarkable thyroid. The heart is normal in size without pericardial effusion. The thoracic aorta and pulmonary arterial tree are suboptimally evaluated secondary to respiratory motion artifact. Trace pleural effusions. No pneumothorax. Mild intralobular septal thickening with bronchial wall thickening and areas of mild mosaic attenuation. There is development of numerous rounded nodular consolidative opacities within a multilobar and multi segmental distribution. Many of these lesions are centrally cavitary measuring up to 2.4 cm within the left lower lobe and 2.6 cm within the right lower lobe. Several of these lesions about the peripheral pleural surfaces. Unremarkable soft tissues. No acute fracture. IMPRESSION: 1. Interval development of numerous round and centrally cavitary consolidative opacities of the lungs which are new from 06/24/2022. Findings are suggestive of septic emboli. 2. No lymphadenopathy. ACT 112: Negative or not required by law. Electronically signed by: Robetro Aly M.D. 07/02/2022 8:14 AM Extremity Venous Study 07/02/22 13:34 LEFT UPPER EXTREMITY VENOUS DOPPLER HISTORY: Follow-up left internal jugular vein thrombus. DVT COMPARISON STUDY: CT neck 07/01/2022. FINDINGS: There is persistent occlusive thrombus seen within the left internal j ugular vein. This is similar to the prior study. There is normal flow within the left subclavian vein. There is normal flow and compressibility within the left axillary, basilic, brachial, radial, ulnar, and visualized cephalic veins. IMPRESSION: No significant change in the left internal jugular vein occlusive thrombus. ACT 112: Negative or not required by law. Electronically signed by: Doug Stewart M.D. 07/02/2022 2:32 PM Chest X-Ray 07/03/22 07:13 XR chest 1V portable CLINICAL HISTORY: f/u COMPARISON STUDY: Chest radiograph and chest CT July 01, 2022. FINDINGS: Multifocal nodular airspace opacities are again noted within the lungs. A few of these have slightly progressed since prior exam. A few of these demonstrate cavitation, better depicted on prior CT. Cardiomediastinal silhouette is stable. No evidence for pulmonary edema. No pneumothorax or pleural effusion is identified. IMPRESSION: Minimal change since prior chest radiograph and chest CT. Slight increase in extent of a few foci of cavitary consolidation. Findings consistent with septic pulmonary emboli. ACT 112: Negative or not required by law. Electronically signed by: Mendez Russell M.D. 07/03/2022 7:[address] 07/03/22 08:[address] WITHOUT CONTRAST CLINICAL HISTORY: Swelling of hand, dactylitis ? COMPARISON STUDY: Left hand radiographs July 01, 2022. TECHNIQUE: Axial images of the left hand were obtained without IV contrast. Sagittal and coronal reconstructions were viewed. Automated exposure control was utilized for the study. A dose lowering technique was utilized adhering to the principles of ALARA. FINDINGS: Alignment of the left hand is anatomic. There is no fracture. There is no bony erosion to suggest acute osteomyelitis. There is no soft tissue gas. Note is made of extensive soft tissue swelling of the left third finger suggestive of cellulitis. Evaluation for abscess is suboptimal on this unenhanced exam. In addition, there is marked distention of the flexor tendon sheath of the left third digit. The wall of the tendon sheath is thickened. There are multiple pockets of adjacent fluid. There may also be increased fluid within the tendon sheaths of the left second and fourth digits. Carpal bones are intact. Distal left radius and ulna are intact. IMPRESSION: 1. Findings consistent with an extensive infectious process of the left hand, predominantly affecting the third digit and associated flexor tendon sheath. Left third digit soft tissue swelling suggestive of cellulitis. No soft tissue gas. No evidence for acute osteomyelitis. 2. Marked distention of the flexor tendon sheath of the left third digit with wall thickening of the tendon sheath. This is suggestive of an infectious tenosynovitis, possibly purulent. Multiple pockets of adjacent fluid which may favor cellulitis or phlegmon however early developing abscesses cannot be excluded. ACT 112: Negative or not required by law. Electronically signed by: Mendez Russell M.D. 07/03/2022 10:[address] 07/04/22 12:49 CT head/brain wo con CLINICAL HISTORY: AMS Technique: Contiguous axial CT images of the head were acquired from the base of the skull to the vertex without intravenous contrast administration. Images were viewed in brain, subdural and bone windows. Automated dose lowering techniques and/or adjustment according to patient size were utilized for this exam. Comparison: None available at the time of this dictation. Findings: The ventricles, basal cisterns, and cerebral sulci are normal. There is no acute intracranial hemorrhage or evidence of acute territorial infarction. Neither mass effect, shift of the midline structures, nor abnormal extra-axial fluid collections are shown. Imaged portions of the paranasal sinuses and mastoid air cells are clear. The orbits appear normal. There are no acute fractures of the calvaria or scalp swelling. Impression: No acute intracranial hemorrhage, no evidence of acute territorial infarction or other acute intracranial disease process. ACT 112: Negative or not required by law. Electronically signed by: Evaristo Mckinney M.D. 07/04/2022 3:52 PM Chest X-Ray 07/05/22 08:10 XR chest 1V portable CLINICAL HISTORY: f/u COMPARISON STUDY: Chest CT July 01, 2022 and chest radiograph July 03, 2022. FINDINGS: Small left and trace right pleural effusions have developed. Multifocal nodular consolidation has slightly progressed. Several these foci are cavitary. Left basilar airspace opacity is increased. Cardiomediastinal silhouette remains normal. IMPRESSION: 1. Mild progression of multifocal cavitary airspace opacities consistent with septic pulmonary emboli. 2. Interval development of small left and trace right pleural effusions with increase in left mid and lower lung airspace opacity. ACT 112: Negative or not required by law. Electronically signed by: Mendez Russell M.D. 07/05/2022 10:35 AM Chest X-Ray 07/07/22 07:54 XR chest 1V portable CLINICAL HISTORY: Fever. COMPARISON STUDY: Chest CT July 01, 2022 and chest radiograph July 05, 2022. FINDINGS: There is no pneumothorax. Small left and trace right pleural effusions are similar to prior exam. Left basilar airspace opacity is similar to prior exam. There has been slight increase in conspicuity of multiple cavitary foci of consolidation within the lungs since prior exam. Cardiac size is normal. There is no evidence for pulmonary edema. IMPRESSION: 1. Mild increase in multifocal cavitary foci within the lungs consistent with septic pulmonary emboli. 2. Persistent left lower lung airspace opacity which favors pneumonia. 3. Stable small left and trace right pleural effusions. ACT 112: Negative or not required by law. Electronically signed by: Mendez Russell M.D. 07/07/2022 8:49 AM Chest CTA 07/07/22 09:03 CT ANGIOGRAPHY OF THE CHEST, PULMONARY EMBOLUS PROTOCOL CLINICAL HISTORY: Cough. Evaluate for pulmonary emboli. COMPARISON STUDY: Chest CT July 01, 2021 and chest radiograph performed earlier today. TECHNIQUE: Following IV administration of 115 mL of Optiray, helical axial images of the chest were obtained utilizing the pulmonary embolus protocol. Maximal intensity projections and sagittal and coronal reformats were viewed on an independent 3D workstation. IV contrast was administered without c omplication. Automated exposure control was utilized for the study. A dose lowering technique was utilized adhering to the principles of ALARA. CT DOSE: 275.54 mGy.cm FINDINGS: No pulmonary emboli are identified although the upper lobe pulmonary arteries are suboptimally opacified on this exam. Left neck stranding is partially imaged on this examination. The tonsillar/peritonsillar regions were not imaged on this chest CT. Note is again made of thrombus within the left internal jugular vein, as shown on neck CT of July 01, 2022. There is an enlarged 1.8 x 1.4 cm left level 3 lymph node which is suboptimally assessed on this exam. Mildly enlarged bilateral hilar lymph nodes are likely reactive. There is no pericardial effusion. Small left and trace right pleural effusions are present. Numerous cavitary foci of round consolidation throughout the lungs are again noted. Several these foci of increased in extent since CT of July 01, 2022. There is no pneumothorax. Central airways are patent. Bony thorax is unremarkable. Heterogeneity of the spleen is likely due to the phase of enhancement. IMPRESSION: 1. No pulmonary emboli identified although upper lobe pulmonary arteries suboptimally opacified. 2. Findings consistent with the Lemierre syndrome. Thrombophlebitis of the left internal jugular vein with extensive septic pulmonary emboli. Extent of multiple cavitary foci of consolidation and adjacent groundglass opacity has increased since CT of July 01, 2022. 3. Small left and trace right pleural effusions. 4. Left neck inflammation due to tonsillitis, partially imaged on this exam. Enlarged left level 3 lymph node, possibly suppurative. ACT 112: Negative or not required by law. Electronically signed by: Mendez Russell M.D. 07/07/2022 10:11 AM Venous Doppler Study 07/07/22 09:03 US venous doppler LE RT CLINICAL HISTORY: DVT TECHNIQUE: Right lower extremity real-time compression venous ultrasound with Color Doppler imaging. Utilizing real-time ultrasonic imaging multiple real time high-resolution ultrasonic images with compression and noncompression maneuvers of the deep venous system in addition to color doppler imaging were performed from the common femoral vein through the proximal calf veins. COMPARISON: None available at the time of this dictation. FINDINGS: Currently there is normal compressibility of the deep venous system from the common femoral vein through the proximal calf veins. No superficial venous thrombosis is identified. Impression: No evidence of deep venous thrombus. ACT 112: Negative or not required by law. Electronically signed by: Evaristo Mckinney M.D. 07/07/2022 1:16 PM Chest X-Ray 07/08/22 05:00 SINGLE VIEW CHEST CLINICAL HISTORY: Cough FINDINGS: An AP, portable, upright chest radiograph is compared to chest x-ray and chest CT dated 07/07/2022. The examination is degraded by portable technique and patient rotation. The cardiomediastinal silhouette is unremarkable. There are left larger than right pleural effusions with bibasilar consolidation. Cavitary pulmonary nodular opacities are again seen throughout both lungs. The largest on the right measures up to 4 cm. No pneumothorax is seen. The bony thorax is grossly intact. IMPRESSION: 1. Findings are similar to yesterday. 2. Left larger than right pleural effusions with bibasilar consolidation. 3. Bilateral cavitary pulmonary nodular opacities are unchanged. ACT 112: Negative or not required by law. Electronically signed by: Eduardo Smiley M.D. 07/08/2022 10:24 AM Extremity Venous Study 07/08/22 11:55 US venous doppler UE LT HISTORY: 31 years-old Female ff up, L Int jugular vein thrombophlebitis follow- up study in a patient with left internal jugular vein thrombus COMPARISON: 07/02/2022 TECHNIQUE: Multiple real-time sonographic images of the left upper extremity deep venous structures were obtained assessing grayscale appearance, color and spectral flow FINDINGS: Occlusive thrombus left internal jugular vein redemonstrated. No additional deep venous thrombus identified. IMPRESSION: Unchanged appearance of the occlusive thrombus of the left internal jugular vein. ACT 112: Negative or not required by law. The above report was generated using voice recognition software. It may contain grammatical, syntax or spelling errors. Electronically signed by: Roberto Aly M.D. 07/08/2022 2:11 PM PG Care Time/CCT Total # of Minutes Spent Total Time Spent with Patient: Total time spent is greater than 50% in coordination of care (as documented) at patient's floor/unit and/or counseling patient: [place]oding [place] [address] Subseq Hosp Care Lvl 2 Patient Type Established History Expanded Problem Focused Exam Expanded Problem Focused Medical Decision Making High Complexity Diagnoses Septic pulmonary embolism I26.90 Thrombocytopenia D69.6 Anemia D64.9 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
[2022-07-09] MEDS: HEPARIN SODIUM/DEXTROSE 25,000 UNITS/500 ML BAG IV SCH (06:48)
[2022-07-09] MEDS: DOCUSATE SODIUM 100 MG CAP PO SCH ×2 (08:05→20:37)
[2022-07-09] MEDS: MULTIVITAMIN TAB PO SCH (08:05)
[2022-07-09] MEDS: BENZONATATE 100 MG CAPSULE PO SCH ×3 (08:05→20:37)
[2022-07-09] MEDS: metroNIDAZOLE 500 MG/100 ML BAG IV SCH ×3 (08:06→23:08)
[2022-07-09] MEDS ORDERED: IRON SUCROSE 300 MG in SODIUM CHLORIDE 0.9% 250 ML IV ONE (08:30)
[2022-07-09 08:52] LABS: Basophils # (auto) 0.04 K/uL (0-0.2); Basophils % (auto) 0.2 %; Eosinophils # (auto) 0.04 K/uL (0-0.50); Eosinophils % (auto) 0.2 %; Hematocrit (blood only) 24.2 % (34.1-44.9); Hemoglobin 8.2 g/dl (12.0-16.0); Immature Granulocytes # (auto) 0.29 K/uL (0.00-0.02); Immature Granulocytes % (auto) 1.6 %; Lymphocytes # (auto) 1.18 K/uL (1.2-3.4); Lymphocytes % (auto) 6.5 %; Mean Corpuscular Hemoglobin 29.6 pg (25.0-34.0); Mean Corpuscular Hgb Conc 33.9 g/dL (32.0-36.0); Mean Corpuscular Volume 87.4 fL (80.0-100.0); Mean Platelet Volume 10.7 fL (9.4-12.3); Monocytes # (auto) 0.53 K/uL (0.24-0.82); Monocytes % (auto) 2.9 %; Neutrophils # (auto) 15.99 K/uL (1.4-6.5); Neutrophils % (auto) 88.6 %; Nucleated RBC # (auto) 0.02 K/uL (0-0); Nucleated RBC % (auto) 0.1 %; Platelet Count 333 K/uL (130-400); RDW Coefficient of Variation 14.8 % (11.5-14.5); RDW Standard Deviation 46.9 fL (36.4-46.3); Red Blood Count 2.77 M/uL (3.93-5.22); White Blood Count 18.07 K/ul (4.8-10.8)
[2022-07-09 09:10] LABS: Partial Thromboplastin Ratio 1.6; Partial Thromboplastin Time 43.3 Seconds (21.0-31.0)
[2022-07-09] MEDS: FOLIC ACID 1 MG TAB PO SCH (09:20)
[2022-07-09 09:22] LABS: BUN Creatinine Ratio 10.2 (10-20); Calcium 7.6 mg/dl (8.5-10.1); Creatinine Clr Calc Pharmacy 177.8 ml/min; Est GFR (African American) 149.4 ml/min; Est GFR (Non-African American) 128.9 ml/min; Potassium 4.1 mmol/L (3.5-5.1)
[2022-07-09] MEDS: ALBUTEROL HFA 8 GM INHALER INH PRN (09:23)
[2022-07-09 11:11] LABS: Quantiferon Mitogen-NIL 0.06 IU/mL; Quantiferon NIL 0.08 IU/mL; Quantiferon TB Gold Plus INDETERMINATE (NEGATIVE); Quantiferon TB2-NIL <0.00 IU/mL
--- NOTE | 2022-07-09 11:29 | XRay Report ---
XR chest 1V portable CLINICAL HISTORY: evaluate lung segura TECHNIQUE: Single frontal radiograph of the chest was obtained. Comparison: Comparison is made to chest radiograph 07/08/2022 FINDINGS: No lines and tubes are seen. The cardiomediastinal silhouette is normal. A cavitary pulmonary nodules in the bilateral lungs measuring up to 43 mm in diameter on the left. Interval improvement in previo usly noted left lower lung airspace opacity. Small left and trace right pleural effusions, less consp icuous than on prior exam. IMPRESSION: 1. Bilateral cavitary lesions are unchanged from prior exam. 2. Small right and trace left right pleural effusion, slightly less conspicuous than the prior exam. Interval improvement in left lower lung airspace opacities. ACT 112: Negative or not required by law. Electronically signed by: Evaristo Mckinney M.D. 07/09/2022 11:27 AM
[2022-07-09] MEDS: PANTOprazole 40 MG TAB PO SCH (11:35)
[2022-07-09] MEDS ORDERED: GADOBUTROL 65ML VIAL IV ONE (12:50)
--- NOTE | 2022-07-09 13:51 | Magnetic Resonance Report ---
MR brain wo/w con HISTORY: 31 years-old Female r/o septic emboli in the brain acutely altered mental status in a patie nt with left peritonsillar abscess, thrombophlebitis of the left internal jugular vein with septic pu lmonary emboli COMPARISON: Head CT 07/04/2022, CT soft tissue neck 07/01/2022 TECHNIQUE: Multiple multisequence MRI of the brain was obtained both with and without the use of 7.8 cc Gadavist FINDINGS: Computer Publisher localizer images demonstrate no gross extracranial abnormality. No restricted diffusion to sugg est acute or subacute infarct. Decreased size of the left peritonsillar abscess noted measuring 1.6 x 1.3 cm, previously 1.9 x 1.8 cm. Midline structures appear unremarkable. No acute intracranial hemorrhage, midline shift, abnormal extra-axial collection, hydrocephalus or in tracranial mass identified. The volume and signal characteristics of the brain parenchyma are within normal limits. Cerebral venous sinuses and major arterial flow voids appear patent. Thrombus of the l eft internal jugular vein it again noted extending into the left sigmoid and transverse sinuses. No a bnormal intra-axial enhancement. Moderate sized left mastoid effusion. Paranasal sinuses, skull and s oft tissues are unremarkable. IMPRESSION: 1. No acute intracranial abnormality. 2. Mildly decreased size of the left peritonsillar abscess compared to the 07/01/2022 study. 3. Occlusive thrombophlebitis again noted within the left internal jugular vein, left sigmoid and tra nsverse sinuses. 4. Moderate left mastoid effusion. ACT 112: Negative or not required by law. The above report was generated using voice recognition software. It may contain grammatical, syntax o r spelling errors. Electronically signed by: Roberto Aly M.D. 07/09/2022 1:49 PM
[2022-07-09] MEDS: cefTRIAXone SODIUM 2,000 MG in DEXTROSE 5% 50 ML IV SCH (15:13)
--- NOTE | 2022-07-09 15:31 | Pulmonology Progress Note ---
Date of Service July 09, 2022 Assessment & Plan (1) Septic pulmonary embolism: (2) Cavitary pneumonia: (3) Lemierre syndrome: (4) Fluid overload: Plan Left IJ clot appears stable. Consider transfer to tertiary care center for evaluation of thrombectomy if symptoms worsen. No acute lesion seen on MRI brain. Continue abx. No role for bronch. Pleural effusions appear smaller after diuresis. Continue with spot diuresis as needed. Continue with Tessalon Perles and codeine for cough. Pulmonary to sign off at this time. Please call with questions. Thank you for the consult. Admission and Anticipated Discharge Date Admission Date: July 02, 2022 Subjective Patient seen examined. Working with PT. Pain a little better controlled today. Cough still present. Denies any pleurisy. No fevers overnight. Mildly tachycardic. Review of Systems Review of Systems: All systems reviewed & are unremarkable except as noted in HPI & below Physical Exam Constitutional: WD/WN, vitals as above Eyes: PERRL, conjunctivae normal, anicteric sclerae Respiratory: normal respiratory effort, lungs clear to auscultation Cardiovascular: RRR, no murmur, no edema Gastrointestinal (Abdomen): normal bowel sounds, soft, nontender, no hepatosplenomegaly Neurologic: PERRL, EOMI, accommodation nl, no face palsy, no dysarthria Psychiatric: A+Ox3, euthymic affect Results & Data Results & Data ([facility]) Vital Signs (Past 12 Hours) Vital Signs Temp Pulse Pulse Resp BP BP Pulse Ox 07/09/22 14:00 107 H 19 125/90 95 07/09/22 13:42 105 H 18 136/82 93 07/09/22 11:00 119 H 22 141/78 H 94 07/09/22 11:30 37.4 C 07/09/22 10:00 111 H 19 158/83 H 97 07/09/22 09:59 07/09/22 08:00 37.5 C 07/09/22 09:00 110 H 20 132/79 97 07/09/22 08:00 122 H 19 146/79 H 96 07/09/22 07:00 115 H 20 145/80 H 96 07/09/22 09:28 106 H 18 97 07/09/22 05:00 106 H 22 96 07/09/22 05:00 132/81 07/09/22 04:00 37.4 C 106 H 18 127/85 96 07/09/22 04:00 100 H 25 H 96 07/09/22 04:00 127/85 O2 Del Method 07/09/22 14:00 Room Air 07/09/22 13:42 Room Air 07/09/22 11:00 Room Air 07/09/22 11:30 07/09/22 10:00 Room Air 07/09/22 09:59 Room Air 07/09/22 08:00 07/09/22 09:00 Room Air 07/09/22 08:00 Room Air 07/09/22 07:00 Room Air 07/09/22 09:28 Room Air 07/09/22 05:00 07/09/22 05:00 07/09/22 04:00 Room Air 07/09/22 04:00 07/09/22 04:00 PG Care Time/CCT Total # of Minutes Spent Total Time Spent with Patient: Total time spent is greater than 50% in coordination of care (as documented) at patient's floor/unit and/or counseling patient: Coding Level of Care Code 70701 Subseq Hosp Care Lvl 2 Diagnoses Septic pulmonary embolism I26.90 Cavitary pneumonia J18.9; J98.4 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 Fluid overload E87.70
[2022-07-09 15:52] LABS: Uric Acid, Random Urine 65 mg/dL
[2022-07-09 16:03] LABS: Partial Thromboplastin Ratio 2.2
[2022-07-09 16:22] LABS: Partial Thromboplastin Time 59.2 Seconds (21.0-31.0)
--- NOTE | 2022-07-09 17:58 | Hospitalist Progress Note ---
Date of Service July 09, 2022 Assessment & Plan (1) Lemierre syndrome: Plan: per Dr. Rodriguez's notes with addendum: - evidence of Left IJ occlusive thrombophlebitis, peritonsillar abscesses, cavitary pulmonary lesions - started with sore throat - started on broad spectrum abx with vancomycin and Zosyn - abx changed to vancomycin, cefepime, flagyl - blood cultures growing Fusobacterium - pulm and ENT consulted - s/p peritonsillar abscess drainage by ENT 07/02/2022 - s/p 10mg Decadron IV per ENT - ended 07/05/2022 - hematology consult for further recs on AC management - patient tachycardic and febrile - CTA to evaluate PE was negative for PE but showed increase in cavitary lesions in lungs concerning for worsening embolic events - given history of anemia requiring 1 unit PRBC 07/06/2022 and possible need for AC given worsening embolic events, ICU transfer for closer monitoring Lemierre's Disease, 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 Pulmonary Septic Emboli with Cavities s/p Drainage of L Tonsil s/p Drainage of L Hand Abscess - repeat BC: negative - repeat CT chest: extension of pulmonary cavities - IV Ceftri + Flagyl TID x 6 weeks currently on IV Heparin - repeat L IJ US to ff up thrombus requested Pulm and Hem to reevaluate patient 06/30 Hematology, pulmonology service recommendations noted Brain MRI: No septic emboli DC heparin drip, transition to Heparin subcutaneous every 8 hours Continue IV ceftriaxone and Flagyl Monitor closely (2) Anemia: Plan: - anemia in young woman is not abnormal but given rest of presentation could be exacerbated - no evidence of bleeding at this time - slight down trend - hemodynamically stable - heme consult - likely due to bone marrow suppression in setting of sepsis as well as IVF - hgb to 6.7 07/06/2022 - s/p 1 unit PRBC transfusion - LDH wnl - no evidnece of bleed and I/D with minimal EBL - active type and screen - hgb responded appropriately and stable since transfusion - will continue to monitor 07/08 Iron Deficiency anemia Hg decreased to 6.5 again this AM received 3rd unit pRBC repeat Hg 8.4 patient reports heavy menses Personal Fitness Manager to ff up patient today Iron 17 will start Iron supplement 07/09 Iron infusion ordered Hemoglobin stable at 8.2 No signs of active bleeding Monitor closely (3) Sepsis: Plan: - in the setting of GNR bacteremia and Lemierre Syndrome - tachycardic, leukocytosis, fever POA - IV abx as above - became more tachycardic overnight - concern for worsening embolic events in setting of Lemierre Syndrome - transferred to ICU for further monitoring - continue management as above 07/08 Tmax 37.8 overnight WBC increased to 16k HR improving on abx per above monitor closely 07/09 Afebrile Clinically improving Monitor closely (4) Abscess of tonsil: Plan: - ENT consulted for drainage - IV abx as above - s/p decadron per ENT - s/p drainage 07/02/2022 (5) Abscess of left hand: Plan: - noted erythema and swelling, tenderness, decreased ROM - CT without contrast with possible abscesses vs early forming abscesses - MRI with contrast of left hand ordered per Ortho - ortho consulted for evaluation - s/p OR I/D by ortho 07/04/2022 - dressing changes and drain management per ortho (6) Septic pulmonary embolism: Plan: - possible septic emboli in setting of Lemierre Syndrome - blood cultures pending - GNRs - IV abx as above - TTE to evaluate for vegetations - no evidence of vegetation or abscess on TTE - repeat CTA chest 07/07/2022 with negative for PE but extension of cavity (7) Elevated LFTs: Plan: - unclear etiology and if this is part of Lemierre Syndrome - CT AP with contrast showed normal appearing liver, patent hepatic and portal veins - hepatitis panel negative - GI consulted - LFTs improving with treatment of sepsis (8) Thrombocytopenia: Plan: - in the setting of sepsis and acute illness as above - unclear etiology at this time - continue work up per GI as above - autoimmune, infectious work up pending - monitor for bleeding - no evidence of bleeding - platelets improving - monitor plt stable (9) Asthma: Plan: - currently not in exacerbation - not on home inhalers - will monitor for now Plan DVT ppx: heparin SC Code Status: Full Code Dispo: PCU --> ICU Admission and Anticipated Discharge Date Admission Date: July 02, 2022 Subjective Follow-up for Lemierre's disease, etc. Seen resting in bed, comfortable, not in distress States she feels okay overall Denies shortness of breath, chest pain, cough Hand pain improving No headache, dizziness Just feels tired No other symptoms Review of Systems Review of Systems: all noted and negative except for above Physical Exam Physical Exam: General- oriented x 3, not in distress, speaks in sentences with no effort or accessory muscle use Eyes- anicteric Neck- no JVD Lungs- clear BS bilaterally, no rales/wheezes Heart- normal rate, regular rhythm; no murmurs Abdomen- normal bowel sounds, nondistended, soft, nontender Extremities- no pretibial edema, no calf tenderness Left hand heavy dressing in place No bleeding or discharge Neuro- alert, oriented x 3; no gross focal neurologic deficits Skin- warm & dry Results & Data Results & Data ([facility]) Vital Signs (Past 12 Hours) Vital Signs Temp Pulse Pulse Resp BP Pulse Ox O2 Del Method 07/09/22 17:00 104 H 17 131/79 93 Room Air 07/09/22 16:00 101 H 20 143/87 H 96 Room Air 07/09/22 15:00 102 H 18 138/87 96 07/09/22 14:00 107 H 19 125/90 95 Room Air 07/09/22 13:42 105 H 18 136/82 93 Room Air 07/09/22 11:00 119 H 22 141/78 H 94 Room Air 07/09/22 11:30 37.4 C 07/09/22 10:00 111 H 19 158/83 H 97 Room Air 07/09/22 09:59 Room Air 07/09/22 08:00 37.5 C 07/09/22 09:00 110 H 20 132/79 97 Room Air 07/09/22 08:00 122 H 19 146/79 H 96 Room Air 07/09/22 07:00 115 H 20 145/80 H 96 Room Air 07/09/22 09:28 106 H 18 97 Room Air all noted and reviewed including below
[2022-07-09] MEDS: SENNA 8.6 MG TAB PO SCH (20:38)
[2022-07-09] MEDS: HEPARIN SOD 5,000 UNIT/0.5 ML VIAL SQ SCH (23:08)
[2022-07-10] MEDS: KETOROLAC 30 MG/ML VIAL IV PRN (00:02)
[2022-07-10] MEDS: ALBUTEROL HFA 8 GM INHALER INH PRN ×3 (01:10→23:08)
[2022-07-10] MEDS: guaiFENesin/CODEINE 100MG/10MG 5ML UDC PO PRN ×2 (02:42→21:15)
[2022-07-10] MEDS: HEPARIN SOD 5,000 UNIT/0.5 ML VIAL SQ SCH ×3 (05:21→22:26)
[2022-07-10 05:31] LABS: Basophils # (auto) 0.05 K/uL (0-0.2); Basophils % (auto) 0.3 %; Eosinophils # (auto) 0.09 K/uL (0-0.50); Eosinophils % (auto) 0.6 %; Hematocrit (blood only) 24.2 % (34.1-44.9); Hemoglobin 8.2 g/dl (12.0-16.0); Immature Granulocytes % (auto) 1.3 %; Lymphocytes # (auto) 1.16 K/uL (1.2-3.4); Lymphocytes % (auto) 7.5 %; Mean Corpuscular Hemoglobin 29.8 pg (25.0-34.0); Mean Corpuscular Hgb Conc 33.9 g/dL (32.0-36.0); Mean Platelet Volume 10.2 fL (9.4-12.3); Monocytes # (auto) 0.66 K/uL (0.24-0.82); Monocytes % (auto) 4.3 %; Neutrophils # (auto) 13.32 K/uL (1.4-6.5); Platelet Count 366 K/uL (130-400); RDW Coefficient of Variation 14.8 % (11.5-14.5); RDW Standard Deviation 46.6 fL (36.4-46.3); Red Blood Count 2.75 M/uL (3.93-5.22); White Blood Count 15.48 K/ul (4.8-10.8)
[2022-07-10 06:00] LABS: Anion Gap 6 (3-11); BUN Creatinine Ratio 11.9 (10-20); Blood Urea Nitrogen 5 mg/dl (6-23); Calcium 7.9 mg/dl (8.5-10.1); Carbon Dioxide 25 mmol/L (21-32); Chloride 106 mmol/L (98-107); Creatinine Clr Calc Pharmacy 207.4 ml/min; Est GFR (African American) > 150.0 ml/min; Est GFR (Non-African American) 135.6 ml/min; Glucose 101 mg/dl (70-99(Fasting)); Potassium 3.5 mmol/L (3.5-5.1); Sodium 137 mmol/L (136-145)
[2022-07-10] MEDS: DOCUSATE SODIUM 100 MG CAP PO SCH (08:17)
[2022-07-10] MEDS: metroNIDAZOLE 500 MG/100 ML BAG IV SCH ×3 (08:23→23:38)
[2022-07-10] MEDS: BENZONATATE 100 MG CAPSULE PO SCH ×3 (08:23→21:15)
[2022-07-10] MEDS: MULTIVITAMIN TAB PO SCH (08:23)
[2022-07-10] MEDS: PANTOprazole 40 MG TAB PO SCH (08:24)
[2022-07-10] MEDS: FOLIC ACID 1 MG TAB PO SCH (08:24)
[2022-07-10] MEDS ORDERED: DOCUSATE SODIUM 100 MG CAP PO PRN (10:47)
[2022-07-10] MEDS ORDERED: SENNA 8.6 MG TAB PO PRN (10:47)
[2022-07-10] MEDS: POTASSIUM CHLORIDE CRTAB 20 MEQ TABCR PO SCH ×2 (10:57→14:18)
[2022-07-10] MEDS: MoRPHine SULFATE 2 MG/ML CARP IV PRN ×2 (15:37→21:08)
[2022-07-10] MEDS: cefTRIAXone SODIUM 2,000 MG in DEXTROSE 5% 50 ML IV SCH (15:38)
--- NOTE | 2022-07-10 16:09 | Hospitalist Progress Note ---
Date of Service July 10, 2022 Assessment & Plan (1) Lemierre syndrome: Plan: per Dr. Rodriguez's notes with addendum: - evidence of Left IJ occlusive thrombophlebitis, peritonsillar abscesses, cavitary pulmonary lesions - started with sore throat - started on broad spectrum abx with vancomycin and Zosyn - abx changed to vancomycin, cefepime, flagyl - blood cultures growing Fusobacterium - pulm and ENT consulted - s/p peritonsillar abscess drainage by ENT 07/02/2022 - s/p 10mg Decadron IV per ENT - ended 07/05/2022 - hematology consult for further recs on AC management - patient tachycardic and febrile - CTA to evaluate PE was negative for PE but showed increase in cavitary lesions in lungs concerning for worsening embolic events - given history of anemia requiring 1 unit PRBC 07/06/2022 and possible need for AC given worsening embolic events, ICU transfer for closer monitoring Lemierre's Disease, 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 Pulmonary Septic Emboli with Cavities s/p Drainage of L Tonsil s/p Drainage of L Hand Abscess - repeat BC: negative - repeat CT chest: extension of pulmonary cavities - IV Ceftri + Flagyl TID x 6 weeks currently on IV Heparin - repeat L IJ US to ff up thrombus requested Pulm and Hem to reevaluate patient 07/09 Hematology, pulmonology service recommendations noted Brain MRI: No septic emboli DC heparin drip, transition to Heparin subcutaneous every 8 hours Continue IV ceftriaxone and Flagyl Monitor closely 07/10 Improving overall Afebrile, leukocytosis improving Clinically also feels better today Repeat blood cultures negative so far Continue IV ceftriaxone plus Flagyl [facility] (2) Anemia: Plan: - anemia in young woman is not abnormal but given rest of presentation could be exacerbated - no evidence of bleeding at this time - slight down trend - hemodynamically stable - heme consult - likely due to bone marrow suppression in setting of sepsis as well as IVF - hgb to 6.7 07/06/2022 - s/p 1 unit PRBC transfusion - LDH wnl - no evidnece of bleed and I/D with minimal EBL - active type and screen - hgb responded appropriately and stable since transfusion - will continue to monitor 07/08 Iron Deficiency anemia Hg decreased to 6.5 again this AM received 3rd unit pRBC repeat Hg 8.4 patient reports heavy menses 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 up patient today Iron 17 will start Iron supplement 07/09 Iron infusion ordered Hemoglobin stable at 8.2 No signs of active bleeding Monitor closely 07/10 Hemoglobin stable at 8.2 No signs of active bleed (3) Sepsis: Plan: - in the setting of GNR bacteremia and Lemierre Syndrome - tachycardic, leukocytosis, fever POA - IV abx as above - became more tachycardic overnight - concern for worsening embolic events in setting of Lemierre Syndrome - transferred to ICU for further monitoring - continue management as above 07/08 Tmax 37.8 overnight WBC increased to 16k HR improving on abx per above monitor closely 07/09 Afebrile Clinically improving Monitor closely 07/10 Afebrile, leukocytosis improving (4) Abscess of tonsil: Plan: - ENT consulted for drainage - IV abx as above - s/p decadron per ENT - s/p drainage 07/02/2022 (5) Abscess of left hand: Plan: - noted erythema and swelling, tenderness, decreased ROM - CT without contrast with possible abscesses vs early forming abscesses - MRI with contrast of left hand ordered per Ortho - ortho consulted for evaluation - s/p OR I/D by ortho 07/04/2022 - dressing changes and drain management per ortho (6) Septic pulmonary embolism: Plan: - possible septic emboli in setting of Lemierre Syndrome - blood cultures pending - GNRs - IV abx as above - TTE to evaluate for vegetations - no evidence of vegetation or abscess on TTE - repeat CTA chest 07/07/2022 with negative for PE but extension of cavity (7) Elevated LFTs: Plan: - unclear etiology and if this is part of Lemierre Syndrome - CT AP with contrast showed normal appearing liver, patent hepatic and portal veins - hepatitis panel negative - GI consulted - LFTs improving with treatment of sepsis (8) Thrombocytopenia: Plan: - in the setting of sepsis and acute illness as above - unclear etiology at this time - continue work up per GI as above - autoimmune, infectious work up pending - monitor for bleeding - no evidence of bleeding - platelets improving - monitor plt stable (9) Asthma: Plan: - currently not in exacerbation - not on home inhalers - will monitor for now Plan DVT ppx: heparin SC Code Status: Full Code Dispo: PCU --> ICU Admission and Anticipated Discharge Date Admission Date: July 02, 2022 Subjective Follow-up for Lemierre's disease, etc. Seen resting in bed, sitting up, not in distress, in good spirits Comfortable States she feels slightly better today Last week, appetite is improving, tolerating regular diet well No chest pain, shortness of breath, cough, fevers or chills Left hand pain improving No other symptoms Review of Systems Review of Systems: all noted and negative except for above Physical Exam Constitutional: General- oriented x 3, not in distress, speaks in sentences with no effort or accessory muscle use Eyes- anicteric Neck- no JVD Lungs- clear BS bilaterally, no crackles, no wheezing Heart- normal rate, regular rhythm; no murmurs Abdomen- normal bowel sounds, nondistended, soft, no tenderness Extremities- no pretibial edema, no calf tenderness Neuro- alert, oriented x 3; no gross focal neurologic deficits Skin- warm & dry Results & Data Results & Data ([facility]) Vital Signs (Past 12 Hours) Vital Signs Temp Pulse Resp BP Pulse Ox O2 Del Method 07/10/22 12:00 109 H 21 124/81 98 Room Air 07/10/22 11:46 36.5 C 07/10/22 08:00 36.5 C 07/10/22 10:00 105 H 19 124/76 07/10/22 08:00 90 22 119/75 96 Room Air 07/10/22 07:57 Room Air 07/10/22 06:00 80 20 122/86 Room Air 07/10/22 05:00 69 19 Room Air all noted and reviewed including below
[2022-07-11] MEDS: MoRPHine SULFATE 2 MG/ML CARP IV PRN ×4 (01:44→23:00)
[2022-07-11 05:08] LABS: Basophils # (auto) 0.07 K/uL (0-0.2); Basophils % (auto) 0.4 %; Eosinophils # (auto) 0.06 K/uL (0-0.50); Eosinophils % (auto) 0.3 %; Hemoglobin 7.8 g/dl (12.0-16.0); Immature Granulocytes # (auto) 0.26 K/uL (0.00-0.02); Immature Granulocytes % (auto) 1.4 %; Lymphocytes # (auto) 1.46 K/uL (1.2-3.4); Lymphocytes % (auto) 7.7 %; Mean Corpuscular Hemoglobin 30.1 pg (25.0-34.0); Mean Corpuscular Hgb Conc 33.9 g/dL (32.0-36.0); Mean Corpuscular Volume 88.8 fL (80.0-100.0); Mean Platelet Volume 10.1 fL (9.4-12.3); Monocytes # (auto) 0.83 K/uL (0.24-0.82); Monocytes % (auto) 4.4 %; Neutrophils # (auto) 16.31 K/uL (1.4-6.5); Neutrophils % (auto) 85.8 %; Platelet Count 413 K/uL (130-400); RDW Coefficient of Variation 14.6 % (11.5-14.5); RDW Standard Deviation 46.5 fL (36.4-46.3); Red Blood Count 2.59 M/uL (3.93-5.22); White Blood Count 18.99 K/ul (4.8-10.8)
[2022-07-11] MEDS: HEPARIN SOD 5,000 UNIT/0.5 ML VIAL SQ SCH ×3 (05:24→20:56)
[2022-07-11 05:27] LABS: Anion Gap 6 (3-11); BUN Creatinine Ratio 11.4 (10-20); Blood Urea Nitrogen 5 mg/dl (6-23); Carbon Dioxide 24 mmol/L (21-32); Chloride 104 mmol/L (98-107); Creatinine Clr Calc Pharmacy 178.5 ml/min; Est GFR (African American) > 150.0 ml/min; Est GFR (Non-African American) 133.6 ml/min; Glucose 95 mg/dl (70-99(Fasting)); Hypersegmented Neutrophils 1+; Polychromasia 2+; Potassium 3.8 mmol/L (3.5-5.1); Sodium 134 mmol/L (136-145); Toxic Granulation 1+
[2022-07-11] MEDS: guaiFENesin/CODEINE 100MG/10MG 5ML UDC PO PRN ×3 (06:49→23:23)
[2022-07-11] MEDS: ALBUTEROL HFA 8 GM INHALER INH PRN ×2 (06:58→23:34)
[2022-07-11] MEDS: metroNIDAZOLE 500 MG/100 ML BAG IV SCH ×3 (08:58→23:00)
[2022-07-11] MEDS: BENZONATATE 100 MG CAPSULE PO SCH ×3 (08:59→20:56)
[2022-07-11] MEDS: PANTOprazole 40 MG TAB PO SCH (08:59)
[2022-07-11] MEDS: MULTIVITAMIN TAB PO SCH (08:59)
[2022-07-11] MEDS: FOLIC ACID 1 MG TAB PO SCH (09:00)
--- NOTE | 2022-07-11 14:27 | Hospitalist Progress Note ---
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 with addendum: - evidence of Left IJ occlusive thrombophlebitis, peritonsillar abscesses, cavitary pulmonary lesions - started with sore throat - started on broad spectrum abx with vancomycin and Zosyn - abx changed to vancomycin, cefepime, flagyl - blood cultures growing Fusobacterium - pulm and ENT consulted - s/p peritonsillar abscess drainage by ENT 07/02/2022 - s/p 10mg Decadron IV per ENT - ended 07/05/2022 - hematology consult for further recs on AC management - patient tachycardic and febrile - CTA to evaluate PE was negative for PE but showed increase in cavitary lesions in lungs concerning for worsening embolic events - given history of anemia requiring 1 unit PRBC 07/06/2022 and possible need for AC given worsening embolic events, ICU transfer for closer monitoring Lemierre's Disease, 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 Pulmonary Septic Emboli with Cavities s/p Drainage of L Tonsil s/p Drainage of L Hand Abscess - repeat BC: negative - repeat CT chest: extension of pulmonary cavities - IV Ceftri + Flagyl TID x 6 weeks currently on IV Heparin - repeat L IJ US to ff up thrombus requested Pulm and Hem to reevaluate patient 07/09 Hematology, pulmonology service recommendations noted Brain MRI: No septic emboli DC heparin drip, transition to Heparin subcutaneous every 8 hours Continue IV ceftriaxone and Flagyl Monitor closely 07/10 Improving overall Afebrile, leukocytosis improving Clinically also feels better today Repeat blood cultures negative so far Continue IV ceftriaxone plus Flagyl Transition to [facility] with telemetry 07/11 Had a fever spike this morning Overall clinically improving Blood cultures negative so far Continue IV ceftriaxone plus Flagyl Monitor closely (2) Anemia: Plan: - anemia in young woman is not abnormal but given rest of presentation could be exacerbated - no evidence of bleeding at this time - slight down trend - hemodynamically stable - heme consult - likely due to bone marrow suppression in setting of sepsis as well as IVF - hgb to 6.7 07/06/2022 - s/p 1 unit PRBC transfusion - LDH wnl - no evidnece of bleed and I/D with minimal EBL - active type and screen - hgb responded appropriately and stable since transfusion - will continue to monitor 07/08 Iron Deficiency anemia Hg decreased to 6.5 again this AM received 3rd unit pRBC repeat Hg 8.4 patient reports heavy 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 Iron 17 will start Iron supplement 07/09 Iron infusion ordered Hemoglobin stable at 8.2 No signs of active bleeding Monitor closely 07/10 Hemoglobin stable at 8.2 No signs of active bleed 07/11 hemoglobin 7.8 Monitor No signs of active bleeding (3) Sepsis: Plan: - in the setting of GNR bacteremia and Lemierre Syndrome - tachycardic, leukocytosis, fever POA - IV abx as above - became more tachycardic overnight - concern for worsening embolic events in setting of Lemierre Syndrome - transferred to ICU for further monitoring - continue management as above 07/08 Tmax 37.8 overnight WBC increased to 16k HR improving on abx per above monitor closely 07/09 Afebrile Clinically improving Monitor closely 07/10 Afebrile, leukocytosis improving 07/11 Had a fever spike But clinically improving overall Monitor closely (4) Abscess of tonsil: Plan: - ENT consulted for drainage - IV abx as above - s/p decadron per ENT - s/p drainage 07/02/2022 (5) Abscess of left hand: Plan: - noted erythema and swelling, tenderness, decreased ROM - CT without contrast with possible abscesses vs early forming abscesses - MRI with contrast of left hand ordered per Ortho - ortho consulted for evaluation - s/p OR I/D by ortho 07/04/2022 - dressing changes and drain management per ortho (6) Septic pulmonary embolism: Plan: - possible septic emboli in setting of Lemierre Syndrome - blood cultures pending - GNRs - IV abx as above - TTE to evaluate for vegetations - no evidence of vegetation or abscess on TTE - repeat CTA chest 07/07/2022 with negative for PE but extension of cavity (7) Elevated LFTs: Plan: - unclear etiology and if this is part of Lemierre Syndrome - CT AP with contrast showed normal appearing liver, patent hepatic and portal veins - hepatitis panel negative - GI consulted - LFTs improving with treatment of sepsis (8) Thrombocytopenia: Plan: - in the setting of sepsis and acute illness as above - unclear etiology at this time - continue work up per GI as above - autoimmune, infectious work up pending - monitor for bleeding - no evidence of bleeding - platelets improving - monitor plt stable (9) Asthma: Plan: - currently not in exacerbation - not on home inhalers - will monitor for now Plan DVT ppx: heparin SC Code Status: Full Code Dispo: PT and OT pending Lives at home plan of care discussed with patient in detail and at length all questions answered she is understanding, agreeable, comfortable with the plan of care Admission and Anticipated Discharge Date Admission Date: July 02, 2022 Subjective Follow-up for Lemierre's disease, etc. Had a febrile episode earlier today Seen resting in bed, sitting up, not in distress, comfortable, in good spirits States that she had sore throat after eating bread Denies chest pain, shortness of breath, cough Left hand pain improving Feels that her strength is returning slowly, able to ambulate to the bathroom with no problems Still feels tired though Review of Systems Review of Systems: all noted and negative except for above Physical Exam Physical Exam: General- oriented x 3, not in distress, speaks in sentences with no effort or accessory muscle use Eyes- anicteric Neck- no JVD Oral cavity-no erythema, edema, bleeding Lungs- clear BS bilaterally, no rales/wheezes Heart- normal rate, regular rhythm; no murmurs Abdomen- normal bowel sounds, nondistended, soft, nontender Extremities- no pretibial edema, no calf tenderness Left hand-heavy dressing in place No edema, no bleeding noted Neuro- alert, oriented x 3; no gross focal neurologic deficits Skin- warm & dry Results & Data Results & Data ([facility]) Vital Signs (Past 12 Hours) Vital Signs Temp Pulse Pulse Pulse Resp BP Pulse Ox 07/11/22 11:14 37.6 C H 104 H 16 122/72 92 07/11/22 08:00 111 H 07/11/22 08:38 37.8 C H 118 H 17 114/75 92 07/11/22 06:59 99 H 18 96 07/11/22 06:00 39.0 C H 108 H 18 130/81 93 O2 Del Method 07/11/22 11:14 Room Air 07/11/22 08:00 07/11/22 08:38 Room Air 07/11/22 06:59 Room Air 07/11/22 06:00 Room Air all noted and reviewed including below
[2022-07-11] MEDS: traMADol HCL 50 MG TABLET PO PRN ×2 (15:00→20:58)
[2022-07-11] MEDS: cefTRIAXone SODIUM 2,000 MG in DEXTROSE 5% 50 ML IV SCH (16:45)
[2022-07-12] MEDS: HEPARIN SOD 5,000 UNIT/0.5 ML VIAL SQ SCH ×3 (05:50→21:53)
[2022-07-12] MEDS: ALBUTEROL HFA 8 GM INHALER INH PRN (06:27)
[2022-07-12 06:46] LABS: Basophils # (auto) 0.06 K/uL (0-0.2); Basophils % (auto) 0.3 %; Eosinophils # (auto) 0.08 K/uL (0-0.50); Eosinophils % (auto) 0.4 %; Hematocrit (blood only) 22.6 % (34.1-44.9); Hemoglobin 7.5 g/dl (12.0-16.0); Immature Granulocytes # (auto) 0.19 K/uL (0.00-0.02); Lymphocytes # (auto) 1.53 K/uL (1.2-3.4); Lymphocytes % (auto) 8.1 %; Mean Corpuscular Hemoglobin 29.9 pg (25.0-34.0); Mean Corpuscular Hgb Conc 33.2 g/dL (32.0-36.0); Mean Platelet Volume 9.9 fL (9.4-12.3); Monocytes # (auto) 1.08 K/uL (0.24-0.82); Monocytes % (auto) 5.7 %; Neutrophils # (auto) 15.96 K/uL (1.4-6.5); Neutrophils % (auto) 84.5 %; Platelet Count 430 K/uL (130-400); RDW Coefficient of Variation 14.6 % (11.5-14.5); RDW Standard Deviation 47.7 fL (36.4-46.3); Red Blood Count 2.51 M/uL (3.93-5.22)
[2022-07-12 07:08] LABS: Anion Gap 7 (3-11); BUN Creatinine Ratio 10.6 (10-20); Blood Urea Nitrogen 5 mg/dl (6-23); Calcium 7.9 mg/dl (8.5-10.1); Carbon Dioxide 24 mmol/L (21-32); Chloride 101 mmol/L (98-107); Creatinine Clr Calc Pharmacy 167.1 ml/min; Est GFR (African American) > 150.0 ml/min; Est GFR (Non-African American) 130.7 ml/min; Glucose 97 mg/dl (70-99(Fasting)); Potassium 3.5 mmol/L (3.5-5.1); Sodium 132 mmol/L (136-145)
[2022-07-12 07:16] LABS: Polychromasia 1+
[2022-07-12] MEDS: MoRPHine SULFATE 2 MG/ML CARP IV PRN ×3 (07:28→21:54)
[2022-07-12] MEDS: ACETAMINOPHEN 325 MG TAB PO PRN (07:28)
[2022-07-12] MEDS: PANTOprazole 40 MG TAB PO SCH (08:08)
[2022-07-12] MEDS: metroNIDAZOLE 500 MG/100 ML BAG IV SCH ×3 (08:08→23:24)
[2022-07-12] MEDS: FOLIC ACID 1 MG TAB PO SCH (08:08)
[2022-07-12] MEDS: BENZONATATE 100 MG CAPSULE PO SCH ×3 (08:08→19:59)
[2022-07-12] MEDS: MULTIVITAMIN TAB PO SCH (08:08)
--- NOTE | 2022-07-12 09:46 | CT Scan Report ---
CT chest diagnostic wo con CT DOSE: 199.84 mGy.cm HISTORY: Follow up pulmonary cavitary foci and L IJ thrombus TECHNIQUE: Multiaxial CT images of the chest were performed without contrast. A dose lowering techni que was utilized adhering to the principles of ALARA. COMPARISON: Chest CTA 07/07/2022. FINDINGS: The patient's left internal jugular vein thrombus seen on the prior study is not well evalu ated on this noncontrast study. Mildly enlarged mediastinal and hilar lymph nodes which are likely re active. This is not significantly changed. The heart is normal in size. Limited views of the upper ab domen demonstrate a normal liver and spleen. Small bilateral pleural effusions are again noted. These are similar to the prior study. Normal esophagus. No pericardial effusion. Normal caliber thoracic a amador. No suspicious lytic or blastic osseous lesions. No pneumothorax. The central airways are patent . Bilateral lower lobe consolidation persists and may represent atelectasis from the pleural effusion s. No significant change in the multiple scattered pulmonary cavitary foci. IMPRESSION: 1. No significant change in the multiple scattered cavitary foci within the lungs. This favors septic pulmonary emboli. 2. The patient's previously identified left internal jugular vein thrombus is not well visualized on this noncontrast study. 3. Small bilateral pleural effusions persist. 4. Mild mediastinal and bilateral hilar lymphadenopathy, unchanged ACT 112: Negative or not required by law. Electronically signed by: Doug Stewart M.D. 07/12/2022 9:44 AM
[2022-07-12] MEDS: traMADol HCL 50 MG TABLET PO PRN ×2 (09:49→23:23)
[2022-07-12 10:59] LABS: Appearance Urine Clear (Clear); Bacteria Urine Automated Negative (Negative); Bilirubin Urine Negative (Negative); Blood Urine Trace (Negative); Cast Urine Automated 0 /lpf (0-5); Color Urine Yellow; Epithelial Cell Urine Auto 20-30 /lpf (0-5); Glucose Urine UA Negative (Negative); Ketones Urine Negative (Negative); Leukocyte Esterase Urine Trace (Negative); Nitrite Urine Negative (Negative); Protein Urine Negative (Negative); RBC Urine Automated 0-4 /hpf (0-4); Specific Gravity Urine 1.005 (1.000-1.030); Urobilinogen Urine Negative (Negative)
[2022-07-12] MEDS: cefTRIAXone SODIUM 2,000 MG in DEXTROSE 5% 50 ML IV SCH (15:21)
--- NOTE | 2022-07-12 15:33 | Hospitalist Progress Note ---
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 with addendum: - evidence of Left IJ occlusive thrombophlebitis, peritonsillar abscesses, cavitary pulmonary lesions - started with sore throat - started on broad spectrum abx with vancomycin and Zosyn - abx changed to vancomycin, cefepime, flagyl - blood cultures growing Fusobacterium - pulm and ENT consulted - s/p peritonsillar abscess drainage by ENT 07/02/2022 - s/p 10mg Decadron IV per ENT - ended 07/05/2022 - hematology consult for further recs on AC management - patient tachycardic and febrile - CTA to evaluate PE was negative for PE but showed increase in cavitary lesions in lungs concerning for worsening embolic events - given history of anemia requiring 1 unit PRBC 07/06/2022 and possible need for AC given worsening embolic events, ICU transfer for closer monitoring Lemierre's Disease, 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 Pulmonary Septic Emboli with Cavities s/p Drainage of L Tonsil s/p Drainage of L Hand Abscess - repeat BC: negative - repeat CT chest: extension of pulmonary cavities - IV Ceftri + Flagyl TID x 6 weeks currently on IV Heparin - repeat L IJ US to ff up thrombus requested Pulm and Hem to reevaluate patient 07/09 Hematology, pulmonology service recommendations noted Brain MRI: No septic emboli DC heparin drip, transition to Heparin subcutaneous every 8 hours Continue IV ceftriaxone and Flagyl Monitor closely 07/10 Improving overall Afebrile, leukocytosis improving Clinically also feels better today Repeat blood cultures negative so far Continue IV ceftriaxone plus Flagyl [facility]11 Had a fever spike this morning Overall clinically improving Blood cultures negative so far Continue IV ceftriaxone plus Flagyl Monitor closely 07/12 Positive fever this morning [address] chest: No change with pulmonary cavities Blood culture: Pending Urinalysis: No signs of UTI Urine culture: Negative Overall patient seems to be clinically improving We will follow-up repeat cultures Continue with current antibiotic regimen Follow fever curve closely (2) Anemia: Plan: - anemia in young woman is not abnormal but given rest of presentation could be exacerbated - no evidence of bleeding at this time - slight down trend - hemodynamically stable - heme consult - likely due to bone marrow suppression in setting of sepsis as well as IVF - hgb to 6.7 07/06/2022 - s/p 1 unit PRBC transfusion - LDH wnl - no evidnece of bleed and I/D with minimal EBL - active type and screen - hgb responded appropriately and stable since transfusion - will continue to monitor 07/08 Iron Deficiency anemia Hg decreased to 6.5 again this AM received 3rd unit pRBC repeat Hg 8.4 patient reports heavy menses 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 Iron 17 will start Iron supplement 07/09 Iron infusion ordered Hemoglobin stable at 8.2 No signs of active bleeding Monitor closely 07/10 Hemoglobin stable at 8.2 No signs of active bleed 07/11 hemoglobin 7.8 Monitor No signs of active bleeding 07/12 Hemoglobin 7.5 No signs of active bleeding Monitor closely (3) Sepsis: Plan: - in the setting of GNR bacteremia and Lemierre Syndrome - tachycardic, leukocytosis, fever POA - IV abx as above - became more tachycardic overnight - concern for worsening embolic events in setting of Lemierre Syndrome - transferred to ICU for further monitoring - continue management as above 07/08 Tmax 37.8 overnight WBC increased to 16k HR improving on abx per above monitor closely 07/09 Afebrile Clinically improving Monitor closely 07/10 Afebrile, leukocytosis improving 07/11 Had a fever spike But clinically improving overall Monitor closely 07/12 Management per above (4) Abscess of tonsil: Plan: - ENT consulted for drainage - IV abx as above - s/p decadron per ENT - s/p drainage 07/02/2022 -Has mild sore throat Encouraged to eat soft diet, avoid hot liquids (5) Abscess of left hand: Plan: - noted erythema and swelling, tenderness, decreased ROM - CT without contrast with possible abscesses vs early forming abscesses - MRI with contrast of left hand ordered per Ortho - ortho consulted for evaluation - s/p OR I/D by ortho 07/04/2022 - dressing changes and drain management per ortho (6) Septic pulmonary embolism: Plan: - possible septic emboli in setting of Lemierre Syndrome - blood cultures pending - GNRs - IV abx as above - TTE to evaluate for vegetations - no evidence of vegetation or abscess on TTE - repeat CTA chest 07/07/2022 with negative for PE but extension of cavity Heparin drip discontinued Currently on heparin subcutaneous for DVT prophylaxis (7) Elevated LFTs: Plan: - unclear etiology and if this is part of Lemierre Syndrome - CT AP with contrast showed normal appearing liver, patent hepatic and portal veins - hepatitis panel negative - GI consulted - LFTs improving with treatment of sepsis (8) Thrombocytopenia: Plan: - in the setting of sepsis and acute illness as above - unclear etiology at this time - continue work up per GI as above - autoimmune, infectious work up pending - monitor for bleeding - no evidence of bleeding - platelets improving - monitor plt stable (9) Asthma: Plan: - currently not in exacerbation - not on home inhalers - will monitor for now Plan DVT ppx: heparin SC Code Status: Full Code Dispo: PT and OT pending Lives at home plan of care discussed with patient in detail and at length all questions answered she is understanding, agreeable, comfortable with the plan of care Admission and Anticipated Discharge Date Admission Date: July 02, 2022 Subjective Follow-up for Lemierre's disease, etc. 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 Seen resting in chair, comfortable, not in distress States that the room was very warm this morning resulting to Fever Admits that she is feeling improved daily No chest pain, shortness of breath, cough, headache Minimal pain in the left hand no other symptoms Review of Systems Review of Systems: all noted and negative except for above Physical Exam Physical Exam: General- oriented x 3, not in distress, speaks in sentences with no effort or accessory muscle use Eyes- anicteric Neck- no JVD Lungs- clear BS bilaterally, no rales/wheezes Heart- normal rate, regular rhythm; no murmurs Abdomen- normal bowel sounds, nondistended, soft, nontender Extremities- no pretibial edema, no calf tenderness Left hand-bandage in place, no bleeding or discharge Neuro- alert, oriented x 3; no gross focal neurologic deficits Skin- warm & dry Results & Data Results & Data ([facility]) Vital Signs (Past 12 Hours) Vital Signs Temp Pulse Pulse Resp BP Pulse Ox O2 Del Method 07/12/22 11:54 36.9 C 97 H 19 112/72 98 Room Air 07/12/22 07:45 Room Air 07/12/22 08:12 36.9 C 07/12/22 07:41 113 H 01/01/23 07:22 38 C H 114 H 20 130/71 94 Room Air 07/12/22 06:28 110 H 20 97 Room Air all noted and reviewed including below
[2022-07-12] MEDS: guaiFENesin/CODEINE 100MG/10MG 5ML UDC PO PRN ×2 (15:44→23:23)
[2022-07-12] MEDS ORDERED: CHLORASEPTIC 1.4% SOLN 180 ML BTL MT PRN (21:44)
[2022-07-13] MEDS: ALBUTEROL HFA 8 GM INHALER INH PRN (01:02)
[2022-07-13] MEDS: MoRPHine SULFATE 2 MG/ML CARP IV PRN ×3 (04:38→21:48)
[2022-07-13] MEDS: HEPARIN SOD 5,000 UNIT/0.5 ML VIAL SQ SCH ×3 (04:49→21:49)
[2022-07-13 07:46] LABS: Basophils # (auto) 0.07 K/uL (0-0.2); Basophils % (auto) 0.4 %; Eosinophils # (auto) 0.08 K/uL (0-0.50); Eosinophils % (auto) 0.5 %; Hematocrit (blood only) 21.6 % (34.1-44.9); Hemoglobin 7.2 g/dl (12.0-16.0); Immature Granulocytes # (auto) 0.16 K/uL (0.00-0.02); Immature Granulocytes % (auto) 0.9 %; Lymphocytes # (auto) 1.72 K/uL (1.2-3.4); Lymphocytes % (auto) 9.9 %; Mean Corpuscular Hemoglobin 29.6 pg (25.0-34.0); Mean Corpuscular Hgb Conc 33.3 g/dL (32.0-36.0); Mean Corpuscular Volume 88.9 fL (80.0-100.0); Mean Platelet Volume 9.8 fL (9.4-12.3); Monocytes # (auto) 1.06 K/uL (0.24-0.82); Monocytes % (auto) 6.1 %; Neutrophils # (auto) 14.21 K/uL (1.4-6.5); Neutrophils % (auto) 82.2 %; Platelet Count 437 K/uL (130-400); RDW Coefficient of Variation 14.7 % (11.5-14.5); Red Blood Count 2.43 M/uL (3.93-5.22)
[2022-07-13] MEDS: BENZONATATE 100 MG CAPSULE PO SCH ×3 (08:12→20:58)
[2022-07-13] MEDS: traMADol HCL 50 MG TABLET PO PRN ×2 (08:12→17:34)
[2022-07-13] MEDS: PANTOprazole 40 MG TAB PO SCH (08:13)
[2022-07-13] MEDS: MULTIVITAMIN TAB PO SCH (08:13)
[2022-07-13] MEDS: FOLIC ACID 1 MG TAB PO SCH (08:13)
[2022-07-13] MEDS: metroNIDAZOLE 500 MG/100 ML BAG IV SCH ×2 (08:13→16:28)
[2022-07-13 08:21] LABS: Polychromasia 1+
[2022-07-13 08:24] LABS: Anion Gap 6 (3-11); BUN Creatinine Ratio 9.5 (10-20); Blood Urea Nitrogen 4 mg/dl (6-23); Calcium 7.9 mg/dl (8.5-10.1); Carbon Dioxide 26 mmol/L (21-32); Chloride 101 mmol/L (98-107); Est GFR (African American) > 150.0 ml/min; Est GFR (Non-African American) 135.6 ml/min; Glucose 101 mg/dl (70-99(Fasting)); Potassium 3.5 mmol/L (3.5-5.1); Sodium 133 mmol/L (136-145)
[2022-07-13] MEDS ORDERED: SODIUM CHLORIDE 0.9% 250 ML IV PRN (09:06)
[2022-07-13] MEDS: guaiFENesin/CODEINE 100MG/10MG 5ML UDC PO PRN (15:10)
--- NOTE | 2022-07-13 15:48 | Hospitalist Progress Note ---
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 with addendum: - evidence of Left IJ occlusive thrombophlebitis, peritonsillar abscesses, cavitary pulmonary lesions - started with sore throat - started on broad spectrum abx with vancomycin and Zosyn - abx changed to vancomycin, cefepime, flagyl - blood cultures growing Fusobacterium - pulm and ENT consulted - s/p peritonsillar abscess drainage by ENT 07/02/2022 - s/p 10mg Decadron IV per ENT - ended 07/05/2022 - hematology consult for further recs on AC management - patient tachycardic and febrile - CTA to evaluate PE was negative for PE but showed increase in cavitary lesions in lungs concerning for worsening embolic events - given history of anemia requiring 1 unit PRBC 07/06/2022 and possible need for AC given worsening embolic events, ICU transfer for closer monitoring Lemierre's Disease, 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 Pulmonary Septic Emboli with Cavities s/p Drainage of L Tonsil s/p Drainage of L Hand Abscess - repeat BC: negative - repeat CT chest: extension of pulmonary cavities - IV Ceftri + Flagyl TID x 6 weeks currently on IV Heparin - repeat L IJ US to ff up thrombus requested Pulm and Hem to reevaluate patient 07/09 Hematology, pulmonology service recommendations noted Brain MRI: No septic emboli DC heparin drip, transition to Heparin subcutaneous every 8 hours Continue IV ceftriaxone and Flagyl Monitor closely 07/10 Improving overall Afebrile, leukocytosis improving Clinically also feels better today Repeat blood cultures negative so far Continue IV ceftriaxone plus Flagyl Transition to [facility] with telemetry 07/11 Had a fever spike this morning Overall clinically improving Blood cultures negative so far Continue IV ceftriaxone plus Flagyl Monitor closely 07/12 Positive fever this morning [address] chest: No change with pulmonary cavities Blood culture: Pending Urinalysis: No signs of UTI Urine culture: Negative 1/2 Had a febrile episode overnight 38.6 Clinically patient feels that she is improving overall Repeat blood cultures negative so far Urine culture negative so far Patient clinically improving daily although having some febrile episodes Continue IV ceftriaxone plus Flagyl Continue close monitoring for now (2) Anemia: Plan: - anemia in young woman is not abnormal but given rest of presentation could be exacerbated - no evidence of bleeding at this time - slight down trend - hemodynamically stable - heme consult - likely due to bone marrow suppression in setting of sepsis as well as IVF - hgb to 6.7 07/06/2022 - s/p 1 unit PRBC transfusion - LDH wnl - no evidnece of bleed and I/D with minimal EBL - active type and screen - hgb responded appropriately and stable since transfusion - will continue to monitor 07/08 Iron Deficiency anemia Hg decreased to 6.5 again this AM received 3rd unit pRBC repeat Hg 8.4 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 Iron 17 will start Iron supplement 07/09 Iron infusion ordered Hemoglobin stable at 8.2 No signs of active bleeding Monitor closely 07/10 Hemoglobin stable at 8.2 No signs of active bleed 07/11 hemoglobin 7.8 Monitor No signs of active bleeding / Hemoglobin 7.5 No signs of active bleeding Monitor closely 07/13 Hemoglobin 7.2 Additional 1 unit packed RBCs ordered We will also give second Venofer infusion today No signs of active bleeding Monitor closely (3) Sepsis: Plan: - in the setting of GNR bacteremia and Lemierre Syndrome - tachycardic, leukocytosis, fever POA - IV abx as above - became more tachycardic overnight - concern for worsening embolic events in setting of Lemierre Syndrome - transferred to ICU for further monitoring - continue management as above 07/08 Tmax 37.8 overnight WBC increased to 16k HR improving on abx per above monitor closely 07/09 Afebrile Clinically improving Monitor closely 07/10 Afebrile, leukocytosis improving 07/11 Had a fever spike But clinically improving overall Monitor closely 1/ Management per above 1/2 management per above (4) Abscess of tonsil: Plan: - ENT consulted for drainage - IV abx as above - s/p decadron per ENT - s/p drainage 07/02/2022 -Sore throat much better (5) Abscess of left hand: Plan: - noted erythema and swelling, tenderness, decreased ROM - CT without contrast with possible abscesses vs early forming abscesses - MRI with contrast of left hand ordered per Ortho - ortho consulted for evaluation - s/p OR I/D by ortho 07/04/2022 - dressing changes and drain management per ortho (6) Septic pulmonary embolism: Plan: - possible septic emboli in setting of Lemierre Syndrome - blood cultures pending - GNRs - IV abx as above - TTE to evaluate for vegetations - no evidence of vegetation or abscess on TTE - repeat CTA chest 07/07/2022 with negative for PE but extension of cavity Heparin drip discontinued Currently on heparin subcutaneous for DVT prophylaxis (7) Elevated LFTs: Plan: - unclear etiology and if this is part of Lemierre Syndrome - CT AP with contrast showed normal appearing liver, patent hepatic and portal veins - hepatitis panel negative - GI consulted - LFTs improving with treatment of sepsis (8) Thrombocytopenia: Plan: - in the setting of sepsis and acute illness as above - unclear etiology at this time - continue work up per GI as above - autoimmune, infectious work up pending - monitor for bleeding - no evidence of bleeding - platelets improving - monitor plt stable (9) Asthma: Plan: - currently not in exacerbation - not on home inhalers - will monitor for now Plan DVT ppx: heparin SC Code Status: Full Code Dispo: PT and OT pending Lives at home plan of care discussed with patient in detail and at length all questions answered she is understanding, agreeable, comfortable with the plan of care Admission and Anticipated Discharge Date Admission Date: July 02, 2022 Subjective Follow-up for Lemierre's disease, etc. T-max 38.6 at 10:30 PM last night Seen sitting up in bed, comfortable, not in distress States she continues to feel improved No headache, neck pain, chest pain, cough, shortness of breath Left hand pain improving Still on the weak side no Active bleeding No other symptoms Review of Systems Review of Systems: all noted and negative except for above Physical Exam Physical Exam: General- oriented x 3, not in distress, speaks in sentences with no effort or accessory muscle use Eyes- anicteric Neck- no JVD Lungs- clear BS bilaterally, no wheezing, no crackles Heart- normal rate, regular rhythm; no murmurs Abdomen- normal bowel sounds, nondistended, soft, tenderness Extremities- no pretibial edema, no calf tenderness Left hand-dressing in place, no bleeding or discharge No finger edema, can move fingers fully Neuro- alert, oriented x 3; no gross focal neurologic deficits Skin- warm & dry Results & Data Results & Data ([facility]) Vital Signs (Past 12 Hours) Vital Signs Temp Pulse Pulse Resp BP BP BP 07/13/22 15:27 37.4 C 104 H 18 123/77 07/13/22 14:52 97 H 07/13/22 11:56 36.8 C 118 H 18 132/75 07/13/22 09:06 106 H 07/13/22 11:26 36.9 C 105 H 18 118/67 07/13/22 11:11 36.8 C 106 H 18 124/80 07/13/22 10:51 36.9 C 105 H 18 119/74 07/13/22 07:10 37.0 C 97 H 18 131/72 07/13/22 04:45 36.8 C 107 H 16 125/75 Pulse Ox O2 Del Method 07/13/22 15:27 91 Room Air 07/13/22 14:52 07/13/22 11:56 07/13/22 09:06 07/13/22 11:26 95 07/13/22 11:11 95 07/13/22 10:51 93 07/13/22 07:10 96 Room Air 07/13/22 04:45 98 Room Air all noted and reviewed including below
[2022-07-13] MEDS: cefTRIAXone SODIUM 2,000 MG in DEXTROSE 5% 50 ML IV SCH (15:52)
[2022-07-13 16:47] LABS: % Cryocrit DNR; ANCA Screen Negative (Negative); Anti Nuclear Antibody Screen NEGATIVE (NEGATIVE); Complement C3 81 mg/dL (83-193); Complement Total(CH50) <10 U/mL (31-60)
[2022-07-14] MEDS: metroNIDAZOLE 500 MG/100 ML BAG IV SCH ×3 (01:13→16:26)
[2022-07-14] MEDS: ACETAMINOPHEN 325 MG TAB PO PRN (04:43)
[2022-07-14] MEDS: HEPARIN SOD 5,000 UNIT/0.5 ML VIAL SQ SCH ×3 (04:44→21:22)
[2022-07-14] MEDS: ALBUTEROL HFA 8 GM INHALER INH PRN (05:07)
[2022-07-14] MEDS: BENZONATATE 100 MG CAPSULE PO SCH ×3 (08:26→21:23)
[2022-07-14] MEDS: MULTIVITAMIN TAB PO SCH (08:27)
[2022-07-14] MEDS: FOLIC ACID 1 MG TAB PO SCH (08:27)
[2022-07-14] MEDS: PANTOprazole 40 MG TAB PO SCH (08:27)
[2022-07-14 08:56] LABS: Anion Gap 7 (3-11); BUN Creatinine Ratio 10.8 (10-20); Blood Urea Nitrogen 4 mg/dl (6-23); Calcium 8.2 mg/dl (8.5-10.1); Carbon Dioxide 28 mmol/L (21-32); Chloride 102 mmol/L (98-107); Creatinine Clr Calc Pharmacy 212.3 ml/min; Est GFR (African American) > 150.0 ml/min; Est GFR (Non-African American) 141.4 ml/min; Glucose 97 mg/dl (70-99(Fasting)); Potassium 3.2 mmol/L (3.5-5.1); Sodium 137 mmol/L (136-145)
[2022-07-14] MEDS: MoRPHine SULFATE 2 MG/ML CARP IV PRN ×3 (09:38→22:06)
[2022-07-14] MEDS: traMADol HCL 50 MG TABLET PO PRN (11:59)
[2022-07-14] MEDS: guaiFENesin/CODEINE 100MG/10MG 5ML UDC PO PRN (13:55)
[2022-07-14] MEDS: cefTRIAXone SODIUM 2,000 MG in DEXTROSE 5% 50 ML IV SCH (15:49)
--- NOTE | 2022-07-14 16:44 | Hospitalist Progress Note ---
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 Pulmonary Septic Emboli with Cavities s/p Drainage of L Tonsil 07/02/2022 s/p Drainage of L Hand Abscess 07/04/22 - repeat BC: negative transferred to ICU for tachycardia found to be anemic, transfused several units of PRBC Iron level low- given Venofer no signs of DIC per [facility], anemia may also likely be secondary to bone marrow suppression from underlying infection Brain MRI: No septic emboli DC heparin drip, transition to Heparin subcutaneous every 8 hours - IV Ceftri + Flagyl PO TID x 6 weeks per ID transferred to Med/surg tele having episodes of fever but Clinically patient feels that she is improving overall Repeat blood cultures negative Urine culture negative Repeat CT chest: No change with pulmonary cavities per ID, continue -V Ceftri + Flagyl PO TID x 6 weeks will need PICC line transition to [facility] when stronger, medically stable (2) Anemia: Plan: Iron Deficiency likely due to bone marrow suppression in setting of sepsis as well as IVF - patient reports heavy menses as well - required several pRBC transfusion and 1 dose of Venofer - transfuse for Hg <7 per [facility] - 2nd dose of Venofer today per [facility]- Dr. Cano (3) Sepsis: Plan: management per #1 (4) Abscess of tonsil: Plan: - ENT consulted for drainage - s/p drainage 07/02/2022 -Sore throat improving (5) Abscess of left hand: Plan: - noted erythema and swelling, tenderness, decreased ROM - CT without contrast with possible abscesses vs early forming abscesses - s/p OR I/D by ortho 07/04/2022 - dressing changes and drain management per ortho (6) Septic pulmonary embolism: Plan: - likely septic emboli in setting of Lemierre Syndrome - TTE to evaluate for vegetations - no evidence of vegetation or abscess on TTE - repeat CTA chest 07/07/2022 with negative for PE Heparin drip discontinued Currently on heparin subcutaneous for DVT prophylaxis per [facility] recommendation no benefit from [employer] anticoagulation for Lemierre's disease (7) Elevated LFTs: Plan: - unclear etiology and if this is part of Lemierre Syndrome - CT AP with contrast showed normal appearing liver, patent hepatic and portal veins - hepatitis panel negative - GI consulted - LFTs improving with treatment of sepsis (8) Thrombocytopenia: Plan: - in the setting of sepsis and acute illness as above - resolved - no evidence of bleeding plt stable (9) Asthma: Plan: - currently not in exacerbation - uses PRN inhaler at home as per patient Plan DVT ppx: heparin SC Code Status: Full Code Dispo: PT and OT pending Lives at home likely dc to Acute Rehab when stable plan of care discussed with patient in detail and at length all questions answered she is understanding, agreeable, comfortable with the plan of care Admission and Anticipated Discharge Date Admission Date: July 02, 2022 Subjective ff up for Lamierre's disease, etc seen resting in bed, comfortable states she feels ok overall still has some sore throat but improving no headache, neck pain, chest pain, dyspnea participated with PT- states it feels good to be moving more again no other symptoms Review of Systems Review of Systems: all noted and negative except for above Physical Exam Physical Exam: General- oriented x 3, not in distress, speaks in sentences with no effort or accessory muscle use Eyes- anicteric Neck- no JVD Lungs- clear BS bilaterally, no rales/wheezes Heart- normal rate, regular rhythm; no murmurs Abdomen- normal bowel sounds, nondistended, soft, no tenderness Extremities- no pretibial edema, no calf tenderness Neuro- alert, oriented x 3; no gross focal neurologic deficits Skin- warm & dry Results & Data Results & Data ([facility]) Vital Signs (Past 12 Hours) Vital Signs Temp Pulse Pulse Resp BP Pulse Ox O2 Del Method 07/14/22 15:46 36.9 C 96 H 18 129/80 97 Room Air 07/14/22 15:15 101 H 07/14/22 11:37 37.0 C 108 H 18 115/70 100 Room Air 07/14/22 07:43 36.6 C 87 20 126/78 96 Room Air 07/14/22 07:40 101 H 07/14/22 05:08 102 H 18 95 Room Air all noted and reviewed including below
--- NOTE | 2022-07-14 17:38 | Progress Notes ---
SUBJECTIVE: A 31-year-old female, now 9 days out from irrigation and debridement of a left hand infe ction. Her hand seems to be doing pretty well. She continues to have multiple other medical issues. She can move her fingers reasonably well. She did say she banged them the other day and it is a bi t more sore. There has been no drainage. OBJECTIVE: VITAL SIGNS: Temperature 36.9. Vital signs are stable. EXTREMITIES: Examination of the left hand reveals the wound to be pretty healed over. Some mild swe lling in the palm . The finger swelling is pretty much gone. She can flex and extend her finge r slightly. There is no real major tenderness over the flexor sheath anymore. Still has a little so reness back in the palm. No redness. She is neurologically intact. LABORATORY DATA: Culture culture results are growing Fusobacterium similar to other culture results. ASSESSMENT: A 31-year-old female 9 days out from a hand infection, likely from some type of septic e mboli. She seems to be doing reasonably well from the orthopedic standpoint. There are no signs of further abscess or infection at this time. PLAN: At this point, we would recommend continued antibiotics per her systemic condition. We will r emove the stitches probably at the end of this week. Continue to soak the hand twice a day for now. Any orthopedic questions can be directed to me at [phone]. Job ID: [id number]
[2022-07-15] MEDS: metroNIDAZOLE 500 MG/100 ML BAG IV SCH ×3 (01:17→16:51)
[2022-07-15] MEDS: HEPARIN SOD 5,000 UNIT/0.5 ML VIAL SQ SCH ×3 (05:43→21:55)
[2022-07-15] MEDS: ALBUTEROL HFA 8 GM INHALER INH PRN ×2 (06:22→20:40)
[2022-07-15] MEDS: PANTOprazole 40 MG TAB PO SCH (09:05)
[2022-07-15] MEDS: MULTIVITAMIN TAB PO SCH (09:05)
[2022-07-15] MEDS: FOLIC ACID 1 MG TAB PO SCH (09:05)
[2022-07-15] MEDS: BENZONATATE 100 MG CAPSULE PO SCH ×3 (09:05→20:10)
[2022-07-15] MEDS: MoRPHine SULFATE 2 MG/ML CARP IV PRN ×3 (09:57→23:28)
[2022-07-15] MEDS: traMADol HCL 50 MG TABLET PO PRN (13:19)
[2022-07-15] MEDS: guaiFENesin/CODEINE 100MG/10MG 5ML UDC PO PRN (14:34)
--- NOTE | 2022-07-15 15:50 | Hospitalist Progress Note ---
Date of Service July 15, 2022 Assessment & Plan (1) Lemierre syndrome: (2) Anemia: (3) Sepsis: (4) Abscess of tonsil: (5) Abscess of left hand: (6) Septic pulmonary embolism: (7) Elevated LFTs: Plan: -In setting of sepsis (8) Thrombocytopenia: Plan: - in the setting of sepsis and acute illness as above - resolved - no evidence of bleeding plt stable (9) Asthma: Plan: - currently not in exacerbation - uses PRN inhaler at home as per patient Plan Lemierre Syndrome - evidence of Left IJ occlusive thrombophlebitis, peritonsillar abscesses, cavitary pulmonary lesions - blood cultures growing Fusobacterium - s/p peritonsillar abscess drainage by ENT 07/02/2022 -s/p Drainage of L Hand Abscess 07/04/22 - hematology consult for further recs on AC management-- no clear indication for full AC - patient tachycardic and febrile - CTA to evaluate PE was negative for PE but showed increase in cavitary lesions in lungs concerning for worsening embolic events -Brain MRI-- no septic emboli - IV Ceftri + Flagyl PO TID x 6 weeks per ID -Will need PICC line prior to discharge Iron deficiency Anemia -has received several units pRBC while here. Last was 07/13. Will repeat CBC no -No evidence of bleed currently -per Hematology-- anemia may also likely be secondary to bone marrow suppression from underlying infection Disposition -Plan for SNF at discharge for weakness and debility. Then patient would like to return home and finish her remaining IV antibiotic course at home DVT PPX -SQ heparin Admission and Anticipated Discharge Date Admission Date: July 02, 2022 Subjective Afebrile x 24 hours. Feels weak. Has left hip pain which she has chronically and is exacerbated by being in bed Considering a short stay at rehab until she is stronger Physical Exam Physical Exam: Appears weak, pleasant and cooperative Respiratory: Breathing comfortably on room air, no wheezing/rhonchi/rales Cardiovascular: Regular rate and rhythm, no murmurs/rubs/gallops Gastrointestinal (Abdomen): Soft, non tender, non distended Musculoskeletal: No edema Skin: Left hand bandaged--dressing is clean/dry/intact Results & Data Results & Data ([facility]) Vital Signs (Past 12 Hours) Vital Signs Temp Pulse Pulse Resp BP BP Pulse Ox 07/15/22 15:28 92 H 07/15/22 12:05 36.6 C 100 H 18 121/80 97 07/15/22 07:44 37.0 C 99 H 18 128/71 99 07/15/22 07:20 111 H 07/15/22 06:22 100 H 98 O2 Del Method 07/15/22 15:28 07/15/22 12:05 Room Air 07/15/22 07:44 Room Air 07/15/22 07:20 07/15/22 06:22 Room Air
[2022-07-15 15:57] LABS: Basophils # (auto) 0.06 K/uL (0-0.2); Basophils % (auto) 0.5 %; Eosinophils # (auto) 0.07 K/uL (0-0.50); Eosinophils % (auto) 0.6 %; Hematocrit (blood only) 26.2 % (34.1-44.9); Hemoglobin 8.7 g/dl (12.0-16.0); Immature Granulocytes # (auto) 0.06 K/uL (0.00-0.02); Immature Granulocytes % (auto) 0.5 %; Lymphocytes % (auto) 11.5 %; Mean Corpuscular Hemoglobin 30.5 pg (25.0-34.0); Mean Corpuscular Hgb Conc 33.2 g/dL (32.0-36.0); Mean Corpuscular Volume 91.9 fL (80.0-100.0); Mean Platelet Volume 9.1 fL (9.4-12.3); Monocytes # (auto) 0.63 K/uL (0.24-0.82); Monocytes % (auto) 5.6 %; Neutrophils # (auto) 9.14 K/uL (1.4-6.5); Neutrophils % (auto) 81.3 %; Platelet Count 420 K/uL (130-400); RDW Coefficient of Variation 14.3 % (11.5-14.5); RDW Standard Deviation 48.1 fL (36.4-46.3); Red Blood Count 2.85 M/uL (3.93-5.22); White Blood Count 11.26 K/ul (4.8-10.8)
[2022-07-15] MEDS: cefTRIAXone SODIUM 2,000 MG in DEXTROSE 5% 50 ML IV SCH (16:17)
[2022-07-15 16:23] LABS: Anion Gap 7 (3-11); BUN Creatinine Ratio 8.8 (10-20); Blood Urea Nitrogen 3 mg/dl (6-23); Calcium 8.5 mg/dl (8.5-10.1); Carbon Dioxide 26 mmol/L (21-32); Chloride 101 mmol/L (98-107); Est GFR (African American) > 150.0 ml/min; Est GFR (Non-African American) 145.4 ml/min; Glucose 105 mg/dl (70-99(Fasting)); Magnesium 1.6 mg/dl (1.7-2.4); Potassium 3.4 mmol/L (3.5-5.1); Sodium 134 mmol/L (136-145)
[2022-07-16] MEDS: metroNIDAZOLE 500 MG/100 ML BAG IV SCH ×3 (00:26→16:41)
[2022-07-16] MEDS: guaiFENesin/CODEINE 100MG/10MG 5ML UDC PO PRN ×2 (00:43→07:53)
[2022-07-16] MEDS: traMADol HCL 50 MG TABLET PO PRN ×2 (02:03→07:52)
[2022-07-16] MEDS: HEPARIN SOD 5,000 UNIT/0.5 ML VIAL SQ SCH ×3 (06:15→21:37)
[2022-07-16 06:39] LABS: Basophils # (auto) 0.07 K/uL (0-0.2); Basophils % (auto) 0.6 %; Eosinophils # (auto) 0.09 K/uL (0-0.50); Eosinophils % (auto) 0.8 %; Hematocrit (blood only) 28.3 % (34.1-44.9); Hemoglobin 9.3 g/dl (12.0-16.0); Immature Granulocytes # (auto) 0.09 K/uL (0.00-0.02); Immature Granulocytes % (auto) 0.8 %; Lymphocytes # (auto) 1.63 K/uL (1.2-3.4); Mean Corpuscular Hemoglobin 30.1 pg (25.0-34.0); Mean Corpuscular Hgb Conc 32.9 g/dL (32.0-36.0); Mean Corpuscular Volume 91.6 fL (80.0-100.0); Mean Platelet Volume 9.1 fL (9.4-12.3); Monocytes # (auto) 0.68 K/uL (0.24-0.82); Monocytes % (auto) 5.8 %; Neutrophils # (auto) 9.07 K/uL (1.4-6.5); Platelet Count 471 K/uL (130-400); RDW Coefficient of Variation 14.4 % (11.5-14.5); RDW Standard Deviation 47.7 fL (36.4-46.3); Red Blood Count 3.09 M/uL (3.93-5.22); White Blood Count 11.63 K/ul (4.8-10.8)
[2022-07-16 07:05] LABS: Anion Gap 6 (3-11); BUN Creatinine Ratio 4.8 (10-20); Blood Urea Nitrogen 2 mg/dl (6-23); Calcium 8.3 mg/dl (8.5-10.1); Carbon Dioxide 28 mmol/L (21-32); Chloride 102 mmol/L (98-107); Est GFR (African American) > 150.0 ml/min; Est GFR (Non-African American) 135.6 ml/min; Glucose 102 mg/dl (70-99(Fasting)); Potassium 3.6 mmol/L (3.5-5.1); Sodium 136 mmol/L (136-145)
[2022-07-16] MEDS: FOLIC ACID 1 MG TAB PO SCH (07:47)
[2022-07-16] MEDS: PANTOprazole 40 MG TAB PO SCH (07:47)
[2022-07-16] MEDS: MULTIVITAMIN TAB PO SCH (07:47)
[2022-07-16] MEDS: BENZONATATE 100 MG CAPSULE PO SCH ×3 (07:52→22:02)
[2022-07-16] MEDS: ALBUTEROL HFA 8 GM INHALER INH PRN ×2 (10:38→22:52)
[2022-07-16] MEDS: MoRPHine SULFATE 2 MG/ML CARP IV PRN ×2 (12:51→22:02)
[2022-07-16] MEDS: cefTRIAXone SODIUM 2,000 MG in DEXTROSE 5% 50 ML IV SCH (15:33)
--- NOTE | 2022-07-16 16:16 | Hospitalist Progress Note ---
Date of Service July 16, 2022 Assessment & Plan (1) Lemierre syndrome: (2) Anemia: (3) Sepsis: (4) Abscess of tonsil: (5) Abscess of left hand: (6) Septic pulmonary embolism: (7) Elevated LFTs: Plan: -In setting of sepsis (8) Thrombocytopenia: Plan: - in the setting of sepsis and acute illness as above - resolved - no evidence of bleeding plt stable (9) Asthma: Plan: - currently not in exacerbation - uses PRN inhaler at home as per patient Plan Lemierre Syndrome - evidence of Left IJ occlusive thrombophlebitis, peritonsillar abscesses, cavitary pulmonary lesions - blood cultures growing Fusobacterium - s/p peritonsillar abscess drainage by ENT 07/02/2022 -s/p Drainage of L Hand Abscess 07/04/22 - hematology consult for further recs on AC management-- no clear indication for full AC - patient tachycardic and febrile - CTA to evaluate PE was negative for PE but showed increase in cavitary lesions in lungs concerning for worsening embolic events -Brain MRI-- no septic emboli - IV Ceftri + Flagyl PO TID x 6 weeks per ID -Will need PICC line prior to discharge Iron deficiency Anemia -has received several units pRBC while here. Last was 07/13. Will repeat CBC no -No evidence of bleed currently -per Hematology-- anemia may also likely be secondary to bone marrow suppression from underlying infection Disposition -Plan for SNF at discharge for weakness and debility then return home to finish remaining IV antibiotic course at home. Pending placement currently DVT PPX -SQ heparin Admission and Anticipated Discharge Date Admission Date: July 02, 2022 Subjective Remains afebrile. She is trying to increase her endurance. Walking to rest room now. Still very weak With movement, her left hip pain is improved Physical Exam Physical Exam: No acute distress. Non toxic Respiratory: Breathing comfortably on room air, no wheezing/rhonchi/rales Cardiovascular: tachycardic, no murmurs/rubs Gastrointestinal (Abdomen): Soft, non tender Musculoskeletal: No edema Results & Data Results & Data ([facility]) Vital Signs (Past 12 Hours) Vital Signs Temp Pulse Pulse Resp BP Pulse Ox O2 Del Method 07/16/22 15:10 109 H 07/16/22 11:30 Room Air 07/16/22 12:15 37.6 C H 109 H 20 124/73 100 Room Air 07/16/22 10:34 103 H 18 97 Room Air 07/16/22 08:06 37.2 C 95 H 16 127/77 94 Room Air 07/16/22 07:00 112 H
[2022-07-17] MEDS: metroNIDAZOLE 500 MG/100 ML BAG IV SCH ×3 (00:25→17:00)
[2022-07-17] MEDS: HEPARIN SOD 5,000 UNIT/0.5 ML VIAL SQ SCH ×2 (06:25→13:14)
[2022-07-17] MEDS: guaiFENesin/CODEINE 100MG/10MG 5ML UDC PO PRN ×2 (06:27→16:29)
[2022-07-17] MEDS: FOLIC ACID 1 MG TAB PO SCH (07:15)
[2022-07-17] MEDS: BENZONATATE 100 MG CAPSULE PO SCH ×2 (07:15→13:14)
[2022-07-17] MEDS: MULTIVITAMIN TAB PO SCH (07:15)
[2022-07-17] MEDS: PANTOprazole 40 MG TAB PO SCH (07:15)
[2022-07-17] MEDS: traMADol HCL 50 MG TABLET PO PRN ×2 (10:07→16:29)
[2022-07-17] MEDS: ACETAMINOPHEN 325 MG TAB PO PRN (13:22)
--- NOTE | 2022-07-17 15:10 | Progress Notes ---
DATE OF SERVICE: 07/17/2022. SUBJECTIVE: A 31-year-old female now about 13 days out from irrigation and debridement of the left h and infection. She continued to make progress. Really not much pain. This stiffness seemed to be i mproving. Swelling is improving. OBJECTIVE: VITAL SIGNS: Temperature 36.8. Vital signs are stable. GENERAL: Shows a pleasant, middle-aged female. EXTREMITIES: Examination of the left hand reveals the palmar wound to be well approximated. Fairly mild swelling. She does still have some [id number] swelling of her digit. She cannot quite fu lly extend it. She can make about 50% fist. Not particularly painful. ASSESSMENT: A 31-year-old female now just about 2 weeks out from irrigation and debridement of left hand infection, likely originating from multiple septic emboli. She seems to be doing well. There a re no obvious signs of recurrence of pus or purulence clinically. Pain is improving. PLAN: At this point, we would recommend just continue working on finger range of motion and stretchi ng and on full flexion. We are going to take her stitches out today. She probably should have an or thopedic followup in about 2 weeks. She would likely benefit from some hand therapy if possible on t he outside just for a digital range of motion. Any orthopedic questions can be directed to me at . Job ID: [id number]
[2022-07-17] MEDS: cefTRIAXone SODIUM 2,000 MG in DEXTROSE 5% 50 ML IV SCH (16:27)
[2022-07-17] MEDS ORDERED: metroNIDAZOLE 500 MG TAB PO ONE (16:59)
--- NOTE | 2022-08-01 00:07 | Discharge Summary ---
Date of Service July 17, 2022 Admission HPI Per Admitting Provider A 31-year-old female with past medical history significant for asthma, currently not taking any medications, presents with sore throat, nausea, diarrhea. The patient was in the ER on 06/24/2022 with nausea, vomiting, d iarrhea and sore throat. At that time, her white count was 2.3, platelets were 115. CT of abdomen and pelvis was unremarkable. Her COVID and flu and RSV were negative. Strep were negative. LFTs, bilirubin were unremarkable. Lipase and were negative. UA was clean. She improved after Zofran, morphine, and fluids and she was discharged to follow as outpatient. The patient says nausea is better now. Her appetite is better than last week. But she was having a lot of sore throat and painful to swallowing. She lives with her brother and [id number] and brother noticed that she has yellowing of skin and brought her into the hospital. She did not feel she has any fever at home, but she was spiking temperature 39.1 and 40 degrees in the ER and tachycardic. Blood pressure is holding. Her white count is 14, hemoglobin was 14 last week, it is 10.1 today, platelets are down to 54. INR is 1.4. Sodium 126, potassium 2.9. Creatinine was 1.5 last week and is 1.9 today. Calcium is 6.8. Total bilirubin was normal last week, it is 13.6 today. AST 108, ALT 61, alkaline phosphatase 122. Urinalysis positive for nitrite. Respiratory BioFire is negative. The patient also noticed erythema and swelling in the right hand on the dorsal aspect below the second and third fingers. Denies any tick bites. Denies any IV drug abuse or sticking of needles. Feeling weak and tired. Denies any chest pain. She has some shortness of breath. Denies any abdominal pain. No blood in the stools. Urine is dark. Denies any headache. No blurred visions, no runny nose. Principal Diagnosis (1) Lemierre syndrome (2) Anemia (3) Sepsis (4) Abscess of tonsil (5) Abscess of left hand (6) Septic pulmonary embolism (7) Thrombocytopenia Discharge Exam Patient was seen and examined on day of discharge. Feels well. Improved strength and able to ambulate within her room with no difficulty On exam, breathing comfortably on room air, appears in no distress, left hand is bandaged--dressing is clean/dry/intact. Discharge Data Allergies Allergy/AdvReac Type Severity Reaction Status Date / Time lactose AdvReac Verified 07/31/22 13:03 Consultations 07/02/22 07:00 Consult Otolaryngology (Head and Neck) Routine 07/02/22 07:43 Consult Hematology Routine 07/02/22 07:45 Consult Packaging Line Attendant Routine 07/02/22 08:00 Consult Gastroenterology Routine Consult Nephrology Routine Consult Pulmonology Routine 07/02/22 11:34 Consult Infectious Diseases Routine 07/03/22 13:23 Consult Orthopedic Surgery Routine 07/08/22 11:52 Consult Pulmonology Routine Procedures Performed Operation Date: 07/04/22 08:30 Actual Procedures p Incision and Debridement Left Hand(Left) - Martell Sorenson MD Ordered Studies 07/01/22 20:38 CT head/brain wo con Urgent 07/01/22 21:36 CT Abd and Pelvis [CT abd pelvis IV con only] Urgent 07/01/22 22:14 CT soft tissue neck w con Urgent 07/01/22 22:33 CT chest diagnostic w con Urgent 07/02/22 13:34 US venous duplex arm [US venous doppler UE LT] Routine 07/03/22 08:19 CT hand LT wo con Urgent 07/04/22 12:49 CT head/brain wo con Routine 07/07/22 09:03 CT angio chest PE protocol Urgent US venous duplex leg [US venous doppler LE RT] Stat 07/08/22 11:55 US venous doppler UE LT Urgent 07/09/22 08:09 MRI Brain [MR brain wo/w con] Routine 07/12/22 08:18 CT chest diagnostic wo con Routine Hospital Course (1) Lemierre syndrome: (2) Anemia: (3) Sepsis: (4) Abscess of tonsil: (5) Abscess of left hand: (6) Septic pulmonary embolism: (7) Elevated LFTs: (8) Thrombocytopenia: (9) Asthma: Plan A 31-year-old female with past medical history significant for asthma not on medications presents to the ER on 06/24/2022 with sore throat, nausea, and diarrhea found to have tonsillar abscess with left IJ thrombophlebitis, septic pulmonary emboli and sepsis. Hospital course as below. Lemierre Syndrome - evidence of Left IJ occlusive thrombophlebitis, peritonsillar abscesses, cavitary pulmonary lesions - blood cultures grew Fusobacterium - status post peritonsillar abscess drainage by ENT 07/02/2022 -status post drainage of left Hand Abscess 07/04/22 - hematology consulted for recommendations regarding anticoagulation and felt there was no clear indication for anticoagulation. - received parenteral antibiotics here. Discharged on IV Ceftriaxone and oral Flagyl for total 6 weeks course via PICC line. (last day of antibiotic 08/15/2022) -PICC line to be discontinued after completion of course. -Weekly CBC and BMP while on antibiotics Iron deficiency Anemia Thrombocytopenia -No evidence of active bleed. Current anemia likely secondary to bone marrow suppression from underlying infection Sepsis -Present on admission with leukopenia, fever, tachycardia -Treated and resolved Initial discharge plan was for patient to go to SNF for physical debility due to prolonged hospitalization then to return home to complete 6 week IV antibiotic course. However, there was difficulty finding her SNF placement so instead she was encouraged to participate with PT while in the hospital and improved her strength and mobility while hospitalized. She was subsequently discharged home with an appointment for daily antibiotic infusion at [facility]. Total Time Total Time Spent Total Time Spent (In Minutes): 45 Discharge Plan Discharge Items Patient Disposition: Home - Self-Care Reason For Visit: ILLNESS Discharge Diagnosis: (1) Lemierre syndrome (2) Anemia (3) Sepsis (4) Abscess of tonsil (5) Abscess of left hand (6) Septic pulmonary embolism (7) Thrombocytopenia Activity: Resume your previous activity Non-emergency contact: Primary Care Provider and Surgeon Call non-emergency contact if: you have any medication questions and your symptoms worsen Follow-up/Referrals: Martell Sorenson MD [Physician] - Zee Celaya DO [Outside Practitioners] - (Date & Time 07/23/2022 2:00 PM Provider Zee Celaya DO Department [facility] ) Diet: Regular Addtl Attending Provider Instructions: You will be on IV ceftriaxone 2gm daily and Flagyl 500mg three times a day until 08/15/2022 Please follow up with your PCP, you should have referral for outpatient physical therapy for deconditioning and your left hand Weekly CBC and BMP while on antibiotics to be sent to PCP PICC line should be removed after last dose of IV antibiotic Pending Studies at Discharge: No Stand-Alone Forms: My [facility], Smoking Cessation Medications and DC Order Prescriptions: New tramadol 50 mg Tablet 50 mg PO Q6H PRN (Reason: pain) Qty: 5 0RF metronidazole 500 mg tablet 500 mg PO Q8H Qty: 87 0RF Rx Instructions: Last day 08/15/2022 ceftriaxone 2 gram recon soln 2 g IV DAILY Qty: 1 0RF Rx Instructions: Last day 08/15/2022 Saccharomyces boulardii [Florastor] 250 mg capsule 250 mg PO DAILY Qty: 60 0RF Discharge Orders: Discharge Order (Routine); Ordered 07/17/22 Ordered By: Shivam Kimble Admission Data Admit Date/Time: 07/02/22 00:12 Attending Provider: Shivam Kimble Admit Provider: Luis Armando Holly Primary Care Provider: PCP,NO Other Providers: Santiago Santoyo ; Avi Espinoza ; Tomasz Goddard ; [facility] ; Alin Do ; Marek Cano ; Citlaly Quiñones ; Bobo Nielsen ; Lynnette Samuel ; Radha Mcfadden ; Rita Almonte ; Barbara Sawyer ; Jesus,Fco ; Fazal Anton ; Christy Arambula ; Reece Gonzalez ; Yaneli Hayward ; Brenna Knight ; Becky Stallworth ; Mandy Hess ; César Barakat ; Harshil Sanz ; Ifeanyi Pelayo ; [place] ; Elmira Sullivan Jr ; Berta Lacey ; Omar Deal ; Phyllis Nicolas ; Nikhil Sorenson I. ; Ashok Du II ; Debi Saez ; Peter Nuñez ; David Rooney ; Rosa San ; Martell Sorenson ; Chavo Truong ; Humberto Gillespie Other Interventions: Discharge Summary Assessment (RN) Last Done: 07/17/22 16:50
== END 2022-07-17 21:01 | disposition home or self-care (01) | DRG 853 ==
LOC: ED 19:44 → 4W 07-02 00:12 → SUATTDRO 07-02 00:12 → 4W 07-02 03:03 → 1E 07-02 11:48 → 4W 07-03 21:16 → 1E 07-07 10:40 → 2W 07-11 06:12